=== PATIENT | female | born 1945 | race Caucasian/White ===

== ENCOUNTER 2024-03-28 17:40 | Inpatient (IN) | payer MEDICARE, SELFPAY ==
--- NOTE | ~2024-03-28 | CT_ITS ---
EXAMINATION: CT facial & cervical spine wo DATE: 03/28/2024 22:21 INDICATION: fall; old injuries to face TECHNIQUE: Computed tomography (CT) of the maxillofacial region and cervical spine was performed with out intravenous contrast. Automated exposure control and iterative reconstruction technique were empl oyed. The dose-length product was 271.82 mGy-cm. COMPARISON: None FINDINGS: CERVICAL: Vertebral Body Alignment: Intact. Craniocervical and atlantoaxial alignment: Moderate degenerative change. Alignment intact. Osseous structures/fracture: No evidence of a lytic or blastic process in the visualized spine. No e vidence of acute fracture. Cervical soft tissues: The paraspinal soft tissues planes are maintained. Biapical pleural scarring. Degenerative changes: Degenerative changes, without severe neural foraminal or central canal narrowin g. FACE: Soft Tissues: No significant superficial soft tissue swelling. Facial bones: No acute fracture. No lytic or blastic process. Chronic appearing compression and left fuchs deviation of the nasal bones. Eyes: The globes are intact. The soft tissue planes of the orbits are maintained. Paranasal Sinuses: Aerated secretions in a right posterior ethmoid air cell and the left sphenoid si nus. Foreign Bodies: No radiopaque foreign bodies. Other Findings: None. IMPRESSION: No acute fracture or traumatic malalignment in the cervical spine. No acute facial bone fracture. Mildly depressed/displaced nasal bone fractures, likely chronic unless accompanied by acute pain/tenderness. Aerated secretions in the right ethmoid and left sphenoid sinuses, may represent acute sinusitis or m ild mucosal hemorrhage in the setting of trauma. Reviewed, dictated and finalized at location K. AUTOMOBILE ASSEMBLER IMPRESSION: No acute fracture or traumatic malalignment in the cervical spine. No acute facial bone fracture. Mildly depressed/displaced nasal bone fractures, likely chronic unless accompanied by acute pain/tenderness. Aerated secretions in the right ethmoid and left sphenoid sinuses, may represen t acute sinusitis or mild mucosal hemorrhage in the setting of trauma.
--- NOTE | ~2024-03-28 | XR_ITS ---
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 RESULT: Lines, tubes, and devices: Loop recorder. Atrial occlusion device. Lungs and pleura: Clear. Cardiomediastinal silhouette: Stable. Other: No acute osseous or upper abdominal finding. IMPRESSION: No acute cardiopulmonary process. Reviewed, dictated and finalized at location K. MBLING MACHINE OPERATOR
--- NOTE | ~2024-03-28 | CT_ITS ---
EXAMINATION: CT brain wo con DATE: 03/28/2024 22:21 INDICATION: glf . TECHNIQUE: Computed tomography (CT) of the head was performed without intravenous contrast. The mA wa s adjusted according to patient size. Iterative reconstruction technique was employed. The dose-lengt h product was 681.00 mGy-cm. COMPARISON: None. FINDINGS: No acute intracranial hemorrhage or extra-axial fluid collection. No hydrocephalus, mass, or herniation. No acute ischemic infarct. Unremarkable dural venous sinus attenuation. No acute osseous abnormality. Aerated secretions in the left sphenoid sinus, the remaining aerated spaces are clear. Mild atrophy and moderate chronic white matter change. Atherosclerotic intracranial calcification. Bi lateral lens replacements. 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 IMPRESSION: No acute intracranial process. Reviewed, dictated and finalized at location K. L FABRICATING INSPECTOR
[2024-03-28 17:51] VITALS: BP 117/63; PULSE 86; RESP 16; TEMP 36.7; O2SAT 99
--- NOTE | 2024-03-28 21:52 | ED.FALL ---
HPI - Fall General Chief Complaint: Fall Stated Complaint: glf Time Seen by Provider: 03/28/24 21:04 Source: patient and RN notes reviewed History of Present Illness HPI Narrative: Patient presents after a ground level fall. She reports that she fell earlier in the week, states it was on Monday but that she didn't present to the ED at that time. Rather, a nurse applied some steri strips and dressed her other facial wounds/abrasions. Today she states she was helping her when he fell. Denies hitting her head or her face today. No complaints including no chest pain, abdominal pain, headache, cough or difficulty breathing. She states I have a UTI. Says her doctor thought she might have one but hasn't collected urine sample yet and she is hoping this can be done today while in the ED. Usually ambulates with a walker. Says she doesn't know why she fell exactly today though thinks it may be due to weakness since she states she was told by staff that she has been more weak. Had initially had a bowel movement in pants per RN report upon arrival. Related Data Home Medications ?Medication ?Instructions ?Recorded ?Confirmed ?Last Taken ?Type acetaminophen 500 mg tablet 500 mg PO Q4H PRN pain 03/29/24 03/29/24 Unknown History albuterol sulfate 90 mcg/actuation 1 puff inhalation Q4H PRN 03/29/24 03/29/24 Unknown History aerosol inhaler (Ventolin HFA) shortness of breath or wheezing bisacodyl 10 mg rectal suppository 10 mg RECTAL DAILY PRN constipation 03/29/24 03/29/24 Unknown History (Dulcolax (bisacodyl)) carbidopa 25 mg-levodopa 100 mg 2 tablet PO TID 03/29/24 03/29/24 Unknown History tablet cyanocobalamin (vitamin B-12) 1,000 mcg PO DAILY 03/29/24 03/29/24 Unknown History 1,000 mcg capsule docusate sodium 100 mg tablet 100 mg PO BID 03/29/24 03/29/24 Unknown History donepezil 10 mg tablet 10 mg PO HS 03/29/24 03/29/24 Unknown History eucerin original healing cream See Rx Instructions topical Q8H 03/29/24 03/29/24 Unknown History PRN dry skin loperamide 2 mg tablet 2 mg PO Q6H PRN loose stool 03/29/24 03/29/24 Unknown History (Anti-Diarrheal (loperamide)) magnesium hydroxide 400 mg/5 mL 30 ml PO DAILY PRN constipation 03/29/24 03/29/24 Unknown History oral suspension metoprolol succinate 25 mg 25 mg PO DAILY 03/29/24 03/29/24 Unknown History tablet,extended release 24 hr polyethylene glycol ea miscellaneous DAILY 03/29/24 Unknown History sertraline 50 mg tablet 50 mg PO Q24H 03/29/24 03/29/24 Unknown History Allergies Allergy/AdvReac Type Severity Reaction Status Date / Time tetracycline Allergy Mild ORAL Verified 03/28/24 23:20 ISABELL demeclocycline Allergy Unknown Unknown Verified 03/28/24 23:20 Penicillins Allergy Unknown Unknown Verified 03/28/24 23:20 Sulfa (Sulfonamide Allergy Unknown Unknown Verified 03/28/24 23:20 Antibiotics) sulfanilamide Allergy Unknown Unknown Verified 03/28/24 23:20 Tetanus Vaccines and Toxoid Allergy Unknown Unknown Verified 03/28/24 23:20 COUNTS INCLUDE 234 BEDS AT THE [facility] Past Medical History Medical History Mild intermittent asthma, uncomplicated Aphasia Repeated falls Hyperlipidemia Parkinsonism, unspecified Major depressive disorder, recurrent, in partial remission Vitamin B12 deficiency 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 Essential (primary) hypertension Anxiety disorder, unspecified Paroxysmal atrial fibrillation Unspecified dementia, unspecified severity, without behavioral disturbance, psychotic disturbance, mood disturbance, and anxiety Family History Family History Father Family history of coronary artery disease Grandparent Family history of coronary artery disease Sibling Family history of coronary artery disease Mother Patient's mother is Social History Social History (Updated 03/29/24 @ 17:06 by Cassandra Abdi MD) Social History: Ambulates with walker Code status: DNR per intermediate documentation Smoking status: Never smoker Second hand tobacco smoke exposure: No Alcohol intake: current Substance use: never Substance use type: does not use Do You Feel Safe in your Home?: Yes Lack of Transportation: No Lack of Food: Never True Current Housing: I Have Housing Concerned About Future Housing: No Difficulty Paying Gas/Electric Bills: No Difficulty Paying for Meds: No Currently Unemployed: No Education: Bachelor's Degree Difficulty w/ Childcare or Family Care: No Additional living arrangements comments: [facility] concerns: No Exam Narrative: GENERAL: Well-appearing, well-nourished, and in no acute distress. HEAD: Scattered abrasions and superficial lacerations across right side of face/forehead. Small steristrip intact overlying one. EYES: Non injected, non icteric ENT: Nares clear, no rhinorrhea or epistaxis. No septal hematoma. NECK: Supple. CHEST: Speaking in full sentences. No respiratory distress. HEART: Regular rate and rhythm. . ABDOMEN: Soft, nondistended. EXTREMITIES: Normal range of motion. SKIN: Warm, dry. NEURO: No focal deficits. Alert and oriented. No abnormal movements. Speaks slowly but clearly. PSYCH: Normal mood and affect. Course Vital Signs Vital signs: Vital Signs Temperature 98.1 F 03/28/24 17:51 Pulse Rate 86 03/28/24 17:51 Respiratory Rate 16 03/28/24 17:51 Blood Pressure 117/63 03/28/24 17:51 Pulse Oximetry 99 03/28/24 17:51 Temperature 98.5 F 03/29/24 14:00 Pulse Rate 71 03/29/24 14:00 Respiratory Rate 18 03/29/24 14:00 Blood Pressure 115/56 L 03/29/24 14:00 Pulse Oximetry 95 03/29/24 14:00 Oxygen Delivery Room Air 03/29/24 09:13 MDM - Fall MDM Narrative Medical decision making narrative: Patient presents after a ground level fall. She is concerned for a UTI and reports weakness. In the emergency department they are afebrile with vital signs within normal limits. Will obtain labs and imaging including CXR as well as brain, c spine and facial bones CT. Patient does have a history of paroxysmal atrial fibrillation per review of intermediate documentation however does not appear to be on anticoagulation according to this nursing documentation. For nasal bone fracture, patient given clindamycin and nasal spray and nasal precautions. No septal hematoma. Patient is reassessed at approximately 10:50 p.m. and she is requesting something a drink. Will PO challenge and attempt ambulation (with walker given this is what she uses at baseline, although states has been so weak requiring wheelchair recently). Urinalysis is concerning for urinary tract infection. No prior culture in the EMR for review thus will give ceftriaxone. Mild leukocytosis. Patient attempts to ambulate with assistance even using a walker but it is reported by staff/techs that she nearly falls multiple times and required significant assistance. For this reason, it does not appear safe to discharge her back to facility. She has successfully p.o. challenged. Discussed with the patient the need for admission. Code status from [place] documentation notes DNR. Discussed with integrity consultant hospitalist Dr Richardson and orders placed including PT/OT evaluation and recommendations. Differential Diagnosis Differential diagnosis: Likely syncope, compression fracture, concussion with loss of consciousness, concussion without loss of consciousness and other (UTI, pneumonia, acute viral syndrome; generalized weakness; advancing/progression of disease; intracranial hemorrhage) Lab Data Attestation: I reviewed the patient's lab results. 03/28/24 22:53 03/28/24 22:53 Labs: Lab Results 03/28/24 03/28/24 Range/Units 22:53 23:03 WBC 10.7 H (4.5-10.0) K/mm3 RBC 4.57 (4.2-5.4) M/mm3 Hgb 13.3 (12.0-15.0) g/dL Hct 40.6 (37.0-47.0) % MCV 88.8 (80-100) fl MCH 29.1 (26-34) pg MCHC 32.8 (32-36) g/dl RDW 14.4 (11.5-14.5) % Plt Count 282 (150-375) k/mm3 MPV 9.3 (7.4-10.4) fl Immature Gran % (Auto) 0.5 (0-0.5) % Neut % (Auto) 71.0 (45.5-73.1) % Lymph % (Auto) 18.3 (18.3-44.2) % [place] % (Auto) 8.5 (2.6-8.5) % Eos % (Auto) 1.2 (0-4.4) % Baso % (Auto) 0.5 (0.2-1.2) % Lymph # (Auto) 1.97 (0.9-3.2) K/mm3 [place] # (Auto) 0.9 H (0.1-0.6) K/mm3 Eos # (Auto) 0.1 (0-0.3) K/mm3 Baso # (Auto) 0.1 (0.0-0.1) K/mm3 Abs Immat Gran (auto) 0.05 H (0.00-0.031) K/mm3 Absolute Neuts (auto) 7.6 H (1.3-6.7) K/mm3 Absolute Nucleated RBC 0.000 (0.0-0.012) K/mm3 Nucleated RBC % 0.0 (0.0-0.2) % Sodium 141 (137-145) mmol/L Potassium 3.7 (3.4-5.0) mmol/L Chloride 102 (98-107) mmol/L Carbon Dioxide 28 (22-30) mmol/L Anion Gap 11 (4-12) mmol/L BUN 20 H (7-17) mg/dL Creatinine 0.66 L (0.7-1.0) mg/dL Estim Creat Clear Calc Not Reportable Estimated GFR > 60 (59 - ) Glucose 97 (65-110) mg/dL Calcium 9.2 (8.4-10.2) mg/dL Urine Color Yellow (Yellow) Urine Appearance Cloudy H (Clear) Urine pH 5.5 (5.0-9.0) Ur Specific [place] 1.018 (1.001-1.035) Urine Protein Negative (Negative) mg/dL Urine Glucose (UA) Negative (Negative) mg/dL Urine Ketones Trace H (Negative) mg/dL Ur Blood (Man) Negative (Negative) Urine Nitrate Positive H (Negative) Urine Bilirubin Negative (Negative) Urine Urobilinogen 0.2 (<2.0) mg/dL Leukocyte Esterase Rfl 1+ H (Negative) LINDY/UL Urine RBC 3-5 H (0-2) /hpf Urine WBC 6-10 H (0-3) /hpf Ur Squamous Epith Cells None seen (Few) /hpf Urine Bacteria 4+ H /hpf Urine Casts 0-2 Influenza A (RT-PCR) Negative (Negative) Influenza B (RT-PCR) Negative (Negative) RSV (RT-PCR) Negative (Negative) SARS-CoV-2 RNA (RT-PCR) Negative (Negative) Imaging Data Radiologist's impression: Impressions Chest X-Ray 03/28/24 22:15 IMPRESSION: No acute cardiopulmonary process. Head CT 03/28/24 22:24 IMPRESSION: No acute intracranial process. Head/Cervical Spine/Facial Bones CT 03/28/24 22:27 IMPRESSION: No acute fracture or traumatic malalignment in the cervical spine. No acute facial bone fracture. Mildly depressed/displaced nasal bone fractures, likely chronic unless accompanied by acute pain/tenderness. Aerated secretions in the right ethmoid and left sphenoid sinuses, may represent acute sinusitis or mild mucosal hemorrhage in the setting of trauma. Discharge Plan Discharge Clinical Impression: Fall, Fracture of nasal bone, Weakness generalized, UTI (urinary tract infection), Leukocytosis Patient Disposition: Still a Patient Condition: Stable
[2024-03-28] MEDS: ACETAMINOPHEN 500 MG TABLET 1000 MG PO (23:12)
[2024-03-28] MEDS: CLINDAMYCIN HCL 150 MG CAP 300 MG PO (23:20)
[2024-03-28] MEDS: SALINE 0.65% NAS SOLN 44 ML BTL 1 SPRAY NASAL (23:21)
[2024-03-28 23:22] LABS: Add Urine Microscopic? YES; Appearance Urine Cloudy (Clear); Bacteria Urine 4+ /hpf; Bilirubin Urine Negative (Negative); Blood Urine Negative (Negative); Color Urine Yellow (Yellow); Glucose Urine UA Negative (Negative); Ketones Urine Trace mg/dL (Negative); Leukocyte Esterase Ur 1+ LEU/UL (Negative); Nitrate Urine Positive (Negative); Non Pathogenic Casts 0-2; Protein Urine Negative (Negative); Specific Grav Ur 1.018 (1.001-1.035); Squamous Epithelial Cell Urine None Seen /hpf (Few); Urobilinogen Urine 0.2 mg/dL (<2.0); pH Urine 5.5 (5.0-9.0)
[2024-03-28 23:22] LABS: Basophils Absolute Auto 0.1 K/mm3 (0.0-0.1); Basophils Percent Auto 0.5 % (0.2-1.2); Eosinophils Absolute Auto 0.1 K/mm3 (0-0.3); Eosinophils Percent Auto 1.2 % (0-4.4); Hematocrit 40.6 % (37.0-47.0); Hemoglobin 13.3 g/dL (12.0-15.0); Immature Granulocyte Absolute 0.05 K/mm3 (0.00-0.031); Immature Granulocyte Percent A 0.5 % (0-0.5); Lymphocytes Absolute Auto 1.97 K/mm3 (0.9-3.2); Lymphocytes Percent Auto 18.3 % (18.3-44.2); Mean Corpuscular HGB Conc 32.8 g/dl (32-36); Mean Corpuscular Hemoglobin 29.1 pg (26-34); Mean Corpuscular Volume 88.8 fl (80-100); Mean Platelet Volume 9.3 fl (7.4-10.4); Monocytes Absolute Auto 0.9 K/mm3 (0.1-0.6); Monocytes Percent Auto 8.5 % (2.6-8.5); Neutrophils Absolute Auto 7.6 K/mm3 (1.3-6.7); Platelet Count Result 282 k/mm3 (150-375); Red Blood Count 4.57 M/mm3 (4.2-5.4); Red Cell Distribution Width 14.4 % (11.5-14.5); White Blood Count 10.7 K/mm3 (4.5-10.0)
[2024-03-28 23:25] LABS: Anion Gap 11 mmol/L (4-12); Blood Urea Nitrogen 20 mg/dL (7-17); Calcium 9.2 mg/dL (8.4-10.2); Carbon Dioxide 28 mmol/L (22-30); Chloride 102 mmol/L (98-107); Estimated Glomerular Filt Rate > 60; Glucose 97 mg/dL (65-110); Potassium 3.7 mmol/L (3.4-5.0); Sodium 141 mmol/L (137-145)
[2024-03-28 23:51] LABS: Influenza A QL RT-PCR Negative (Negative); Influenza B QL RT-PCR Negative (Negative); RSV RNA, RT-PCR Negative (Negative); SARS-CoV-2 RNA PCR Negative (Negative)
[2024-03-29] VITALS (10 sets, daily range): BP systolic 115–134; BP diastolic 51–79; PULSE 60–84; RESP 12–18; TEMP 36.2–37.2; O2SAT 95–100; BMI 29.4
--- NOTE | 2024-03-29 00:14 | P.HP_ITS ---
H&P: HPI History of Present Illness Date/Time: 03/29/24 00:14 Chief Complaint: fall Narrative: This is a 78-year-old female with past medical history significant for Parkinson's disease, patient is wheelchair-bound, able to walk short distances with a walker, dementia, dyslipidemia, hypertension, paroxysmal atrial fibrillation. Patient was brought to the emergency room in a separate ambulance after she and her fell according to he was looking for a shoe when his landed on him there were found by her caregiver an ambulance was called. Patient has been having recurrent falls recently discharged from [facility]. Preliminary workup has been essentially nonrevealing. Patient has been placed in observation. 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 RESULT: Lines, tubes, and devices: Loop recorder. Atrial occlusion device. Lungs and pleura: Clear. Cardiomediastinal silhouette: Stable. Other: No acute osseous or upper abdominal finding. IMPRESSION: No acute cardiopulmonary process. EXAMINATION: CT brain wo con DATE: 03/28/2024 22:21 INDICATION: glf . TECHNIQUE: Computed tomography (CT) of the head was performed without intravenous contrast. The mA was adjusted according to patient size. Iterative reconstruction technique was employed. The dose-length product was 681.00 mGy- cm. COMPARISON: None. FINDINGS: No acute intracranial hemorrhage or extra-axial fluid collection. No hydrocephalus, mass, or herniation. No acute ischemic infarct. Unremarkable dural venous sinus attenuation. No acute osseous abnormality. Aerated secretions in the left sphenoid sinus, the remaining aerated spaces are clear. Mild atrophy and moderate chronic white matter change. Atherosclerotic intracranial calcification. Bilateral lens replacements. 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 IMPRESSION: No acute intracranial process. Review of Systems Review of Systems: fall [facility] Past Medical History Medical History Mild intermittent asthma, uncomplicated Aphasia Repeated falls Hyperlipidemia Parkinsonism, unspecified Major depressive disorder, recurrent, in partial remission Vitamin B12 deficiency 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 Essential (primary) hypertension Anxiety disorder, unspecified Paroxysmal atrial fibrillation Unspecified dementia, unspecified severity, without behavioral disturbance, psychotic disturbance, mood disturbance, and anxiety Family History Family History Father Family history of coronary artery disease Grandparent Family history of coronary artery disease Sibling Family history of coronary artery disease Mother Patient's mother is Social History Social History (Updated 03/29/24 @ 17:06 by Cassandra Abdi MD) Social History: Ambulates with walker Code status: DNR per [facility] documentation Smoking status: Never smoker Second hand tobacco smoke exposure: No Alcohol intake: current Substance use: never Substance use type: does not use Do You Feel Safe in your Home?: Yes Lack of Transportation: No Lack of Food: Never True Current Housing: I Have Housing Concerned About Future Housing: No Difficulty Paying Gas/Electric Bills: No Difficulty Paying for Meds: No Currently Unemployed: No Education: Bachelor's Degree Difficulty w/ Childcare or Family Care: No Additional living arrangements comments: [address] [facility] concerns: No Meds Home Medications and Allergies Home Medications ?Medication ?Instructions ?Recorded ?Confirmed ?Type acetaminophen 500 mg tablet 500 mg PO Q4H PRN pain 03/29/24 03/29/24 History albuterol sulfate 90 mcg/actuation 1 puff inhalation Q4H PRN 03/29/24 03/29/24 History aerosol inhaler (Ventolin HFA) shortness of breath or wheezing bisacodyl 10 mg rectal suppository 10 mg RECTAL DAILY PRN constipation 03/29/24 03/29/24 History (Dulcolax (bisacodyl)) carbidopa 25 mg-levodopa 100 mg 2 tablet PO TID 03/29/24 03/29/24 History tablet cyanocobalamin (vitamin B-12) 1,000 mcg PO DAILY 03/29/24 03/29/24 History 1,000 mcg capsule docusate sodium 100 mg tablet 100 mg PO BID 03/29/24 03/29/24 History donepezil 10 mg tablet 10 mg PO HS 03/29/24 03/29/24 History eucerin original healing cream See Rx Instructions topical Q8H 03/29/24 03/29/24 History PRN dry skin loperamide 2 mg tablet 2 mg PO Q6H PRN loose stool 03/29/24 03/29/24 History (Anti-Diarrheal (loperamide)) magnesium hydroxide 400 mg/5 mL 30 ml PO DAILY PRN constipation 03/29/24 03/29/24 History oral suspension metoprolol succinate 25 mg 25 mg PO DAILY 03/29/24 03/29/24 History tablet,extended release 24 hr polyethylene glycol ea miscellaneous DAILY 03/29/24 History sertraline 50 mg tablet 50 mg PO Q24H 03/29/24 03/29/24 History Allergies Allergy/AdvReac Type Severity Reaction Status Date / Time tetracycline Allergy Mild ORAL Verified 03/28/24 23:20 ISABELL demeclocycline Allergy Unknown Unknown Verified 03/28/24 23:20 Penicillins Allergy Unknown Unknown Verified 03/28/24 23:20 Sulfa (Sulfonamide Allergy Unknown Unknown Verified 03/28/24 23:20 Antibiotics) sulfanilamide Allergy Unknown Unknown Verified 03/28/24 23:20 Tetanus Vaccines and Toxoid Allergy Unknown Unknown Verified 03/28/24 23:20 Vital Signs Vital Signs - 24 hr 03/28/24 17:51 Temperature 98.1 F Pulse Rate 86 Respiratory Rate 16 Blood Pressure 117/63 Pulse Oximetry 99 Exam Narrative: Laying in a stretcher Const: General: comfortable, no acute distress, well developed, alert, awake and obese Nutritional Appearance: obese Orientation/consciousness: oriented to person and oriented to place HENMT: Head: normal to inspection, normocephalic and atraumatic Ears: hearing grossly normal bilaterally Face/Nose/Sinus: normal facial exam Face and sinus: normal facial exam Other: Abrasion wound above right orbit Eyes: General: appearance normal, both eyes and all related structures Pupils: Equal, round and reactive pupils present EOM: EOMs intact bilaterally Neck: Neck: full ROM, no lymphadenopathy and no JVD Thyroid: thyroid normal Lymphatic: no lymphadenopathy noted Resp: Effort & Inspection: normal respiratory effort and able to speak in complete sentences Auscultation: clear to auscultation bilaterally Cardio: Jugular venous distension: no JVD Rate: regular rate Rhythm: regular rhythm Heart sounds: S1 normal heart sound present and S2 normal heart sound present GI: GI Palp: Yes Soft to palpation and Yes No hepatosplenomegaly present : General: Yes deferred Skin: Rashes: no rashes Wounds: no wounds Neuro: General: oriented to person, oriented to place, moves all extremities, no focal motor deficits and CN's II-XI intact bilaterally Cranial nerves: Yes CN's II-XII intact bilaterally and Yes Equal, round and reactive pupils present Cognition (Neuro): normal cognition Speech: normal speech Gait exam (Neuro): Unable to assess gait Motor exam (neuro): 5/5 motor strength present throughout Extrem: General: normal to inspection, full ROM, no joint enlargement and no pedal edema H&P: Results Labs Labs: Short CBC 03/28/24 Range/Units 22:53 WBC 10.7 H (4.5-10.0) K/mm3 Hgb 13.3 (12.0-15.0) g/dL Hct 40.6 (37.0-47.0) % Plt Count 282 (150-375) k/mm3 BMP 03/28/24 22:53 Sodium 141 Potassium 3.7 Chloride 102 Carbon Dioxide 28 BUN 20 H Creatinine 0.66 L Glucose 97 Calcium 9.2 Urine 03/28/24 Range/Units 23:03 Urine Color Yellow (Yellow) Urine Appearance Cloudy H (Clear) Urine pH 5.5 (5.0-9.0) Ur Specific [place] 1.018 (1.001-1.035) Urine Protein Negative (Negative) mg/dL Urine Glucose (UA) Negative (Negative) mg/dL Assessment and Plan Assessment and plan (1) UTI (urinary tract infection): Code(s): N39.0 - Urinary tract infection, site not specified Status: Acute Assessment and Plan: Admit to regular med Patient started on Rocephin Await cultures (2) Leukocytosis: Code(s): D72.829 - Elevated white blood cell count, unspecified Status: Acute Assessment and Plan: Continue to trend (3) Fall: Code(s): W19.XXXA - Unspecified fall, initial encounter Status: Acute Assessment and Plan: Fall precautions (4) Weakness generalized: Code(s): R53.1 - Weakness Status: Acute Assessment and Plan: Likely secondary to chronic illness (5) Parkinson's disease: Code(s): G20.A1 - Parkinson's disease without dyskinesia, without mention of fluctuations Status: Acute Assessment and Plan: Continue home meds Hospitalist [facility] Advance Care Plan I have confirmed that the patient's Advanced Care Plan is present, code status is documented, or surrogate decision maker is listed in patient medical record.: Yes Medication Reconciliation I have utilized all available resources to obtain, update and review the patients current medications (includes all prescriptions, OTC, herbals, cannabis, and nutritional supplements).: Yes
--- NOTE | 2024-03-29 04:08 | ADMGEN ---
This patient, Vanda Mayberry, was admitted to [facility] Surg Room 329-01. Patient/family oriented to hospital policies and general routines including ID bracelet, bed and alarms, visiting hours, pain management, procedures, bathroom and other care routines, personal items, smoking policy, room service/diet, and visiting hours. Information on how to activate the Rapid Response Team has been discussed. Patient/Family are encouraged to report perceived risks to care and to ask questions if they do not understand what they are told or what they should do.
--- NOTE | 2024-03-29 11:25 | PM.IMPN ---
Progress Note: A&P Assessment and Plan (1) UTI (urinary tract infection): Code(s): N39.0 - Urinary tract infection, site not specified Status: Acute (2) Leukocytosis: Code(s): D72.829 - Elevated white blood cell count, unspecified Status: Acute (3) Fall: Code(s): W19.XXXA - Unspecified fall, initial encounter Status: Acute (4) Weakness generalized: Code(s): R53.1 - Weakness Status: Acute Plan This is a 78-year-old female who presented to the ED after a fall. She had recurrent history of recurrent falls. halfway resident On the ED evaluation her vitals were stable. Laboratory evaluation revealed WBC of 10.7 hemoglobin 13.3 Chem panel was unremarkable. Urinalysis positive for UTI influenza RSV COVID swab was negative. Chest x-ray with no acute cardiopulmonary process. CT head with no acute intracranial process. Old right cerebellar infarct. Mild atrophy and moderate chronic white matter changes were noted. No bony injuries were noted except noted Mildly displaced/depressed nasal bone fractures likely chronic. Dementia on donepezil which will be continued PT OT will be consulted for evaluation. UTI be treated with IV ceftriaxone which is ordered. Follow urine culture. Parkinson's disease on carbidopa levodopa DVT prophylaxis Lovenox code status do not resuscitate Subjective Date/time seen: 03/29/24 11:25 Interval history: Chart reviewed. Patient had a fall. Also fell a week ago. No shortness of breath chest pain. She is in a wheelchair at home. She tried to last picker something from her floor before she fell. Review of Systems Review of Systems: All systems reviewed & are unremarkable except as noted in HPI and below Exam Narrative: GENERAL: Ill-appearing, and in no acute distress. HEAD: Normocephalic, atraumatic. EYES: Non injected, non icteric ENT: Nares clear, no rhinorrhea or epistaxis. No septal hematoma. NECK: Supple. CHEST: Speaking in full sentences. No respiratory distress. HEART: Regular rate and rhythm. . ABDOMEN: Soft, nondistended. Nontender EXTREMITIES: Normal range of motion. No lower extremity edema. SKIN: Warm, dry, no rash. NEURO: No focal deficits. Alert and oriented x3. Slow respond PSYCH: Normal mood and affect. Objective Data Vital Signs Vital Signs: Vital Signs - 24 hr 03/28/24 17:51 03/29/24 02:47 03/29/24 03:16 Temperature 98.1 F 98.9 F 97.1 F L Pulse Rate 86 84 61 Respiratory Rate 16 16 16 Blood Pressure 117/63 120/79 134/68 Pulse Oximetry 99 97 100 Oxygen Delivery 03/29/24 04:14 03/29/24 04:17 03/29/24 06:00 Temperature 97.4 F L Pulse Rate 61 61 62 Respiratory Rate 16 16 16 Blood Pressure 133/71 Pulse Oximetry 100 100 98 Oxygen Delivery Room Air Room Air 03/29/24 09:13 Temperature Pulse Rate Respiratory Rate Blood Pressure Pulse Oximetry 97 Oxygen Delivery Room Air Intake/Output Intake/Output: Intake & Output 03/26/24 03/27/24 03/28/24 03/29/24 23:59 23:59 23:59 23:59 Intake Total 504 Output Total 110 Balance -110 504 Meds/Results Medications: Active Medications Generic Name Dose Route Start Last Admin Trade Name Freq PRN Reason Stop Dose Admin Acetaminophen 650 mg 03/29/24 00:16 Acetaminophen 325 Mg Tablet PO Q4H PRN Mild Pain (1-3) or Fever Ondansetron HCl 4 mg 03/29/24 00:16 Ondansetron Inj 4 Mg/2 Ml Vial IV PUSH Q4H PRN Nausea Radiology Results: ITS Impressions Chest X-Ray 03/28/24 22:15 IMPRESSION: No acute cardiopulmonary process. Head CT 03/28/24 22:24 IMPRESSION: No acute intracranial process. Head/Cervical Spine/Facial Bones CT 03/28/24 22:27 IMPRESSION: No acute fracture or traumatic malalignment in the cervical spine. No acute facial bone fracture. Mildly depressed/displaced nasal bone fractures, likely chronic unless accompanied by acute pain/tenderness. Aerated secretions in the right ethmoid and left sphenoid sinuses, may represent acute sinusitis or mild mucosal hemorrhage in the setting of trauma. Labs Labs: Laboratory Results - last 24 hr 03/28/24 03/28/24 22:53 23:03 WBC 10.7 H RBC 4.57 Hgb 13.3 Hct 40.6 MCV 88.8 MCH 29.1 MCHC 32.8 RDW 14.4 Plt Count 282 MPV 9.3 Immature Gran % (Auto) 0.5 Neut % (Auto) 71.0 Lymph % (Auto) 18.3 [place] % (Auto) 8.5 Eos % (Auto) 1.2 Baso % (Auto) 0.5 Lymph # (Auto) 1.97 [place] # (Auto) 0.9 H Eos # (Auto) 0.1 Baso # (Auto) 0.1 Abs Immat Gran (auto) 0.05 H Absolute Neuts (auto) 7.6 H Absolute Nucleated RBC 0.000 Nucleated RBC % 0.0 Sodium 141 Potassium 3.7 Chloride 102 Carbon Dioxide 28 Anion Gap 11 BUN 20 H Creatinine 0.66 L Estim Creat Clear Calc Not Reportable Estimated GFR > 60 Glucose 97 Calcium 9.2 Urine Color Yellow Urine Appearance Cloudy H Urine pH 5.5 Ur Specific [place] 1.018 Urine Protein Negative Urine Glucose (UA) Negative Urine Ketones Trace H Ur Blood (Man) Negative Urine Nitrate Positive H Urine Bilirubin Negative Urine Urobilinogen 0.2 Leukocyte Esterase Rfl 1+ H Urine RBC 3-5 H Urine WBC 6-10 H Ur Squamous Epith Cells None seen Urine Bacteria 4+ H Urine Casts 0-2 Influenza A (RT-PCR) Negative Influenza B (RT-PCR) Negative RSV (RT-PCR) Negative SARS-CoV-2 RNA (RT-PCR) Negative
[2024-03-29] MEDS: SERTRALINE HCL 50 MG TABLET PO (12:13)
[2024-03-29] MEDS: CARBIDOPA/LEVODOPA 25/100 MG TABLET 2 TABLET PO ×2 (12:13→16:23)
[2024-03-29] MEDS: METOPROLOL SUCCINATE EXT REL 25 MG TABCR PO (12:13)
[2024-03-29] MEDS: CYANOCOBALAMIN 1,000 MCG TABLET 1000 MCG PO (12:13)
[2024-03-29] MEDS: DOCUSATE SODIUM 100 MG CAPSULE PO (16:23)
[2024-03-29] MEDS: DONEPEZIL HCL 10 MG TABLET PO (20:20)
[2024-03-30 05:33] VITALS: BP 119/61; PULSE 66; RESP 14; TEMP 37; O2SAT 97
[2024-03-30 06:49] LABS: Basophils Percent Auto 0.5 % (0.2-1.2); Eosinophils Absolute Auto 0.2 K/mm3 (0-0.3); Eosinophils Percent Auto 2.6 % (0-4.4); Hematocrit 36.8 % (37.0-47.0); Hemoglobin 12.2 g/dL (12.0-15.0); Immature Granulocyte Absolute 0.04 K/mm3 (0.00-0.031); Immature Granulocyte Percent A 0.5 % (0-0.5); Lymphocytes Absolute Auto 1.73 K/mm3 (0.9-3.2); Lymphocytes Percent Auto 23.3 % (18.3-44.2); Mean Corpuscular HGB Conc 33.2 g/dl (32-36); Mean Corpuscular Hemoglobin 29.6 pg (26-34); Mean Corpuscular Volume 89.3 fl (80-100); Mean Platelet Volume 9.2 fl (7.4-10.4); Monocytes Absolute Auto 0.6 K/mm3 (0.1-0.6); Monocytes Percent Auto 7.7 % (2.6-8.5); Neutrophils Absolute Auto 4.9 K/mm3 (1.3-6.7); Neutrophils Percent Auto 65.4 % (45.5-73.1); Platelet Count Result 220 k/mm3 (150-375); Red Blood Count 4.12 M/mm3 (4.2-5.4); Red Cell Distribution Width 14.4 % (11.5-14.5); White Blood Count 7.4 K/mm3 (4.5-10.0)
[2024-03-30 07:05] LABS: Alanine Aminotransferase 14 U/L (6-35); Albumin Level 3.8 g/dL (3.5-5.1); Alkaline Phosphatase 79 U/L (38-126); Anion Gap 8 mmol/L (4-12); Aspartate Amino Transferase 19 U/L (14-36); Bilirubin,Total 0.6 mg/dL (0.2-1.3); Blood Urea Nitrogen 15 mg/dL (7-17); Carbon Dioxide 25 mmol/L (22-30); Chloride 105 mmol/L (98-107); Estimated CRCL calculation 62 ml/min; Estimated Glomerular Filt Rate > 60; Glucose 92 mg/dL (65-110); Potassium 3.9 mmol/L (3.4-5.0); Sodium 138 mmol/L (137-145)
[2024-03-30] MEDS: CARBIDOPA/LEVODOPA 25/100 MG TABLET 2 TABLET PO ×3 (08:46→16:22)
[2024-03-30 08:47] VITALS: PULSE 60
[2024-03-30] MEDS: SERTRALINE HCL 50 MG TABLET PO (08:47)
[2024-03-30] MEDS: DOCUSATE SODIUM 100 MG CAPSULE PO ×2 (08:47→16:22)
[2024-03-30] MEDS: CYANOCOBALAMIN 1,000 MCG TABLET 1000 MCG PO (08:47)
[2024-03-30] MEDS: METOPROLOL SUCCINATE EXT REL 25 MG TABCR PO (08:47)
--- NOTE | 2024-03-30 10:51 | P.PNIM_ITS ---
Progress Note: A&P Assessment and Plan (1) UTI (urinary tract infection): Code(s): N39.0 - Urinary tract infection, site not specified Status: Acute Assessment and Plan: Admit to regular med Patient started on Rocephin F/u with Urine culture (2) Leukocytosis: Code(s): D72.829 - Elevated white blood cell count, unspecified Status: Acute Assessment and Plan: resolved (3) Fall: Code(s): W19.XXXA - Unspecified fall, initial encounter Status: Acute Assessment and Plan: Fall precautions PT/OT (4) Weakness generalized: Code(s): R53.1 - Weakness Status: Acute Assessment and Plan: Likely secondary to chronic illness (5) Parkinson's disease: Code(s): G20.A1 - Parkinson's disease without dyskinesia, without mention of fluctuations Status: Acute Assessment and Plan: Continue home meds Subjective Date/time seen: 03/30/24 10:51 Interval history: Patient was lethargic at bedside and slow to respond baseline unknown Review of Systems Review of Systems: fall All systems reviewed & are unremarkable except as noted in HPI and below Exam Narrative: GENERAL: Lethargic HEAD: Normocephalic, atraumatic. EYES: Non injected, non icteric ENT: Nares clear, no rhinorrhea or epistaxis. No septal hematoma. NECK: Supple. CHEST: Speaking in full sentences. No respiratory distress. HEART: Regular rate and rhythm. . ABDOMEN: Soft, nondistended. Nontender EXTREMITIES: Normal range of motion. No lower extremity edema. SKIN: Warm, dry, no rash. NEURO: Lethargic Const: General: comfortable, no acute distress, well developed, alert, awake and obese Nutritional Appearance: obese Orientation/consciousness: oriented to person, oriented to place and patient oriented x3 HENMT: Head: normal to inspection, normocephalic and atraumatic Ears: hearing grossly normal bilaterally Face/Nose/Sinus: normal facial exam Face and sinus: normal facial exam Other: Abrasion wound above right orbit Eyes: General: appearance normal, both eyes and all related structures Pupils: Equal, round and reactive pupils present EOM: EOMs intact bilaterally Neck: Neck: full ROM, no lymphadenopathy and no JVD Thyroid: thyroid normal Lymphatic: no lymphadenopathy noted Resp: Effort & Inspection: normal respiratory effort and able to speak in complete sentences Auscultation: clear to auscultation bilaterally Cardio: Jugular venous distension: no JVD Rate: regular rate Rhythm: regular rhythm Heart sounds: S1 normal heart sound present and S2 normal heart sound present : General: Yes deferred Skin: Rashes: no rashes Wounds: no wounds Neuro: General: oriented to person, oriented to place, patient oriented x3, moves all extremities, no focal motor deficits, CN's II-XI intact bilaterally and Unable to assess gait Cranial nerves: Yes CN's II-XII intact bilaterally and Yes Equal, round and reactive pupils present Cognition (Neuro): normal cognition Speech: normal speech Gait exam (Neuro): Normal gait present and Unable to assess gait Motor exam (neuro): 5/5 motor strength present throughout Extrem: General: normal to inspection, full ROM, no joint enlargement and no pedal edema Objective Data Vital Signs Vital Signs: Vital Signs - 24 hr 03/29/24 12:13 03/29/24 14:00 03/29/24 19:53 Temperature 98.5 F Pulse Rate 60 71 71 Respiratory Rate 18 18 Blood Pressure 115/56 L Pulse Oximetry 95 95 Oxygen Delivery Room Air 03/29/24 21:14 03/30/24 05:33 03/30/24 08:47 Temperature 98.5 F 98.6 F Pulse Rate 66 66 60 Respiratory Rate 12 14 Blood Pressure 119/51 L 119/61 Pulse Oximetry 99 97 Oxygen Delivery 03/30/24 10:00 Temperature Pulse Rate Respiratory Rate Blood Pressure Pulse Oximetry Oxygen Delivery Room Air Intake/Output Intake/Output: Intake & Output 03/27/24 03/28/24 03/29/24 03/30/24 23:59 23:59 23:59 23:59 Intake Total 1362 270 Output Total 110 Balance -110 1362 270 Meds/Results Medications: Active Medications Generic Name Dose Route Start Last Admin Trade Name Freq PRN Reason Stop Dose Admin Acetaminophen 650 mg 03/29/24 00:16 Acetaminophen 325 Mg Tablet PO Q4H PRN Mild Pain (1-3) or Fever Acetaminophen 500 mg 03/29/24 11:29 Acetaminophen 500 Mg Tablet PO Q4H PRN Pain Rated 1-3 Albuterol 1 puff 03/29/24 11:29 Albuterol Sulfate (*Sp) Aerosol 1 Puff INHALATION Q4H PRN shortness of breath or wheezing Bisacodyl 10 mg 03/29/24 11:29 Bisacodyl 10 Mg Suppository RECTAL DAILY PRN constipation Carbidopa/Levodopa 2 tablet 03/29/24 12:00 03/30/24 08:46 Carbidopa/Levodopa 25/100 Mg Tablet PO 2 tablet TIDWM ALONSO Administration Cyanocobalamin 1,000 mcg 03/29/24 11:45 03/30/24 08:47 Cyanocobalamin 1,000 Mcg Tablet PO 1,000 mcg DAILY ALONSO Administration Docusate Sodium 100 mg 03/29/24 17:00 03/30/24 08:47 Docusate Sodium 100 Mg Capsule PO 100 mg BID ALONSO Administration Donepezil HCl 10 mg 03/29/24 21:00 03/29/24 20:20 Donepezil Hcl 10 Mg Tablet PO 10 mg HS ALONSO Administration Ceftriaxone Sodium 1 gm in 50 mls @ 100 mls/hr 03/29/24 21:00 03/29/24 20:19 Rocephin 1 Gm/Ns 50 Ml IVPB 100 mls/hr Q24H ALONSO Administration Loperamide HCl 2 mg 03/29/24 11:29 Loperamide Hcl 2 Mg Capsule PO Q6H PRN loose stool Magnesium Hydroxide 30 ml 03/29/24 11:29 Magnesium Hydroxide Susp 30 Ml Udc PO DAILY PRN constipation Metoprolol Succinate 25 mg 03/29/24 11:45 03/30/24 08:47 Metoprolol Succinate Ext Rel 25 Mg Tabcr PO 25 mg DAILY ALONSO Administration Multi-Ingred Cream/Lotion/Oil/Oint 1 applic 03/29/24 11:40 Eucerin Cream 120 Gm Jar TOPICAL Q8H PRN dry skin Ondansetron HCl 4 mg 03/29/24 00:16 Ondansetron Inj 4 Mg/2 Ml Vial IV PUSH Q4H PRN Nausea Sertraline HCl 50 mg 03/29/24 11:45 03/30/24 08:47 Sertraline Hcl 50 Mg Tablet PO 50 mg DAILY ALONSO Administration Radiology Results: ITS Impressions Chest X-Ray 03/28/24 22:15 IMPRESSION: No acute cardiopulmonary process. Head CT 03/28/24 22:24 IMPRESSION: No acute intracranial process. Head/Cervical Spine/Facial Bones CT 03/28/24 22:27 IMPRESSION: No acute fracture or traumatic malalignment in the cervical spine. No acute facial bone fracture. Mildly depressed/displaced nasal bone fractures, likely chronic unless accompanied by acute pain/tenderness. Aerated secretions in the right ethmoid and left sphenoid sinuses, may represent acute sinusitis or mild mucosal hemorrhage in the setting of trauma. Labs Labs: Laboratory Results - last 24 hr 03/30/24 06:41 WBC 7.4 RBC 4.12 L Hgb 12.2 Hct 36.8 L MCV 89.3 MCH 29.6 MCHC 33.2 RDW 14.4 Plt Count 220 MPV 9.2 Immature Gran % (Auto) 0.5 Neut % (Auto) 65.4 Lymph % (Auto) 23.3 [place] % (Auto) 7.7 Eos % (Auto) 2.6 Baso % (Auto) 0.5 Lymph # (Auto) 1.73 [place] # (Auto) 0.6 Eos # (Auto) 0.2 Baso # (Auto) 0.0 Abs Immat Gran (auto) 0.04 H Absolute Neuts (auto) 4.9 Absolute Nucleated RBC 0.000 Nucleated RBC % 0.0 Sodium 138 Potassium 3.9 Chloride 105 Carbon Dioxide 25 Anion Gap 8 BUN 15 D Creatinine 0.63 L Estim Creat Clear Calc 62 Estimated GFR > 60 Glucose 92 Calcium 9.0 Magnesium 2.0 Total Bilirubin 0.6 AST 19 ALT 14 Alkaline Phosphatase 79 Total Protein 7.0 Albumin 3.8
[2024-03-30 15:35] VITALS: BP 128/56; PULSE 71; RESP 14; TEMP 36.2; O2SAT 100
[2024-03-30 20:00] VITALS: PULSE 60; RESP 16; O2SAT 100
[2024-03-30] MEDS: DONEPEZIL HCL 10 MG TABLET PO (21:05)
[2024-03-30 21:11] VITALS: BP 148/99; PULSE 60; RESP 16; TEMP 36.5; O2SAT 100
[2024-03-31 05:54] VITALS: BP 148/59; PULSE 76; RESP 16; TEMP 36.4; O2SAT 100
[2024-03-31 07:44] LABS: Alanine Aminotransferase 15 U/L (6-35); Alkaline Phosphatase 85 U/L (38-126); Anion Gap 8 mmol/L (4-12); Aspartate Amino Transferase 19 U/L (14-36); Bilirubin,Total 0.6 mg/dL (0.2-1.3); Blood Urea Nitrogen 17 mg/dL (7-17); Calcium 9.2 mg/dL (8.4-10.2); Carbon Dioxide 28 mmol/L (22-30); Chloride 103 mmol/L (98-107); Estimated CRCL calculation 61 ml/min; Estimated Glomerular Filt Rate > 60; Glucose 88 mg/dL (65-110); Lactic Acid Reflex 1.4 mmol/L (0.7-2.0); Magnesium 2.1 mg/dL (1.6-2.3); Potassium 4.3 mmol/L (3.4-5.0); Sodium 139 mmol/L (137-145)
[2024-03-31 07:45] LABS: Basophils Absolute Auto 0.1 K/mm3 (0.0-0.1); Basophils Percent Auto 0.7 % (0.2-1.2); Eosinophils Absolute Auto 0.2 K/mm3 (0-0.3); Eosinophils Percent Auto 2.7 % (0-4.4); Hematocrit 40.3 % (37.0-47.0); Immature Granulocyte Absolute 0.04 K/mm3 (0.00-0.031); Immature Granulocyte Percent A 0.5 % (0-0.5); Lymphocytes Percent Auto 19.9 % (18.3-44.2); Mean Corpuscular HGB Conc 32.3 g/dl (32-36); Mean Corpuscular Volume 89.8 fl (80-100); Mean Platelet Volume 9.5 fl (7.4-10.4); Monocytes Absolute Auto 0.6 K/mm3 (0.1-0.6); Monocytes Percent Auto 7.7 % (2.6-8.5); Neutrophils Absolute Auto 5.2 K/mm3 (1.3-6.7); Neutrophils Percent Auto 68.5 % (45.5-73.1); Platelet Count Result 246 k/mm3 (150-375); Red Blood Count 4.49 M/mm3 (4.2-5.4); Red Cell Distribution Width 14.4 % (11.5-14.5); White Blood Count 7.5 K/mm3 (4.5-10.0)
--- NOTE | 2024-03-31 10:52 | P.PNIM_ITS ---
Progress Note: A&P Assessment and Plan (1) UTI (urinary tract infection): Code(s): N39.0 - Urinary tract infection, site not specified Status: Acute Assessment and Plan: Admit to regular med day 3 rocephin urine culture positive for hamm sensitive E coli (2) Leukocytosis: Code(s): D72.829 - Elevated white blood cell count, unspecified Status: Acute Assessment and Plan: resolved (3) Fall: Code(s): W19.XXXA - Unspecified fall, initial encounter Status: Acute Assessment and Plan: Fall precautions PT/OT (4) Weakness generalized: Code(s): R53.1 - Weakness Status: Acute Assessment and Plan: Likely secondary to chronic illness (5) Parkinson's disease: Code(s): G20.A1 - Parkinson's disease without dyskinesia, without mention of fluctuations Status: Acute Assessment and Plan: Continue home meds Plan DVT prophylaxis on Sq Lovenox Subjective Date/time seen: 03/31/24 10:52 Interval history: Patient more awake today and more responsive Urine culture evaluated and abx adjusted Review of Systems Review of Systems: fall All systems reviewed & are unremarkable except as noted in HPI and below Exam Narrative: GENERAL: Lethargic HEAD: Normocephalic, atraumatic. EYES: Non injected, non icteric ENT: Nares clear, no rhinorrhea or epistaxis. No septal hematoma. NECK: Supple. CHEST: Speaking in full sentences. No respiratory distress. HEART: Regular rate and rhythm. . ABDOMEN: Soft, nondistended. Nontender EXTREMITIES: Normal range of motion. No lower extremity edema. SKIN: Warm, dry, no rash. NEURO: Lethargic Const: General: comfortable, no acute distress, well developed, alert, awake and obese Nutritional Appearance: obese Orientation/consciousness: oriented to person, oriented to place and patient oriented x3 HENMT: Head: normal to inspection, normocephalic and atraumatic Ears: hearing grossly normal bilaterally Face/Nose/Sinus: normal facial exam Face and sinus: normal facial exam Other: Abrasion wound above right orbit Eyes: General: appearance normal, both eyes and all related structures Pupils: Equal, round and reactive pupils present EOM: EOMs intact bilaterally Neck: Neck: full ROM, no lymphadenopathy and no JVD Thyroid: thyroid normal Lymphatic: no lymphadenopathy noted Resp: Effort & Inspection: normal respiratory effort and able to speak in complete sentences Auscultation: clear to auscultation bilaterally Cardio: Jugular venous distension: no JVD Rate: regular rate Rhythm: regular rhythm Heart sounds: S1 normal heart sound present and S2 normal heart sound present : General: Yes deferred Skin: Rashes: no rashes Wounds: no wounds Neuro: General: oriented to person, oriented to place, patient oriented x3, moves all extremities, no focal motor deficits, CN's II-XI intact bilaterally and Unable to assess gait Cranial nerves: Yes CN's II-XII intact bilaterally and Yes Equal, round and reactive pupils present Cognition (Neuro): normal cognition Speech: normal speech Gait exam (Neuro): Normal gait present and Unable to assess gait Motor exam (neuro): 5/5 motor strength present throughout Extrem: General: normal to inspection, full ROM, no joint enlargement and no pedal edema Objective Data Vital Signs Vital Signs: Vital Signs - 24 hr 03/30/24 15:35 03/30/24 20:00 03/30/24 21:11 Temperature 97.2 F L 97.7 F Pulse Rate 71 60 60 Respiratory Rate 14 16 16 Blood Pressure 128/56 L 148/99 H Pulse Oximetry 100 100 100 Oxygen Delivery Room Air 03/31/24 05:54 Temperature 97.6 F Pulse Rate 76 Respiratory Rate 16 Blood Pressure 148/59 H Pulse Oximetry 100 Oxygen Delivery Intake/Output Intake/Output: Intake & Output 03/28/24 03/29/24 03/30/24 03/31/24 23:59 23:59 23:59 23:59 Intake Total 1412 1020 550 Output Total 110 350 Balance -110 1412 1020 200 Meds/Results Medications: Active Medications Generic Name Dose Route Start Last Admin Trade Name Freq PRN Reason Stop Dose Admin Acetaminophen 650 mg 03/29/24 00:16 Acetaminophen 325 Mg Tablet PO Q4H PRN Mild Pain (1-3) or Fever Acetaminophen 500 mg 03/29/24 11:29 Acetaminophen 500 Mg Tablet PO Q4H PRN Pain Rated 1-3 Albuterol 1 puff 03/29/24 11:29 Albuterol Sulfate (*Sp) Aerosol 1 Puff INHALATION Q4H PRN shortness of breath or wheezing Bisacodyl 10 mg 03/29/24 11:29 Bisacodyl 10 Mg Suppository RECTAL DAILY PRN constipation Carbidopa/Levodopa 2 tablet 03/29/24 12:00 03/30/24 16:22 Carbidopa/Levodopa 25/100 Mg Tablet PO 2 tablet TIDWM ALONSO Administration Cyanocobalamin 1,000 mcg 03/29/24 11:45 03/30/24 08:47 Cyanocobalamin 1,000 Mcg Tablet PO 1,000 mcg DAILY ALONSO Administration Docusate Sodium 100 mg 03/29/24 17:00 03/30/24 16:22 Docusate Sodium 100 Mg Capsule PO 100 mg BID ALONSO Administration Donepezil HCl 10 mg 03/29/24 21:00 03/30/24 21:05 Donepezil Hcl 10 Mg Tablet PO 10 mg HS ALONSO Administration Ceftriaxone Sodium 1 gm in 50 mls @ 100 mls/hr 03/29/24 21:00 03/30/24 21:35 Rocephin 1 Gm/Ns 50 Ml IVPB Infused Q24H ALONSO Infusion Loperamide HCl 2 mg 03/29/24 11:29 Loperamide Hcl 2 Mg Capsule PO Q6H PRN loose stool Magnesium Hydroxide 30 ml 03/29/24 11:29 Magnesium Hydroxide Susp 30 Ml Udc PO DAILY PRN constipation Metoprolol Succinate 25 mg 03/29/24 11:45 03/30/24 08:47 Metoprolol Succinate Ext Rel 25 Mg Tabcr PO 25 mg DAILY ALONSO Administration Multi-Ingred Cream/Lotion/Oil/Oint 1 applic 03/29/24 11:40 Eucerin Cream 120 Gm Jar TOPICAL Q8H PRN dry skin Ondansetron HCl 4 mg 03/29/24 00:16 Ondansetron Inj 4 Mg/2 Ml Vial IV PUSH Q4H PRN Nausea Sertraline HCl 50 mg 03/29/24 11:45 03/30/24 08:47 Sertraline Hcl 50 Mg Tablet PO 50 mg DAILY ALONSO Administration Radiology Results: ITS Impressions Chest X-Ray 03/28/24 22:15 IMPRESSION: No acute cardiopulmonary process. Head CT 03/28/24 22:24 IMPRESSION: No acute intracranial process. Head/Cervical Spine/Facial Bones CT 03/28/24 22:27 IMPRESSION: No acute fracture or traumatic malalignment in the cervical spine. No acute facial bone fracture. Mildly depressed/displaced nasal bone fractures, likely chronic unless accompanied by acute pain/tenderness. Aerated secretions in the right ethmoid and left sphenoid sinuses, may represent acute sinusitis or mild mucosal hemorrhage in the setting of trauma. Labs Labs: Laboratory Results - last 24 hr 03/31/24 07:13 WBC 7.5 RBC 4.49 Hgb 13.0 Hct 40.3 MCV 89.8 MCH 29.0 MCHC 32.3 RDW 14.4 Plt Count 246 MPV 9.5 Immature Gran % (Auto) 0.5 Neut % (Auto) 68.5 Lymph % (Auto) 19.9 [place] % (Auto) 7.7 Eos % (Auto) 2.7 Baso % (Auto) 0.7 Lymph # (Auto) 1.50 [place] # (Auto) 0.6 Eos # (Auto) 0.2 Baso # (Auto) 0.1 Abs Immat Gran (auto) 0.04 H Absolute Neuts (auto) 5.2 Absolute Nucleated RBC 0.000 Nucleated RBC % 0.0 Sodium 139 Potassium 4.3 Chloride 103 Carbon Dioxide 28 Anion Gap 8 BUN 17 Creatinine 0.64 L Estim Creat Clear Calc 61 Estimated GFR > 60 Glucose 88 Lactic Acid 1.4 Calcium 9.2 Magnesium 2.1 Total Bilirubin 0.6 AST 19 ALT 15 Alkaline Phosphatase 85 Total Protein 7.0 Albumin 4.0
[2024-03-31 11:19] VITALS: PULSE 60
[2024-03-31] MEDS: METOPROLOL SUCCINATE EXT REL 25 MG TABCR PO (11:19)
[2024-03-31] MEDS: CARBIDOPA/LEVODOPA 25/100 MG TABLET 2 TABLET PO ×3 (11:19→16:38)
[2024-03-31] MEDS: CYANOCOBALAMIN 1,000 MCG TABLET 1000 MCG PO (11:20)
[2024-03-31] MEDS: DOCUSATE SODIUM 100 MG CAPSULE PO ×2 (11:20→16:38)
[2024-03-31] MEDS: SERTRALINE HCL 50 MG TABLET PO (11:20)
[2024-03-31] MEDS: ENOXAPARIN 40 MG/0.4 ML SYRINGE SUB-Q (11:22)
[2024-03-31 14:00] VITALS: BP 112/61; PULSE 60; RESP 16; TEMP 36.6; O2SAT 100
[2024-03-31] MEDS: DONEPEZIL HCL 10 MG TABLET PO (20:56)
[2024-03-31 21:27] VITALS: BP 112/58; PULSE 60; RESP 16; TEMP 36.4; O2SAT 99
[2024-04-01 05:59] VITALS: BP 139/74; PULSE 57; RESP 16; TEMP 36.3; O2SAT 100
[2024-04-01] MEDS: CYANOCOBALAMIN 1,000 MCG TABLET 1000 MCG PO (10:25)
[2024-04-01] MEDS: ENOXAPARIN 40 MG/0.4 ML SYRINGE SUB-Q (10:25)
[2024-04-01 10:26] VITALS: PULSE 67
[2024-04-01] MEDS: DOCUSATE SODIUM 100 MG CAPSULE PO ×2 (10:26→17:04)
[2024-04-01] MEDS: METOPROLOL SUCCINATE EXT REL 25 MG TABCR PO (10:26)
[2024-04-01] MEDS: SERTRALINE HCL 50 MG TABLET PO (10:27)
[2024-04-01] MEDS: CARBIDOPA/LEVODOPA 25/100 MG TABLET 2 TABLET PO ×3 (10:27→17:04)
--- NOTE | 2024-04-01 12:44 | P.DS_ITS ---
DS: Admitting Diagnosis Discharge Date 04/01/2024 Admitting Diagnosis fall DS: Summary Hospital Course Hospital Course: 78-year-old female with past medical history significant for Parkinson's disease, patient is wheelchair-bound, able to walk short distances with a walker, dementia, dyslipidemia, hypertension, paroxysmal atrial fibrillation. Patient was brought to the emergency room in a separate ambulance after she and her fell according to he was looking for a shoe when his landed on him there were found by her caregiver an ambulance was called. Patient has been having recurrent falls recently discharged from [facility]. Preliminary workup has been essentially nonrevealing. Patient has been placed in observation. pt treated for uti with iv rocephin ok to transition to oral ABX and dc back to [facility] Time Spent with Patient Time attestation: Total time spent providing and/or coordinating discharge services:55 minutes on day of dc Exam Const: General: comfortable, no acute distress, well developed, alert, awake and obese Nutritional Appearance: obese Orientation/consciousness: orient ed to person, oriented to place and patient oriented x3 HENMT: Head: normal to inspection, normocephalic and atraumatic Ears: hearing grossly normal bilaterally Face/Nose/Sinus: normal facial exam Face and sinus: normal facial exam Other: Abrasion wound above right orbit Eyes: General: appearance normal, both eyes and all related structures Pupils: Equal, round and reactive pupils present EOM: EOMs intact bilaterally Neck: Neck: full ROM, no lymphadenopathy and no JVD Thyroid: thyroid normal Lymphatic: no lymphadenopathy noted Resp: Effort & Inspection: normal respiratory effort and able to speak in complete sentences Auscultation: clear to auscultation bilaterally Cardio: Jugular venous distension: no JVD Rate: regular rate Rhythm: regular rhythm Heart sounds: S1 normal heart sound present and S2 normal heart sound present : General: Yes deferred Skin: Rashes: no rashes Wounds: no wounds Neuro: General: oriented to person, oriented to place, patient oriented x3, moves all extremities, no focal motor deficits, CN's II-XI intact bilaterally and Unable to assess gait Cranial nerves: Yes CN's II-XII intact bilaterally and Yes Equal, round and reactive pupils present Cognition (Neuro): normal cognition Speech: normal speech Gait exam (Neuro): Normal gait present and Unable to assess gait Motor exam (neuro): 5/5 motor strength present throughout Extrem: General: normal to inspection, full ROM, no joint enlargement and no pedal edema Discharge Plan Discharge Attending physician on discharge: Letha Palacios Discharging Clinician: Letha Palacios Anticipated Discharge Date/Time: 04/01/24 12:42 Activity: as tolerated Diet: regular Discharge Instructions: dc with outpatient physical theraphy at [facility] Patient Language: Uzbek Follow-up/Referrals: Stevenson,Rosendo Warren PA-C [Primary Care Provider] - Discharge Medications: New ciprofloxacin HCl 500 mg tablet 500 mg PO Q12H Qty: 14 0RF Continued carbidopa-levodopa 25-100 mg tablet 2 tablet PO TID donepezil 10 mg tablet 10 mg PO HS metoprolol succinate 25 mg tablet extended release 24 hr 25 mg PO DAILY sertraline 50 mg tablet 50 mg PO Q24H cyanocobalamin (vitamin B-12) 1,000 mcg capsule 1,000 mcg PO DAILY docusate sodium 100 mg tablet 100 mg PO BID polyethylene glycol Powder miscellaneous DAILY Rx Instructions: 17 gram po acetaminophen 500 mg tablet 500 mg PO Q4H PRN (Reason: pain) albuterol sulfate [Ventolin HFA] 90 mcg/actuation HFA aerosol inhaler 1 puff inhalation Q4H PRN (Reason: shortness of breath or wheezing) bisacodyl [Dulcolax (bisacodyl)] 10 mg suppository 10 mg RECTAL DAILY PRN (Reason: constipation) loperamide [Anti-Diarrheal (loperamide)] 2 mg tablet 2 mg PO Q6H PRN (Reason: loose stool) magnesium hydroxide 400 mg/5 mL suspension 30 ml PO DAILY PRN (Reason: constipation) eucerin original healing cream See Rx Instructions topical Q8H PRN (Reason: dry skin) Rx Instructions: topically every 8 hours PRN; Date of admission: 03/29/24 19:15 Primary Care Provider: Radha,Rosendo Warren Admitting Provider: Raimundo Richardson V. Attending physician on admission: Bean Hardin Condition: Stable
[2024-04-01 14:00] VITALS: BP 116/57; PULSE 59; RESP 18; TEMP 35.7; O2SAT 100
--- NOTE | 2024-04-01 14:06 | PM.IMPN ---
Progress Note: A&P Assessment and Plan (1) UTI (urinary tract infection): Code(s): N39.0 - Urinary tract infection, site not specified Status: Acute Assessment and Plan: Admit to regular med day 3 rocephin urine culture positive for hamm sensitive E coli transition to oral cefdinir (2) Leukocytosis: Code(s): D72.829 - Elevated white blood cell count, unspecified Status: Acute Assessment and Plan: resolved (3) Fall: Code(s): W19.XXXA - Unspecified fall, initial encounter Status: Acute Assessment and Plan: Fall precautions PT/OT Pt requesting DC to SNF not case management working on placement (4) Weakness generalized: Code(s): R53.1 - Weakness Status: Acute Assessment and Plan: Likely secondary to chronic illness (5) Parkinson's disease: Code(s): G20.A1 - Parkinson's disease without dyskinesia, without mention of fluctuations Status: Acute Assessment and Plan: Continue home meds Plan DVT prophylaxis on Sq Lovenox Subjective Date/time seen: 04/01/24 14:06 Interval history: 78-year-old female with past medical history significant for Parkinson's disease, patient is wheelchair-bound, able to walk short distances with a walker, dementia, dyslipidemia, hypertension, paroxysmal atrial fibrillation. Patient was brought to the emergency room in a separate ambulance after she and her fell according to he was looking for a shoe when his landed on him there were found by her caregiver an ambulance was called. Patient has been having recurrent falls recently discharged from [facility]. Preliminary workup has been essentially nonrevealing. Patient has been placed in observation. pt treated for uti with iv rocephin ok to transition to oral ABX and dc back to [facility] Discharge cancelled pt requesting SNF placement also here in hospital Review of Systems Review of Systems: Very weak All systems reviewed & are unremarkable except as noted in HPI and below Exam Narrative: GENERAL: tired and weak HEAD: Normocephalic, atraumatic. EYES: Non injected, non icteric ENT: Nares clear, no rhinorrhea or epistaxis. No septal hematoma. NECK: Supple. CHEST: Speaking in full sentences. No respiratory distress. HEART: Regular rate and rhythm. . ABDOMEN: Soft, nondistended. Nontender EXTREMITIES: Normal range of motion. No lower extremity edema. SKIN: Warm, dry, no rash. Objective Data Vital Signs Vital Signs: Vital Signs - 24 hr 03/31/24 20:00 03/31/24 21:27 04/01/24 05:59 Temperature 36.4 C L 36.3 C L Pulse Rate 60 57 L Respiratory Rate 16 16 Blood Pressure 112/58 L 139/74 Pulse Oximetry 99 100 Oxygen Delivery Room Air 04/01/24 08:00 04/01/24 10:26 Temperature Pulse Rate 67 Respiratory Rate Blood Pressure Pulse Oximetry Oxygen Delivery Room Air Intake/Output Intake/Output: Intake & Output 03/29/24 03/30/24 03/31/24 04/01/24 23:59 23:59 23:59 23:59 Intake Total 1412 1020 870 440 Output Total 650 300 Balance 1412 1020 220 140 Meds/Results Medications: Active Medications Generic Name Dose Route Start Last Admin Trade Name Freq PRN Reason Stop Dose Admin Acetaminophen 650 mg 03/29/24 00:16 Acetaminophen 325 Mg Tablet PO Q4H PRN Mild Pain (1-3) or Fever Albuterol 1 puff 03/29/24 11:29 Albuterol Sulfate (*Sp) Aerosol 1 Puff INHALATION Q4H PRN shortness of breath or wheezing Bisacodyl 10 mg 03/29/24 11:29 Bisacodyl 10 Mg Suppository RECTAL DAILY PRN constipation Carbidopa/Levodopa 2 tablet 03/29/24 12:00 04/01/24 13:45 Carbidopa/Levodopa 25/100 Mg Tablet PO 2 tablet TIDWM ALONSO Administration Cefdinir 300 mg 04/01/24 21:00 Cefdinir 300 Mg Capsule PO 04/04/24 09:01 Q12HR ALONSO Cyanocobalamin 1,000 mcg 03/29/24 11:45 04/01/24 10:25 Cyanocobalamin 1,000 Mcg Tablet PO 1,000 mcg DAILY ALONSO Administration Docusate Sodium 100 mg 03/29/24 17:00 04/01/24 10:26 Docusate Sodium 100 Mg Capsule PO 100 mg BID ALONSO Administration Donepezil HCl 10 mg 03/29/24 21:00 03/31/24 20:56 Donepezil Hcl 10 Mg Tablet PO 10 mg HS ALONSO Administration Enoxaparin Sodium 40 mg 03/31/24 11:05 04/01/24 10:25 Enoxaparin 40 Mg/0.4 Ml Syringe SUB-Q 40 mg DAILY ALONSO Administration Loperamide HCl 2 mg 03/29/24 11:29 Loperamide Hcl 2 Mg Capsule PO Q6H PRN loose stool Magnesium Hydroxide 30 ml 03/29/24 11:29 Magnesium Hydroxide Susp 30 Ml Udc PO DAILY PRN constipation Metoprolol Succinate 25 mg 03/29/24 11:45 04/01/24 10:26 Metoprolol Succinate Ext Rel 25 Mg Tabcr PO 25 mg DAILY ALONSO Administration Multi-Ingred Cream/Lotion/Oil/Oint 1 applic 03/29/24 11:40 Eucerin Cream 120 Gm Jar TOPICAL Q8H PRN dry skin Ondansetron HCl 4 mg 03/29/24 00:16 Ondansetron Inj 4 Mg/2 Ml Vial IV PUSH Q4H PRN Nausea Sertraline HCl 50 mg 03/29/24 11:45 04/01/24 10:27 Sertraline Hcl 50 Mg Tablet PO 50 mg DAILY ALONSO Administration Radiology Results: ITS Impressions Chest X-Ray 03/28/24 22:15 IMPRESSION: No acute cardiopulmonary process. Head CT 03/28/24 22:24 IMPRESSION: No acute intracranial process. Head/Cervical Spine/Facial Bones CT 03/28/24 22:27 IMPRESSION: No acute fracture or traumatic malalignment in the cervical spine. No acute facial bone fracture. Mildly depressed/displaced nasal bone fractures, likely chronic unless accompanied by acute pain/tenderness. Aerated secretions in the right ethmoid and left sphenoid sinuses, may represent acute sinusitis or mild mucosal hemorrhage in the setting of trauma.
[2024-04-01 20:00] VITALS: PULSE 59; RESP 20; O2SAT 97
[2024-04-01] MEDS: DONEPEZIL HCL 10 MG TABLET PO (21:12)
[2024-04-01] MEDS: CEFDINIR 300 MG CAPSULE PO (21:12)
[2024-04-01 21:35] VITALS: BP 120/60; PULSE 59; RESP 20; TEMP 36.6; O2SAT 97
[2024-04-02 06:00] VITALS: BP 117/66; PULSE 58; RESP 20; TEMP 36.3; O2SAT 100
[2024-04-02] MEDS: DOCUSATE SODIUM 100 MG CAPSULE PO ×2 (09:00→16:59)
[2024-04-02] MEDS: SERTRALINE HCL 50 MG TABLET PO (09:00)
[2024-04-02] MEDS: METOPROLOL SUCCINATE EXT REL 25 MG TABCR PO (09:00)
[2024-04-02] MEDS: CARBIDOPA/LEVODOPA 25/100 MG TABLET 2 TABLET PO ×3 (09:00→16:59)
[2024-04-02] MEDS: CYANOCOBALAMIN 1,000 MCG TABLET 1000 MCG PO (09:00)
[2024-04-02] MEDS: CEFDINIR 300 MG CAPSULE PO ×2 (09:00→20:35)
[2024-04-02] MEDS: ENOXAPARIN 40 MG/0.4 ML SYRINGE SUB-Q (09:00)
--- NOTE | 2024-04-02 10:47 | P.PNIM_ITS ---
Progress Note: A&P Assessment and Plan (1) Fracture of nasal bone: Code(s): S02.2XXA - Fracture of nasal bones, initial encounter for closed fracture Status: Acute (2) UTI (urinary tract infection): Code(s): N39.0 - Urinary tract infection, site not specified Status: Acute (3) Leukocytosis: Code(s): D72.829 - Elevated white blood cell count, unspecified Status: Acute (4) Fall: Code(s): W19.XXXA - Unspecified fall, initial encounter Status: Acute (5) Parkinson's disease: Code(s): G20.A1 - Parkinson's disease without dyskinesia, without mention of fluctuations Status: Acute (6) Weakness generalized: Code(s): R53.1 - Weakness Status: Acute Plan (1) UTI (urinary tract infection): Code(s): N39.0 - Urinary tract infection, site not specified Status: Acute Assessment and Plan: Admit to regular med day 3 rocephin urine culture positive for hamm sensitive E coli transition to oral cefdinir Afebrile, patient denies dysuria (2) Leukocytosis: Code(s): D72.829 - Elevated white blood cell count, unspecified Status: Acute Assessment and Plan: resolved (3) Fall: Code(s): W19.XXXA - Unspecified fall, initial encounter Status: Acute Assessment and Plan: Fall precautions PT/OT Pt requesting DC to SNF not case management working on placement (4) Weakness generalized: Code(s): R53.1 - Weakness Status: Acute Assessment and Plan: Likely secondary to chronic illness (5) Parkinson's disease: Code(s): G20.A1 - Parkinson's disease without dyskinesia, without mention of fluctuations Status: Acute Assessment and Plan: Continue home meds Plan DVT prophylaxis on Sq Lovenox SNF placement Subjective Date/time seen: 04/02/24 10:47 Interval history: I saw examined the patient patient feels better, still has general weakness, unable to ambulate without assistance. Patient still has head tremor, patient is able to eat drink by herself. Patient is afebrile, blood pressure stable pulse ox 100% room air, Exam Narrative: GENERAL: Ill-appearing in no acute distress. Well-nourished. - EYES: EOMI. Anicteric. - HENT: Moist mucous membranes. - LUNGS: Clear to auscultation bilateral ly, no wheezing, rhonchi, or rales. - CARDIOVASCULAR: Regular rate and rhyth m. No murmur. No JVD. - ABDOMEN: Soft, non-tender and non-dist ended. No palpable masses. - EXTREMITIES: No edema. Peripheral puls es 2+. Some hands tremor, Non-tender. - NEUROLOGIC: No focal neurological defi cits. CN II-XII grossly intact. General weakness - PSYCHIATRIC: Awake, Alert and oriented x 3. Appropriate mood and affect. - SKIN: No rashes or lesions. Warm. - LYMPH: No cervical lymphadenopathy. Objective Data Vital Signs Vital Signs: Vital Signs - 24 hr 04/01/24 14:00 04/01/24 20:00 04/01/24 21:35 Temperature 96.3 F L 97.8 F Pulse Rate 59 L 59 L 59 L Respiratory Rate 18 20 20 Blood Pressure 116/57 L 120/60 Pulse Oximetry 100 97 97 Oxygen Delivery Room Air 04/02/24 06:00 Temperature 97.4 F L Pulse Rate 58 L Respiratory Rate 20 Blood Pressure 117/66 Pulse Oximetry 100 Oxygen Delivery Intake/Output Intake/Output: Intake & Output 03/30/24 03/31/24 04/01/24 04/02/24 23:59 23:59 23:59 23:59 Intake Total 1020 870 920 490 Output Total 650 300 500 Balance 1020 220 620 -10 Meds/Results Medications: Active Medications Generic Name Dose Route Start Last Admin Trade Name Freq PRN Reason Stop Dose Admin Acetaminophen 650 mg 03/29/24 00:16 Acetaminophen 325 Mg Tablet PO Q4H PRN Mild Pain (1-3) or Fever Albuterol 1 puff 03/29/24 11:29 Albuterol Sulfate (*Sp) Aerosol 1 Puff INHALATION Q4H PRN shortness of breath or wheezing Bisacodyl 10 mg 03/29/24 11:29 Bisacodyl 10 Mg Suppository RECTAL DAILY PRN constipation Carbidopa/Levodopa 2 tablet 03/29/24 12:00 04/02/24 09:00 Carbidopa/Levodopa 25/100 Mg Tablet PO 2 tablet TIDWM ALONSO Administration Cefdinir 300 mg 04/01/24 21:00 04/02/24 09:00 Cefdinir 300 Mg Capsule PO 04/04/24 09:01 300 mg Q12HR ALONSO Administration Cyanocobalamin 1,000 mcg 03/29/24 11:45 04/02/24 09:00 Cyanocobalamin 1,000 Mcg Tablet PO 1,000 mcg DAILY ALONSO Administration Docusate Sodium 100 mg 03/29/24 17:00 04/02/24 09:00 Docusate Sodium 100 Mg Capsule PO 100 mg BID ALONSO Administration Donepezil HCl 10 mg 03/29/24 21:00 04/01/24 21:12 Donepezil Hcl 10 Mg Tablet PO 10 mg HS ALONSO Administration Enoxaparin Sodium 40 mg 03/31/24 11:05 04/02/24 09:00 Enoxaparin 40 Mg/0.4 Ml Syringe SUB-Q 40 mg DAILY ALONSO Administration Loperamide HCl 2 mg 03/29/24 11:29 Loperamide Hcl 2 Mg Capsule PO Q6H PRN loose stool Magnesium Hydroxide 30 ml 03/29/24 11:29 Magnesium Hydroxide Susp 30 Ml Udc PO DAILY PRN constipation Metoprolol Succinate 25 mg 03/29/24 11:45 04/02/24 09:00 Metoprolol Succinate Ext Rel 25 Mg Tabcr PO 25 mg DAILY ALONSO Administration Multi-Ingred Cream/Lotion/Oil/Oint 1 applic 03/29/24 11:40 Eucerin Cream 120 Gm Jar TOPICAL Q8H PRN dry skin Ondansetron HCl 4 mg 03/29/24 00:16 Ondansetron Inj 4 Mg/2 Ml Vial IV PUSH Q4H PRN Nausea Sertraline HCl 50 mg 03/29/24 11:45 04/02/24 09:00 Sertraline Hcl 50 Mg Tablet PO 50 mg DAILY ALONSO Administration Radiology Results: ITS Impressions Chest X-Ray 03/28/24 22:15 IMPRESSION: No acute cardiopulmonary process. Head CT 03/28/24 22:24 IMPRESSION: No acute intracranial process. Head/Cervical Spine/Facial Bones CT 03/28/24 22:27 IMPRESSION: No acute fracture or traumatic malalignment in the cervical spine. No acute facial bone fracture. Mildly depressed/displaced nasal bone fractures, likely chronic unless accompanied by acute pain/tenderness. Aerated secretions in the right ethmoid and left sphenoid sinuses, may represent acute sinusitis or mild mucosal hemorrhage in the setting of trauma.
[2024-04-02 14:00] VITALS: BP 114/63; PULSE 67; RESP 18; TEMP 35.8; O2SAT 96
[2024-04-02 20:25] VITALS: BP 126/48; PULSE 55; RESP 20; TEMP 36.1; O2SAT 99
[2024-04-02] MEDS: DONEPEZIL HCL 10 MG TABLET PO (20:35)
[2024-04-03 05:25] VITALS: BP 101/75; PULSE 102; RESP 18; TEMP 36.7; O2SAT 98
[2024-04-03] MEDS: SERTRALINE HCL 50 MG TABLET PO (08:56)
[2024-04-03] MEDS: CEFDINIR 300 MG CAPSULE PO ×2 (08:56→20:12)
[2024-04-03] MEDS: ENOXAPARIN 40 MG/0.4 ML SYRINGE SUB-Q (08:56)
[2024-04-03] MEDS: METOPROLOL SUCCINATE EXT REL 25 MG TABCR PO (08:56)
[2024-04-03] MEDS: CARBIDOPA/LEVODOPA 25/100 MG TABLET 2 TABLET PO ×3 (08:56→17:20)
[2024-04-03] MEDS: CYANOCOBALAMIN 1,000 MCG TABLET 1000 MCG PO (09:05)
[2024-04-03] MEDS: DOCUSATE SODIUM 100 MG CAPSULE PO ×2 (09:05→17:20)
--- NOTE | 2024-04-03 09:33 | PM.IMPN ---
Progress Note: A&P Assessment and Plan (1) Fracture of nasal bone: Code(s): S02.2XXA - Fracture of nasal bones, initial encounter for closed fracture Status: Acute (2) UTI (urinary tract infection): Code(s): N39.0 - Urinary tract infection, site not specified Status: Acute (3) Leukocytosis: Code(s): D72.829 - Elevated white blood cell count, unspecified Status: Acute (4) Fall: Code(s): W19.XXXA - Unspecified fall, initial encounter Status: Acute (5) Parkinson's disease: Code(s): G20.A1 - Parkinson's disease without dyskinesia, without mention of fluctuations Status: Acute (6) Weakness generalized: Code(s): R53.1 - Weakness Status: Acute Plan (1) UTI (urinary tract infection): Code(s): N39.0 - Urinary tract infection, site not specified Status: Acute Assessment and Plan: Admit to regular med day 3 rocephin urine culture positive for hamm sensitive E coli transition to oral cefdinir Afebrile, patient denies dysuria (2) Leukocytosis: Code(s): D72.829 - Elevated white blood cell count, unspecified Status: Acute Assessment and Plan: resolved (3) Fall: Code(s): W19.XXXA - Unspecified fall, initial encounter Status: Acute Assessment and Plan: Fall precautions PT/OT Pt requesting DC to SNF not case management working on placement (4) Weakness generalized: Code(s): R53.1 - Weakness Status: Acute Assessment and Plan: Likely secondary to chronic illness (5) Parkinson's disease: Code(s): G20.A1 - Parkinson's disease without dyskinesia, without mention of fluctuations Status: Acute Assessment and Plan: Continue home meds Plan DVT prophylaxis on Sq Lovenox SNF placement Subjective Date/time seen: 04/03/24 09:33 Interval history: I saw examined the patient patient feels better, still has general weakness, unable to ambulate without assistance. Patient still has head tremor, patient is able to eat drink by herself. Patient is afebrile, blood pressure stable pulse ox 100% room air, No new issue or event overnight Exam Narrative: GENERAL: Ill-appearing in no acute distress. Well-nourished. - EYES: EOMI. Anicteric. - HENT: Moist mucous membranes. - LUNGS: Clear to auscultation bilaterally, no wheezing, rhonchi, or rales. - CARDIOVASCULAR: Regular rate and rhythm. No murmur. No JVD. - ABDOMEN: Soft, non-tender and non-distended. No palpable masses. - EXTREMITIES: No edema. Peripheral pulses 2+. Some hands tremor, Non-tender. - NEUROLOGIC: No focal neurological deficits. CN II-XII grossly intact. General weakness - PSYCHIATRIC: Awake, Alert and oriented x 3. Appropriate mood and affect. - SKIN: No rashes or lesions. Warm. - LYMPH: No cervical lymphadenopathy. Objective Data Vital Signs Vital Signs: Vital Signs - 24 hr 04/02/24 14:00 04/02/24 20:25 04/03/24 05:25 Temperature 96.5 F L 96.9 F L 98.1 F Pulse Rate 67 55 L 102 H Respiratory Rate 18 20 18 Blood Pressure 114/63 126/48 L 101/75 Pulse Oximetry 96 99 98 Intake/Output Intake/Output: Intake & Output 03/31/24 04/01/24 04/02/24 04/03/24 23:59 23:59 23:59 23:59 Intake Total 870 920 970 390 Output Total 650 300 900 550 Balance 220 620 70 -160 Meds/Results Medications: Active Medications Generic Name Dose Route Start Last Admin Trade Name Freq PRN Reason Stop Dose Admin Acetaminophen 650 mg 03/29/24 00:16 Acetaminophen 325 Mg Tablet PO Q4H PRN Mild Pain (1-3) or Fever Albuterol 1 puff 03/29/24 11:29 Albuterol Sulfate (*Sp) Aerosol 1 Puff INHALATION Q4H PRN shortness of breath or wheezing Bisacodyl 10 mg 03/29/24 11:29 Bisacodyl 10 Mg Suppository RECTAL DAILY PRN constipation Carbidopa/Levodopa 2 tablet 03/29/24 12:00 04/03/24 08:56 Carbidopa/Levodopa 25/100 Mg Tablet PO 2 tablet TIDWM ALONSO Administration Cefdinir 300 mg 04/01/24 21:00 04/03/24 08:56 Cefdinir 300 Mg Capsule PO 04/04/24 09:01 300 mg Q12HR ALONSO Administration Cyanocobalamin 1,000 mcg 03/29/24 11:45 04/03/24 09:05 Cyanocobalamin 1,000 Mcg Tablet PO 1,000 mcg DAILY [facility] Administration Docusate Sodium 100 mg 03/29/24 17:00 04/03/24 09:05 Docusate Sodium 100 Mg Capsule PO 100 mg BID ALONSO Administration Donepezil HCl 10 mg 03/29/24 21:00 04/02/24 20:35 Donepezil Hcl 10 Mg Tablet PO 10 mg HS ALONSO Administration Enoxaparin Sodium 40 mg 03/31/24 11:05 04/03/24 08:56 Enoxaparin 40 Mg/0.4 Ml Syringe SUB-Q 40 mg DAILY ALONSO Administration Loperamide HCl 2 mg 03/29/24 11:29 Loperamide Hcl 2 Mg Capsule PO Q6H PRN loose stool Magnesium Hydroxide 30 ml 03/29/24 11:29 Magnesium Hydroxide Susp 30 Ml Udc PO DAILY PRN constipation Metoprolol Succinate 25 mg 03/29/24 11:45 04/03/24 08:56 Metoprolol Succinate Ext Rel 25 Mg Tabcr PO 25 mg DAILY ALONSO Administration Multi-Ingred Cream/Lotion/Oil/Oint 1 applic 03/29/24 11:40 Eucerin Cream 120 Gm Jar TOPICAL Q8H PRN dry skin Ondansetron HCl 4 mg 03/29/24 00:16 Ondansetron Inj 4 Mg/2 Ml Vial IV PUSH Q4H PRN Nausea Sertraline HCl 50 mg 03/29/24 11:45 04/03/24 08:56 Sertraline Hcl 50 Mg Tablet PO 50 mg DAILY ALONSO Administration Radiology Results: ITS Impressions Chest X-Ray 03/28/24 22:15 IMPRESSION: No acute cardiopulmonary process. Head CT 03/28/24 22:24 IMPRESSION: No acute intracranial process. Head/Cervical Spine/Facial Bones CT 03/28/24 22:27 IMPRESSION: No acute fracture or traumatic malalignment in the cervical spine. No acute facial bone fracture. Mildly depressed/displaced nasal bone fractures, likely chronic unless accompanied by acute pain/tenderness. Aerated secretions in the right ethmoid and left sphenoid sinuses, may represent acute sinusitis or mild mucosal hemorrhage in the setting of trauma.
[2024-04-03 13:52] VITALS: BP 116/64; PULSE 97; RESP 16; TEMP 37.1; O2SAT 100
[2024-04-03] MEDS: DONEPEZIL HCL 10 MG TABLET PO (20:12)
[2024-04-03 22:00] VITALS: BP 109/57; PULSE 68; RESP 16; TEMP 36.4; O2SAT 98
[2024-04-04 06:00] VITALS: BP 131/76; PULSE 62; RESP 16; TEMP 36.5; O2SAT 98
[2024-04-04] MEDS: CARBIDOPA/LEVODOPA 25/100 MG TABLET 2 TABLET PO ×2 (08:25→13:14)
[2024-04-04] MEDS: CEFDINIR 300 MG CAPSULE PO (08:26)
[2024-04-04] MEDS: CYANOCOBALAMIN 1,000 MCG TABLET 1000 MCG PO (08:26)
[2024-04-04] MEDS: ENOXAPARIN 40 MG/0.4 ML SYRINGE SUB-Q (08:26)
[2024-04-04] MEDS: DOCUSATE SODIUM 100 MG CAPSULE PO (08:26)
[2024-04-04] MEDS: SERTRALINE HCL 50 MG TABLET PO (08:26)
[2024-04-04] MEDS: METOPROLOL SUCCINATE EXT REL 25 MG TABCR PO (08:26)
--- NOTE | 2024-04-04 09:49 | PCNWS ---
Weekly nutritional screen. Patient is tolerating current Regular diet with adequate intake, 50-100%. No weight loss reported. No nutritional needs at this time.
--- NOTE | 2024-04-04 10:19 | P.PNIM_ITS ---
Progress Note: A&P Assessment and Plan (1) Fracture of nasal bone: Code(s): S02.2XXA - Fracture of nasal bones, initial encounter for closed fracture Status: Acute (2) UTI (urinary tract infection): Code(s): N39.0 - Urinary tract infection, site not specified Status: Acute (3) Leukocytosis: Code(s): D72.829 - Elevated white blood cell count, unspecified Status: Acute (4) Fall: Code(s): W19.XXXA - Unspecified fall, initial encounter Status: Acute (5) Parkinson's disease: Code(s): G20.A1 - Parkinson's disease without dyskinesia, without mention of fluctuations Status: Acute (6) Weakness generalized: Code(s): R53.1 - Weakness Status: Acute Plan (1) UTI (urinary tract infection): Code(s): N39.0 - Urinary tract infection, site not specified Status: Acute Assessment and Plan: Admit to regular med Patient received rocephin and cefdinir for total 6 days urine culture positive for hamm sensitive E coli Afebrile, patient denies dysuria Completed antibiotics (2) Leukocytosis: Code(s): D72.829 - Elevated white blood cell count, unspecified Status: Acute Assessment and Plan: resolved (3) Fall: Code(s): W19.XXXA - Unspecified fall, initial encounter Status: Acute Assessment and Plan: Fall precautions PT/OT Pt requesting DC to SNF not case management working on placement. Patient will discharge to detention today (4) Weakness generalized: Code(s): R53.1 - Weakness Status: Acute Assessment and Plan: Likely secondary to chronic illness (5) Parkinson's disease: Code(s): G20.A1 - Parkinson's disease without dyskinesia, without mention of fluctuations Status: Acute Assessment and Plan: Continue home meds SNF placement, approved by insurance today Subjective Date/time seen: 04/04/24 10:19 Interval history: I saw examined the patient patient, patient has no new issue even over the. He still has has general weakness, unable to ambulate without assistance. Patient denies headache, new focal weakness, Patient is afebrile, blood pressure stable pulse ox 100% room air, Exam Narrative: GENERAL: Ill-appearing in no acute distress. Well-nourished. - EYES: EOMI. Anicteric. - HENT: Moist mucous membranes. - LUNGS: Clear to auscultation bilateral ly, no wheezing, rhonchi, or rales. - CARDIOVASCULAR: Regular rate and rhyth m. No murmur. No JVD. - ABDOMEN: Soft, non-tender and non-dist ended. No palpable masses. - EXTREMITIES: No edema. Peripheral puls es 2+. Some hands tremor, Non-tender. - NEUROLOGIC: No focal neurological defi cits. CN II-XII grossly intact. General weakness - PSYCHIATRIC: Awake, Alert and oriented x 3. Appropriate mood and affect. - SKIN: No rashes or lesions. Warm. - LYMPH: No cervical lymphadenopathy. Objective Data Vital Signs Vital Signs: Vital Signs - 24 hr 04/03/24 13:52 04/03/24 20:00 04/03/24 22:00 Temperature 98.7 F 97.6 F Pulse Rate 97 68 Respiratory Rate 16 16 Blood Pressure 116/64 109/57 L Pulse Oximetry 100 98 Oxygen Delivery Room Air 04/04/24 06:00 Temperature 97.7 F Pulse Rate 62 Respiratory Rate 16 Blood Pressure 131/76 Pulse Oximetry 98 Oxygen Delivery Intake/Output Intake/Output: Intake & Output 04/01/24 04/02/24 04/03/24 04/04/24 23:59 23:59 23:59 23:59 Intake Total 606 545 2058 340 Output Total 676 394 4352 400 Balance 620 70 60 -60 Meds/Results Medications: Active Medications Generic Name Dose Route Start Last Admin Trade Name Freq PRN Reason Stop Dose Admin Acetaminophen 650 mg 03/29/24 00:16 Acetaminophen 325 Mg Tablet PO Q4H PRN Mild Pain (1-3) or Fever Albuterol 1 puff 03/29/24 11:29 Albuterol Sulfate (*Sp) Aerosol 1 Puff INHALATION Q4H PRN shortness of breath or wheezing Bisacodyl 10 mg 03/29/24 11:29 Bisacodyl 10 Mg Suppository RECTAL DAILY PRN constipation Carbidopa/Levodopa 2 tablet 03/29/24 12:00 04/04/24 08:25 Carbidopa/Levodopa 25/100 Mg Tablet PO 2 tablet TIDWM ALONSO Administration Cyanocobalamin 1,000 mcg 03/29/24 11:45 04/04/24 08:26 Cyanocobalamin 1,000 Mcg Tablet PO 1,000 mcg DAILY ALONSO Administration Docusate Sodium 100 mg 03/29/24 17:00 04/04/24 08:26 Docusate Sodium 100 Mg Capsule PO 100 mg BID ALONSO Administration Donepezil HCl 10 mg 03/29/24 21:00 04/03/24 20:12 Donepezil Hcl 10 Mg Tablet PO 10 mg HS ALONSO Administration Enoxaparin Sodium 40 mg 03/31/24 11:05 04/04/24 08:26 Enoxaparin 40 Mg/0.4 Ml Syringe SUB-Q 40 mg DAILY ALONSO Administration Loperamide HCl 2 mg 03/29/24 11:29 Loperamide Hcl 2 Mg Capsule PO Q6H PRN loose stool Magnesium Hydroxide 30 ml 03/29/24 11:29 Magnesium Hydroxide Susp 30 Ml Udc PO DAILY PRN constipation Metoprolol Succinate 25 mg 03/29/24 11:45 04/04/24 08:26 Metoprolol Succinate Ext Rel 25 Mg Tabcr PO 25 mg DAILY ALONSO Administration Multi-Ingred Cream/Lotion/Oil/Oint 1 applic 03/29/24 11:40 Eucerin Cream 120 Gm Jar TOPICAL Q8H PRN dry skin Ondansetron HCl 4 mg 03/29/24 00:16 Ondansetron Inj 4 Mg/2 Ml Vial IV PUSH Q4H PRN Nausea Sertraline HCl 50 mg 03/29/24 11:45 04/04/24 08:26 Sertraline Hcl 50 Mg Tablet PO 50 mg DAILY ALONSO Administration Radiology Results: ITS Impressions Chest X-Ray 03/28/24 22:15 IMPRESSION: No acute cardiopulmonary process. Head CT 03/28/24 22:24 IMPRESSION: No acute intracranial process. Head/Cervical Spine/Facial Bones CT 03/28/24 22:27 IMPRESSION: No acute fracture or traumatic malalignment in the cervical spine. No acute facial bone fracture. Mildly depressed/displaced nasal bone fractures, likely chronic unless accompanied by acute pain/tenderness. Aerated secretions in the right ethmoid and left sphenoid sinuses, may represent acute sinusitis or mild mucosal hemorrhage in the setting of trauma.
--- NOTE | 2024-04-04 11:49 | PM.DS ---
DS: Admitting Diagnosis Discharge Date 04/04/24 Admitting Diagnosis (1) Fracture of nasal bone: Code(s): S02.2XXA - Fracture of nasal bones, initial encounter for closed fracture Status: Acute (2) UTI (urinary tract infection): Code(s): N39.0 - Urinary tract infection, site not specified Status: Acute (3) Leukocytosis: Code(s): D72.829 - Elevated white blood cell count, unspecified Status: Acute (4) Fall: Code(s): W19.XXXA - Unspecified fall, initial encounter Status: Acute (5) Parkinson's disease: Code(s): G20.A1 - Parkinson's disease without dyskinesia, without mention of fluctuations Status: Acute (6) Weakness generalized: Code(s): R53.1 - Weakness Status: Acute DS: Discharge Diagnosis Discharge Diagnosis (1) Fracture of nasal bone: Code(s): S02.2XXA - Fracture of nasal bones, initial encounter for closed fracture Status: Acute (2) UTI (urinary tract infection): Code(s): N39.0 - Urinary tract infection, site not specified Status: Acute (3) Leukocytosis: Code(s): D72.829 - Elevated white blood cell count, unspecified Status: Acute (4) Fall: Code(s): W19.XXXA - Unspecified fall, initial encounter Status: Acute (5) Parkinson's disease: Code(s): G20.A1 - Parkinson's disease without dyskinesia, without mention of fluctuations Status: Acute (6) Weakness generalized: Code(s): R53.1 - Weakness Status: Acute DS: Summary Hospital Course Hospital Course: This is a 78-year-old female with past medical history significant for Parkinson's disease, patient is wheelchair-bound, able to walk short distances with a walker, dementia, dyslipidemia, hypertension, paroxysmal atrial fibrillation. Patient was brought to the emergency room in a separate ambulance after she and her fell according to he was looking for a shoe when his landed on him there were found by her caregiver an ambulance was called. Patient has been having recurrent falls recently discharged from [facility]. Preliminary workup has been essentially nonrevealing. Patient has been placed in observation. The following med issues have been addressed during hospitalization (1) UTI (urinary tract infection): Code(s): N39.0 - Urinary tract infection, site not specified Status: Acute Assessment and Plan: Admit to regular med Patient received rocephin and cefdinir for total 6 days urine culture positive for hamm sensitive E coli Afebrile, patient denies dysuria Completed antibiotics (2) Leukocytosis: Code(s): D72.829 - Elevated white blood cell count, unspecified Status: Acute Assessment and Plan: resolved (3) Fall: Code(s): W19.XXXA - Unspecified fall, initial encounter Status: Acute Assessment and Plan: Fall precautions PT/OT Pt requesting DC to SNF not case management working on placement. Patient will discharge to residential today (4) Weakness generalized: Code(s): R53.1 - Weakness Status: Acute Assessment and Plan: Likely secondary to chronic illness (5) Parkinson's disease: Code(s): G20.A1 - Parkinson's disease without dyskinesia, without mention of fluctuations Status: Acute Assessment and Plan: Continue home meds SNF placement, approved by insurance today (1) UTI (urinary tract infection): Code(s): N39.0 - Urinary tract infection, site not specified Status: Acute Assessment and Plan: Admit to regular med Patient received rocephin and cefdinir for total 6 days urine culture positive for hamm sensitive E coli Afebrile, patient denies dysuria Completed antibiotics (2) Leukocytosis: Code(s): D72.829 - Elevated white blood cell count, unspecified Status: Acute Assessment and Plan: resolved (3) Fall: Code(s): W19.XXXA - Unspecified fall, initial encounter Status: Acute Assessment and Plan: Fall precautions PT/OT Pt requesting DC to SNF not case management working on placement. Patient will discharge to residential today (4) Weakness generalized: Code(s): R53.1 - Weakness Status: Acute Assessment and Plan: Likely secondary to chronic illness (5) Parkinson's disease: Code(s): G20.A1 - Parkinson's disease without dyskinesia, without mention of fluctuations Status: Acute Assessment and Plan: Continue home meds SNF placement, approved by insurance today Time Spent with Patient Time attestation: Total time spent providing and/or coordinating discharge services: Exam Narrative: GENERAL: Ill-appearing in no acute distress. Well-nourished. - EYES: EOMI. Anicteric. - HENT: Moist mucous membranes. - LUNGS: Clear to auscultation bilaterally, no wheezing, rhonchi, or rales. - CARDIOVASCULAR: Regular rate and rhythm. No murmur. No JVD. - ABDOMEN: Soft, non-tender and non-distended. No palpable masses. - EXTREMITIES: No edema. Peripheral pulses 2+. Some hands tremor, Non-tender. - NEUROLOGIC: No focal neurological deficits. CN II-XII grossly intact. General weakness - PSYCHIATRIC: Awake, Alert and oriented x 3. Appropriate mood and affect. - SKIN: No rashes or lesions. Warm. - LYMPH: No cervical lymphadenopathy. Discharge Plan Discharge Attending physician on discharge: Tricia Thomas Discharging Clinician: Tricia Thomas Anticipated Discharge Date/Time: 04/01/24 12:42 Patient Disposition: SNF Activity: as tolerated Diet: as tolerated and regular Patient Language: Lao Stand Alone Forms: General Discharge Information Follow-up/Referrals: Radha,Rosendo Warren PA-C [Primary Care Provider] - Discharge Medications: Continued carbidopa-levodopa 25-100 mg tablet 2 tablet PO TID donepezil 10 mg tablet 10 mg PO HS metoprolol succinate 25 mg tablet extended release 24 hr 25 mg PO DAILY sertraline 50 mg tablet 50 mg PO Q24H cyanocobalamin (vitamin B-12) 1,000 mcg capsule 1,000 mcg PO DAILY docusate sodium 100 mg tablet 100 mg PO BID polyethylene glycol Powder miscellaneous DAILY Rx Instructions: 17 gram po acetaminophen 500 mg tablet 500 mg PO Q4H PRN (Reason: pain) albuterol sulfate [Ventolin HFA] 90 mcg/actuation HFA aerosol inhaler 1 puff inhalation Q4H PRN (Reason: shortness of breath or wheezing) bisacodyl [Dulcolax (bisacodyl)] 10 mg suppository 10 mg RECTAL DAILY PRN (Reason: constipation) loperamide [Anti-Diarrheal (loperamide)] 2 mg tablet 2 mg PO Q6H PRN (Reason: loose stool) magnesium hydroxide 400 mg/5 mL suspension 30 ml PO DAILY PRN (Reason: constipation) eucerin original healing cream See Rx Instructions topical Q8H PRN (Reason: dry skin) Rx Instructions: topically every 8 hours PRN; Date of admission: 03/29/24 19:15 Primary Care Provider: Radha,Rosendo Warren Admitting Provider: Raimundo Richardson V. Attending physician on admission: Bean Hardin Condition: Stable
== END 2024-04-04 16:25 | DRG 690 ==
LOC: ANHED 21:30 → ANH3MEDSUR 03-29 02:01
PROVIDERS: Internal Medicine; Admitting Provider Internal Medicine; Emergency Provider Student in an Organized Health Care Education/Training Program; PCP Physician Assistant Medical; Visit Provider Hospitalist
DX: N39.0 Urinary tract infection, site not specified (principal); B96.20 Unspecified Escherichia coli [E. coli] as the cause of diseases classified elsewhere; S02.2XXA Fracture of nasal bones, initial encounter for closed fracture; W19.XXXA Unspecified fall, initial encounter; R53.1 Weakness; D72.829 Elevated white blood cell count, unspecified; E78.5 Hyperlipidemia, unspecified; G20.C Parkinsonism, unspecified; I48.0 Paroxysmal atrial fibrillation; F33.41 Major depressive disorder, recurrent, in partial remission; F03.90 Unspecified dementia, unspecified severity, without behavioral disturbance, psychotic disturbance, mood disturbance, and anxiety; R29.6 Repeated falls; I10 Essential (primary) hypertension; F41.9 Anxiety disorder, unspecified; Z99.3 Dependence on wheelchair
CPT/HCPCS: 36415; 70450; 70486; 71045; 72125; 80048; 80053; 81001; 83605; 83735; 85025; 87086; 87186; 87637; 96365; 96375; 97110; 97162; 97165; 97530; 97535; 99285; A9270; G0378; J0696; J1650

== ENCOUNTER 2024-04-21 17:23 | Emergency (ER) | payer MEDICARE, SELFPAY ==
--- NOTE | ~2024-04-21 | CT_ITS ---
History: Fall PROCEDURE: CT cervical spine without intravenous contrast. COMPARISON: 03/28/2024 TECHNIQUE: Multiple contiguous axial images of the cervical spine were performed without the administration of i ntravenous contrast. DLP: 223 mGy-cm FINDINGS: Straightening and slight reversal of the normal curvature of the cervical spine is identified, likely muscular in origin. Degenerative disease is identified with osteophyte formation, disc space narrowing, endplate changes and facet arthropathy. No acute fractures are present. The bilateral lung apices are unremarkable. No soft tissue abnormality is present. The airway is patent. Impression: Straightening and slight reversal of the normal curvature of the cervical spine, likely muscular in o rigin. Degenerative disease, without acute fracture. Reviewed, dictated and finalized at location A. O TIME SALES SUPERVISOR Impression: Straightening and slight reversal of the normal curvature of the cervical spine , likely muscular in origin. Degenerative disease, without acute fracture.
--- NOTE | ~2024-04-21 | CT_ITS ---
History: Fall PROCEDURE: CT head without contrast. COMPARISON: 03/28/2024 TECHNIQUE: Axial imaging of the head performed from the skull base to the vertex without IV contrast. Sagittal a nd coronal reformations obtained. DLP: 605 mGy-cm FINDINGS: The ventricles are enlarged. The dilatation of the ventricles is proportional to the degree of sulcal prominence, not uncommon in the senescent brain. Decreased attenuation is identified within the periventricular white matter, likely secondary to micr ovascular ischemic disease, in a patient of this age. There is no mass, mass effect or midline shift. There is no abnormal extra-axial fluid collection or intracranial hemorrhage. Air-fluid level within the left sphenoid sinus. Remaining paranasal sinuses are unremarkable. The mastoid air cells are well aerated. No acute displaced fractures within the overlying cranium. Right frontal scalp hematoma. Impression: No acute intracranial hemorrhage or suspicious mass effect. Inflammatory sinus disease. Right frontal scalp hematoma. Reviewed, dictated and finalized at location A. TAL COMPUTER SYSTEMS ANALYST Impression: No acute intracranial hemorrhage or suspicious mass effect. Inflammatory sinus disease. Right frontal scalp hematoma.
--- OUTSIDE RECORDS SUMMARY | 2024-04-21 17:25 | XMS_ITS | Clinical Summary ---
Author Organization [facility] Address [address] [place] [address] Phone Care Team Providers Care Archaeologist Name Role Phone Jer Daniels MD Primary Care Provider [phone] Allergies Active Allergy Reactions Criticality Noted Date Comments Ciprofloxacin Rash 07/13/2016 Decloxizine Unknown 07/13/2016 Penicillin G Rash 07/13/2016 Sulfa Antibiotics Hives 07/13/2016 Medications atorvastatin (LIPITOR) 40 MG Tablet Take 40 mg by mouth daily. Active sertraline (ZOLOFT) 50 MG Tablet Take 50 mg by mouth daily. Active metoprolol tartrate (LOPRESSOR) 25 MG Tablet Take 0.5 Tablets by mouth 2 times daily. 180 Tablet 3 Active miconazole 2 % Powder [The details of the medication are not available because there are pending changes by a home health clinician.] 43 g 3 Active Additional Information Patient taking differently:1 Each Topical 2 TIMES DAILY,used at groin, Reported on 08/29/2022 lisinopril (PRINIVIL, ZESTRIL) 5 MG Tablet Take 1 Tablet by mouth daily. 30 Tablet 3 Active docusate sodium (COLACE) 50 MG Capsule Take 1 Capsule by mouth daily. Hold for loose stools. 180 Capsule Active hydrOXYzine (ATARAX) 25 MG Tablet Take 25 mg by mouth nightly as needed for Anxiety or Itching. # [id number] Active Cholecalciferol (Vitamin D3) 2000 UNIT Capsule Take 50 mcg by mouth daily. Active Coenzyme Q10 (Co Q-10) 100 MG Capsule Take 100 mg by mouth daily. Active Acetaminophen 500 MG Capsule Take 500 mg by mouth every 6 hours as needed for Mild or more severe pain. Active naproxen (NAPROSYN) 500 MG Tablet Take 1 Tablet by mouth 2 times daily as needed for Mild or more severe pain (Please take with food). 60 Tablet 3 Active Active Problems Problem Noted Date Diagnosed Date Physical deconditioning 08/25/2022 Expressive aphasia 08/23/2022 Right arm weakness 08/23/2022 Metabolic acidosis, normal anion gap (NAG) 08/09 Traumatic cerebral parenchymal hemorrhage 2022 HTN (hypertension) 08/04/2022 Hyperlipidemia 08/04/2022 Paroxysmal atrial fibrillation 08/04/2022 Family History Medical History Relation Name Comments Heart Disease Father Cancer Mother Relation Name Status Comments Father Mother Social History Tobacco Use Types Packs/Day Years Used Date Smoking Tobacco: Never Alcohol Use Standard Drinks/Week Comments Yes 0 (1 standard drink = 0.6 oz pur e alcohol) 1-2 drinks 3 times weekly Comments Unknown Sex and Gender Information Value Date Recorded Sex Assigned at Not on file Legal Sex Female 2:26 PM CDT Gender Identity Not on file Sexual Orientation Not on file Last Filed Vital Signs Vital Sign Reading Time Taken Comments Blood Pressure 129/71 01/05/2023 12:10 AM BURN CREW MEMBER Pulse 62 01/05/2023 12:10 AM BURN CREW MEMBER Temperature 36.7 C (98 F) 01/04/2023 5:08 PM BURN CREW MEMBER Respiratory Rate 16 01/05/2023 12:10 AM BURN CREW MEMBER Oxygen Saturation 98% 01/05/2023 12:10 AM BURN CREW MEMBER Inhaled Oxygen Concentration - - Weight 56.7 kg (125 lb) 01/04/2023 5:08 PM BURN CREW MEMBER Height 160 cm (5' 3 ) 01/04/2023 5:08 PM BURN CREW MEMBER Body Mass Index 22.14 01/04/2023 5:08 PM BURN CREW MEMBER Plan of Treatment Health Maintenance Due Date Last Done Comments DEXA Bone Density 1945 Hepatitis C Virus (HCV) Screening 1945 TdaP Immunization 1945 Zoster Immunization (2 of 3) 04/24/2015 02/27/2015, 02/21/2014 Respiratory Syncytial Virus (RSV) Immunization (Adult) (1 - 1-dose 75+ series) 2021 Influenza Immunization (#1) 10/29/202310/28, 11/10/2021, 11/09/2020, Additional history exists SARS-COV-2 Immunization ( season) 2023 02/03/2021, 05/30/2020, 05/02/2020 Pneumococcal Immunization (50+ years) Completed 08/16/2016, 07/28/2014 Pneumococcal Immunization Combined Discontinued 08/16/2016, 07/28/2014 Hepatitis B Immunization Aged Out No longer eligible based on patient's age to complete this topic Meningococcal Immunization (ACWY) Aged Out No longer eligible based on patient's age to complete this topic Rotavirus Immunization Aged Out No lo nger eligible based on patient's age to complete this topic Medical Devices Implanted Type Area Finance Effectiveness Manager Device Identifier Shelf Expiration Date Model / Serial / Lot Reveal Linq Implanted:Qty: 1 on 08/02/2016 by Ramo Noe MD at [facility] N/A: Chest Wall [employer] 06/10/2017 [id number] / [id number] / NA Insurance MEDICARE C AETNA Advance Directives * Full Code (Latest Code Status on File) Date Activated Date Inactivated Comments 09/07/2022 9:07 AM 10/21/2022 1:42 PM * Full Code Date Activated Date Inactivated Comments 08/04/2022 6:39 PM 08/26/2022 8:06 PM CPR-Full Alice tment: FULL ARREST: Attempt Resuscitation/CPR wit intubation and mechanical ventilation. PRE-ARREST: Use entire range of life support measures to stabilize the patient. Care Teams Archaeologist Relationship Specialty Start Date End Date Jer Daniels MD PCP - General Family Medicine 08/04/22
--- OUTSIDE RECORDS SUMMARY | 2024-04-21 17:25 | XMS_ITS | Encounter Summary ---
Author Organization [facility] Address [address] [place] [address] Phone Care Team Providers Care Wedding Coordinator Name Role Phone Vangie Tillman PT Unavailable Unavailable Donna Ramirez Unavailable Unavailable Daisy Desai MD Primary Care Provider [phone] Waleska Alvarez DO Primary Care Provider [phone] Maury Mckenna MD Unavailable Noelle Noe MD Unavailable [phone] Lindsay Parada MA Unavailable [phone] Erma Schultz DNP Unavailable [phone] Jud Carmona MA Unavailable [phone] Encounter Details Date Type Department Care Team (Late st Contact Info) Description 05/01/2017 Orders Only [facility] ProviderLuly MD [address] [place] [address] Social History Tobacco Use Types Packs/Day Years Used Date Smoking Tobacco: Never Smokeless Tobacco: Never Alcohol Use Standard Drinks/Week Comments Yes 0 (1 standard drink = 0.6 oz pur e alcohol) Comments Unknown Sex and Gender Information Value Date Recorded Sex Assigned at Not on file Legal Sex Female 3:09 AM MACHINE OPERATOR HELPER Gender Identity Not on file Sexual Orientation Straight 02/06/2020 1: 53 PM MACHINE OPERATOR HELPER documented as of this encounter Plan of Treatment Not on file documented as of this encounter Procedures Procedure Name Priority Date/Time Associated Diagnosis Comments DISCHARGE LABORATORY CUMULATIVE REPORT 05/01/2017 12:00 AM MACHINE OPERATOR HELPER documented in this encounter Results * DISCHARGE LABORATORY CUMULATIVE REPORT (05/01/2017 12:00 AM MACHINE OPERATOR HELPER) Narrative 05/01/2017 12:00 AM MACHINE OPERATOR HELPER Ordered by an unspecified provider. us Historical Provider LAB BLOOD ORDERABLES Alize l Result documented in this encounter Visit Diagnoses Not on filedocumented in this encounter Additional Health Concerns Infection Onset Date Last Indicated Resolved Time MDR gram neg/ESBL Comment:ESBL E.coli urine 12/21/16 12/24/2016 12/24/2016 documented as of this encounter Care Teams Wedding Coordinator Relationship Specialty Start Date End Date Daisy Desai MD [address] [place] [address] PCP - General 05/01/17 05/04/17 Waleska Alvarez DO [address] [place] [address] PCP - General Family Medicine 05/05/17 12/06/23 Vangie Tillman, BRISA Physical Therapist Physical Therapy 02/16/17 Donna Ramirez Physical Therapist Physical Therapy 03/23/17 11/09/21 Maury Mckenna MD [address] [place] [address] Surgeon Orthopedic Surgery 04/04/19 11/09/21 Noelle Noe MD [address] [place] [address] Consulting Physician Cardiology 11/09/20 Lindsay Parada MA [address] [facility] [address] [facility] [facility] [address] [place] [address] O Care Coverer 08/05/21 08/10/21 Erma Schultz DNP [address] [place] [address] [address] [place] [address] Nurse Practitioner Neurology 11/10/21 Jud Carmona MA [address] [address] [place] [address] O Care Coverer 03/11/22 documented as of this encounter
--- OUTSIDE RECORDS SUMMARY | 2024-04-21 17:25 | XMS_ITS | Encounter Summary ---
Author Organization [facility] Address [address] [facility] [address] [place] [address] Care Team Providers Care Waterworks Pump Station Operator Name Role Phone Daisy Desai MD Primary Care Provider [phone] Daisy Desai MD Primary Care Provider [phone] Daisy Desai MD Primary Care Provider [phone] Vangie Tillman PT Unavailable Unavailable Donna Ramirez Unavailable Unavailable Waleska Alvarez DO Primary Care Provider [phone] Daisy Desai MD Primary Care Provider [phone] Waleska Alvarez DO Primary Care Provider [phone] Maury Mckenna MD Unavailable [phone] Noelle Noe MD Unavailable Lindsay Parada MA Unavailable Erma Schultz DNP Unavailable [phone] Jud Carmona MA Unavailable [phone] Encounter Details Date Type Department Care Team (Late st Contact Info) Description 03/06/2016 Orders Only [facility] Provider, MD Luly [address] [place] [address] Social History Tobacco Use Types Packs/Day Years Used Date Smoking Tobacco: Never Alcohol Use Standard Drinks/Week Comments Yes 0 (1 standard drink = 0.6 oz pur e alcohol) Comments Unknown Sex and Gender Information Value Date Recorded Sex Assigned at Not on file Legal Sex Female 3:09 AM FIELD WORKER Gender Identity Not on file Sexual Orientation Straight 02/06/2020 1: 53 PM FIELD WORKER documented as of this encounter Plan of Treatment Not on file documented as of this encounter Procedures Procedure Name Priority Date/Time Associated Diagnosis Comments CARDIOLOGY REPORT 03/06/2016 documented in this encounter Results * CARDIOLOGY REPORT (03/06/2016) Anatomical Region Laterality Modality Other Narrative 03/06/2016 Ordered by an unspecified provider. Historical Provider [facility] [facility] Final Result documented in this encounter Visit Diagnoses Not on filedocumented in this encounter Additional Health Concerns Infection Onset Date Last Indicated Resolved Time MDR gram neg/ESBL Comment:ESBL E.coli urine 12/21/16 12/24/2016 12/24/2016 documented as of this encounter Care Teams Waterworks Pump Station Operator Relationship Specialty Start Date End Date Daisy Desai MD [address] [place] [address] PCP - General 05/27/16 03/28/17 Daisy Desai MD [address] [place] [address] PCP - General 04/21/16 05/26/16 Daisy Desai MD [address] [place] [address] PCP - General 05/22/13 04/20/16 Waleska Alvarez DO PCP - General Family Medicine 03/29/17 04/30/17 Daisy Desai MD [address] [facility] [address] PCP - General 05/01/17 05/04/17 Waleska Alvarez DO PCP - General Family Medicine 05/05/17 12/06/23 Vangie Tillman, PT Physical Therapist Physical Therapy 02/16/17 Donna Ramirez Physical Therapist Physical Therapy 03/23/17 11/09/21 Maury Mckenna MD Surgeon Orthopedic Surgery 04/04/19 11/09/21 Noelle Noe MD [address] [place] [address] Consulting Physician Cardiology 11/09/20 Lindsay Parada MA [address] [place] [address] [address] [place] [address] ACO Care Writing Tutor 08/05/21 08/10/21 Erma Schultz DNP [address] [place] [address] [address] [place] [address] Nurse Practitioner Neurology 11/10/21 Jud Carmona MA [address] [facility] [address] [place] [address] ACO Care Writing Tutor 03/11/22 documented as of this encounter
--- OUTSIDE RECORDS SUMMARY | 2024-04-21 17:25 | XMS_ITS | Referral Summary ---
Author Organization [facility] al Address [address] [place] [address] Care Team Providers Care Spool Fixer Name Role Phone Vangie Tillman PT Unavailable Unavailable Noelle Noe MD Unavailable Erma Schultz DNP Unavailable [phone] Jud Carmona MA Unavailable [phone] Allergies Active Allergy Reactions Criticality Noted Date Comments Ciprofloxacin Rash,Unknown Medium 07/13/2016 Demeclocycline Other (See comments) Low Unknown Demeclocycline Hcl Unknown Penicillin G Rash Medium 07/13/2016 Penicillins Rash Medium Sulfa (Sulfonamide Antibiotics) Hives Medium Sulfasalazine Hives Medium 07/13/2016 Takes aspirin at home 03/09/22 Tetanus Vaccines And Toxoid Tetracyclines Hives Medium 06/07/2018 Medications cholecalciferol (VITAMIN D-3) 2000 unit capsule Take 2,000 Units by mouth nightly Active cranberry extract-vitamin C 250-60 mg capsule Take 1 capsule by mouth nightly Active albuterol HFA (Ventolin HFA) 90 mcg/actuation inhalerIndicatio ns:Mild intermittent asthma without complication Inhale 2 puffs every 4 (four) hours as needed for wheezing or shortness of breath 3 each 3 2 Active sertraline (ZOLOFT) 50 mg tabletIndication s:Generalized anxiety disorder,Mild episode of recurrent major depressive disorder (HCC) Take 1 tablet (50 mg total) by mouth daily 90 tablet 3 2 Active Additional Information Patient taking differently:50 mg oralEvery morning, Reported on 03/04/2022 metoprolol XL (TOPROL-XL) 25 mg extended release tablet Take 1 tablet (25 mg total) by mouth 2 (two) times a day 180 tablet 3 2 Active nitrofurantoin (MACRODANTIN) 100 mg capsule Take 100 mg by mouth 2 (two) times a day Active atorvastatin (LIPITOR) 40 mg tablet Take 1 tablet (40 mg total) by mouth nightly 30 tablet 11 3 Active clopidogreL (PLAVIX) 75 mg tabletIndication s:coronary artery disease Take 1 tablet (75 mg total) by mouth daily 30 tablet 11 3 Active hydrOXYzine (ATARAX) 25 mg tabletIndication s:Generalized anxiety disorder Take 1 tablet (25 mg total) by mouth nightly 30 tablet 11 3 Active aspirin 81 mg enteric coated tabletIndication s:Primary hypertension,Abn ormally low high density lipoprotein (HDL) cholesterol with hypertriglycerid emia,Paroxysmal atrial fibrillation (CMS/HCC) (HCC) Take 1 tablet (81 mg total) by mouth daily 30 tablet 11 3 Active Active Problems Problem Noted Date Diagnosed Date Closed fracture of nasal bones 03/28/2022 Assessment & Plan (03/28/2022 1:39 PM PIANO PROFESSOR): Referred to ENT for f/u. Presence of Amulet left atrial appendage closure device 03/09/2022 Essential tremor 12/14/2021 Assessment & Plan (12/14/2021 9:12 PM CDT): She already has a 1 year f/u with neurology scheduled for memory problems. Will update referral to discuss tremor at that visit as well. Primary osteoarthritis of left knee 08/06/2021 Hair thinning 06/03/2021 Assessment & Plan (06/05/2021 10:22 PM CDT): Labs ordered. Will follow. Gait abnormality 11/11/2020 Assessment & Plan (03/28/2022 1:40 PM PIANO PROFESSOR): Ambulates with a standard walker, encouraged safety. Patient declines PT referral at this time, as she will be moving soon. Assessment & Plan (11/11/2020 10:41 AM CDT): Referred to PT per patient's request. Memory loss 11/11/2020 Assessment & Plan (11/11/2020 10:43 AM CDT): Referred to neurology per patient's request. Frequent falls 11/11/2020 Assessment & Plan (12/14/2021 9:13 PM CDT): Quite unsteady on her feet. Using cane in office. States she has a walker she uses at home. Currently getting home pt/ ot. I encouraged her to use her walker when out as well. Assessment & Plan (11/11/2020 10:42 AM CDT): Referred to PT for gait assessment. Mild episode of recurrent major depressive disor melchor 03/30/2020 Assessment & Plan (04/21/2022 1:45 PM PIANO PROFESSOR): Clinically improved, continue current prescription medications, sertraline. Assessment & Plan (11/12/2021 9:16 PM CDT): Stable. Cont. Current prescription medications. Assessment & Plan (06/05/2021 10:24 PM CDT): Stable. Cont. Current prescription medications. Assessment & Plan (11/11/2020 10:39 AM CDT): Stable. Cont. Current meds. Assessment & Plan (03/30/2020 4:14 PM PIANO PROFESSOR): New diagnosis. Trial of sertraline 50 mg 1 p.o. q.d. patient instructed to call 911 or go to nearest emergency room if she feels she is going to be a harm to herself or to others. Mild intermittent asthma without complication Assessment & Plan (04/21/2022 1:45 PM PIANO PROFESSOR): Asx. At baseline, cont current Rx meds, Albuterol. Assessment & Plan (11/12/2021 9:13 PM CDT): Asx. At baseline, continue current Rx meds. Assessment & Plan (06/05/2021 10:23 PM CDT): At baseline, cont current Rx meds. Assessment & Plan (11/11/2020 10:39 AM CDT): At baseline, cont current mgmt. Assessment & Plan (03/30/2020 4:15 PM PIANO PROFESSOR): Stable. Cont. Current meds. Class 1 obesity due to exces s calories with serious comorbidity and body mass index (BMI) of 33.0 to 33.9 in adult 02/13/2018 Assessment & Plan (11/12/2021 9:16 PM CDT): Weight reduction, daily exercise and dietary modifications recommended., as obesity can complicate their hypercholesterolemia and hypertension Assessment & Plan (06/05/2021 10:24 PM CDT): Weight reduction, daily exercise and dietary modifications recommended. Assessment & Plan (11/11/2020 10:43 AM CDT): Weight reduction, daily exercise and dietary modifications recommended. Assessment & Plan (08/14/2019 11:08 AM CDT): Weight reduction, daily exercise and dietary modifications recommended. Assessment & Plan (02/18/2019 2:28 PM PIANO PROFESSOR): Improving. Encouraged patient to decrease weight, increase daily exercise, and modify diet. Assessment & Plan (08/13/2018 4:38 PM CDT): Obesity is unchanged. Discussed the patient's BMI. The BMI is above average; BMI management plan is completed. General weight loss/lifestyle modification strategies discussed (elicit support from others; identify saboteurs; non-food rewards, etc). Assessment & Plan (03/09/2018 2:41 PM PIANO PROFESSOR): Obesity is unchanged. Discussed the patient's BMI. The BMI is above average; BMI management plan is completed. General weight loss/lifestyle modification strategies discussed (elicit support from others; identify saboteurs; non-food rewards, etc). Assessment & Plan (02/17/2018 4:35 PM PIANO PROFESSOR): Obesity is unchanged. Discussed the patient's BMI. The BMI is above average; BMI management plan is completed. General weight loss/lifestyle modification strategies discussed (elicit support from others; identify saboteurs; non-food rewards, etc). Assessment & Plan (02/13/2018 2:38 PM PIANO PROFESSOR): Obesity is unchanged. Discussed the patient's BMI. The BMI is above average; BMI management plan is completed. General weight loss/lifestyle modification strategies discussed (elicit support from others; identify saboteurs; non-food rewards, etc). Diet= low-carb Limit white bread, rice, pasta, potatoes, juice, energy drinks, coffee creamers with sugar, sugar sodas, candy, cake, cookies, ice cream. Be more careful with starchy vegetables like corn, carrots, and fruits. Stay away from processed foods, fast foods, fried foods. The cornerstone of this diet is lean grilled meats, green salads or cooked greens, fat-free milk, cottage cheese, nuts like [id number], protein bars with 10-15 g of protein and 20-30 g of carbohydrate. Choose whole grain breads and pastas, brown rice, sweet potatoes, read onions--these whole grains absorb more slowly thus blood sugar does not surge so high so quickly. Avoid drinking juice, eat a piece of fruit instead. Abnormal resting ECG findings 07/06/2017 Assessment & Plan (07/06/2017 4:01 PM CDT): C/W with previous ecg showing sinus arrhythmia, patient is Asx. Lost to f/u with cardiology. Patient is currently stable, recommended f/u with customer service receptionist. Referral given. Vitamin D deficiency 03/29/2017 Assessment & Plan (08/13/2018 4:38 PM CDT): Labs ordered, will follow. Assessment & Plan (03/29/2017 12:41 PM PIANO PROFESSOR): Labs ordered, will follow. Abnormally low high density lipoprotein (HDL) cholesterol with hypertriglyceridemia 03/29/2017 Assessment & Plan (04/21/2022 1:43 PM PIANO PROFESSOR): LDL at goal of less than 100, continue current prescription medications, atorvastatin. Assessment & Plan (11/12/2021 9:13 PM CDT): LDL at goal of less than 100, continue current prescription medications. Assessment & Plan (11/11/2020 10:38 AM CDT): LDL near goal of < 70. Cont current mgmt. Followed by cardiology. Assessment & Plan (08/14/2019 11:06 AM CDT): Low chol diet recommended, cont current meds. Assessment & Plan (02/18/2019 2:26 PM PIANO PROFESSOR): Worsening, low cholesterol diet recommended. Assessment & Plan (08/13/2018 4:37 PM CDT): Lipid abnormalities are improving with treatment. Nutritional counseling was provided. and Pharmacotherapy as ordered. Lipids will be reassessed in 6 months. Pravastatin 40 mg qd Assessment & Plan (03/29/2017 12:40 PM PIANO PROFESSOR): Encouraged a low chol. Diet. Will follow. Fibromyalgia 03/29/2017 Overview (03/29/2017): Managed by Pain Mgmt. Assessment & Plan (08/14/2019 11:08 AM CDT): Clinically resolved. D/C'd Cymbalta on her own after losing the medication. Does not want to re-start it. Assessment & Plan (02/18/2019 2:27 PM PIANO PROFESSOR): Stable. Cont. Current meds. Assessment & Plan (08/13/2018 4:39 PM CDT): Clinically improved, continue Cymbalta 30 mg qd. Paroxysmal atrial fibrillation ([facility]/HCC) 017 Overview (03/29/2017): Managed by cardiology Assessment & Plan (04/21/2022 1:44 PM PIANO PROFESSOR): Rate-controlled, cont Plavix Assessment & Plan (03/21/2022 9:04 AM PIANO PROFESSOR): S/p installation of a left atrial appendage occluder device to help with mitral regurgitation. Discharge summary reviewed. Patient will continue to f/u with cardiology. Assessment & Plan (11/11/2020 10:40 AM CDT): Rate-controlled, managed by cardiology. Cont current meds. Assessment & Plan (08/14/2019 11:06 AM CDT): Asx. Continue current therapy. Managed by cardiology. Assessment & Plan (02/18/2019 2:27 PM PIANO PROFESSOR): Rate-controlled, managed by cardiology. Assessment & Plan (01/27/2017 1:29 PM PIANO PROFESSOR): Regular sinus rhythm in office today with controlled rate. Continue to monitor. Continue on aspirin and metoprolol daily Assessment & Plan (12/21/2016 4:55 PM CDT): Patient had a loop recorder implanted after a syncopal event. She states shortly after recent hip surgery she received a phone call from her customer service receptionist reporting she had flipped in out of atrial fibrillation. She will continue to follow with her customer service receptionist. He started her on metoprolol. Medication list was updated to reflect this change. There has been no recurrence reported. History of right hip replacement 12/21/2016 Assessment & Plan (12/21/2016 4:58 PM CDT): Recent hip replacement on November 16. Patient is doing quite well postoperatively. She denies any postoperative complications. She continues to follow with orthopedist. She walks independently and unassisted into the office today. Cataract 11/04/2013 Overview (06/03/2016): Cataract Assessment & Plan (01/27/2017 1:36 PM PIANO PROFESSOR): Patient is stable and healthy enough to undergo cataract extraction surgery of right eye. Continue to f/u with ophthalmology as advised post-op Rosacea 11/04/2013 Overview (06/03/2016): Rosacea Chronic fatigue syndrome 04/05/2013 Overview (06/02/2016): Chronic fatigue syndrome Sciatica 04/05/2013 Overview (03/29/2017): Managed by Pain Mgmt. Spinal stenosis 04/05/2013 Overview (03/29/2017): Managed by Pain Mgmt. Comprehensive Pain Specialist Generalized anxiety disorder 04/05/2013 Overview (06/02/2016): Anxiety Assessment & Plan (04/21/2022 1:45 PM PIANO PROFESSOR): Clinically improved, continue current prescription medications, sertraline. Assessment & Plan (11/12/2021 9:13 PM CDT): Clinically improved, continue current prescription medications. Assessment & Plan (06/05/2021 10:21 PM CDT): Stable. Cont. Current prescription medications. Assessment & Plan (11/11/2020 10:39 AM CDT): Clinically improved, continue current meds. Assessment & Plan (03/30/2020 4:14 PM PIANO PROFESSOR): Worsening. Trial of sertraline 50 mg 1 p.o. q.d. and hydroxyzine 25 mg 1 p.o. q.h.s. p.r.n. patient instructed to call 911 or go to nearest emergency room if she feels she is going to be a harm to herself or to others. Assessment & Plan (08/14/2019 11:07 AM CDT): Clinically resolved. D/C'd Cymbalta on her own after losing the medication. Does not want to re-start it. Assessment & Plan (02/18/2019 2:27 PM PIANO PROFESSOR): Clinically improved, continue current meds. Assessment & Plan (08/13/2018 4:38 PM CDT): Psychological condition is improving with treatment. Continue current treatment regimen. Regular aerobic exercise. Psychological condition will be reassessed at the next regular appointment. Assessment & Plan (06/27/2017 5:04 PM CDT): Doing well on Cymbalta, would like to have an anti-anxiolytic on hand for stressful days. Rx given for lorazepam. Will follow. Assessment & Plan (03/29/2017 12:41 PM PIANO PROFESSOR): Asx. Cont current mgmt. Psoriasis 04/05/2013 Overview (06/02/2016): Psoriasis Chronic pain syndrome 04/05/2013 Overview (03/29/2017): Managed by Pain Mgmt. Primary hypertension 04/05/2013 Overview (06/03/2016): Hypertension Assessment & Plan (04/21/2022 1:45 PM PIANO PROFESSOR): Blood pressure at goal less than 140/90, continue current prescription medications. Assessment & Plan (11/12/2021 9:16 PM CDT): Blood pressure at goal less than 140/90, continue current prescription medications. Assessment & Plan (11/11/2020 10:38 AM CDT): BP at goal of < 140/90. Cont current mgmt. Assessment & Plan (08/14/2019 11:05 AM CDT): Low sodium diet, cont current meds. Assessment & Plan (02/18/2019 2:24 PM PIANO PROFESSOR): Stable. Cont. Current meds. Assessment & Plan (08/13/2018 4:35 PM CDT): Hypertension is improving with treatment. Continue current treatment regimen. Dietary sodium restriction. Regular aerobic exercise. Continue current medications. Ambulatory blood pressure monitoring. Blood pressure will be reassessed at the next regular appointment. Metoprolol xl 25 mg bid, Olmesartan 20 mg qd Followed by cardiology. Requested office notes from cardiology office. call center assistant called their office during patient's ov, I did not receive them prior to patient leaving. Assessment & Plan (03/29/2017 12:40 PM PIANO PROFESSOR): Hypertension is unchanged. Continue current treatment regimen. Dietary sodium restriction. Weight loss. Regular aerobic exercise. Continue current medications. Blood pressure will be reassessed at the next regular appointment. Assessment & Plan (01/27/2017 1:29 PM PIANO PROFESSOR): Stable. Pt was advised of continuing heart healthy DASH diet, increase exercise as tolerated, and continuing to monitor for any lower leg edema, headaches, changes in vision, or facial flushing. Continue ASA and anti-hypertensives as prescribed. Arthritis 04/05/2013 Overview (06/03/2016): Arthritis Resolved Problems Problem Noted Date Diagnosed Date Resolved Date Facial contusion, sequela 12/14/2021 Assessment & Plan (03/28/2022 1:39 PM PIANO PROFESSOR): Bruising healing. Assessment & Plan (12/14/2021 9:15 PM CDT): Reviewed ER records and negative imaging. Reassurance given. Healing will take time. Pt aware. Acute pain of left knee 06/03/202110/28 Assessment & Plan (06/05/2021 10:22 PM CDT): OTC pain reliever of choice. Referred to Ortho for further eval/mgmt. Right wrist sprain, initial encounter 05/19/2021 11/10/2021 Animal bite of index finger 08/24/2020 11/09/2020 Decreased range of motion of finger of right hand 08/24/2020 11/10/2021 Assessment & Plan (08/24/2020 1:49 PM CDT): Referred to hand specialist for further eval/mgmt. Finger pain, right 08/12/2020 Assessment & Plan (11/11/2020 10:41 AM CDT): Improving, clean with mild soap and water. OTC pain reliever of choice recommended. Assessment & Plan (08/12/2020 5:18 AM CDT): Xray ordered. Will follow. Dog bite 08/12/2020 06/03/2021 Assessment & Plan (08/24/2020 1:49 PM CDT): Referred to hand specialist for further evaluation. Assessment & Plan (08/12/2020 5:18 AM CDT): Recommended Tdap update. Pt owns dog and reports shots are up to date. Cellulitis of right index finger 08/12/2020 06/03/2021 Assessment & Plan (08/24/2020 1:48 PM CDT): Clinically improving, finish all antibiotics. No additional antibiotics at this time. Patient finished Clindamycin as well as cephalexin. Assessment & Plan (08/12/2020 5:19 AM CDT): Trial of antibiotics, Rx sent. OTC pain reliever of choice. Acute right hip pain 04/04/2019 022 Bronchitis 02/12/2018 08/13/2018 Assessment & Plan (03/09/2018 2:40 PM PIANO PROFESSOR): Here for follow up on bronchitis and abnormal lung sounds-had consistent rales in the left lower mild Most likely Pneumonia On Azithromycin and Medrol dose bello x 2 First cxr- IMPRESSION: 1. NO ACUTE PULMONARY DISEASE. 2. SMALL OPACITY LEFT MIDLUNG FIELD. COMPARISON WITH A PRIOR STUDY WOULD BE BENEFICIAL Follow up cxr reveal 03/08/18 FINDINGS: No infiltrate or effusion identified. Heart size is normal. Atherosclerotic changes of the aorta. Loop recorder projects over the anterior left chest wall. IMPRESSION: NO ACUTE PULMONARY DISEASE. Lung sounds have improved Assessment & Plan (02/17/2018 4:44 PM PIANO PROFESSOR): Here for follow up on bronchitis and abnormal lung sounds On Azithromycin and Medrol dose bello cxr- IMPRESSION: 1. NO ACUTE PULMONARY DISEASE. 2. SMALL OPACITY LEFT MIDLUNG FIELD. COMPARISON WITH A PRIOR STUDY WOULD BE BENEFICIAL Will get repeat cxr in about 3-4 weeks Will give another round of antibiotics since still have abnormal lung sounds Preop examination 01/27/2017 03/29/2017 Assessment & Plan (01/27/2017 1:31 PM PIANO PROFESSOR): Pt was advised to continue current therapy and medications for chronic conditions as previously as advised. Continue with healthy dietary management as well. Pt offered no additional complaints today in office. Preoperative medical clearance: Pt is medically stable and aware there are risk associated with surgery and anesthesia. He states the surgeon has reviewed these risk in detail with patient, and wishes to proceed with surgery. They are medically cleared for surgery. Pt was instructed to contact the office with absolutely any changes prior to and post surgery. We will see them back here as scheduled, or certainly sooner as needed. Acute URI 12/21/2016 03/29/2017 Assessment & Plan (12/21/2016 4:54 PM CDT): Humidification, fluids, and rest were recommended. Patient was instructed to take antibiotic as directed. Patient was encouraged to take antibiotic with food. I have also recommended daily probiotic, yogurt or capsule, while on the antibiotic. Acute cystitis without hematuria 12/21/2016 08/13/2018 Assessment & Plan (12/21/2016 4:54 PM CDT): Increasing fluid intake was recommended. Patient was instructed to take antibiotic as directed. Patient was encouraged to take antibiotic with food. I have also recommended daily probiotic, yogurt or capsule, while on the antibiotic. Urine sample will be submitted to the lab for urinalysis with reflex to microscopy and culture. Patient should anticipate a call from me regarding urine culture results within 3 days of having testing completed. Patient has been instructed to contact the office if they have not heard from me with results within this time frame. Sore throat 12/21/2016 03/29/2017 Assessment & Plan (12/21/2016 4:54 PM CDT): Rapid strep negative. Urinary tract infection 10/01/201607/28 Osteoarthritis of right hip 04/04/2016 02/18/2019 Impaired fasting glucose 09/12/2014 Overview (06/03/2016): Impaired fasting glucose Assessment & Plan (03/29/2017 12:41 PM PIANO PROFESSOR): Asx. Labs ordered. Immunizations Immunization Administration Dates Next Due Influenza, Quadrivalent, Hig h Dose, Preservative Free, Intrr 11/10/2021,11/09/2020 Influenza, Trivalent, High D ose, Split, Preservative Free, Intramuscular 01/20/2018,11/05/2016,12/24/2014,10/28 Influenza, Trivalent, IM (MDV) 02/21/2014,2012,12/22/2011 Influenza, Unspecified 11/28/2019(Deferr ed: Patient Refused),01/10/2019,01/27/2018 Pneumococcal Conjugate PCV 13 07/28/2014 Pneumococcal Polysaccharide PPV23 08/16/2016 ZOSTER LIVE 02/27/2015,02/21/2014 Social History Tobacco Use Types Packs/Day Years Used Date Smoking Tobacco: Never Smokeless Tobacco: Never Tobacco Cessation:Counseling Given: Not Answered Alcohol Use Standard Drinks/Week Comments Yes 0 (1 standard drink = 0.6 oz pur e alcohol) 3x week, burbon or vodka AUDIT-C Answer Date Recorded Frequency of Alcohol Consumption Not on file 03/09/2022 Q2: How many drinks containi ng alcohol do you have on a typical day when you are drinking? Patient does not drink Frequency of Binge Drinking Not on file 02/27 PHQ-2 Answer Date Recorded PHQ-2 Total Score (If total score is 3 or more points, staff should administer the PHQ-9) 0 04/21/2022 Personal Safety Answer Date Recorded Getting School Help Needed Denies 02/25 Comments No Sex and Gender Information Value Date Recorded Sex Assigned at Not on file Legal Sex Female 3:09 AM PIANO PROFESSOR Gender Identity Not on file Sexual Orientation Straight 02/06/2020 1: 53 PM PIANO PROFESSOR Occupation Industry Job Start Date Job End Date retired Not on file Not on file Not on file Last Filed Vital Signs Vital Sign Reading Time Taken Comments Blood Pressure 124/68 04/21/2022 12:35 PM PIANO PROFESSOR Pulse 79 04/21/2022 12:35 PM PIANO PROFESSOR Temperature 36.3 C (97.4 F) 04/21/2022 12:35 PM PIANO PROFESSOR Respiratory Rate 18 04/21/2022 12:35 PM PIANO PROFESSOR Oxygen Saturation 96% 04/21/2022 12:35 PM PIANO PROFESSOR Inhaled Oxygen Concentration - - Weight 86.2 kg (190 lb 1.6 oz) 04/21/2022 12:35 PM PIANO PROFESSOR Height 160 cm (5' 2.99 ) 04/21/2022 12:35 PM PIANO PROFESSOR Body Mass Index 33.68 04/21/2022 12:35 PM PIANO PROFESSOR Plan of Treatment Not on file Medical Devices Implanted Type Area Comb Setter Device Identifier Shelf Expiration Date Model / Serial / Lot [employer] Percutaneous Transcatheter Amplatzer Amulet 22mm [id number] - [id number] Implanted:Qty: 1 on 03/09/2022 by Debi Garcia MD at [facility] [employer] 10/27/2026 9 [id number] / / [id number] Procedures Procedure Name Priority Date/Time Associated Diagnosis Comments HEPATITIS C ANTIBODY Routine 08/13/2018 3:12 PM CDT Encounter for hepatitis C screening test for low risk patient COLONOSCOPY IMAGES 10/15/2013 from Last 3 Months or Most Recently Relevant to Health Maintenance Results * Hepatitis C antibody (08/13/2018 3:12 PM CDT) Hep C Ab Negative Negative [facility]ER GOMES (DAVID) Comment:Testing performed by : [facility], [address] [place] [address]., [id number] Blood specimen (specimen) 08/13/2018 3:12 PM CDT 08/14/2018 9:36 AM CDT Waleska Alvarez DO LAB MICROBIOLOGY - GENERAL ORDERABLES Final Result [facility]ER GOMES (DAVID) [address] [facility] Department [place] [address] * COLONOSCOPY IMAGES (10/15/2013) Anatomical Region Laterality Modality Other Narrative 10/15/2013 Ordered by an unspecified provider. Historical Provider GI PROCEDURE ORDERABLES F inal Result from Last 3 Months or Most Recently Relevant to Health Maintenance Additional Health Concerns Infection Onset Date Last Indicated MDR gram neg/ESBL Comment:ESBL E.coli urine 12/21/16 12/24/2016 12/24/2016 Insurance [employer] MEDICARE T MEDICARE T MEDICARE Care Teams Spool Fixer Relationship Specialty Start Date End Date Vangie Tillman, PT Physical Therapist Physical Therapy 02/16/17 Noelle Noe MD [address] [place] [address] Consulting Physician Cardiology 11/09/20 Erma Schultz DNP [address] [place] [address] Nurse Practitioner Neurology 11/10/21 Jud Carmona MA [address] [place] [address] DR MATT [address] [place] [id number] ACO Care Loss Control Technician 03/11/22
--- OUTSIDE RECORDS SUMMARY | 2024-04-21 17:25 | XMS_ITS | Clinical Summary ---
Author Organization [facility] Address [address] [place] [address] Care Team Providers Care Community Health Nurse Name Role Phone Unavailable Primary Care Provider Unavailabl e Social History Tobacco Use Types Packs/Day Years Used Date Smoking Tobacco: Never Assessed Comments Unknown Sex and Gender Information Value Date Recorded Sex Assigned at Not on file Legal Sex Female 10:22 PM CIVIL ENGINEERING DRAFTSPERSON Gender Identity Not on file Sexual Orientation Not on file Plan of Treatment Health Maintenance Due Date Last Done Comments Hepatitis C 1963 DTaP, Tdap and Td Vaccines ( 1 - Tdap) 1965 Zoster Vaccines (1 of 2) 1996 Dexa Scan (General) 2011 Pneumococcal Vaccine: 65+ Ye ars (1 of 1 - PCV) 2011 RSV Immunization or 60+ Years (1 - 1-dose 75+ series) 2021 COVID-19 Vaccine ( - 2023-2 5 season) 2023 Influenza Adult (#1) 2023 Meningococcal B Vaccine Aged Out No l onger eligible based on patient's age to complete this topic Meningococcal Vaccine Aged Out No zack kristen eligible based on patient's age to complete this topic RSV Immunizations Under 20 Months Aged Out No longer eligible based on patient's age to complete this topic
--- OUTSIDE RECORDS SUMMARY | 2024-04-21 17:25 | XMS_ITS | Encounter Summary ---
Author Organization [facility] Address [address] [place] [address] Phone Care Team Providers Care Field Service Coordinator Name Role Phone Jer Daniels MD Primary Care Provider [phone] Encounter Details Date Type Department Care Team (Late st Contact Info) Description 08/29/2022 Telephone [facility] [address] [place] [address] Ronny Travis, PT MD Social History Tobacco Use Types Packs/Day Years [...] on file Sexual Orientation Not on file COVID-19 Exposure Response Date Recorded In the last 10 days, have yo u been in contact with someone who was confirmed or suspected to have Coronavirus/COVID-19? No / Unsure 08/04/2022 6:51 PM CDT documented as of this encounter Plan of Treatment Not on file documented as of this encounter Visit Diagnoses Not on filedocumented in this encounter Care Teams Field Service Coordinator Relationship Specialty Start Date End Date Jer Daniels MD PCP - General Family Medicine 08/04/22 documented as of this encounter
--- OUTSIDE RECORDS SUMMARY | 2024-04-21 17:25 | XMS_ITS | Clinical Summary ---
Author Organization [facility] Address [address] [place] [address] Care Team Providers Care Life Consultant Name Role Phone Vangie Tillman PT Unavailable Unavailable Noelle Noe MD Unavailable Erma Schultz DNP Unavailable [phone] Jud Carmona MA Unavailable [phone] Allergies Active Allergy Reactions Criticality Noted [...] 03/28/2022 Assessment & Plan (03/28/2022 1:39 PM POLE PEELING MACHINE OPERATOR): Referred to ENT for f/u. Presence of [...] 11/11/2020 Assessment & Plan (03/28/2022 1:40 PM POLE PEELING MACHINE OPERATOR): Ambulates with a standard walker, encouraged safety. [...] 03/30/2020 Assessment & Plan (04/21/2022 1:45 PM POLE PEELING MACHINE OPERATOR): Clinically improved, continue current prescription medications, sertraline. Assessment & Plan (11/12/2021 9:16 PM CDT): Stable. Cont. Current prescription medications. Assessment & Plan (06/05/2021 10:24 PM CDT): Stable. Cont. Current prescription medications. Assessment & Plan (11/11/2020 10:39 AM CDT): Stable. Cont. Current meds. Assessment & Plan (03/30/2020 4:14 PM POLE PEELING MACHINE OPERATOR): New diagnosis. Trial of sertraline 50 mg 1 p.o. q.d. patient instructed to call 911 or go to nearest emergency room if she feels she is going to be a harm to herself or to others. Mild intermittent asthma without complication Assessment & Plan (04/21/2022 1:45 PM POLE PEELING MACHINE OPERATOR): Asx. At baseline, cont current Rx meds, Albuterol. Assessment & Plan (11/12/2021 9:13 PM CDT): Asx. At baseline, continue current Rx meds. Assessment & Plan (06/05/2021 10:23 PM CDT): At baseline, cont current Rx meds. Assessment & Plan (11/11/2020 10:39 AM CDT): At baseline, cont current mgmt. Assessment & Plan (03/30/2020 4:15 PM POLE PEELING MACHINE OPERATOR): Stable. Cont. Current meds. Class 1 obesity [...] recommended. Assessment & Plan (02/18/2019 2:28 PM POLE PEELING MACHINE OPERATOR): Improving. Encouraged patient to decrease weight, increase daily exercise, and modify diet. Assessment & Plan (08/13/2018 4:38 PM CDT): Obesity is unchanged. Discussed the patient's BMI. The BMI is above average; BMI management plan is completed. General weight loss/lifestyle modification strategies discussed (elicit support from others; identify saboteurs; non-food rewards, etc). Assessment & Plan (03/09/2018 2:41 PM POLE PEELING MACHINE OPERATOR): Obesity is unchanged. Discussed the patient's BMI. The BMI is above average; BMI management plan is completed. General weight loss/lifestyle modification strategies discussed (elicit support from others; identify saboteurs; non-food rewards, etc). Assessment & Plan (02/17/2018 4:35 PM POLE PEELING MACHINE OPERATOR): Obesity is unchanged. Discussed the patient's BMI. The BMI is above average; BMI management plan is completed. General weight loss/lifestyle modification strategies discussed (elicit support from others; identify saboteurs; non-food rewards, etc). Assessment & Plan (02/13/2018 2:38 PM POLE PEELING MACHINE OPERATOR): Obesity is unchanged. Discussed the patient's BMI. [...] greens, fat-free milk, cottage cheese, nuts like [id number], protein bars with 10-15 g of protein [...] Patient is currently stable, recommended f/u with channel marketing coordinator. Referral given. Vitamin D deficiency 03/29/2017 Assessment & Plan (08/13/2018 4:38 PM CDT): Labs ordered, will follow. Assessment & Plan (03/29/2017 12:41 PM POLE PEELING MACHINE OPERATOR): Labs ordered, will follow. 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 Assessment & Plan (02/18/2019 2:26 PM POLE PEELING MACHINE OPERATOR): Worsening, low cholesterol diet recommended. Assessment & Plan (08/13/2018 4:37 PM CDT): Lipid abnormalities are improving with treatment. Nutritional counseling was provided. and Pharmacotherapy as ordered. Lipids will be reassessed in 6 months. Pravastatin 40 mg qd Assessment & Plan (03/29/2017 12:40 PM POLE PEELING MACHINE OPERATOR): Encouraged a low chol. Diet. Will follow. Fibromyalgia 03/29/2017 Overview (03/29/2017): Managed by Pain Mgmt. Assessment & Plan (08/14/2019 11:08 AM CDT): Clinically resolved. D/C'd Cymbalta on her own after losing the medication. Does not want to re-start it. Assessment & Plan (02/18/2019 2:27 PM POLE PEELING MACHINE OPERATOR): Stable. Cont. Current meds. Assessment & Plan (08/13/2018 4:39 PM CDT): Clinically improved, continue Cymbalta 30 mg qd. Paroxysmal atrial fibrillation ([facility]/HCC) 017 Overview (03/29/2017): Managed by cardiology Assessment & Plan (04/21/2022 1:44 PM POLE PEELING MACHINE OPERATOR): Rate-controlled, cont Plavix Assessment & Plan (03/21/2022 9:04 AM POLE PEELING MACHINE OPERATOR): S/p installation of a left atrial appendage occluder device to help with mitral regurgitation. Discharge summary reviewed. Patient will continue to f/u with cardiology. Assessment & Plan (11/11/2020 10:40 AM CDT): Rate-controlled, managed by cardiology. Cont current meds. Assessment & Plan (08/14/2019 11:06 AM CDT): Asx. Continue current therapy. Managed by cardiology. Assessment & Plan (02/18/2019 2:27 PM POLE PEELING MACHINE OPERATOR): Rate-controlled, managed by cardiology. Assessment & Plan (01/27/2017 1:29 PM POLE PEELING MACHINE OPERATOR): Regular sinus rhythm in office today with controlled rate. Continue to monitor. Continue on aspirin and metoprolol daily Assessment & Plan (12/21/2016 4:55 PM CDT): Patient had a loop recorder implanted after a syncopal event. She states shortly after recent hip surgery she received a phone call from her channel marketing coordinator reporting she had flipped in out of atrial fibrillation. She will continue to follow with her channel marketing coordinator. He started her on metoprolol. Medication list [...] Cataract Assessment & Plan (01/27/2017 1:36 PM POLE PEELING MACHINE OPERATOR): Patient is stable and healthy enough to [...] Anxiety Assessment & Plan (04/21/2022 1:45 PM POLE PEELING MACHINE OPERATOR): Clinically improved, continue current prescription medications, sertraline. Assessment & Plan (11/12/2021 9:13 PM CDT): Clinically improved, continue current prescription medications. Assessment & Plan (06/05/2021 10:21 PM CDT): Stable. Cont. Current prescription medications. Assessment & Plan (11/11/2020 10:39 AM CDT): Clinically improved, continue current meds. Assessment & Plan (03/30/2020 4:14 PM POLE PEELING MACHINE OPERATOR): Worsening. Trial of sertraline 50 mg 1 [...] it. Assessment & Plan (02/18/2019 2:27 PM POLE PEELING MACHINE OPERATOR): Clinically improved, continue current meds. Assessment & [...] follow. Assessment & Plan (03/29/2017 12:41 PM POLE PEELING MACHINE OPERATOR): Asx. Cont current mgmt. Psoriasis 04/05/2013 Overview (06/02/2016): Psoriasis Chronic pain syndrome 04/05/2013 Overview (03/29/2017): Managed by Pain Mgmt. Primary hypertension 04/05/2013 Overview (06/03/2016): Hypertension Assessment & Plan (04/21/2022 1:45 PM POLE PEELING MACHINE OPERATOR): Blood pressure at goal less than 140/90, [...] meds. Assessment & Plan (02/18/2019 2:24 PM POLE PEELING MACHINE OPERATOR): Stable. Cont. Current meds. Assessment & Plan (08/13/2018 4:35 PM CDT): Hypertension is improving with treatment. Continue current treatment regimen. Dietary sodium restriction. Regular aerobic exercise. Continue current medications. Ambulatory blood pressure monitoring. Blood pressure will be reassessed at the next regular appointment. Metoprolol xl 25 mg bid, Olmesartan 20 mg qd Followed by cardiology. Requested office notes from cardiology office. assistant professor of mathematics called their office during patient's ov, I did not receive them prior to patient leaving. Assessment & Plan (03/29/2017 12:40 PM POLE PEELING MACHINE OPERATOR): Hypertension is unchanged. Continue current treatment regimen. Dietary sodium restriction. Weight loss. Regular aerobic exercise. Continue current medications. Blood pressure will be reassessed at the next regular appointment. Assessment & Plan (01/27/2017 1:29 PM POLE PEELING MACHINE OPERATOR): Stable. Pt was advised of continuing heart healthy DASH diet, increase exercise as tolerated, and continuing to monitor for any lower leg edema, headaches, changes in vision, or facial flushing. Continue ASA and anti-hypertensives as prescribed. Arthritis 04/05/2013 Overview (06/03/2016): Arthritis Resolved Problems Problem Noted Date Diagnosed Date Resolved Date Facial contusion, sequela 12/14/2021 Assessment & Plan (03/28/2022 1:39 PM POLE PEELING MACHINE OPERATOR): Bruising healing. Assessment & Plan (12/14/2021 9:15 [...] 08/13/2018 Assessment & Plan (03/09/2018 2:40 PM POLE PEELING MACHINE OPERATOR): Here for follow up on bronchitis and [...] improved Assessment & Plan (02/17/2018 4:44 PM POLE PEELING MACHINE OPERATOR): Here for follow up on bronchitis and [...] 03/29/2017 Assessment & Plan (01/27/2017 1:31 PM POLE PEELING MACHINE OPERATOR): Pt was advised to continue current therapy [...] glucose Assessment & Plan (03/29/2017 12:41 PM POLE PEELING MACHINE OPERATOR): Asx. Labs ordered. Immunizations Immunization Administration Dates Next Due Influenza, Quadrivalent, Hig h Dose, Preservative Free, Intrr 11/10/2021,11/09/2020 Influenza, Trivalent, High D ose, Split, Preservative Free, Intramuscular 01/20/2018,11/05/2016,12/24/2014,10/28 Influenza, Trivalent, IM (MDV) 02/21/2014,2012,12/22/2011 Influenza, Unspecified 11/28/2019(Deferr ed: Patient Refused),01/10/2019,01/27/2018 Pneumococcal Conjugate PCV 13 07/28/2014 Pneumococcal Polysaccharide PPV23 08/16/2016 ZOSTER LIVE 02/27/2015,02/21/2014 Surgical History Surgery Date Site/Laterality Comments OTHER SURGICAL HISTORY Dr. Morris/dermatology. TONSILLECTOMY WISDOM TOOTH EXTRACTION HIP SURGERY JOINT REPLACEMENT 02/27/2017 - 02/26/2018 Right DESEAN CATARACT EXTRACTION 02/27/1999 - 02/27/2000 Bilateral Medical History Medical History Date Comments Hx Other Medical post-polio synd kenneth Hx Other Medical tonsillectomies Hx Other Medical epiphyseal tibi a/pins ine rt knee. Hx Other Medical hx of hypogamma globulinemia Hx Other Medical removal of larg e benign ankle cyst removed. Hx Other Medical stomach ulcer e barron 20s. Hx Other Medical anhydrous eczem a. 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 Jazmin leon Primary fibromyalgia syndrome fi bromyalgia Hx Other Medical fainted Status post placement of imp lantable loop recorder 08/02/2016 Arthritis Asthma Atrial fibrillation (CMS/HCC) (HCC) Depression Hypercholesteremia Hypertension Obesity Allergic rhinitis Migraine GERD (gastroesophageal reflu x disease) Family History Medical History Relation Name Comments Arthritis Brother Cancer Brother Heart disease Brother Hypertension Brother Coronary artery disease Father Costa nary artery disease; Heart disease Father Heart failure Father CHF; Cause of : CHF Hypertension Father Arthritis Mother Cancer Mother Depression Mother Depression; Heart disease Mother Lung cancer Mother Cancer, lung; C ause of : Cancer, lung Other Other 1 juan Family history of brain cancer; Cause of : Family history of brain cancer Coronary artery disease Other 2 Praneeth Fami ly history of Coronary artery disease; Depression Other 2 Praneeth Family history of Depression; Other Other 3 hipolito Family history of heart disease/skin cancer; AAW 09/29/2015 -half brother Relation Name Status Comments Brother Father Mother Other 1 juan Other 2 Praneeth Other 3 hipolito Social History Tobacco Use Types Packs/Day Years [...] you are drinking? Patient does not drink 01/11/202 3 Frequency of Binge Drinking Not on file 02/27 PHQ-2 Answer Date Recorded PHQ-2 Total Score (If total score is 3 or more points, staff should administer the PHQ-9) 0 04/21/2022 Personal Safety Answer Date Recorded Getting School Help Needed Denies 02/25 Comments No Sex and Gender Information Value Date Recorded Sex Assigned at Not on file Legal Sex Female 3:09 AM POLE PEELING MACHINE OPERATOR Gender Identity Not on file Sexual Orientation Straight 02/06/2020 1: 53 PM POLE PEELING MACHINE OPERATOR Occupation Industry Job Start Date Job End Date retired Not on file Not on file Not on file Obstetrics History Last Filed Vital Signs Vital Sign Reading Time Taken Comments Blood Pressure 124/68 04/21/2022 12:35 PM POLE PEELING MACHINE OPERATOR Pulse 79 04/21/2022 12:35 PM POLE PEELING MACHINE OPERATOR Temperature 36.3 C (97.4 F) 04/21/2022 12:35 PM POLE PEELING MACHINE OPERATOR Respiratory Rate 18 04/21/2022 12:35 PM POLE PEELING MACHINE OPERATOR Oxygen Saturation 96% 04/21/2022 12:35 PM POLE PEELING MACHINE OPERATOR Inhaled Oxygen Concentration - - Weight 86.2 kg (190 lb 1.6 oz) 04/21/2022 12:35 PM POLE PEELING MACHINE OPERATOR Height 160 cm (5' 2.99 ) 04/21/2022 12:35 PM POLE PEELING MACHINE OPERATOR Body Mass Index 33.68 04/21/2022 12:35 PM POLE PEELING MACHINE OPERATOR Plan of Treatment Health Maintenance Due Date Last Done Comments DTaP/Tdap/Td Vaccine (1 - Tdap) 1956 Hepatitis B Screening 1964 Zoster Vaccine (2 of 3) 04/24/2015 02/27/2015, 02/21 Well Visit 65+ 11/10/2022 11/10/2021, 10/28, 08/13/2018 Depression Screening 04/21/2023 04/21/2022, 03/28/2022, 03/14/2022, Additional history exists Fall Risk Assessment 04/21/2023 04/21/2022, 03/28/2022, 03/14/2022, Additional history exists Covid-19 Vaccine ( season) 2023 02/03/2021, 05/30/2020, 05/02/2020 Influenza Vaccine (#1) 2023 2, 11/09/2020, 01/10/2019, Additional history exists Osteoporosis Screening-Bone Density Scan 06/06/2027 Postponed from 1945 (Patient does not have time) Colon Cancer Screening-CT Colonography Discontinued 10/15/2013, 10/15/2013 Colon Cancer Screening-Colonoscopy Discontinued 10/15/2013, 10/15/2013 Colon Cancer Screening-DNA Stool Discontinued 10/15/2013, 10/15/2013 Colon Cancer Screening-FIT Discontinued 10/15/2013, Colon Cancer Screening-FOBT Discontinued 10/15/2013, 10/15/2013 Colon Cancer Screening-Sigmoidoscopy Discontinued 10/15/2013, 10/15/2013 Colorectal Cancer Screening Discontinued Pneumococcal vaccine 65+ Completed 08/16/2016, 02/2014 Hepatitis C Screening Completed 08/13/2018, 019 Medical Devices Implanted Type Area Hearing Health Technician Device Identifier Shelf Expiration Date Model / Serial / Lot [employer] Percutaneous Transcatheter Amplatzer Amulet 22mm [id number] - [id number] Implanted:Qty: 1 on 03/09/2022 by Debi Garcia MD at [facility] [employer] 10/27/2026 [id number] / / [id number] Procedures Procedure Name Priority Date/Time Associated Diagnosis Comments HEPATITIS C ANTIBODY Routine 08/13/2018 3:12 PM CDT Encounter for hepatitis C screening test for low risk patient COLONOSCOPY IMAGES 10/15/2013 from Last 3 Months or Most Recently Relevant to Health Maintenance Results * Hepatitis C antibody (08/13/2018 3:12 PM CDT) Hep C Ab Negative Negative [facility] GOMES (DAVID) Comment:Testing performed by : [facility], [id number] [place] [address], [place]., [address] Blood specimen (specimen) 08/13/2018 3:12 PM CDT 08/14/2018 9:36 AM CDT us Waleska Alvarez DO LAB MICROBIOLOGY - GENERAL ORDERABLES Final Result [facility] Department [place] [address] * COLONOSCOPY IMAGES (10/15/2013) Anatomical Region Laterality Modality Other Narrative 10/15/2013 Ordered by an unspecified provider. us Historical Provider GI PROCEDURE ORDERABLES F inal Result from Last 3 Months or Most Recently Relevant to Health Maintenance Additional Health Concerns Infection Onset Date Last Indicated MDR gram neg/ESBL Comment:ESBL E.coli urine 12/21/16 12/24/2016 12/24/2016 Insurance [employer] MEDICARE FOR[facility]LY [facility] MEDICARE AETNA MEDICARE Care Teams Life Consultant Relationship Specialty Start Date End Date Vangie Tillman, PT Physical Therapist Physical Therapy 02/16/17 Noelle Noe MD [address] [place] [address] Consulting Physician Cardiology 11/09/20 Erma Schultz DNP [address] [place] [address] Nurse Practitioner Neurology 11/10/21 Jud Carmona MA [address] [place] [address] [address] [place] [address] ACO Care Sheet Metal Layout Mechanic 03/11/22
--- OUTSIDE RECORDS SUMMARY | 2024-04-21 17:25 | XMS_ITS | Encounter Summary ---
Author Organization [facility] Address [address] [place] [address] Phone Care Team Providers Care Tool And Machine Maintainer Name Role Phone Jer Daniels MD Primary Care Provider [phone] Encounter Details Date Type Department Care Team (Late st Contact Info) Description 09/07/2022 Telephone [facility] [address] [place] [address] Ronny Travis, PT [place] Social History Tobacco Use Types Packs/Day Years [...] on file Sexual Orientation Not on file documented as of this encounter Plan of Treatment Not on file documented as of this encounter Visit Diagnoses Not on filedocumented in this encounter Care Teams Tool And Machine Maintainer Relationship Specialty Start Date End Date Jer Daniels MD PCP - General Family Medicine 08/04/22 documented as of this encounter
--- OUTSIDE RECORDS SUMMARY | 2024-04-21 17:25 | XMS_ITS | Encounter Summary ---
Author Organization [facility] Address [address] [place] [address] Phone Care Team Providers Care Grease Monkey Name Role Phone Jer Daniels MD Primary Care Provider [phone] Encounter Details Date Type Department Care Team (Late st Contact Info) Description 10/06/2022 Telephone [facility] [address] [place] [address] Diana Piedra PTA [place] Social History Tobacco Use Types Packs/Day Years [...] on file documented as of this encounter Miscellaneous Notes * Telephone Encounter - Diana Piedra PTA - 10/06/2022 1:36 PM CDT Created in error E MECHANIC documented in this encounter Plan of Treatment Not on file documented as of this encounter Visit Diagnoses Not on filedocumented in this encounter Care Teams Grease Monkey Relationship Specialty Start Date End Date Jer Daniels MD PCP - General Family Medicine 08/04/22 documented as of this encounter
[2024-04-21 17:33] VITALS: BP 143/74; PULSE 85; RESP 16; TEMP 37.1; O2SAT 99
--- OUTSIDE RECORDS SUMMARY | 2024-04-21 19:31 | XMS_ITS | Encounter Summary ---
Author Organization [facility] Address [address] [place] [address] Phone Care Team Providers Care Blow Pit Operator Name Role Phone Vangie Tillman PT Unavailable Unavailable Donna Ramirez Unavailable Unavailable Daisy Desai MD Primary Care Provider [phone] Waleska Alvarez DO Primary Care Provider [phone] Maury Mckenna MD Unavailable [phone] Noelle Noe MD Unavailable [phone] Lindsay Parada MA Unavailable [phone] Erma Schultz DNP Unavailable [phone] Jud Carmona MA Unavailable [phone] Encounter Details Date Type Department Care Team (Late st Contact Info) Description 05/01/2017 Orders Only [facility] ProviderLuly MD [address] [place] [address] Social History Tobacco Use Types Packs/Day Years Used Date Smoking Tobacco: Never Smokeless Tobacco: Never Alcohol Use Standard Drinks/Week Comments Yes 0 (1 standard drink = 0.6 oz pur e alcohol) Comments Unknown Sex and Gender Information Value Date Recorded Sex Assigned at Not on file Legal Sex Female 3:[address] REGISTRAR Gender Identity Not on file Sexual Orientation Straight 02/06/2020 1: [address] REGISTRAR documented as of this encounter Plan of Treatment Not on file documented as of this encounter Procedures Procedure Name Priority Date/Time Associated Diagnosis Comments DISCHARGE LABORATORY CUMULATIVE REPORT 05/01/2017 12:[address] REGISTRAR documented in this encounter Results * DISCHARGE LABORATORY CUMULATIVE REPORT (05/01/2017 12:[address] REGISTRAR) Narrative 05/01/2017 12:[address] REGISTRAR Ordered by an unspecified provider. us Historical Provider LAB BLOOD ORDERABLES Alize l Result documented in this encounter Visit Diagnoses Not on filedocumented in this encounter Additional Health Concerns Infection Onset Date Last Indicated Resolved Time MDR gram neg/ESBL Comment:ESBL E.coli urine 12/21/16 12/24/2016 12/24/2016 documented as of this encounter Care Teams Blow Pit Operator Relationship Specialty Start Date End Date Daisy Desai MD [address] [place] [address] PCP - General 05/01/17 05/04/17 Waleska Alvarez DO [address] [place] [address] PCP - General Family Medicine 05/05/17 12/06/23 Vangie Tillman, BRISA Physical Therapist Physical Therapy 02/16/17 Donna Ramirez Physical Therapist Physical Therapy 03/23/17 11/09/21 Maury Mckenna MD [address] [place] [address] Surgeon Orthopedic Surgery 04/04/19 11/09/21 Noelle Noe MD [address] [place] [address] Consulting Physician Cardiology 11/09/20 Lindsay Parada MA [address] [facility] [address] [address] [place] [address] O Care Fitting Room Supervisor 08/05/21 08/10/21 Erma Schultz DNP [address] [place] [address] [address] [place] [address] Nurse Practitioner Neurology 11/10/21 Jud Carmona MA [address] [facility] [address] [place] [address] O Care Fitting Room Supervisor 03/11/22 documented as of this encounter
--- OUTSIDE RECORDS SUMMARY | 2024-04-21 19:31 | XMS_ITS | Referral Summary ---
Author Organization [facility] al Address [address] [place] [address] Care Team Providers Care Roofer Assistant Name Role Phone Vangie Tillman PT Unavailable Unavailable Noelle Noe MD Unavailable Erma Schultz DNP Unavailable [phone] Jud Carmona MA Unavailable [phone] Allergies Active Allergy Reactions Criticality Noted [...] 03/28/2022 Assessment & Plan (03/28/2022 1:39 PM VEHICLE ASSEMBLER): Referred to ENT for f/u. Presence of [...] 11/11/2020 Assessment & Plan (03/28/2022 1:40 PM VEHICLE ASSEMBLER): Ambulates with a standard walker, encouraged safety. [...] 03/30/2020 Assessment & Plan (04/21/2022 1:45 PM VEHICLE ASSEMBLER): Clinically improved, continue current prescription medications, sertraline. Assessment & Plan (11/12/2021 9:16 PM CDT): Stable. Cont. Current prescription medications. Assessment & Plan (06/05/2021 10:24 PM CDT): Stable. Cont. Current prescription medications. Assessment & Plan (11/11/2020 10:39 AM CDT): Stable. Cont. Current meds. Assessment & Plan (03/30/2020 4:14 PM VEHICLE ASSEMBLER): New diagnosis. Trial of sertraline 50 mg 1 p.o. q.d. patient instructed to call 911 or go to nearest emergency room if she feels she is going to be a harm to herself or to others. Mild intermittent asthma without complication Assessment & Plan (04/21/2022 1:45 PM VEHICLE ASSEMBLER): Asx. At baseline, cont current Rx meds, Albuterol. Assessment & Plan (11/12/2021 9:13 PM CDT): Asx. At baseline, continue current Rx meds. Assessment & Plan (06/05/2021 10:23 PM CDT): At baseline, cont current Rx meds. Assessment & Plan (11/11/2020 10:39 AM CDT): At baseline, cont current mgmt. Assessment & Plan (03/30/2020 4:15 PM VEHICLE ASSEMBLER): Stable. Cont. Current meds. Class 1 obesity [...] recommended. Assessment & Plan (02/18/2019 2:28 PM VEHICLE ASSEMBLER): Improving. Encouraged patient to decrease weight, increase daily exercise, and modify diet. Assessment & Plan (08/13/2018 4:38 PM CDT): Obesity is unchanged. Discussed the patient's BMI. The BMI is above average; BMI management plan is completed. General weight loss/lifestyle modification strategies discussed (elicit support from others; identify saboteurs; non-food rewards, etc). Assessment & Plan (03/09/2018 2:41 PM VEHICLE ASSEMBLER): Obesity is unchanged. Discussed the patient's BMI. The BMI is above average; BMI management plan is completed. General weight loss/lifestyle modification strategies discussed (elicit support from others; identify saboteurs; non-food rewards, etc). Assessment & Plan (02/17/2018 4:35 PM VEHICLE ASSEMBLER): Obesity is unchanged. Discussed the patient's BMI. The BMI is above average; BMI management plan is completed. General weight loss/lifestyle modification strategies discussed (elicit support from others; identify saboteurs; non-food rewards, etc). Assessment & Plan (02/13/2018 2:38 PM VEHICLE ASSEMBLER): Obesity is unchanged. Discussed the patient's BMI. [...] greens, fat-free milk, cottage cheese, nuts like [id number], protein bars with 10-15 g of protein [...] Patient is currently stable, recommended f/u with manuscripts archivist. Referral given. Vitamin D deficiency 03/29/2017 Assessment & Plan (08/13/2018 4:38 PM CDT): Labs ordered, will follow. Assessment & Plan (03/29/2017 12:41 PM VEHICLE ASSEMBLER): Labs ordered, will follow. 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 Assessment & Plan (02/18/2019 2:26 PM VEHICLE ASSEMBLER): Worsening, low cholesterol diet recommended. Assessment & Plan (08/13/2018 4:37 PM CDT): Lipid abnormalities are improving with treatment. Nutritional counseling was provided. and Pharmacotherapy as ordered. Lipids will be reassessed in 6 months. Pravastatin 40 mg qd Assessment & Plan (03/29/2017 12:40 PM VEHICLE ASSEMBLER): Encouraged a low chol. Diet. Will follow. Fibromyalgia 03/29/2017 Overview (03/29/2017): Managed by Pain Mgmt. Assessment & Plan (08/14/2019 11:08 AM CDT): Clinically resolved. D/C'd Cymbalta on her own after losing the medication. Does not want to re-start it. Assessment & Plan (02/18/2019 2:27 PM VEHICLE ASSEMBLER): Stable. Cont. Current meds. Assessment & Plan (08/13/2018 4:39 PM CDT): Clinically improved, continue Cymbalta 30 mg qd. Paroxysmal atrial fibrillation ([facility]) 017 Overview (03/29/2017): Managed by cardiology Assessment & Plan (04/21/2022 1:44 PM VEHICLE ASSEMBLER): Rate-controlled, cont Plavix Assessment & Plan (03/21/2022 9:04 AM VEHICLE ASSEMBLER): S/p installation of a left atrial appendage occluder device to help with mitral regurgitation. Discharge summary reviewed. Patient will continue to f/u with cardiology. Assessment & Plan (11/11/2020 10:40 AM CDT): Rate-controlled, managed by cardiology. Cont current meds. Assessment & Plan (08/14/2019 11:06 AM CDT): Asx. Continue current therapy. Managed by cardiology. Assessment & Plan (02/18/2019 2:27 PM VEHICLE ASSEMBLER): Rate-controlled, managed by cardiology. Assessment & Plan (01/27/2017 1:29 PM VEHICLE ASSEMBLER): Regular sinus rhythm in office today with controlled rate. Continue to monitor. Continue on aspirin and metoprolol daily Assessment & Plan (12/21/2016 4:55 PM CDT): Patient had a loop recorder implanted after a syncopal event. She states shortly after recent hip surgery she received a phone call from her manuscripts archivist reporting she had flipped in out of atrial fibrillation. She will continue to follow with her manuscripts archivist. He started her on metoprolol. Medication list [...] Cataract Assessment & Plan (01/27/2017 1:36 PM VEHICLE ASSEMBLER): Patient is stable and healthy enough to [...] Anxiety Assessment & Plan (04/21/2022 1:45 PM VEHICLE ASSEMBLER): Clinically improved, continue current prescription medications, sertraline. Assessment & Plan (11/12/2021 9:13 PM CDT): Clinically improved, continue current prescription medications. Assessment & Plan (06/05/2021 10:21 PM CDT): Stable. Cont. Current prescription medications. Assessment & Plan (11/11/2020 10:39 AM CDT): Clinically improved, continue current meds. Assessment & Plan (03/30/2020 4:14 PM VEHICLE ASSEMBLER): Worsening. Trial of sertraline 50 mg 1 [...] it. Assessment & Plan (02/18/2019 2:27 PM VEHICLE ASSEMBLER): Clinically improved, continue current meds. Assessment & [...] follow. Assessment & Plan (03/29/2017 12:41 PM VEHICLE ASSEMBLER): Asx. Cont current mgmt. Psoriasis 04/05/2013 Overview (06/02/2016): Psoriasis Chronic pain syndrome 04/05/2013 Overview (03/29/2017): Managed by Pain Mgmt. Primary hypertension 04/05/2013 Overview (06/03/2016): Hypertension Assessment & Plan (04/21/2022 1:45 PM VEHICLE ASSEMBLER): Blood pressure at goal less than 140/90, [...] meds. Assessment & Plan (02/18/2019 2:24 PM VEHICLE ASSEMBLER): Stable. Cont. Current meds. Assessment & Plan (08/13/2018 4:35 PM CDT): Hypertension is improving with treatment. Continue current treatment regimen. Dietary sodium restriction. Regular aerobic exercise. Continue current medications. Ambulatory blood pressure monitoring. Blood pressure will be reassessed at the next regular appointment. Metoprolol xl 25 mg bid, Olmesartan 20 mg qd Followed by cardiology. Requested office notes from cardiology office. project administrative assistant called their office during patient's ov, I did not receive them prior to patient leaving. Assessment & Plan (03/29/2017 12:40 PM VEHICLE ASSEMBLER): Hypertension is unchanged. Continue current treatment regimen. Dietary sodium restriction. Weight loss. Regular aerobic exercise. Continue current medications. Blood pressure will be reassessed at the next regular appointment. Assessment & Plan (01/27/2017 1:29 PM VEHICLE ASSEMBLER): Stable. Pt was advised of continuing heart healthy DASH diet, increase exercise as tolerated, and continuing to monitor for any lower leg edema, headaches, changes in vision, or facial flushing. Continue ASA and anti-hypertensives as prescribed. Arthritis 04/05/2013 Overview (06/03/2016): Arthritis Resolved Problems Problem Noted Date Diagnosed Date Resolved Date Facial contusion, sequela 12/14/2021 Assessment & Plan (03/28/2022 1:39 PM VEHICLE ASSEMBLER): Bruising healing. Assessment & Plan (12/14/2021 9:15 [...] 08/13/2018 Assessment & Plan (03/09/2018 2:40 PM VEHICLE ASSEMBLER): Here for follow up on bronchitis and [...] improved Assessment & Plan (02/17/2018 4:44 PM VEHICLE ASSEMBLER): Here for follow up on bronchitis and [...] 03/29/2017 Assessment & Plan (01/27/2017 1:31 PM VEHICLE ASSEMBLER): Pt was advised to continue current therapy [...] glucose Assessment & Plan (03/29/2017 12:41 PM VEHICLE ASSEMBLER): Asx. Labs ordered. Immunizations Immunization Administration Dates [...] on file Legal Sex Female 3:09 AM VEHICLE ASSEMBLER Gender Identity Not on file Sexual Orientation Straight 02/06/2020 1: 53 PM VEHICLE ASSEMBLER Occupation Industry Job Start Date Job End Date retired Not on file Not on file Not on file Last Filed Vital Signs Vital Sign Reading Time Taken Comments Blood Pressure 124/68 04/21/2022 12:35 PM VEHICLE ASSEMBLER Pulse 79 04/21/2022 12:35 PM VEHICLE ASSEMBLER Temperature 36.3 C (97.4 F) 04/21/2022 12:35 PM VEHICLE ASSEMBLER Respiratory Rate 18 04/21/2022 12:35 PM VEHICLE ASSEMBLER Oxygen Saturation 96% 04/21/2022 12:35 PM VEHICLE ASSEMBLER Inhaled Oxygen Concentration - - Weight 86.2 kg (190 lb 1.6 oz) 04/21/2022 12:35 PM VEHICLE ASSEMBLER Height 160 cm (5' 2.99 ) 04/21/2022 12:35 PM VEHICLE ASSEMBLER Body Mass Index 33.68 04/21/2022 12:35 PM VEHICLE ASSEMBLER Plan of Treatment Not on file Medical Devices Implanted Type Area Vacuum Cleaner Repairer Device Identifier Shelf Expiration Date Model / Serial / Lot [employer] Percutaneous Transcatheter Amplatzer Amulet 22mm [id number] - [id number] Implanted:Qty: 1 on 03/09/2022 by Debi Garcia MD at [facility] [employer] 10/27/2026 [id number] / [id number] Procedures Procedure Name Priority Date/Time Associated Diagnosis Comments HEPATITIS C ANTIBODY Routine 08/13/2018 3:12 PM CDT Encounter for hepatitis C screening test for low risk patient COLONOSCOPY IMAGES 10/15/2013 from Last 3 Months or Most Recently Relevant to Health Maintenance Results * Hepatitis C antibody (08/13/2018 3:12 PM CDT) Hep C Ab Negative Negative ZANDER GOMES (DAVID) Comment:Testing performed by : [facility], [address] [place] [address]., [id number] Blood specimen (specimen) 08/13/2018 3:12 PM CDT 08/14/2018 9:36 AM CDT Waleska Alvarez DO LAB MICROBIOLOGY - GENERAL ORDERABLES Final Result ZANDER GOMES (DAVID) 1 [facility] [place] [address] * COLONOSCOPY IMAGES (10/15/2013) Anatomical Region Laterality Modality Other Narrative 10/15/2013 Ordered by an unspecified provider. Historical Provider GI PROCEDURE ORDERABLES F inal Result from Last 3 Months or Most Recently Relevant to Health Maintenance Additional Health Concerns Infection Onset Date Last Indicated MDR gram neg/ESBL Comment:ESBL E.coli urine 12/21/16 12/24/2016 12/24/2016 Insurance AETNA MEDICARE T MEDICARE T MEDICARE Care Teams Roofer Assistant Relationship Specialty Start Date End Date Vangie Tillman, PT Physical Therapist Physical Therapy 02/16/17 Noelle Noe MD [address] [place] [address] Consulting Physician Cardiology 11/09/20 Erma Schultz DNP [address] [place] [address] Nurse Practitioner Neurology 11/10/21 Jud Carmona MA [address] [place] [address] [address] [place] [address] ACO Care Assistant Front Office Manager 03/11/22
--- OUTSIDE RECORDS SUMMARY | 2024-04-21 19:31 | XMS_ITS | Clinical Summary ---
Author Organization [facility] Address [address] [place] [address] Phone Care Team Providers Care Citrix Consultant Name Role Phone Jer Daniels MD Primary Care Provider [phone] Allergies Active Allergy Reactions Criticality Noted Date [...] as needed for Anxiety or Itching. # [id number] Active Cholecalciferol (Vitamin D3) 2000 UNIT Capsule [...] Comments Blood Pressure 129/71 01/05/2023 12:10 AM HOSPICE AIDE Pulse 62 01/05/2023 12:10 AM HOSPICE AIDE Temperature 36.7 C (98 F) 01/04/2023 5:08 PM HOSPICE AIDE Respiratory Rate 16 01/05/2023 12:10 AM HOSPICE AIDE Oxygen Saturation 98% 01/05/2023 12:10 AM HOSPICE AIDE Inhaled Oxygen Concentration - - Weight 56.7 kg (125 lb) 01/04/2023 5:08 PM HOSPICE AIDE Height 160 cm (5' 3 ) 01/04/2023 5:08 PM HOSPICE AIDE Body Mass Index 22.14 01/04/2023 5:08 PM HOSPICE AIDE Plan of Treatment Health Maintenance Due Date [...] this topic Medical Devices Implanted Type Area Wound Care Physician Device Identifier Shelf Expiration Date Model / Serial / Lot Reveal Linq Implanted:Qty: 1 on 08/02/2016 by Ramo Noe MD at [facility] N/A: Chest Wall [employer] 06/10/2017 [id number] / [id number] / NA Insurance MEDICARE C AETNA Advance [...] measures to stabilize the patient. Care Teams Citrix Consultant Relationship Specialty Start Date End Date Jer Daniels MD PCP - General Family Medicine 08/04/22
--- OUTSIDE RECORDS SUMMARY | 2024-04-21 19:31 | XMS_ITS | Clinical Summary ---
Author Organization [facility] Address [address] [place] [address] Care Team Providers Care Chrome Tanning Drum Operator Name Role Phone Unavailable Primary Care Provider Unavailabl e Social History Tobacco Use Types Packs/Day Years Used Date Smoking Tobacco: Never Assessed Comments Unknown Sex and Gender Information Value Date Recorded Sex Assigned at Not on file Legal Sex Female 10:22 PM PHOTOGRAPHIC INTELLIGENCE OFFICER Gender Identity Not on file Sexual Orientation [...]
--- OUTSIDE RECORDS SUMMARY | 2024-04-21 19:31 | XMS_ITS | Encounter Summary ---
Author Organization [facility] Address [address] [facility] [address] [place] [address] Care Team Providers Care Dynamometer Repairer Name Role Phone Daisy Desai MD Primary Care Provider [phone] Daisy Desai MD Primary Care Provider [phone] Daisy Desai MD Primary Care Provider [phone] Vangie Tillman PT Unavailable Unavailable Donna Ramirez Unavailable Unavailable Waleska Alvarez DO Primary Care Provider [phone] Daisy Desai MD Primary Care Provider [phone] Waleska Alvarez DO Primary Care Provider [phone] Maury Mckenna MD Unavailable Noelle Noe MD Unavailable [phone] Lindsay Parada MA Unavailable Erma Schultz DNP Unavailable [phone] Jud Carmona MA Unavailable [phone] Encounter Details Date Type Department Care Team (Late st Contact Info) Description 03/06/2016 Orders Only [facility] Internal Medicine Provider, MD Luly [address] [place] [address] Social History Tobacco Use Types Packs/Day Years Used Date Smoking Tobacco: Never Alcohol Use Standard Drinks/Week Comments Yes 0 (1 standard drink = 0.6 oz pur e alcohol) Comments Unknown Sex and Gender Information Value Date Recorded Sex Assigned at Not on file Legal Sex Female 3:09 AM QUILL PICKING MACHINE OPERATOR Gender Identity Not on file Sexual Orientation Straight 02/06/2020 1: 53 PM QUILL PICKING MACHINE OPERATOR documented as of this encounter Plan of [...] documented as of this encounter Care Teams Dynamometer Repairer Relationship Specialty Start Date End Date Daisy Desai MD [address] [place] [address] PCP - General 05/27/16 03/28/17 Daisy Desai MD [address] [place] [address] PCP - General 04/21/16 05/26/16 Daisy Desai MD [address] [place] [address] PCP - General 05/22/13 04/20/16 Waleska Alvarez DO PCP - General Family Medicine 03/29/17 04/30/17 Daisy Desai MD [address] [facility] [place] [address] PCP - General 05/01/17 05/04/17 Waleska Alvarez DO PCP - General Family Medicine 05/05/17 12/06/23 Vangie Tillman, PT Physical Therapist Physical Therapy 02/16/17 Donna Ramirez Physical Therapist Physical Therapy 03/23/17 11/09/21 Maury Mckenna MD Surgeon Orthopedic Surgery 04/04/19 11/09/21 Noelle Noe MD [address] [place] [address] Consulting Physician Cardiology 11/09/20 Lindsay Parada MA [address] [place] [address] [address] [place] [address] ACO Care Field Sales Specialist 08/05/21 08/10/21 Erma Schultz DNP [address] [place] [address] [address] [place] [address] Nurse Practitioner Neurology 11/10/21 Jud Carmona MA [address] [facility] [address] [place] [address] ACO Care Field Sales Specialist 03/11/22 documented as of this encounter
--- OUTSIDE RECORDS SUMMARY | 2024-04-21 19:31 | XMS_ITS | Encounter Summary ---
Author Organization [facility] Address [address] [place] [address] Phone Care Team Providers Care Cushion Gum Applicator Name Role Phone Jer Daniels MD Primary Care Provider [phone] Encounter Details Date Type Department Care Team (Late st Contact Info) Description 10/06/2022 Telephone [facility] [address] [place] [address] Diana Piedra PTA [place] Social History Tobacco Use Types Packs/Day Years [...] 10/06/2022 1:36 PM CDT Created in error REPAIR CLERK documented in this encounter Plan of Treatment Not on file documented as of this encounter Visit Diagnoses Not on filedocumented in this encounter Care Teams Cushion Gum Applicator Relationship Specialty Start Date End Date Jer Daniels MD PCP - General Family Medicine 08/04/22 documented as of this encounter
--- OUTSIDE RECORDS SUMMARY | 2024-04-21 19:31 | XMS_ITS | Encounter Summary ---
Author Organization [facility] Address [address] [place] [address] Phone Care Team Providers Care Vacuum Closing Machine Operator Name Role Phone Jer Daniels MD Primary Care Provider [phone] Encounter Details Date Type Department Care Team (Late st Contact Info) Description 09/07/2022 Telephone [facility] [address] [place] [address] Ronny Travis, PT [place] Social History Tobacco Use Types Packs/Day Years [...] on filedocumented in this encounter Care Teams Vacuum Closing Machine Operator Relationship Specialty Start Date End Date Jer Daniels MD PCP - General Family Medicine 08/04/22 documented as of this encounter
--- OUTSIDE RECORDS SUMMARY | 2024-04-21 19:31 | XMS_ITS | Clinical Summary ---
Author Organization [facility] al Address [address] [place] [address] Care Team Providers Care Contract Modeler Name Role Phone Vangei Tillman PT Unavailable Unavailable Noelle Noe MD Unavailable Erma Schultz DNP Unavailable [phone] Jud Carmona MA Unavailable [phone] Allergies Active Allergy Reactions Criticality Noted [...] 03/28/2022 Assessment & Plan (03/28/2022 1:39 PM PIECE DYEING MACHINE TENDER): Referred to ENT for f/u. Presence of [...] 11/11/2020 Assessment & Plan (03/28/2022 1:40 PM PIECE DYEING MACHINE TENDER): Ambulates with a standard walker, encouraged safety. [...] 03/30/2020 Assessment & Plan (04/21/2022 1:45 PM PIECE DYEING MACHINE TENDER): Clinically improved, continue current prescription medications, sertraline. Assessment & Plan (11/12/2021 9:16 PM CDT): Stable. Cont. Current prescription medications. Assessment & Plan (06/05/2021 10:24 PM CDT): Stable. Cont. Current prescription medications. Assessment & Plan (11/11/2020 10:39 AM CDT): Stable. Cont. Current meds. Assessment & Plan (03/30/2020 4:14 PM PIECE DYEING MACHINE TENDER): New diagnosis. Trial of sertraline 50 mg 1 p.o. q.d. patient instructed to call 911 or go to nearest emergency room if she feels she is going to be a harm to herself or to others. Mild intermittent asthma without complication Assessment & Plan (04/21/2022 1:45 PM PIECE DYEING MACHINE TENDER): Asx. At baseline, cont current Rx meds, Albuterol. Assessment & Plan (11/12/2021 9:13 PM CDT): Asx. At baseline, continue current Rx meds. Assessment & Plan (06/05/2021 10:23 PM CDT): At baseline, cont current Rx meds. Assessment & Plan (11/11/2020 10:39 AM CDT): At baseline, cont current mgmt. Assessment & Plan (03/30/2020 4:15 PM PIECE DYEING MACHINE TENDER): Stable. Cont. Current meds. Class 1 obesity [...] recommended. Assessment & Plan (02/18/2019 2:28 PM PIECE DYEING MACHINE TENDER): Improving. Encouraged patient to decrease weight, increase daily exercise, and modify diet. Assessment & Plan (08/13/2018 4:38 PM CDT): Obesity is unchanged. Discussed the patient's BMI. The BMI is above average; BMI management plan is completed. General weight loss/lifestyle modification strategies discussed (elicit support from others; identify saboteurs; non-food rewards, etc). Assessment & Plan (03/09/2018 2:41 PM PIECE DYEING MACHINE TENDER): Obesity is unchanged. Discussed the patient's BMI. The BMI is above average; BMI management plan is completed. General weight loss/lifestyle modification strategies discussed (elicit support from others; identify saboteurs; non-food rewards, etc). Assessment & Plan (02/17/2018 4:35 PM PIECE DYEING MACHINE TENDER): Obesity is unchanged. Discussed the patient's BMI. The BMI is above average; BMI management plan is completed. General weight loss/lifestyle modification strategies discussed (elicit support from others; identify saboteurs; non-food rewards, etc). Assessment & Plan (02/13/2018 2:38 PM PIECE DYEING MACHINE TENDER): Obesity is unchanged. Discussed the patient's BMI. [...] greens, fat-free milk, cottage cheese, nuts like [id number], protein bars with 10-15 g of protein [...] Patient is currently stable, recommended f/u with scientific investigator. Referral given. Vitamin D deficiency 03/29/2017 Assessment & Plan (08/13/2018 4:38 PM CDT): Labs ordered, will follow. Assessment & Plan (03/29/2017 12:41 PM PIECE DYEING MACHINE TENDER): Labs ordered, will follow. 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 Assessment & Plan (02/18/2019 2:26 PM PIECE DYEING MACHINE TENDER): Worsening, low cholesterol diet recommended. Assessment & Plan (08/13/2018 4:37 PM CDT): Lipid abnormalities are improving with treatment. Nutritional counseling was provided. and Pharmacotherapy as ordered. Lipids will be reassessed in 6 months. Pravastatin 40 mg qd Assessment & Plan (03/29/2017 12:40 PM PIECE DYEING MACHINE TENDER): Encouraged a low chol. Diet. Will follow. Fibromyalgia 03/29/2017 Overview (03/29/2017): Managed by Pain Mgmt. Assessment & Plan (08/14/2019 11:08 AM CDT): Clinically resolved. D/C'd Cymbalta on her own after losing the medication. Does not want to re-start it. Assessment & Plan (02/18/2019 2:27 PM PIECE DYEING MACHINE TENDER): Stable. Cont. Current meds. Assessment & Plan (08/13/2018 4:39 PM CDT): Clinically improved, continue Cymbalta 30 mg qd. Paroxysmal atrial fibrillation ([facility]/HCC) 017 Overview (03/29/2017): Managed by cardiology Assessment & Plan (04/21/2022 1:44 PM PIECE DYEING MACHINE TENDER): Rate-controlled, cont Plavix Assessment & Plan (03/21/2022 9:04 AM PIECE DYEING MACHINE TENDER): S/p installation of a left atrial appendage occluder device to help with mitral regurgitation. Discharge summary reviewed. Patient will continue to f/u with cardiology. Assessment & Plan (11/11/2020 10:40 AM CDT): Rate-controlled, managed by cardiology. Cont current meds. Assessment & Plan (08/14/2019 11:06 AM CDT): Asx. Continue current therapy. Managed by cardiology. Assessment & Plan (02/18/2019 2:27 PM PIECE DYEING MACHINE TENDER): Rate-controlled, managed by cardiology. Assessment & Plan (01/27/2017 1:29 PM PIECE DYEING MACHINE TENDER): Regular sinus rhythm in office today with controlled rate. Continue to monitor. Continue on aspirin and metoprolol daily Assessment & Plan (12/21/2016 4:55 PM CDT): Patient had a loop recorder implanted after a syncopal event. She states shortly after recent hip surgery she received a phone call from her scientific investigator reporting she had flipped in out of atrial fibrillation. She will continue to follow with her scientific investigator. He started her on metoprolol. Medication list [...] Cataract Assessment & Plan (01/27/2017 1:36 PM PIECE DYEING MACHINE TENDER): Patient is stable and healthy enough to [...] Anxiety Assessment & Plan (04/21/2022 1:45 PM PIECE DYEING MACHINE TENDER): Clinically improved, continue current prescription medications, sertraline. Assessment & Plan (11/12/2021 9:13 PM CDT): Clinically improved, continue current prescription medications. Assessment & Plan (06/05/2021 10:21 PM CDT): Stable. Cont. Current prescription medications. Assessment & Plan (11/11/2020 10:39 AM CDT): Clinically improved, continue current meds. Assessment & Plan (03/30/2020 4:14 PM PIECE DYEING MACHINE TENDER): Worsening. Trial of sertraline 50 mg 1 [...] it. Assessment & Plan (02/18/2019 2:27 PM PIECE DYEING MACHINE TENDER): Clinically improved, continue current meds. Assessment & [...] follow. Assessment & Plan (03/29/2017 12:41 PM PIECE DYEING MACHINE TENDER): Asx. Cont current mgmt. Psoriasis 04/05/2013 Overview (06/02/2016): Psoriasis Chronic pain syndrome 04/05/2013 Overview (03/29/2017): Managed by Pain Mgmt. Primary hypertension 04/05/2013 Overview (06/03/2016): Hypertension Assessment & Plan (04/21/2022 1:45 PM PIECE DYEING MACHINE TENDER): Blood pressure at goal less than 140/90, [...] meds. Assessment & Plan (02/18/2019 2:24 PM PIECE DYEING MACHINE TENDER): Stable. Cont. Current meds. Assessment & Plan (08/13/2018 4:35 PM CDT): Hypertension is improving with treatment. Continue current treatment regimen. Dietary sodium restriction. Regular aerobic exercise. Continue current medications. Ambulatory blood pressure monitoring. Blood pressure will be reassessed at the next regular appointment. Metoprolol xl 25 mg bid, Olmesartan 20 mg qd Followed by cardiology. Requested office notes from cardiology office. clinical assistant professor called their office during patient's ov, I did not receive them prior to patient leaving. Assessment & Plan (03/29/2017 12:40 PM PIECE DYEING MACHINE TENDER): Hypertension is unchanged. Continue current treatment regimen. Dietary sodium restriction. Weight loss. Regular aerobic exercise. Continue current medications. Blood pressure will be reassessed at the next regular appointment. Assessment & Plan (01/27/2017 1:29 PM PIECE DYEING MACHINE TENDER): Stable. Pt was advised of continuing heart healthy DASH diet, increase exercise as tolerated, and continuing to monitor for any lower leg edema, headaches, changes in vision, or facial flushing. Continue ASA and anti-hypertensives as prescribed. Arthritis 04/05/2013 Overview (06/03/2016): Arthritis Resolved Problems Problem Noted Date Diagnosed Date Resolved Date Facial contusion, sequela 12/14/2021 Assessment & Plan (03/28/2022 1:39 PM PIECE DYEING MACHINE TENDER): Bruising healing. Assessment & Plan (12/14/2021 9:15 [...] 08/13/2018 Assessment & Plan (03/09/2018 2:40 PM PIECE DYEING MACHINE TENDER): Here for follow up on bronchitis and [...] improved Assessment & Plan (02/17/2018 4:44 PM PIECE DYEING MACHINE TENDER): Here for follow up on bronchitis and [...] 03/29/2017 Assessment & Plan (01/27/2017 1:31 PM PIECE DYEING MACHINE TENDER): Pt was advised to continue current therapy [...] glucose Assessment & Plan (03/29/2017 12:41 PM PIECE DYEING MACHINE TENDER): Asx. Labs ordered. Immunizations Immunization Administration Dates [...] a. Hx Other Medical Dr. Sherif [facility] customer service Hx Other Medical Dr. Jazmin leon Primary [...] on file Legal Sex Female 3:09 AM PIECE DYEING MACHINE TENDER Gender Identity Not on file Sexual Orientation Straight 02/06/2020 1: 53 PM PIECE DYEING MACHINE TENDER Occupation Industry Job Start Date Job End Date retired Not on file Not on file Not on file Obstetrics History Last Filed Vital Signs Vital Sign Reading Time Taken Comments Blood Pressure 124/68 04/21/2022 12:35 PM PIECE DYEING MACHINE TENDER Pulse 79 04/21/2022 12:35 PM PIECE DYEING MACHINE TENDER Temperature 36.3 C (97.4 F) 04/21/2022 12:35 PM PIECE DYEING MACHINE TENDER Respiratory Rate 18 04/21/2022 12:35 PM PIECE DYEING MACHINE TENDER Oxygen Saturation 96% 04/21/2022 12:35 PM PIECE DYEING MACHINE TENDER Inhaled Oxygen Concentration - - Weight 86.2 kg (190 lb 1.6 oz) 04/21/2022 12:35 PM PIECE DYEING MACHINE TENDER Height 160 cm (5' 2.99 ) 04/21/2022 12:35 PM PIECE DYEING MACHINE TENDER Body Mass Index 33.68 04/21/2022 12:35 PM PIECE DYEING MACHINE TENDER Plan of Treatment Health Maintenance Due Date [...] 08/13/2018, 019 Medical Devices Implanted Type Area Cnc Lathe Machine Operator Device Identifier Shelf Expiration Date Model / Serial / Lot [employer] Percutaneous Transcatheter Amplatzer Amulet 22mm [id number] - [id number] Implanted:Qty: 1 on 03/09/2022 by Debi Garcia MD at [employer] [facility] 10/27/2026 [id number] / / [id number] Procedures Procedure Name Priority Date/Time Associated Diagnosis Comments HEPATITIS C ANTIBODY Routine 08/13/2018 3:12 PM CDT Encounter for hepatitis C screening test for low risk patient COLONOSCOPY IMAGES 10/15/2013 from Last 3 Months or Most Recently Relevant to Health Maintenance Results * Hepatitis C antibody (08/13/2018 3:12 PM CDT) Hep C Ab Negative Negative [facility] ([facility]) Comment:Testing performed by : , [id number] [place] [address], [place]., [address] Blood specimen (specimen) 08/13/2018 3:12 PM CDT 08/14/2018 9:36 AM CDT us Waleska Alvarez DO LAB MICROBIOLOGY - GENERAL ORDERABLES Final Result [facility] 1 [facility] Department of [place] [address] * COLONOSCOPY IMAGES (10/15/2013) Anatomical Region Laterality Modality Other Narrative 10/15/2013 Ordered by an unspecified provider. us Historical Provider GI PROCEDURE ORDERABLES F inal Result from Last 3 Months or Most Recently Relevant to Health Maintenance Additional Health Concerns Infection Onset Date Last Indicated MDR gram neg/ESBL Comment:ESBL E.coli urine 12/21/16 12/24/2016 12/24/2016 Insurance AETNA MEDICARE [facility] MEDICARE AETNA MEDICARE Care Teams Contract Modeler Relationship Specialty Start Date End Date Vangie Tillman, PT Physical Therapist Physical Therapy 02/16/17 Noelle Noe MD [address] [place] [address] Consulting Physician Cardiology 11/09/20 Erma Schultz DNP [address] [place] [address] Nurse Practitioner Neurology 11/10/21 Jud Carmona MA [address] [place] [address] [address] [place] [address] [employer] Black And White Printer Operator 03/11/22
--- OUTSIDE RECORDS SUMMARY | 2024-04-21 19:31 | XMS_ITS | Encounter Summary ---
Author Organization [facility] Address [address] [place] [address] Phone Care Team Providers Care Hospital Personnel Director Name Role Phone Jer Daniels MD Primary Care Provider [phone] Encounter Details Date Type Department Care Team (Late st Contact Info) Description 08/29/2022 Telephone [facility] [address] [place] [address] Ronny Travis, PT OR Social History Tobacco Use Types Packs/Day Years [...] on filedocumented in this encounter Care Teams Hospital Personnel Director Relationship Specialty Start Date End Date Jer Daniels MD PCP - General Family Medicine 08/04/22 documented as of this encounter
--- NOTE | 2024-04-21 19:43 | ED_ITS ---
HPI - Head Injury General Chief complaint: Head Injury Stated complaint: GLF, HI Time Seen by Provider: 04/21/24 19:02 History of Present Illness HPI Narrative: 78-year-old female presenting with a ground level fall from her longterm via EMS. Patient has a history of Parkinson's, Parkinson's dementia, paroxysmal AFib not on any anticoagulation, hypertension. She was just admitted to the hospital recently for a ground level fall likely attributed to urinary tract infection she was treated with antibiotics. Patient was discharged to longterm. She states that she was trying to get out of her wheelchair today and fell. No recollection of the event otherwise and states that she is not sure if she lost consciousness. Patient's documentation from the longterm indicates that she is comfort care measures only with no CPR or aggressive measures. Patient has no complaints at this time. She states she was in pain earlier but to this is subside after oral medications. Denies any headache or vision changes. No nausea vomiting. No chest pain shortness a breath. She is in her normal state of health according to her. Denies any urinary symptoms and completed the antibiotics. Related Data Home Medications ?Medication ?Instructions ?Recorded ?Confirmed ?Last Taken ?Type acetaminophen 500 mg tablet 500 mg PO Q4H PRN pain 03/29/24 03/29/24 Unknown History albuterol sulfate 90 mcg/actuation 1 puff inhalation Q4H PRN 03/29/24 03/29/24 Unknown History aerosol inhaler (Ventolin HFA) shortness of breath or wheezing bisacodyl 10 mg rectal suppository 10 mg RECTAL DAILY PRN constipation 03/29/24 03/29/24 Unknown History (Dulcolax (bisacodyl)) carbidopa 25 mg-levodopa 100 mg 2 tablet PO TID 03/29/24 03/29/24 Unknown History tablet cyanocobalamin (vitamin B-12) 1,000 mcg PO DAILY 03/29/24 03/29/24 Unknown History 1,000 mcg capsule docusate sodium 100 mg tablet 100 mg PO BID 03/29/24 03/29/24 Unknown History donepezil 10 mg tablet 10 mg PO HS 03/29/24 03/29/24 Unknown History eucerin original healing cream See Rx Instructions topical Q8H 03/29/24 03/29/24 Unknown History PRN dry skin loperamide 2 mg tablet 2 mg PO Q6H PRN loose stool 03/29/24 03/29/24 Unknown History (Anti-Diarrheal (loperamide)) magnesium hydroxide 400 mg/5 mL 30 ml PO DAILY PRN constipation 03/29/24 03/29/24 Unknown History oral suspension metoprolol succinate 25 mg 25 mg PO DAILY 03/29/24 03/29/24 Unknown History tablet,extended release 24 hr polyethylene glycol ea miscellaneous DAILY 03/29/24 Unknown History sertraline 50 mg tablet 50 mg PO Q24H 03/29/24 03/29/24 Unknown History Allergies Allergy/AdvReac Type Severity Reaction Status Date / Time tetracycline Allergy Mild ORAL Verified 03/28/24 23:20 ISABELL demeclocycline Allergy Unknown Unknown Verified 03/28/24 23:20 Penicillins Allergy Unknown Unknown Verified 04/01/24 09:13 Sulfa (Sulfonamide Allergy Unknown Unknown Verified 03/28/24 23:20 Antibiotics) sulfanilamide Allergy Unknown Unknown Verified 03/28/24 23:20 Tetanus Vaccines and Toxoid Allergy Unknown Unknown Verified 03/28/24 23:20 Review of Systems Review of Systems: As reviewed above in HPI [facility] Past Medical History Medical History Mild intermittent asthma, uncomplicated Aphasia Repeated falls Hyperlipidemia Parkinsonism, unspecified Major depressive disorder, recurrent, in partial remission Vitamin B12 deficiency 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 Essential (primary) hypertension Anxiety disorder, unspecified Paroxysmal atrial fibrillation Unspecified dementia, unspecified severity, without behavioral disturbance, psychotic disturbance, mood disturbance, and anxiety Family History Family History Father Family history of coronary artery disease Grandparent Family history of coronary artery disease Sibling Family history of coronary artery disease Mother Patient's mother is Social History Social History Social History: Ambulates with walker Code status: DNR per longterm documentation Smoking status: Never smoker Second hand tobacco smoke exposure: No Alcohol intake: current Substance use: never Substance use type: does not use Do You Feel Safe in your Home?: Yes Lack of Transportation: No Lack of Food: Never True Current Housing: I Have Housing Concerned About Future Housing: No Difficulty Paying Gas/Electric Bills: No Difficulty Paying for Meds: No Currently Unemployed: No Education: Bachelor's Degree Difficulty w/ Childcare or Family Care: No Additional living arrangements comments: [facility] care concerns: No Exam Narrative: GENERAL: Thin and frail, elderly appearing but not any acute distress HEAD: Right-sided frontal scalp hematoma with some small bleeding and apparent 0.5 cm laceration EYES: [PERRLA and EOMI.] ENT: Nares clear, no rhinorrhea or epistaxis. Mucous membranes moist. NECK: Supple. CHEST: [Clear to auscultation. No respiratory distress.] HEART: [Regular rate and rhythm]. No murmur heard. [Normal peripheral pulses.] ABDOMEN: [Soft, nondistended], [nontender], [No rigidity or guarding] EXTREMITIES: Normal range of motion. [No edema.] SKIN: Warm, dry, no rash. NEURO: [No focal deficits]. Alert and at baseline. Tremor in the bilateral hands, chronic PSYCH: [Normal mood and affect.] Course Vital Signs Vital signs: Vital Signs Temperature 37.1 C 04/21/24 17:33 Pulse Rate 85 04/21/24 17:33 Respiratory Rate 16 04/21/24 17:33 Blood Pressure 143/74 H 04/21/24 17:33 Pulse Oximetry 99 04/21/24 17:33 Oxygen Delivery Room Air 04/21/24 17:33 Temperature 37.1 C 04/21/24 17:33 Pulse Rate 85 04/21/24 17:33 Respiratory Rate 16 04/21/24 17:33 Blood Pressure 143/74 H 04/21/24 17:33 Pulse Oximetry 99 04/21/24 17:33 Oxygen Delivery Room Air 04/21/24 17:33 Procedures Laceration Laceration 1: Date: 04/21/24 Time: 19:43 Site: scalp Side (If applicable): right Size (cm): 0.5 Description: linear Depth: simple, single layer Local Anesthetic: none Pre-repair: wound explored and irrigated ====== Skin Level ====== Skin layer closed with: dermabond and steri strips ====== Subcutaneous Layer ====== ====== Muscle Layer ====== ====== Tendon Layer ====== Dressing: pressure dressing applied MDM - Head Injury MDM Narrative Medical decision making narrative: 78-year-old female with history of Parkinson's and Parkinson's dementia presenting from longterm from a ground level fall. Patient states she was trying to ambulate out of her wheelchair and fell forward. She has a right frontal scalp hematoma and overlying laceration at 0.5 cm without any active bleeding. Patient is not sure about her tetanus status. Her tetanus was up-to-date here and skin glue and Steri-Strips were used to close laceration. CT of the head and cervical spine were obtained. Patient is comfort care measures only. Patient has no pain or complaints at this time. She is acting appropriately. CT scans were independently reviewed and showed no acute intracranial findings or fractures or dislocations in the cervical spine. Patient is safe and stable for discharge back to her nursing facility at this time. Medical Records Attestation: I reviewed the patient's medical records. Imaging Data Attestation: I personally reviewed and interpreted this imaging study as follows: My impression: Impressions Head CT 04/21/24 19:13 Impression: No acute intracranial hemorrhage or suspicious mass effect. Inflammatory sinus disease. Right frontal scalp hematoma. Cervical Spine CT 04/21/24 19:15 Impression: Straightening and slight reversal of the normal curvature of the cervical spine, likely muscular in origin. Degenerative disease, without acute fracture. Discharge Plan Discharge Clinical Impression: Ground-level fall, Hematoma of frontal scalp, Laceration of scalp, Parkinson's disease, Comfort measures only status Patient Disposition: NH Nursing Home/Asst Living Condition: Stable Instructions: Antibiotic Form, Laceration (ED), Head Injury (ED), Skin Adhesive Care (ED), Steristrips (ED) Additional Instructions: Keep area clean and dry for approximately 24 hours. Skin glue and Steri-Strips will fall off on their own after several days. Swelling will go down with time, Tylenol ibuprofen for any aches or pains. Return with any concerns. Patient Language: Portuguese Prescriptions: No Action carbidopa-levodopa 25-100 mg tablet 2 tablet PO TID donepezil 10 mg tablet 10 mg PO HS metoprolol succinate 25 mg tablet extended release 24 hr 25 mg PO DAILY sertraline 50 mg tablet 50 mg PO Q24H cyanocobalamin (vitamin B-12) 1,000 mcg capsule 1,000 mcg PO DAILY docusate sodium 100 mg tablet 100 mg PO BID polyethylene glycol Powder miscellaneous DAILY Rx Instructions: 17 gram po acetaminophen 500 mg tablet 500 mg PO Q4H PRN (Reason: pain) albuterol sulfate [Ventolin HFA] 90 mcg/actuation HFA aerosol inhaler 1 puff inhalation Q4H PRN (Reason: shortness of breath or wheezing) bisacodyl [Dulcolax (bisacodyl)] 10 mg suppository 10 mg RECTAL DAILY PRN (Reason: constipation) loperamide [Anti-Diarrheal (loperamide)] 2 mg tablet 2 mg PO Q6H PRN (Reason: loose stool) magnesium hydroxide 400 mg/5 mL suspension 30 ml PO DAILY PRN (Reason: constipation) eucerin original healing cream See Rx Instructions topical Q8H PRN (Reason: dry skin) Rx Instructions: topically every 8 hours PRN; Follow-up/Referrals: UNKNOWN,DOCTOR [Primary Care Provider] - Stand Alone Forms: Fdc Discharge Time of Disposition: 19:49
[2024-04-21 19:50] VITALS: BP 128/82; PULSE 64; RESP 15; O2SAT 100
[2024-04-21 19:51] VITALS: BP 146/63; PULSE 74; RESP 17; O2SAT 97
[2024-04-21 20:10] VITALS: O2SAT 100
[2024-04-21 20:15] VITALS: O2SAT 100
[2024-04-21 20:16] VITALS: BP 134/87; PULSE 72; RESP 18; O2SAT 100
== END 2024-04-21 21:12 ==
PROVIDERS: Emergency Provider Student in an Organized Health Care Education/Training Program
DX: S01.01XA Laceration without foreign body of scalp, initial encounter (principal); W18.30XA Fall on same level, unspecified, initial encounter; G20.A1 Parkinson's disease without dyskinesia, without mention of fluctuations; I48.0 Paroxysmal atrial fibrillation; Z79.01 Long term (current) use of anticoagulants; I10 Essential (primary) hypertension; E78.5 Hyperlipidemia, unspecified; J45.909 Unspecified asthma, uncomplicated; F41.8 Other specified anxiety disorders
CPT/HCPCS: 12001; 70450; 72125; 99284; A9270

== ENCOUNTER 2024-04-29 08:06 | Emergency (ER) | payer MEDICARE, SELFPAY ==
[2024-04-29] VITALS (8 sets, daily range): BP systolic 125–156; BP diastolic 52–80; PULSE 53–82; RESP 14–19; TEMP 36.4–36.5; O2SAT 99–100
[2024-04-29 08:51] LABS: Basophils Absolute Auto 0.1 K/mm3 (0.0-0.1); Basophils Percent Auto 0.7 % (0.2-1.2); Eosinophils Absolute Auto 0.1 K/mm3 (0-0.3); Eosinophils Percent Auto 1.1 % (0-4.4); Hematocrit 42.7 % (37.0-47.0); Hemoglobin 13.9 g/dL (12.0-15.0); Immature Granulocyte Absolute 0.09 K/mm3 (0.00-0.031); Immature Granulocyte Percent A 0.9 % (0-0.5); Lymphocytes Absolute Auto 1.36 K/mm3 (0.9-3.2); Lymphocytes Percent Auto 13.6 % (18.3-44.2); Mean Corpuscular HGB Conc 32.6 g/dl (32-36); Mean Corpuscular Hemoglobin 29.3 pg (26-34); Mean Corpuscular Volume 89.9 fl (80-100); Mean Platelet Volume 9.1 fl (7.4-10.4); Monocytes Absolute Auto 0.5 K/mm3 (0.1-0.6); Monocytes Percent Auto 5.4 % (2.6-8.5); Neutrophils Absolute Auto 7.8 K/mm3 (1.3-6.7); Neutrophils Percent Auto 78.3 % (45.5-73.1); Platelet Count Result 286 k/mm3 (150-375); Red Blood Count 4.75 M/mm3 (4.2-5.4); Red Cell Distribution Width 14.4 % (11.5-14.5)
[2024-04-29 08:56] LABS: Add Urine Microscopic? YES; Appearance Urine Clear (Clear); Bacteria Urine 4+ /hpf; Bilirubin Urine Negative (Negative); Blood Urine Negative (Negative); Color Urine Yellow (Yellow); Glucose Urine UA Negative (Negative); Ketones Urine Negative (Negative); Leukocyte Esterase Ur 2+ LEU/UL (Negative); Nitrate Urine Positive (Negative); Non Pathogenic Casts 0-2; Protein Urine Negative (Negative); RBC Urine 0-2 /hpf (0-2); Specific Grav Ur 1.015 (1.001-1.035); Squamous Epithelial Cell Urine None Seen /hpf (Few); Urobilinogen Urine 0.2 mg/dL (<2.0); WBC Urine 21-50 /hpf (0-3); pH Urine 5.5 (5.0-9.0)
[2024-04-29 09:03] LABS: Alanine Aminotransferase 11 U/L (6-35); Albumin Level 4.3 g/dL (3.5-5.1); Alkaline Phosphatase 89 U/L (38-126); Anion Gap 9 mmol/L (4-12); Aspartate Amino Transferase 21 U/L (14-36); Bilirubin,Total 0.6 mg/dL (0.2-1.3); Blood Urea Nitrogen 16 mg/dL (7-17); Calcium 9.2 mg/dL (8.4-10.2); Carbon Dioxide 30 mmol/L (22-30); Chloride 103 mmol/L (98-107); Estimated CRCL calculation 64 ml/min; Estimated Glomerular Filt Rate > 60; Glucose 92 mg/dL (65-110); Sodium 142 mmol/L (137-145)
--- NOTE | 2024-04-29 10:12 | ED.GENADULT ---
HPI - General Adult General Chief complaint: Weakness Stated complaint: WEAKNESS Time Seen by Provider: 04/29/24 08:45 History of Present Illness HPI narrative: Patient is a 79-year-old female who presents ER with generalized weakness from her detention. Patient is alert and oriented x2 and is able to provide any usable history. She does have what appears to be a bruise to her right forehead from a recent fall. It is unknown whether this is been worked up. Related Data Home Medications ?Medication ?Instructions ?Recorded ?Confirmed ?Last Taken ?Type acetaminophen 500 mg tablet 500 mg PO Q4H PRN pain 03/29/24 03/29/24 Unknown History albuterol sulfate 90 mcg/actuation 1 puff inhalation Q4H PRN 03/29/24 03/29/24 Unknown History aerosol inhaler (Ventolin HFA) shortness of breath or wheezing bisacodyl 10 mg rectal suppository 10 mg RECTAL DAILY PRN constipation 03/29/24 03/29/24 Unknown History (Dulcolax (bisacodyl)) carbidopa 25 mg-levodopa 100 mg 2 tablet PO TID 03/29/24 03/29/24 Unknown History tablet cyanocobalamin (vitamin B-12) 1,000 mcg PO DAILY 03/29/24 03/29/24 Unknown History 1,000 mcg capsule docusate sodium 100 mg tablet 100 mg PO BID 03/29/24 03/29/24 Unknown History donepezil 10 mg tablet 10 mg PO HS 03/29/24 03/29/24 Unknown History eucerin original healing cream See Rx Instructions topical Q8H 03/29/24 03/29/24 Unknown History PRN dry skin loperamide 2 mg tablet 2 mg PO Q6H PRN loose stool 03/29/24 03/29/24 Unknown History (Anti-Diarrheal (loperamide)) magnesium hydroxide 400 mg/5 mL 30 ml PO DAILY PRN constipation 03/29/24 03/29/24 Unknown History oral suspension metoprolol succinate 25 mg 25 mg PO DAILY 03/29/24 03/29/24 Unknown History tablet,extended release 24 hr polyethylene glycol ea miscellaneous DAILY 03/29/24 Unknown History sertraline 50 mg tablet 50 mg PO Q24H 03/29/24 03/29/24 Unknown History Allergies Allergy/AdvReac Type Severity Reaction Status Date / Time tetracycline Allergy Mild ORAL Verified 04/29/24 08:18 ISABELL demeclocycline Allergy Unknown Unknown Verified 04/29/24 08:18 Penicillins Allergy Unknown Unknown Verified 04/29/24 08:18 Sulfa (Sulfonamide Allergy Unknown Unknown Verified 04/29/24 08:18 Antibiotics) sulfanilamide Allergy Unknown Unknown Verified 04/29/24 08:18 Tetanus Vaccines and Toxoid Allergy Unknown Unknown Verified 04/29/24 08:18 ciprofloxacin (From Cipro) Allergy Unknown Verified 04/29/24 08:18 Review of Systems Review of Systems: ROS unobtainable: Yes unobtainable due to mental status PMFSH Past Medical History Medical History Mild intermittent asthma, uncomplicated Aphasia Repeated falls Hyperlipidemia Parkinsonism, unspecified Major depressive disorder, recurrent, in partial remission Vitamin B12 deficiency 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 Essential (primary) hypertension Anxiety disorder, unspecified Paroxysmal atrial fibrillation Unspecified dementia, unspecified severity, without behavioral disturbance, psychotic disturbance, mood disturbance, and anxiety Family History Family History Father Family history of coronary artery disease Grandparent Family history of coronary artery disease Sibling Family history of coronary artery disease Mother Patient's mother is Social History Social History Social History: Ambulates with walker Code status: DNR per detention documentation Smoking status: Never smoker Second hand tobacco smoke exposure: No Alcohol intake: current Substance use: never Substance use type: does not use Do You Feel Safe in your Home?: Yes Lack of Transportation: No Lack of Food: Never True Current Housing: I Have Housing Concerned About Future Housing: No Difficulty Paying Gas/Electric Bills: No Difficulty Paying for Meds: No Currently Unemployed: No Education: Bachelor's Degree Difficulty w/ Childcare or Family Care: No Additional living arrangements comments: [facility] Spiritual care concerns: No Exam Narrative: GENERAL: Well-appearing, well-nourished, and in no acute distress. HEAD: Normocephalic, atraumatic. ENT: Mucous membranes moist. CHEST: Clear to auscultation. No respiratory distress. HEART: Regular rate and rhythm. Normal peripheral pulses. ABDOMEN: Soft, nontender, nondistended. EXTREMITIES: Normal range of motion. No edema. SKIN: Warm, dry, no rash. NEURO: Alert and oriented x2. PSYCH: Normal mood and affect. Course Course Emergency Course: Patient resting comfortably. Has UTI. Oral cefuroxime given here. Discharged home with same prescription. Labs unremarkable other than the infection. Vital Signs Vital signs: Vital Signs Temperature 97.5 F L 04/29/24 08:11 Pulse Rate 71 04/29/24 08:11 Respiratory Rate 16 04/29/24 08:11 Blood Pressure 148/77 H 04/29/24 08:11 Pulse Oximetry 100 04/29/24 08:11 Oxygen Delivery Room Air 04/29/24 08:11 Temperature 97.5 F L 04/29/24 08:11 Pulse Rate 73 04/29/24 11:31 Respiratory Rate 14 04/29/24 11:31 Blood Pressure 125/74 04/29/24 11:31 Pulse Oximetry 100 04/29/24 11:31 Oxygen Delivery Room Air 04/29/24 08:11 Medical Decision Making Vital Signs Vital Signs: Vital Signs Temperature 97.5 F L 04/29/24 08:11 Pulse Rate 71 04/29/24 08:11 Respiratory Rate 16 04/29/24 08:11 Blood Pressure 148/77 H 04/29/24 08:11 Pulse Oximetry 100 04/29/24 08:11 Oxygen Delivery Room Air 04/29/24 08:11 Temperature 97.5 F L 04/29/24 08:11 Pulse Rate 73 04/29/24 11:31 Respiratory Rate 14 04/29/24 11:31 Blood Pressure 125/74 04/29/24 11:31 Pulse Oximetry 100 04/29/24 11:31 Oxygen Delivery Room Air 04/29/24 08:11 Lab Data 04/29/24 08:30 04/29/24 08:30 Labs: Lab Results 04/29/24 04/29/24 Range/Units 08:30 08:44 WBC 10.0 (4.5-10.0) K/mm3 RBC 4.75 (4.2-5.4) M/mm3 Hgb 13.9 (12.0-15.0) g/dL Hct 42.7 (37.0-47.0) % MCV 89.9 (80-100) fl MCH 29.3 (26-34) pg MCHC 32.6 (32-36) g/dl RDW 14.4 (11.5-14.5) % Plt Count 286 (150-375) k/mm3 MPV 9.1 (7.4-10.4) fl Immature Gran % (Auto) 0.9 H (0-0.5) % Neut % (Auto) 78.3 H (45.5-73.1) % Lymph % (Auto) 13.6 L (18.3-44.2) % [place] % (Auto) 5.4 (2.6-8.5) % Eos % (Auto) 1.1 (0-4.4) % Baso % (Auto) 0.7 (0.2-1.2) % Lymph # (Auto) 1.36 (0.9-3.2) K/mm3 [place] # (Auto) 0.5 (0.1-0.6) K/mm3 Eos # (Auto) 0.1 (0-0.3) K/mm3 Baso # (Auto) 0.1 (0.0-0.1) K/mm3 Abs Immat Gran (auto) 0.09 H (0.00-0.031) K/mm3 Absolute Neuts (auto) 7.8 H (1.3-6.7) K/mm3 Absolute Nucleated RBC 0.000 (0.0-0.012) K/mm3 Nucleated RBC % 0.0 (0.0-0.2) % Sodium 142 (137-145) mmol/L Potassium 4.0 (3.4-5.0) mmol/L Chloride 103 (98-107) mmol/L Carbon Dioxide 30 (22-30) mmol/L Anion Gap 9 (4-12) mmol/L BUN 16 (7-17) mg/dL Creatinine 0.63 L (0.7-1.0) mg/dL Estim Creat Clear Calc 64 ml/min Estimated GFR > 60 (59 - ) Glucose 92 (65-110) mg/dL Calcium 9.2 (8.4-10.2) mg/dL Total Bilirubin 0.6 (0.2-1.3) mg/dL AST 21 (14-36) U/L ALT 11 (6-35) U/L Alkaline Phosphatase 89 (38-126) U/L Total Protein 8.0 (6.3-8.2) g/dL Albumin 4.3 (3.5-5.1) g/dL Urine Color Yellow (Yellow) Urine Appearance Clear (Clear) Urine pH 5.5 (5.0-9.0) Ur Specific Art 1.015 (1.001-1.035) Urine Protein Negative (Negative) mg/dL Urine Glucose (UA) Negative (Negative) mg/dL Urine Ketones Negative (Negative) mg/dL Ur Blood (Man) Negative (Negative) Urine Nitrate Positive H (Negative) Urine Bilirubin Negative (Negative) Urine Urobilinogen 0.2 (<2.0) mg/dL Leukocyte Esterase Rfl 2+ H (Negative) LINDY/UL Urine RBC 0-2 (0-2) /hpf Urine WBC 21-50 H (0-3) /hpf Ur Squamous Epith Cells None seen (Few) /hpf Urine Bacteria 4+ H /hpf Urine Casts 0-2 Imaging Data Radiologist's impression: ITS Impressions Chest X-Ray 04/29/24 08:53 IMPRESSION: 1. No acute cardiopulmonary disease. Head CT 04/29/24 09:49 IMPRESSION: 1. No acute fracture or acute intracranial process. 2. 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 3. Extensive scattered white matter hypoattenuation consistent with chronic small vessel ischemic disease. Discharge Plan Discharge Clinical Impression: Acute UTI Patient Disposition: Home, Self-Care Condition: Stable Instructions: Antibiotic Form, Urinary Tract Infection in Women (ED) Additional Instructions: You should return to the emergency department if you develop severe nausea and vomiting and are unable to keep liquids down, if you develop severe back/flank or stomach pain, or if your symptoms are not clearly improving at home. Patient Language: Arabic Prescriptions: New cefuroxime axetil 500 mg tablet 500 mg PO Q12H Qty: 14 0RF No Action carbidopa-levodopa 25-100 mg tablet 2 tablet PO TID donepezil 10 mg tablet 10 mg PO HS metoprolol succinate 25 mg tablet extended release 24 hr 25 mg PO DAILY sertraline 50 mg tablet 50 mg PO Q24H cyanocobalamin (vitamin B-12) 1,000 mcg capsule 1,000 mcg PO DAILY docusate sodium 100 mg tablet 100 mg PO BID polyethylene glycol Powder miscellaneous DAILY Rx Instructions: 17 gram po acetaminophen 500 mg tablet 500 mg PO Q4H PRN (Reason: pain) albuterol sulfate [Ventolin HFA] 90 mcg/actuation HFA aerosol inhaler 1 puff inhalation Q4H PRN (Reason: shortness of breath or wheezing) bisacodyl [Dulcolax (bisacodyl)] 10 mg suppository 10 mg RECTAL DAILY PRN (Reason: constipation) loperamide [Anti-Diarrheal (loperamide)] 2 mg tablet 2 mg PO Q6H PRN (Reason: loose stool) magnesium hydroxide 400 mg/5 mL suspension 30 ml PO DAILY PRN (Reason: constipation) eucerin original healing cream See Rx Instructions topical Q8H PRN (Reason: dry skin) Rx Instructions: topically every 8 hours PRN; Follow-up/Referrals: UNKNOWN,DOCTOR [Primary Care Provider] - 1 Week
[2024-04-29] MEDS: cefuroxime axetiL 250 MG TABLET 500 MG PO (11:30)
== END 2024-04-29 13:16 ==
PROVIDERS: Emergency Provider Emergency Medicine
DX: N39.0 Urinary tract infection, site not specified (principal); F03.90 Unspecified dementia, unspecified severity, without behavioral disturbance, psychotic disturbance, mood disturbance, and anxiety; J45.20 Mild intermittent asthma, uncomplicated; G20.C Parkinsonism, unspecified; I10 Essential (primary) hypertension; I48.0 Paroxysmal atrial fibrillation; E78.5 Hyperlipidemia, unspecified; D51.0 Vitamin B12 deficiency 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; F41.9 Anxiety disorder, unspecified; F33.41 Major depressive disorder, recurrent, in partial remission; Z66 Do not resuscitate; Z79.899 Other long term (current) drug therapy
CPT/HCPCS: 36415; 70450; 71045; 80053; 81001; 85025; 87086; 87186; 93005; 99284; A9270

== ENCOUNTER 2024-06-01 18:23 | Emergency (ER) | payer MEDICARE, SELFPAY ==
--- NOTE | ~2024-06-01 | CT_ITS ---
EXAMINATION: CT cervical spine wo con DATE: 06/01/2024 19:05 INDICATION: fall, head injury TECHNIQUE: Computed tomography (CT) of the cervical spine was performed without intravenous contrast. Automated exposure control and iterative reconstruction technique were employed. The dose-length pro duct was 221.93 mGy-cm. COMPARISON: 04/21/2024. FINDINGS: Vertebral Body Alignment: Intact. Stable grade 1 listhesis at C4-5. Craniocervical and atlantoaxial alignment: Moderate degenerative change. Alignment intact. Osseous structures/fracture: No evidence of a lytic or blastic process in the visualized spine. No e vidence of acute fracture. Cervical soft tissues: The paraspinal soft tissues planes are maintained. Degenerative changes: Degenerative changes, without severe neural foraminal or central canal narrowin g. IMPRESSION: No acute fracture or traumatic malalignment in the cervical spine. Reviewed, dictated and finalized at location K.
--- NOTE | ~2024-06-01 | CT_ITS ---
EXAMINATION: CT brain wo con DATE: 06/01/2024 19:05 INDICATION: fall, head injury . TECHNIQUE: Computed tomography (CT) of the head was performed without intravenous contrast. The mA wa s adjusted according to patient size. Iterative reconstruction technique was employed. The dose-lengt h product was 681.00 mGy-cm. COMPARISON: 04/29/2024. FINDINGS: No acute intracranial hemorrhage or extra-axial fluid collection. No hydrocephalus, mass, or herniation. No acute ischemic infarct. Unremarkable dural venous sinus attenuation. No acute osseous abnormality. Small focal right-sided scalp swelling. Left sphenoid aerated secretions, the remaining aerated spaces are clear. Moderate atrophy and chronic white matter change. Atherosclerotic intracranial calcification. Bilater al lens replacements. Focal old right cerebellar and bilateral basal ganglia lacunar infarcts. IMPRESSION: No acute intracranial process. Reviewed, dictated and finalized at location K.
--- OUTSIDE RECORDS SUMMARY | 2024-06-01 18:26 | XMS_ITS | Clinical Summary ---
Author Organization [facility] Address [address] [place] [address] Phone Care Team Providers Care Superintendent Menagerie Name Role Phone Jer Daniels MD Primary Care Provider [phone]- [phone] Allergies Active Allergy Reactions Criticality Noted Date [...] as needed for Anxiety or Itching. # [id number] Active Cholecalciferol (Vitamin D3) 2000 UNIT Capsule [...] Comments Blood Pressure 129/71 01/05/2023 12:10 AM AIR TRAFFIC CONTROL MANAGER Pulse 62 01/05/2023 12:10 AM AIR TRAFFIC CONTROL MANAGER Temperature 36.7 C (98 F) 01/04/2023 5:08 PM AIR TRAFFIC CONTROL MANAGER Respiratory Rate 16 01/05/2023 12:10 AM AIR TRAFFIC CONTROL MANAGER Oxygen Saturation 98% 01/05/2023 12:10 AM AIR TRAFFIC CONTROL MANAGER Inhaled Oxygen Concentration - - Weight 56.7 kg (125 lb) 01/04/2023 5:08 PM AIR TRAFFIC CONTROL MANAGER Height 160 cm (5' 3 ) 01/04/2023 5:08 PM AIR TRAFFIC CONTROL MANAGER Body Mass Index 22.14 01/04/2023 5:08 PM AIR TRAFFIC CONTROL MANAGER Plan of Treatment Health Maintenance Due Date [...] this topic Medical Devices Implanted Type Area Traffic Court Magistrate Device Identifier Shelf Expiration Date Model / Serial / Lot Reveal Linq Implanted:Qty: 1 on 08/02/2016 by Ramo Noe MD at [facility] N/A: Chest Wall [employer] 06/10/2017 [id number] / [id number] / NA Insurance MEDICARE C AETNA Advance [...] measures to stabilize the patient. Care Teams Superintendent Menagerie Relationship Specialty Start Date End Date Jer Daniels MD PCP - General Family Medicine 08/04/22
--- OUTSIDE RECORDS SUMMARY | 2024-06-01 18:26 | XMS_ITS | Encounter Summary ---
Author Organization [facility] Address [address] [place] [address] Phone Care Team Providers Care Superintendent Gas Distribution Name Role Phone Jer Daniels MD Primary Care Provider [phone] Encounter Details Date Type Department Care Team (Late st Contact Info) Description 08/29/2022 Telephone [facility] [address] [place] [address] Ronny Travis, PT [place] Social History Tobacco Use Types Packs/Day Years [...] on filedocumented in this encounter Care Teams Superintendent Gas Distribution Relationship Specialty Start Date End Date Jer Daniels MD PCP - General Family Medicine 08/04/22 documented as of this encounter
--- OUTSIDE RECORDS SUMMARY | 2024-06-01 18:26 | XMS_ITS | Encounter Summary ---
Author Organization [facility] Address [address] [place] [address] Phone Care Team Providers Care Risk Investigator Name Role Phone Jer Daniels MD Primary Care Provider [phone] Encounter Details Date Type Department Care Team (Late st Contact Info) Description 08/14/2023 Patient Related Communication [facility] [place] [facility] [address] [place], [place] [id number] Jer Daniels MD [address] [place], [place] [id number] Social History Tobacco Use Types Packs/Day Years Used Date Smoking Tobacco: Never Smokeless Tobacco: Never Alcohol Use Standard Drinks/Week Comments Not Currently 0 (1 standard drink = 0.6 oz pur e alcohol) 1 drink weekly B1300 Health Literacy Answer Date Recor ded How often do you need to hav e someone help you when you read instructions, pamphlets, or other written material from your doctor or pharmacy? Sometimes 06/27/2023 [facility] Utilities Answer Date Recorded In the past 12 months has th [employer] electric, gas, oil, or water company threatened to shut off services in your home? No 06/27/2023 Hunger Vital Sign Answer Date Recorded Within the past 12 months, y ou worried that your food would run out before you got the money to buy more. Never true 06/27/19 24 Within the past 12 months, t he food you bought just didn't last and you didn't have money to get more. Never true 06/27/2023 PRAPARE - Transportation Answer Date Re corded In the past 12 months, has l ack of transportation kept you from medical appointments or from getting medications? No 05/30 In the past 12 months, has l ack of transportation kept you from meetings, work, or from getting things needed for daily living? No 06/27/2023 Housing Stability Vital Sign Answer Flako e Recorded In the last 12 months, was t here a time when you were not able to pay the mortgage or rent on time? No 04/11/2023 In the last 12 months, how many places have you lived? 1 04/11/2023 In the last 12 months, was t here a time when you did not have a steady place to sleep or slept in a alf (including now)? No 04/11/2023 Housing Stability Vital Sign Answer Flako e Recorded In the last 12 months, was t here a time when you were not able to pay the mortgage or rent on time? No 06/27/2023 In the past 12 months, how m any times have you moved where you were living? 2 06/27/2023 Homeless in the Last Year Not on file 2023 Comments No Sex and Gender Information Value Date Recorded Sex Assigned at Not on file Legal Sex Female 10:58 AM CDT Gender Identity Not on file Sexual Orientation Not on file documented as of this encounter Miscellaneous Notes * Telephone Encounter - Jer Daniels MD - 08/17/2023 9:10 AM CDT No, there isn't another doctor available for a [id number]-[id number] visit for home health orders documented in this encounter Plan of Treatment Not on file documented as of this encounter Visit Diagnoses Not on filedocumented in this encounter Additional Health Concerns Assessment Noted Time A fall risk assessment has been complete d for the patient 10/07/2022 12:41 PM CDT documented as of this encounter Care Teams Risk Investigator Relationship Specialty Start Date End Date Jer Daniels MD [address] [place] [address] PCP - General Geriatrics 05/30/22 documented as of this encounter
--- OUTSIDE RECORDS SUMMARY | 2024-06-01 18:26 | XMS_ITS | Encounter Summary ---
Author Organization [facility] Address [address] [place] [address] Phone Care Team Providers Care Distiller Name Role Phone Jer Daniels MD Primary Care Provider [phone]- [phone] Encounter Details Date Type Department Care Team (Late st Contact Info) Description 10/06/2022 Telephone [facility] [address] [place] [address] Diana Piedra PTA [place] Social History Tobacco Use Types Packs/Day Years [...] 10/06/2022 1:36 PM CDT Created in error ORATE DIRECTOR OF HUMAN RESOURCES documented in this encounter Plan of Treatment Not on file documented as of this encounter Visit Diagnoses Not on filedocumented in this encounter Care Teams Distiller Relationship Specialty Start Date End Date Jer Daniels MD PCP - General Family Medicine 08/04/22 documented as of this encounter
--- OUTSIDE RECORDS SUMMARY | 2024-06-01 18:26 | XMS_ITS | Encounter Summary ---
Author Organization [facility] Address [address] [place] [address] Phone Care Team Providers Care Industrial Economics Professor Name Role Phone Jer Daniels MD Primary Care Provider [phone] Encounter Details Date Type Department Care Team (Late st Contact Info) Description 01/24/2023 Scanned Document [facility] Referring Docs Provider, Outside Social History Tobacco Use Types Packs/Day Years Used Date Smoking Tobacco: Never Smokeless Tobacco: Never Alcohol Use Standard Drinks/Week Comments Yes 0 (1 standard drink = 0.6 oz pur e alcohol) 1 drink weekly Comments Unknown Sex and Gender Information [...] Infection Onset Date Last Indicated Resolved Time COVID-19 06/28/2023 06/28/2023 07/13/2023 6:26 AM CDT Assessment Noted Time A fall risk assessment has been complete d for the patient 10/07/2022 12:41 PM CDT documented as of this encounter Care Teams Industrial Economics Professor Relationship Specialty Start Date End Date Jer Daniels MD [address] [place] [id number] PCP - General Geriatrics 05/30/22 documented as of this encounter
--- OUTSIDE RECORDS SUMMARY | 2024-06-01 18:26 | XMS_ITS | Encounter Summary ---
Author Organization [facility] Address [address] [place] [address] Phone Care Team Providers Care Electrical Logging Engineer Name Role Phone Jer Daniels MD Primary Care Provider [phone] Encounter Details Date Type Department Care Team (Late st Contact Info) Description 10/25/2022 [facility]phone [facility] [address] [place], [place] [id number] Jer Daniels MD [address] [place], [place] [id number] Social History Tobacco Use Types Packs/Day Years [...] encounter Miscellaneous Notes * Telephone Encounter - Jerilyn Patton, PHARMACY TECHNICIAN PROGRAM DIRECTOR - 10/25/2022 11:[address] Daniels is requesting that we call [facility] to clarify what medications patient is taking. He states it was very unclear during visit yesterday what she was on. The only one they had been filling recently is Metoprolol 25mg XL tablets, but she hasn't picked upin a few months. These have not been pickled up since , some were a 30 day and some were a 90 day: Albuterol Inhaler Atorvastatin 40mg tab Eliquis 5mg bid Hydroxyzine 25mg 1 tab q hs Sertraline 50mg 1 tab daily documented in this encounter Plan of Treatment [...] documented as of this encounter Care Teams Electrical Logging Engineer Relationship Specialty Start Date End Date Jer Daniels MD [address] [facility] [address] [place] [address] PCP - General Geriatrics 05/30/22 documented as of this encounter
--- OUTSIDE RECORDS SUMMARY | 2024-06-01 18:26 | XMS_ITS | Encounter Summary ---
Author Organization [facility] Address [address] [place] [address] Phone Care Team Providers Care Master Electrician Name Role Phone Vangie Tillman PT Unavailable Unavailable Donna Ramirez Unavailable Unavailable Daisy Desai MD Primary Care Provider [phone] Waleska Alvarez DO Primary Care Provider [phone] Maury Mckenna MD Unavailable [phone] Noelle Noe MD Unavailable [phone] Lindsay Parada MA Unavailable [phone] Erma Schultz DNP Unavailable [phone] Jud Carmona MA Unavailable [phone] Encounter Details Date Type Department Care Team (Late st Contact Info) Description 05/01/2017 Orders Only [facility] ProviderLuly MD [address] [place] [address] Social History Tobacco Use Types Packs/Day Years Used Date Smoking Tobacco: Never Smokeless Tobacco: Never Alcohol Use Standard Drinks/Week Comments Yes 0 (1 standard drink = 0.6 oz pur e alcohol) Comments Unknown Sex and Gender Information Value Date Recorded Sex Assigned at Not on file Legal Sex Female 3:09 AM TOE TRIMMER Gender Identity Not on file Sexual Orientation Straight 02/06/2020 1: 53 PM TOE TRIMMER documented as of this encounter Plan of Treatment Not on file documented as of this encounter Procedures Procedure Name Priority Date/Time Associated Diagnosis Comments DISCHARGE LABORATORY CUMULATIVE REPORT 05/01/2017 12:00 AM TOE TRIMMER documented in this encounter Results * DISCHARGE LABORATORY CUMULATIVE REPORT (05/01/2017 12:00 AM TOE TRIMMER) Narrative 05/01/2017 12:00 AM TOE TRIMMER Ordered by an unspecified provider. us Historical Provider LAB BLOOD ORDERABLES Alize l Result documented in this encounter Visit Diagnoses Not on filedocumented in this encounter Additional Health Concerns Infection Onset Date Last Indicated Resolved Time MDR gram neg/ESBL Comment:ESBL E.coli urine 12/21/16 12/24/2016 12/24/2016 documented as of this encounter Care Teams Master Electrician Relationship Specialty Start Date End Date Daisy Desai MD [address] [place] [address] PCP - General 05/01/17 05/04/17 Waleska Alvarez DO [address] [place] [address] PCP - General Family Medicine 05/05/17 12/06/23 Vangie Tillman, BRISA Physical Therapist Physical Therapy 02/16/17 Donna Ramirez Physical Therapist Physical Therapy 03/23/17 11/09/21 Maury Mckenna MD [address] [place] [address] Surgeon Orthopedic Surgery 04/04/19 11/09/21 Noelle Noe MD [address] [place] [address] Consulting Physician Cardiology 11/09/20 Lindsay Parada MA [address] [place] [address] O Care Cardiology Technician 08/05/21 08/10/21 Erma Schultz DNP [address] [place] [address] [address] [place] [address] Nurse Practitioner Neurology 11/10/21 Jud Carmona MA [address] [place] [address] O Care Cardiology Technician 03/11/22 documented as of this encounter
--- OUTSIDE RECORDS SUMMARY | 2024-06-01 18:26 | XMS_ITS | Clinical Summary ---
Author Organization [facility] Address [address] [place] [address] Phone Care Team Providers Care Ocean Fishing Guide Name Role Phone Jer Daniels MD Primary Care Provider +1- [phone] Allergies Active Allergy Reactions Criticality Noted Date Comments Ciprofloxacin Rash,Unknown Medium 07/13/2016 Penicillins Rash Medium 07/13/2016 Sulfa (Sulfonamide Antibiotics) Hives Medium 06/06/2022 Tetanus Vaccines And Toxoid Unknown 06/07/19 23 Tetracyclines Hives,Other; see comment,Unknown Medium 06/07/2018 Unknown Medications cyanocobalamin (VITAMIN B-12) 1,000 mcg tablet Take 1 tablet (1,000 mcg total) by mouth every day 30 tablet 11/01/19 24 Active metoprolol succinate ER (TOPROL XL) 25 mg extended release tablet Take 1 tablet (25 mg total) by mouth every day 30 tablet 11/01/19 24 Active sertraline (ZOLOFT) 50 mg tablet Take 1 tablet (50 mg total) by mouth every day 30 tablet 11/01/19 24 025 Active albuterol HFA (PROVENTIL HFA) 90 mcg/actuation inhalerIndications :acute asthma attack Take 1-2 puffs inhaled by mouth every 4 to 6 hours as needed for shortness of breath 18 g 3 11/01/19 24 Active acetaminophen 500 mg tabletIndications: Parkinson's disease with dyskinesia, unspecified whether manifestations fluctuate (CMS-HCC) Take 1 tablet (500 mg total) by mouth every 4 (four) hours as needed (For mild pain rated 1-3 or for pain rated higher than 3 and patient requests acetaminophen or temp > 38 C (100.4 F). Maximum of 4,000 mg acetaminophen per 24 hours from ALL sources) 50 tablet 11/10/19 24 Active docusate sodium (COLACE) 100 mg capsuleIndications :Parkinson's disease with dyskinesia, unspecified whether manifestations fluctuate (CMS-HCC) Take 1 capsule (100 mg total) by mouth 2 (two) times daily Hold if develops loose stools 11/10/19 Active polyethylene glycol oral powder packet (MIRALAX) 17 gram packetIndications: Parkinson's disease with dyskinesia, unspecified whether manifestations fluctuate (CMS-HCC) Take 17 g by mouth every day 24 each 11/10/19 24 Active loperamide (IMODIUM A-D) 2 mg tablet Take 2 mg by mouth prn (L&D) Active magnesium hydroxide (MILK OF MAGNESIA) 400 mg/5 mL oral suspension A ctive carbidopa-levodopa (SINEMET) 25-100 mg tabletIndications: Complicated UTI (urinary tract infection) 2 tablet three times per day (dose increase 11/23/23)) 180 tablet 11/23/19 24 Active donepeziL (ARICEPT) 10 mg tablet 1 tablet daily with food DO NOT START UNTIL COMPLETION OF RX FOR 5MG 30 tablet 11/23/19 24 Active bisacodyL (DULCOLAX, BISACODYL,) 10 mg suppository Insert rectally every day as needed Active lanolin-white petrolatum-mineral oil (EUCERIN) topical cream Active Active Problems Problem Noted Date Diagnosed Date Complicated UTI (urinary tract infection) 2023 Altered mental status, unspe cified altered mental status type 11/23/2023 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, without behavioral disturbance, psychotic disturbance, mood disturbance, or anxiety 11/23/2023 Acute encephalopathy 11/08/2023 Parkinson's disease with dys kinesia, unspecified whether manifestations fluctuate 11/08/2023 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 11/06/2023 Left foot drop 09/22/2023 Mild intermittent asthma without complication Recurrent falls 09/22/2023 Parkinson's disease without dyskinesia or fluctuating manifestations 08/09/2023 Mild cognitive impairment 08/09/2023 Sepsis due to Escherichia co li without acute organ dysfunction 06/29/2023 COVID-19 virus infection 06/28/2023 Weakness of right upper extremity 06/27/2023 History of fibromyalgia 06/27/2023 Anxiety and depression 06/27/2023 History of asthma 06/27/2023 Acute metabolic encephalopathy 04/14/2023 Parkinsonism, unspecified Parkinsonism type 03/30 Unwitnessed fall 04/12/2023 Eyebrow laceration, right, initial encounter Dementia without behavioral disturbance 04/12/19 History of CVA (cerebrovascular accident) 2023 Overview (04/12/2023): expressive aphasia Physical deconditioning 04/12/2023 Closed head injury without l oss of consciousness, initial encounter 04/11/2023 Expressive aphasia 08/23/2022 Mild episode of recurrent major depressive disor melchor 03/30/2020 Overview (04/11/2023): Last Assessment & Plan: Clinically improved, continue current prescription medications, sertraline. Paroxysmal atrial fibrillation 12/21/2016 Overview (04/11/2023): Managed by cardiology Last Assessment & Plan: Rate-controlled, cont Plavix Essential (primary) hypertension 04/05/2013 Overview (04/11/2023): Hypertension Last Assessment & Plan: Blood pressure at goal less than 140/90, continue current prescription medications. 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, without behavioral disturbance, psychotic disturbance, mood disturbance, or anxiety (CMS-HCC) (Primary Dx); Parkinson's disease with dyskinesia, unspecified whether manifestations fluctuate (CMS-HCC) 03/11/2024 ECF Visit [facility] [place] [address] [place] [address] Jer Daniels MD Dementia without behavioral disturbance (CMS-HCC) (Primary Dx); Paroxysmal atrial fibrillation (CMS-HCC); Benign essential HTN; Anxiety disorder, unspecified type; Vitamin B12 deficiency 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; MDD (major depressive disorder), recurrent, in partial remission (CMS-HCC); Parkinsonism, unspecified Parkinsonism type (CMS-HCC); Hyperlipidemia, unspecified hyperlipidemia type; Frequent falls [R29.6]; Expressive aphasia; Mild intermittent asthma without complication from Last 3 Months Immunizations Name Administration Dates Next Due INFLUENZA SPLIT VIRUS TRIVAL ENT PF (Fluzone/Flulaval/Fluarix/Afluria PF) 11/10/2021,11/09/2020,02/21/2014,12/07,12/22/2011 Influenza (Flu Quad PF) 01/10/2019,01/27/2018 Influenza HIGH DOSE (FLUZONE HIGH-DOSE) 11/10/2021,11/09/2020,01/10/2019,01/27,01/20/2018,11/05/2016,12/24/2014 ,02/21/2014,10/28/2013,11/27/2012,11/28 Pneumococcal Conjugate-13 (PREVNAR 13) 5 Pneumococcal Polysaccharide (Pneumovax 23) 08/16/2016 SARS-CoV-2 (Pfizer Monovalen t COVID-19) 02/03/2021,05/30/2020,05/02/2020 Shingles - Zoster Live (Zostavax) 02/27/2015, Family History Medical History Relation Name Comments Heart Father Cancer Mother Relation Name Status Comments Father Mother Social History Tobacco Use Types Packs/Day Years Used Date Smoking Tobacco: Never Smokeless Tobacco: Never Tobacco Cessation:Counseling Given: Not Answered Alcohol Use Standard Drinks/Week Comments Not Currently 0 (1 standard drink = 0.6 oz pur e alcohol) OASIS D0700: Social Isolation Answer Da te Recorded Frequency of experiencing loneliness or isolatio n Rarely 08/19/2023 OASIS A1250: Transportation Answer Date Recorded Lack of Transportation (Medical) No 08/19/2023 Lack of Transportation (Non-Medical) No 08/19/2023 Patient Unable or Declines to Respond No 08/19/2023 OASIS B1300: Health Literacy Answer Flako e Recorded Frequency of needing help to read materials from doctor or pharmacy Often 08/19/2023 B1300 Health Literacy Answer Date Recor ded How often do you need to hav e someone help you when you read instructions, pamphlets, or other written material from your doctor or pharmacy? Sometimes 06/27/2023 [facility] Utilities Answer Date Recorded In the past 12 months has th e electric, gas, oil, or water company threatened to shut off services in your home? No 11/02/2023 Hunger Vital Sign Answer Date Recorded Within the past 12 months, y ou worried that your food would run out before you got the money to buy more. Never true 11/02/19 24 Within the past 12 months, t he food you bought just didn't last and you didn't have money to get more. Never true 11/02/2023 PRAPARE - Transportation Answer Date Re corded In the past 12 months, has l ack of transportation kept you from medical appointments or from getting medications? No 06/2023 In the past 12 months, has l ack of transportation kept you from meetings, work, or from getting things needed for daily living? No 11/02/2023 Housing Stability Vital Sign Answer Flako e [...] place to sleep or slept in a half-way (including now)? No 04/11/2023 Housing Stability Vital Sign Answer Flako e Recorded In the last 12 months, was t here a time when you were not able to pay the mortgage or rent on time? No 11/02/2023 In the past 12 months, how m any times have you moved where you were living? 2 11/02/2023 At any time in the past 12 m [facility], were you homeless or living in a half-way (including now)? No 11/02/2023 Comments No Sex and Gender Information Value Date Recorded Sex Assigned at Not on file Legal Sex Female 10:58 AM CDT Gender Identity Not on file Sexual Orientation Not on file Last Filed Vital Signs Vital Sign Reading Time Taken Comments Blood Pressure 136/50 03/25/2024 2:16 PM MORTGAGE BROKER Pulse 64 03/25/2024 2:16 PM MORTGAGE BROKER Temperature 36.3 C (97.3 F) 03/08/2024 8:57 AM MORTGAGE BROKER Respiratory Rate 18 03/08/2024 8:57 AM MORTGAGE BROKER Oxygen Saturation 99% 03/25/2024 2:16 PM MORTGAGE BROKER Inhaled Oxygen Concentration - - Weight 75.8 kg (167 lb) 03/25/2024 2:16 PM MORTGAGE BROKER Height 160 cm (5' 3 ) 03/25/2024 2:16 PM MORTGAGE BROKER Body Mass Index 29.58 03/25/2024 2:16 PM MORTGAGE BROKER Plan of Treatment Health Maintenance Due Date Last Done Comments DTaP/Tdap/Td Vaccines (1 - Tdap) 1964 HCPOA Document on File 1996 RSV Vaccine (60+/) (1 - 1-dose 75+ series) 2021 COVID-19 Vaccine ( season) 2023 02/03/2021, 05/30/2020, 05/02/2020 Eligible for Subsequent Annual Medicare Wellness Exam 10/22/2024 10/23/2023, 10/14/2022, 08/13/2018 Fall Screening 10/22/2024 10/23/2023, 0802/2022, 06/06/2022 Zoster (Shingles) Vaccine (2 of 3) 10/22/2024 02/27/2015, 02/21/2014 Postponed from 04/24/2015 (Patient Refused) Influenza Vaccine (Season Ended) 2024 11/10/2021, 11/10/2021, 11/09/2020, Additional history exists Screening for Diabetes 11/26/2026 , 11/24/2023, 11/13/2023, Additional history exists Pneumococcal Vaccines (65+) Completed 08/16/2016, 07/28/2014 Eligible for Initial Annual Medicare Wellness Exam Discontinued 10/14/2022 Osteoporosis Screening needs DEXA Addressed 10/23/2023 (Declined) Overridden with th e intention of not completing the topic HIB Vaccines Aged Out No longer eligi ble based on patient's age to complete this topic HPV Vaccines Aged Out No longer eligi ble based on patient's age to complete this topic Hepatitis A Vaccines Aged Out No long er eligible based on patient's age to complete this topic Hepatitis B Vaccines Aged Out No long er eligible based on patient's age to complete this topic IPV Vaccines Aged Out No longer eligi ble based on patient's age to complete this topic Meningococcal Vaccine (ACWY) Aged Out No longer eligible based on patient's age to complete this topic Rotavirus Vaccines Aged Out No longer eligible based on patient's age to complete this topic Medical Devices Implanted Type Area Mechanics Handyman Device Identifier Shelf Expiration Date Model / Serial / Lot Amulet Appendage Riley Description:Non-clinical bob ting has demonstrated that the Amplatzer Amulet Left Atrial Appendage Occluder device is MR Conditional. A patient with the Amplatzer Amulet device can be safely scanned in an MR system under the following conditions: - Static magnetic koo of 1.5 Oanh (1.5T) and 3.0 Oanh (3.0T) - Maximum spatial gradient field of 19 T/m (1900 G/cm) - Maximum MR system reported, whole-body averaged specific absorption rate (KRISTIE) of 2.0 W/kg (normal operating mode) Under the scan conditions defined above, the device is expected to produce a maximum temperature rise of less than or equal to 4 C after 15 minutes of continuous scanning. In non-clinical testing, the image artifact caused by the device extends radially up to 20 mm from the device when imaged with a gradient echo pulse sequence in a 3.0T MR system. 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 Relevant to Health Maintenance Results * COMP METABOLIC PANEL ([facility]) (11/27/2023 6:45 AM CDT) GLUCOSE ([facility]) 88 70 - 99 mg/dL [facility] BUN ([facility]) 17 8 - 20 mg/dL [facility] CREATININE ([facility]) 0.66 0.52 - 1.04 mg/dL [facility] eGFR (2020 CKD-EPI) ([facility]) 90 mL/min/1.7 3m2 [facility] SODIUM ([facility]) 140 136 - 145 mmol/L [facility] POTASSIUM ([facility]) 4.4 3.5 - 5.0 mmol/l [facility] CHLORIDE ([facility]) 103 98 - 107 mmol/L [facility] CARBON DIOXIDE ([facility]) 27 22 - 30 mmol/L [facility] AST ([facility]) 27 14 - 40 U/L [facility] ALKALINE PHOSPHATASE ([facility]) 86 38 - 126 U/L [facility] BILIRUBIN TOTAL ([facility]) 0.5 0.2 - 1.3 mg/dL [facility] TOTAL PROTEIN ([facility]) 7.3 6.3 - 8.2 gm/dL [facility] ALBUMIN ([facility]) 4.3 3.5 - 5.0 gm/dL [facility] CALCIUM ([facility]) 9.7 8.4 - 10.2 mg/dL [facility] ALT ([facility]) 14 4 - 34 U/L [facility] 11/27/2023 6:45 AM CDT 11/27/2023 8:12 AM CDT Narrative [facility] - 11/27/2023 9:02 AM CDT Release to patient->Immediate us Jer Daniels MD [facility] - BLOOD Final Result [facility] [address] [place] [address], [place] [phone] from Last 3 Months or Most Recently Relevant to Health Maintenance Insurance A[employer]NA MEDICARE ADVANTAGE AETNA MEDICARE ADVANTAGE Advance Directives For more information, please contact: [phone] * No CPR / Do Not Intubate (Latest Code Status on File) Date Activated Date Inactivated Comments 11/02/2023 2:44 PM 11/10/2023 3:27 PM Nurse to plac e purple No CPR/DNI bracelet on patient. * No CPR / Do Not Intubate Date Activated Date Inactivated Comments 09/21/2023 7:30 PM 09/28/2023 5:57 PM Nurse to plac e purple No CPR/DNI bracelet on patient. * No CPR / Do Not Intubate Date Activated Date Inactivated Comments 06/27/2023 8:35 PM 07/13/2023 1:57 PM Nurse to fabrizio ce purple No CPR/DNI bracelet on patient. * Attempt CPR / Full Treatment Date Activated Date Inactivated Comments 06/27/2023 6:30 PM 06/27/2023 8:35 PM * Attempt CPR / Full Treatment Date Activated Date Inactivated Comments 06/27/2023 6:30 PM 06/27/2023 6:30 PM Care Teams Ocean Fishing Guide Relationship Specialty Start Date End Date Jer Daniels MD [address] [facility] [address] [place] [address] PCP - General Geriatrics 05/30/22
--- OUTSIDE RECORDS SUMMARY | 2024-06-01 18:26 | XMS_ITS | Encounter Summary ---
Author Organization [facility] Address [address] [place] [address] Phone Care Team Providers Care Beam Builder Helper Name Role Phone Jer Daniels MD Primary Care Provider Encounter Details Date Type Department Care Team (Late st Contact Info) Description 06/06/2022 Orders Only [facility] [place] [address] [facility] [facility] [address] [address] [place] [address] Jerilyn Patton, [facility] Social History Tobacco Use Types Packs/Day Years [...] COVID-19 06/28/2023 06/28/2023 07/13/2023 6:26 AM CDT documented as of this encounter Care Teams Beam Builder Helper Relationship Specialty Start Date End Date Jer Daniels MD [address] [place] [address] PCP - General Geriatrics 05/30/22 documented as of this encounter
--- OUTSIDE RECORDS SUMMARY | 2024-06-01 18:26 | XMS_ITS | Encounter Summary ---
Author Organization [facility] Address [address] [place] [address] Phone Care Team Providers Care Ship Unloader Name Role Phone Jer Daniels MD Primary Care Provider +1- [phone] Reason for Visit * Reason Onset Date Comments Home Care Orders 08/23/2023 Encounter Details Date Type Department Care Team (Latest Contact Info) Description 08/23/2023 Patient Related Communication [facility] [place] [address] [facility] [address] [address] [place] [address] Lizbeth Pastor APRN Home Care Orders Social History Tobacco Use Types Packs/Day Years Used Date Smoking Tobacco: Never Smokeless Tobacco: Never Alcohol Use Standard Drinks/Week Comments Not Currently 0 (1 standard drink = 0.6 oz pur e alcohol) 1 drink weekly OASIS D0700: Social Isolation Answer Da te [...] from your doctor or pharmacy? Sometimes 06/27/2023 [facility] Utilities Answer Date Recorded In the [...] place to sleep or slept in a penitentiary (including now)? No 04/11/2023 Housing Stability Vital [...] documented as of this encounter Care Teams Ship Unloader Relationship Specialty Start Date End Date Jer Daniels MD [address] [facility] [place] [address] PCP - General Geriatrics 05/30/22 documented as of this encounter
--- OUTSIDE RECORDS SUMMARY | 2024-06-01 18:26 | XMS_ITS | Encounter Summary ---
Author Organization [facility] Address [address] [place] [address] Phone Care Team Providers Care Central Processing Technician Name Role Phone Jer Daniels MD Primary Care Provider +1- [phone] Encounter Details Date Type Department Care Team (Late st Contact Info) Description 08/14/2023 Scanned Document Epicenter Java Web Developer Provider, Interface Default Social History Tobacco Use Types Packs/Day Years [...] Recorded In the past 12 months has e electric, gas, oil, or water company [...] place to sleep or slept in a fdc (including now)? No 04/11/2023 Housing Stability Vital [...] documented as of this encounter Care Teams Central Processing Technician Relationship Specialty Start Date End Date Jer Daniels MD [address] [facility] [address] [place] [address] PCP - General Geriatrics 05/30/22 documented as of this encounter
--- OUTSIDE RECORDS SUMMARY | 2024-06-01 18:26 | XMS_ITS | Encounter Summary ---
Author Organization [facility] Address [address] [place] [address] Phone Care Team Providers Care Sleep Technician Name Role Phone Jer Diop MD Primary Care Provider +1- [phone] Reason for Visit * Reason Onset Date Comments Home Care Orders 08/23/2023 Encounter Details Date Type Department Care Team (Late st Contact Info) Description 08/23/2023 Telephone [facility] [place] [address] [facility] [address] [place] [address] Lizbeth Pastor APRN Home Care Orders Social [...] from your doctor or pharmacy? Sometimes 06/27/2023 [facility] Utilities Answer Date Recorded In the [...] place to sleep or slept in a fci (including now)? No 04/11/2023 Housing Stability Vital [...] encounter Miscellaneous Notes * Telephone Encounter - Maureen Burroughs RN - 08/24/2023 4:25 PM CDT Sowmya from [facility] called, states she's aware that dr diop is out for vacation, but she has never heard back about lizbeth and if she will sign off on orders. Please call her [phone] documented in this encounter Plan of Treatment Not on file documented as of this encounter Visit Diagnoses Not on filedocumented in this encounter Additional Health Concerns Assessment Noted Time A fall risk assessment has been complete d for the patient 10/07/2022 12:41 PM CDT documented as of this encounter Care Teams Sleep Technician Relationship Specialty Start Date End Date Jer Diop MD [address] [place] [address] PCP - General Geriatrics 05/30/22 documented as of this encounter
--- OUTSIDE RECORDS SUMMARY | 2024-06-01 18:26 | XMS_ITS | Encounter Summary ---
Author Organization [facility] Address [address] [place] [address] Phone Care Team Providers Care Heating Fixture Tender Name Role Phone Jer Daniels MD Primary Care Provider +1- [phone] Encounter Details Date Type Department Care Team (Late st Contact Info) Description 08/29/2023 Patient Related Communication [address] [address] Nanette Barr, PT Social History Tobacco Use Types Packs/Day Years [...] from your doctor or pharmacy? Sometimes 06/27/2023 [facility] Utilities Answer Date Recorded In the past [...] place to sleep or slept in a nursing home (including now)? No 04/11/2023 Housing Stability Vital [...] documented as of this encounter Care Teams Heating Fixture Tender Relationship Specialty Start Date End Date Jer Daniels MD [address] [place] [address] PCP - General Geriatrics 05/30/22 documented as of this encounter
--- OUTSIDE RECORDS SUMMARY | 2024-06-01 18:26 | XMS_ITS | Encounter Summary ---
Author Organization [facility] Address [address] [place] [address] Phone Care Team Providers Care Drip Pumper Name Role Phone Jer Daniels MD Primary Care Provider +1- [phone] Encounter Details Date Type Department Care Team (Late st Contact Info) Description 08/17/2023 Patient Related Communication [facility] [place] [address] [place], [place] [id number] Lizbeth Pastor, MOLD CHECKER Social History Tobacco Use Types Packs/Day Years [...] from your doctor or pharmacy? Sometimes 06/27/2023 [facility] Utilities Answer Date Recorded In the [...] place to sleep or slept in a usp (including now)? No 04/11/2023 Housing Stability Vital [...] documented as of this encounter Care Teams Drip Pumper Relationship Specialty Start Date End Date Jer Daniels MD [address] [place] [address] PCP - General Geriatrics 05/30/22 documented as of this encounter
--- OUTSIDE RECORDS SUMMARY | 2024-06-01 18:26 | XMS_ITS | Encounter Summary ---
Author Organization [facility] Address [address] [place] [address] Phone Care Team Providers Care Vice President Of Academic Affairs Name Role Phone Jer Daniels MD Primary Care Provider +1- [phone] Reason for Visit * Reason Onset Date Comments Refill Request 08/23/2023 carbidopa-levodo pa, metoprolol, sertraline Encounter Details Date Type Department Care Team (Late st Contact Info) Description 08/23/2023 [facility] [place] [address] [place] [address] Jer Daniels MD [address] [facility] [address] [place] [address] Refill Request (carbidopa-levodopa, metoprolol, sertraline) Social History Tobacco Use Types Packs/Day Years [...] from your doctor or pharmacy? Sometimes 06/27/2023 [facility] Utilities Answer Date Recorded In the past 12 months has th e electric, gas, oil, or water [employer] threatened to shut off services in your [...] place to sleep or slept in a prison (including now)? No 04/11/2023 Housing Stability Vital [...] encounter Miscellaneous Notes * Telephone Encounter - Marine Ferris CMA - 08/23/2023 8:57 AM CDT Refill requested for carbidopa-levodopa, metoprolol, sertraline. Last ECF 07/17/23, last labs 07/31/23. Refill pending for review and approval. documented in this encounter Plan of Treatment Not on file documented as of this encounter Visit Diagnoses Diagnosis Complicated UTI (urinary tract infection) Urinary tract infection, site not specified documented in this encounter Additional Health Concerns Assessment Noted Time A fall risk assessment has been complete d for the patient 10/07/2022 12:41 PM CDT documented as of this encounter Care Teams Vice President Of Academic Affairs Relationship Specialty Start Date End Date Jer Daniels MD [facility] [place] [address] PCP - General Geriatrics 05/30/22 documented as of this encounter
--- OUTSIDE RECORDS SUMMARY | 2024-06-01 18:26 | XMS_ITS | Encounter Summary ---
Author Organization [facility] Address [address] [place] [address] Phone Care Team Providers Care Mock Up Assembler Name Role Phone Jer Daniels MD Primary Care Provider +1- [phone] Encounter Details Date Type Department Care Team (Late st Contact Info) Description 02/14/2023 Scanned Document Epicenter Supervising Librarian Provider, Interface Default Social History Tobacco Use [...] documented as of this encounter Care Teams Mock Up Assembler Relationship Specialty Start Date End Date Jer Daniels MD [address] [place] [address] PCP - General Geriatrics 05/30/22 documented as of this encounter
--- OUTSIDE RECORDS SUMMARY | 2024-06-01 18:26 | XMS_ITS | Clinical Summary ---
Author Organization [facility] Address [address] [place] [address] Care Team Providers Care Roller Embosser Name Role Phone Unavailable Primary Care Provider Unavailabl e Social History Tobacco Use Types Packs/Day Years Used Date Smoking Tobacco: Never Assessed Comments Unknown Sex and Gender Information Value Date Recorded Sex Assigned at Not on file Legal Sex Female 10:22 PM WARP DOFFER Gender Identity Not on file Sexual Orientation [...] Vaccine ( - 2023-2 5 season) 2023 Meningococcal B Vaccine Aged Out No l onger eligible based on patient's age to complete this topic Meningococcal Vaccine Aged Out No zack kristen eligible based on patient's age to complete this topic RSV Immunizations Under 20 Months Aged Out No longer eligible based on patient's age to complete this topic
--- OUTSIDE RECORDS SUMMARY | 2024-06-01 18:26 | XMS_ITS | Encounter Summary ---
Author Organization [facility] Address [address] [place] [address] Phone Care Team Providers Care High Reach Operator Name Role Phone Jer Daniels MD Primary Care Provider +1- [phone] Reason for Visit * Reason Onset Date Comments Home Health Communication 08/29/2023 Encounter Details Date Type Department Care Team (Latest Contact Info) Description 08/29/2023 Patient Related Communication [facility] [place] [address] [place] [address] Jer Daniels MD [address] [place] [address] Home Health Communication Social History Tobacco Use Types Packs/Day Years [...] from your doctor or pharmacy? Sometimes 06/27/2023 [facility] Utilities Answer Date Recorded In the past [...] place to sleep or slept in a senior living (including now)? No 04/11/2023 Housing Stability Vital [...] Telephone Encounter - Jer Daniels MD - 08/31/2023 8:55 AM CDT Noted. documented in this encounter Plan of Treatment Not on file documented as of this encounter Visit Diagnoses Not on filedocumented in this encounter Additional Health Concerns Assessment Noted Time A fall risk assessment has been complete d for the patient 10/07/2022 12:41 PM CDT documented as of this encounter Care Teams High Reach Operator Relationship Specialty Start Date End Date Jer Daniels MD [address] [facility] [address] [place] [address] PCP - General Geriatrics 05/30/22 documented as of this encounter
--- OUTSIDE RECORDS SUMMARY | 2024-06-01 18:26 | XMS_ITS | Encounter Summary ---
Author Organization [facility] Address [address] [place] [address] Phone Care Team Providers Care Registered Medical Assistant Name Role Phone Jer Daniels MD Primary Care Provider +1- [phone] Reason for Visit * Reason Onset Date Comments Kayleenarle 2023 Encounter Details Date Type Department Care Team (Late st Contact Info) Description 2023 Telephone [facility] Appointment Request [address] [place] [address] Identified, No Provider MyCarle Social History Tobacco Use Types Packs/Day Years Used Date Smoking Tobacco: Never Smokeless Tobacco: Never Alcohol Use Standard Drinks/Week Comments Yes 0 (1 standard drink = 0.6 oz pur e alcohol) 1 drink weekly [facility] Utilities Answer Date Recorded In the past 12 months has th e electric, gas, oil, or water company threatened to shut off services in your home? No 04/11/2023 Hunger Vital Sign Answer Date Recorded Within the past 12 months, y ou worried that your food would run out before you got the money to buy more. Never true 04/11/19 24 Within the past 12 months, t he food you bought just didn't last and you didn't have money to get more. Never true 04/11/2023 PRAPARE - Transportation Answer Date Re corded In the past 12 months, has l ack of transportation kept you from medical appointments or from getting medications? No 03/30 In the past 12 months, has l ack of transportation kept you from meetings, work, or from getting things needed for daily living? No 04/11/2023 Housing Stability Vital Sign Answer [...] place to sleep or slept in a residential (including now)? No 04/11/2023 Comments No Sex and Gender Information Value Date Recorded Sex Assigned at Not on file Legal Sex Female 10:58 AM CDT Gender Identity Not on file Sexual Orientation Not on file documented as of this encounter Miscellaneous Notes * Telephone Encounter - Mercedes Rios - 2023 8:56 AM CST Online Candi proxy request denied. Letter sent. Proxy access listed as pending as of 04/26/23 Requested proxy, SUE MAYBERRY , not found in the [employer] system. Need to confim proxy is not a [facility] patient. If not they will needto be set up as a non-patient proxy. (Go to proxies and choose to give someone proxy access to patient, click Search patient Portal Accounts and choose create non-patient account and enter proxy's info.) Message Request submitted on 2023 at 8:31:38 AM Form Title: Candi Proxy Form Submitted Data Enter patient's legal name: VANDA MAYBERRY Patient Last 4 digits of patient's SS#: [id number] Patient's Date of : Mon1945 Patient's Home Address: [address] City: [facility] & ZIP: [place] [address] Telephone (Include Area Code) : [phone] Action? : Authorized Access Which age group are you requesting a proxy change for? Adult (18 and older) Proxy Name: SUE MAYBERRY Proxy Date of : Mon10/26/1976 Last 4 digits of Proxy SS#: [id number] Proxy Address: [id number] City of Proxy: [facility] & ZIP of Proxy: [place] [address] Proxy Telephone (Include Area Code): [phone] Authorization: I have read and understand the above information and hereby request removal or authorization to the above-named patient's [employer] online account. Printed Name of Patient or Parent/Legal Guardian: VNADA MAYBERRY Date of Authorization: Tu04/25/2023 ER FLATWORK ER FLATWORK documented in this encounter Plan of Treatment [...] documented as of this encounter Care Teams Registered Medical Assistant Relationship Specialty Start Date End Date Jer Daniels MD [address] [place] [address] PCP - General Geriatrics 05/30/22 documented as of this encounter
--- OUTSIDE RECORDS SUMMARY | 2024-06-01 18:26 | XMS_ITS | Encounter Summary ---
Author Organization [facility] Address [address] [place] [address] Phone Care Team Providers Care Sales Floor Team Leader Name Role Phone Jer Diop MD Primary Care Provider +1- [phone] Reason for Visit * Reason Onset Date Comments Dizziness 09/12/2022 Encounter Details Date Type Department Care Team (Late st Contact Info) Description 09/12/2022 [facility]phone [facility] [place] [place] [address] Jer Diop MD [address] [facility] [address] [place], [place] [address] Dizziness Social History Tobacco Use Types Packs/Day Years [...] Telephone Encounter - Maureen Burroughs RN - 09/12/2022 1:44 PM CDT Lm, patient has fup scheduled with dr diop for 09/19/22 * Telephone Encounter - Marine Ferris CMA - 09/12/2022 11:16 AM CDT 1) Patient LM stating she was recently in [facility] for a fall, states she has been having dizziness. 2) Also would like update on cardiology- see other note: Jerilyn Patton CMA 09/06/22 9:10 AM Note Spoke with [facility]. They state they are unsure what happened with this referral. They willcall her now to get her scheduled. documented in this encounter Plan of Treatment Not on file documented as of this encounter Visit Diagnoses Not on filedocumented in this encounter Additional Health Concerns Infection Onset Date Last Indicated Resolved Time COVID-19 06/28/2023 06/28/2023 07/13/2023 6:26 AM CDT documented as of this encounter Care Teams Sales Floor Team Leader Relationship Specialty Start Date End Date Jer Diop MD [address] [facility] [address] [address] PCP - General Geriatrics 05/30/22 documented as of this encounter
--- OUTSIDE RECORDS SUMMARY | 2024-06-01 18:26 | XMS_ITS | Encounter Summary ---
Author Organization [facility] Address [address] [facility] [address] [place] [address] Care Team Providers Care Owner/Operator Name Role Phone Daisy Desai MD Primary Care Provider +1- [phone] Daisy Desai MD Primary Care Provider +1- [phone] Daisy Desai MD Primary Care Provider +1- [phone] Vangie Tillman PT Unavailable Unavailable Donna Ramirez Unavailable Unavailable Waleska Alvarez DO Primary Care Provider +1- [phone] Daisy Desai MD Primary Care Provider +1- [phone] Waleska Alvarez DO Primary Care Provider +1- [phone] Maury Mckenna MD Unavailable Noelle Noe MD Unavailable Lindsay Parada MA Unavailable [phone] Erma Schultz DNP Unavailable [phone] Jud Carmona MA Unavailable [phone] Encounter Details Date Type Department Care Team (Late st Contact Info) Description 03/06/2016 Orders Only [facility] Internal Medicine Provider, MD Luly [address] [place] [address] Social History Tobacco Use Types Packs/Day Years Used Date Smoking Tobacco: Never Alcohol Use Standard Drinks/Week Comments Yes 0 (1 standard drink = 0.6 oz pur e alcohol) Comments Unknown Sex and Gender Information Value Date Recorded Sex Assigned at Not on file Legal Sex Female 3:09 AM SLOT FLOOR ATTENDANT Gender Identity Not on file Sexual Orientation Straight 02/06/2020 1: 53 PM SLOT FLOOR ATTENDANT documented as of this encounter Plan of [...] documented as of this encounter Care Teams Owner/Operator Relationship Specialty Start Date End Date Daisy Desai MD [address] [place] [address] PCP - General 05/27/16 03/28/17 Daisy Desai MD [address] [place] [address] PCP - General 04/21/16 05/26/16 Daisy Desai MD [address] [place] [address] PCP - General 05/22/13 04/20/16 Waleska Alvarez DO PCP - General Family Medicine 03/29/17 04/30/17 Daisy Desai MD [address] [facility] [place] [address] PCP - General 05/01/17 05/04/17 Waleska Alvarez DO PCP - General Family Medicine 05/05/17 12/06/23 Vangie Tillman, PT Physical Therapist Physical Therapy 02/16/17 Donna Ramirez Physical Therapist Physical Therapy 03/23/17 11/09/21 Maury Mckenna MD Surgeon Orthopedic Surgery 04/04/19 11/09/21 Noelle Noe MD [address] [place] [address] Consulting Physician Cardiology 11/09/20 Lindsay Parada MA [address] [place] [address] [address] [place] [address] ACO Care Vice President Of Communications 08/05/21 08/10/21 Erma Schultz DNP [address] [place] [address] [address] [place] [address] Nurse Practitioner Neurology 11/10/21 Jud Carmona MA [address] [facility] [address] [facility] [address] [place] [address] ACO Care Vice President Of Communications 03/11/22 documented as of this encounter
--- OUTSIDE RECORDS SUMMARY | 2024-06-01 18:26 | XMS_ITS | Encounter Summary ---
Author Organization [facility] Address [address] [place] [address] Phone Care Team Providers Care Dumpcart Driver Name Role Phone Jer Daniels MD Primary Care Provider +1- [phone] Encounter Details Date Type Department Care Team (Late st Contact Info) Description 09/07/2022 Telephone [facility] [address] [place] [address] Ronny Travis, PT [place] Social History Tobacco Use Types Packs/Day Years [...] on filedocumented in this encounter Care Teams Dumpcart Driver Relationship Specialty Start Date End Date Jer Daniels MD PCP - General Family Medicine 08/04/22 documented as of this encounter
--- OUTSIDE RECORDS SUMMARY | 2024-06-01 18:27 | XMS_ITS | Encounter Summary ---
Author Organization [facility] Address [address] [place] [address] Phone Care Team Providers Care Generator Operator Name Role Phone Jer Daniels MD Primary Care Provider [phone]- [phone] Encounter Details Date Type Department Care Team (Late st Contact Info) Description 09/14/2023 Patient Related Communication [facility] [place] [address] [facility] [address] [place], [place] [id number] Lizbeth Pastor, SAILING OFFICER Social History Tobacco Use Types Packs/Day Years [...] from your doctor or pharmacy? Sometimes 06/27/2023 [facility] Utilities Answer Date Recorded In the [...] documented as of this encounter Care Teams Generator Operator Relationship Specialty Start Date End Date Jer Daniels MD [address] [place] [address] PCP - General Geriatrics 05/30/22 documented as of this encounter
--- OUTSIDE RECORDS SUMMARY | 2024-06-01 18:27 | XMS_ITS | Encounter Summary ---
Author Organization [facility] Address [address] [place] [address] Phone Care Team Providers Care Balance Wheel Screw Hole Driller Name Role Phone Jer Daniels MD Primary Care Provider +1- [phone] Reason for Visit * Reason Onset Date Comments Medication Information 09/28/2023 Post-hosp ital discharge medication reconciliation Encounter Details Date Type Department Care Team ([facility] st Contact Info) Description 09/28/2023 Telephone Non Yoko Referring Sadaf Diaz, Campos Medication Information (Post-hospital discharge medication reconciliation) Social History Tobacco Use Types Packs/Day Years [...] from your doctor or pharmacy? Sometimes 06/27/2023 [facility] Utilities Answer Date Recorded In the past 12 months has th e electric, gas, oil, or water company threatened to shut off services in your home? No 09/21/2023 Hunger Vital Sign Answer Date Recorded Within the past 12 months, y ou worried that your food would run out before you got the money to buy more. Never true 09/21/19 24 Within the past 12 months, t he food you bought just didn't last and you didn't have money to get more. Never true 09/21/2023 PRAPARE - Transportation Answer Date Re corded In the past 12 months, has l ack of transportation kept you from medical appointments or from getting medications? No 08/28 In the past 12 months, has l ack of transportation kept you from meetings, work, or from getting things needed for daily living? No 09/21/2023 Housing Stability Vital Sign Answer Flako e [...] to sleep or slept in a senior care (including now)? No 04/11/2023 Housing Stability Vital Sign Answer Flako e Recorded In the last 12 months, was t here a time when you were not able to pay the mortgage or rent on time? No 09/21/2023 In the past 12 months, how m any times have you moved where you were living? 2 09/21/2023 At any time in the past 12 m [facility], were you homeless or living in a senior care (including now)? No 09/21/2023 Comments No Sex and Gender Information Value Date Recorded Sex Assigned at Not on file Legal Sex Female 10:58 AM CDT Gender Identity Not on file Sexual Orientation Not on file documented as of this encounter Miscellaneous Notes * Telephone Encounter - Sadaf Santoro PharmD - 09/28/2023 10:40 AM CDT Post-hospital discharge medication reconciliation completed using discharge paperwork, medication list and medication dispense history documented in this encounter Plan of Treatment Not on file documented as of this encounter Visit Diagnoses Diagnosis Medication management- Primary Encounter for other specified aftercare documented in this encounter Additional Health Concerns Assessment Noted Time A fall risk assessment has been complete d for the patient 10/07/2022 12:41 PM CDT documented as of this encounter Care Teams Balance Wheel Screw Hole Driller Relationship Specialty Start Date End Date Jer Daniels MD [address] [place] [address] PCP - General Geriatrics 05/30/22 documented as of this encounter
--- OUTSIDE RECORDS SUMMARY | 2024-06-01 18:27 | XMS_ITS | Encounter Summary ---
Author Organization [facility] Address [address] [place] [address] Phone Care Team Providers Care Vaccinator Name Role Phone Jer Daniels MD Primary Care Provider [phone]- [phone] Reason for Visit * Reason Onset Date Comments Home Health Communication 09/01/2023 Encounter Details Date Type Department Care Team (Latest Contact Info) Description 09/01/2023 Patient Related Communication [facility] [place] [address] [place] [address] Jer Daniels MD [address] [place] [address] Home Health Communication Social History Tobacco Use [...] from your doctor or pharmacy? Sometimes 06/27/2023 [facility] Utilities Answer Date Recorded In the past [...] Telephone Encounter - Jer Daniels MD - 09/05/2023 6:01 AM CDT Noted. Patient can start polyglycol 17 g mixed in 8 oz of water PO daily prn constipation. documented in this encounter Plan of Treatment Not on file documented as of this encounter Visit Diagnoses Not on filedocumented in this encounter Additional Health Concerns Assessment Noted Time A fall risk assessment has been complete d for the patient 10/07/2022 12:41 PM CDT documented as of this encounter Care Teams Vaccinator Relationship Specialty Start Date End Date Jer Daniels MD [address] [place], [place] [address] [address] PCP - General Geriatrics 05/30/22 documented as of this encounter
--- OUTSIDE RECORDS SUMMARY | 2024-06-01 18:27 | XMS_ITS | Referral Summary ---
Author Organization [facility] al Address [address] [place] [address] Care Team Providers Care Dam Operator Name Role Phone Vangie Tillman PT Unavailable Unavailable Noelle Noe MD Unavailable Erma Schultz DNP Unavailable [phone] Jud Carmona MA Unavailable [phone] Allergies Active Allergy Reactions Criticality Noted [...] disorder,Mild episode of recurrent major depressive disorder Take 1 tablet (50 mg total) by [...] (HDL) cholesterol with hypertriglycerid emia,Paroxysmal atrial fibrillation (HCC) Take 1 tablet (81 mg total) by mouth daily 30 tablet 11 3 Active Active Problems Problem Noted Date Diagnosed Date Closed fracture of nasal bones 03/28/2022 Assessment & Plan (03/28/2022 1:39 PM WEATHERIZATION OPERATIONS MANAGER): Referred to ENT for f/u. Presence of [...] 11/11/2020 Assessment & Plan (03/28/2022 1:40 PM WEATHERIZATION OPERATIONS MANAGER): Ambulates with a standard walker, encouraged safety. [...] 03/30/2020 Assessment & Plan (04/21/2022 1:45 PM WEATHERIZATION OPERATIONS MANAGER): Clinically improved, continue current prescription medications, sertraline. Assessment & Plan (11/12/2021 9:16 PM CDT): Stable. Cont. Current prescription medications. Assessment & Plan (06/05/2021 10:24 PM CDT): Stable. Cont. Current prescription medications. Assessment & Plan (11/11/2020 10:39 AM CDT): Stable. Cont. Current meds. Assessment & Plan (03/30/2020 4:14 PM WEATHERIZATION OPERATIONS MANAGER): New diagnosis. Trial of sertraline 50 mg 1 p.o. q.d. patient instructed to call 911 or go to nearest emergency room if she feels she is going to be a harm to herself or to others. Mild intermittent asthma without complication Assessment & Plan (04/21/2022 1:45 PM WEATHERIZATION OPERATIONS MANAGER): Asx. At baseline, cont current Rx meds, Albuterol. Assessment & Plan (11/12/2021 9:13 PM CDT): Asx. At baseline, continue current Rx meds. Assessment & Plan (06/05/2021 10:23 PM CDT): At baseline, cont current Rx meds. Assessment & Plan (11/11/2020 10:39 AM CDT): At baseline, cont current mgmt. Assessment & Plan (03/30/2020 4:15 PM WEATHERIZATION OPERATIONS MANAGER): Stable. Cont. Current meds. Class 1 obesity [...] recommended. Assessment & Plan (02/18/2019 2:28 PM WEATHERIZATION OPERATIONS MANAGER): Improving. Encouraged patient to decrease weight, increase daily exercise, and modify diet. Assessment & Plan (08/13/2018 4:38 PM CDT): Obesity is unchanged. Discussed the patient's BMI. The BMI is above average; BMI management plan is completed. General weight loss/lifestyle modification strategies discussed (elicit support from others; identify saboteurs; non-food rewards, etc). Assessment & Plan (03/09/2018 2:41 PM WEATHERIZATION OPERATIONS MANAGER): Obesity is unchanged. Discussed the patient's BMI. The BMI is above average; BMI management plan is completed. General weight loss/lifestyle modification strategies discussed (elicit support from others; identify saboteurs; non-food rewards, etc). Assessment & Plan (02/17/2018 4:35 PM WEATHERIZATION OPERATIONS MANAGER): Obesity is unchanged. Discussed the patient's BMI. The BMI is above average; BMI management plan is completed. General weight loss/lifestyle modification strategies discussed (elicit support from others; identify saboteurs; non-food rewards, etc). Assessment & Plan (02/13/2018 2:38 PM WEATHERIZATION OPERATIONS MANAGER): Obesity is unchanged. Discussed the patient's BMI. [...] greens, fat-free milk, cottage cheese, nuts like [id number], protein bars with 10-15 g of protein [...] Patient is currently stable, recommended f/u with product/industry consultant. Referral given. Vitamin D deficiency 03/29/2017 Assessment & Plan (08/13/2018 4:38 PM CDT): Labs ordered, will follow. Assessment & Plan (03/29/2017 12:41 PM WEATHERIZATION OPERATIONS MANAGER): Labs ordered, will follow. 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 Assessment & Plan (02/18/2019 2:26 PM WEATHERIZATION OPERATIONS MANAGER): Worsening, low cholesterol diet recommended. Assessment & Plan (08/13/2018 4:37 PM CDT): Lipid abnormalities are improving with treatment. Nutritional counseling was provided. and Pharmacotherapy as ordered. Lipids will be reassessed in 6 months. Pravastatin 40 mg qd Assessment & Plan (03/29/2017 12:40 PM WEATHERIZATION OPERATIONS MANAGER): Encouraged a low chol. Diet. Will follow. Fibromyalgia 03/29/2017 Overview (03/29/2017): Managed by Pain Mgmt. Assessment & Plan (08/14/2019 11:08 AM CDT): Clinically resolved. D/C'd Cymbalta on her own after losing the medication. Does not want to re-start it. Assessment & Plan (02/18/2019 2:27 PM WEATHERIZATION OPERATIONS MANAGER): Stable. Cont. Current meds. Assessment & Plan (08/13/2018 4:39 PM CDT): Clinically improved, continue Cymbalta 30 mg qd. Paroxysmal atrial fibrillation 12/21/2016 Overview (03/29/2017): Managed by cardiology Assessment & Plan (04/21/2022 1:44 PM WEATHERIZATION OPERATIONS MANAGER): Rate-controlled, cont Plavix Assessment & Plan (03/21/2022 9:04 AM WEATHERIZATION OPERATIONS MANAGER): S/p installation of a left atrial appendage occluder device to help with mitral regurgitation. Discharge summary reviewed. Patient will continue to f/u with cardiology. Assessment & Plan (11/11/2020 10:40 AM CDT): Rate-controlled, managed by cardiology. Cont current meds. Assessment & Plan (08/14/2019 11:06 AM CDT): Asx. Continue current therapy. Managed by cardiology. Assessment & Plan (02/18/2019 2:27 PM WEATHERIZATION OPERATIONS MANAGER): Rate-controlled, managed by cardiology. Assessment & Plan (01/27/2017 1:29 PM WEATHERIZATION OPERATIONS MANAGER): Regular sinus rhythm in office today with controlled rate. Continue to monitor. Continue on aspirin and metoprolol daily Assessment & Plan (12/21/2016 4:55 PM CDT): Patient had a loop recorder implanted after a syncopal event. She states shortly after recent hip surgery she received a phone call from her product/industry consultant reporting she had flipped in out of atrial fibrillation. She will continue to follow with her product/industry consultant. He started her on metoprolol. Medication list [...] Cataract Assessment & Plan (01/27/2017 1:36 PM WEATHERIZATION OPERATIONS MANAGER): Patient is stable and healthy enough to [...] Anxiety Assessment & Plan (04/21/2022 1:45 PM WEATHERIZATION OPERATIONS MANAGER): Clinically improved, continue current prescription medications, sertraline. Assessment & Plan (11/12/2021 9:13 PM CDT): Clinically improved, continue current prescription medications. Assessment & Plan (06/05/2021 10:21 PM CDT): Stable. Cont. Current prescription medications. Assessment & Plan (11/11/2020 10:39 AM CDT): Clinically improved, continue current meds. Assessment & Plan (03/30/2020 4:14 PM WEATHERIZATION OPERATIONS MANAGER): Worsening. Trial of sertraline 50 mg 1 [...] it. Assessment & Plan (02/18/2019 2:27 PM WEATHERIZATION OPERATIONS MANAGER): Clinically improved, continue current meds. Assessment & [...] follow. Assessment & Plan (03/29/2017 12:41 PM WEATHERIZATION OPERATIONS MANAGER): Asx. Cont current mgmt. Psoriasis 04/05/2013 Overview (06/02/2016): Psoriasis Chronic pain syndrome 04/05/2013 Overview (03/29/2017): Managed by Pain Mgmt. Primary hypertension 04/05/2013 Overview (06/03/2016): Hypertension Assessment & Plan (04/21/2022 1:45 PM WEATHERIZATION OPERATIONS MANAGER): Blood pressure at goal less than 140/90, [...] meds. Assessment & Plan (02/18/2019 2:24 PM WEATHERIZATION OPERATIONS MANAGER): Stable. Cont. Current meds. Assessment & Plan (08/13/2018 4:35 PM CDT): Hypertension is improving with treatment. Continue current treatment regimen. Dietary sodium restriction. Regular aerobic exercise. Continue current medications. Ambulatory blood pressure monitoring. Blood pressure will be reassessed at the next regular appointment. Metoprolol xl 25 mg bid, Olmesartan 20 mg qd Followed by cardiology. Requested office notes from cardiology office. orthopaedic physician assistant called their office during patient's ov, I did not receive them prior to patient leaving. Assessment & Plan (03/29/2017 12:40 PM WEATHERIZATION OPERATIONS MANAGER): Hypertension is unchanged. Continue current treatment regimen. Dietary sodium restriction. Weight loss. Regular aerobic exercise. Continue current medications. Blood pressure will be reassessed at the next regular appointment. Assessment & Plan (01/27/2017 1:29 PM WEATHERIZATION OPERATIONS MANAGER): Stable. Pt was advised of continuing heart healthy DASH diet, increase exercise as tolerated, and continuing to monitor for any lower leg edema, headaches, changes in vision, or facial flushing. Continue ASA and anti-hypertensives as prescribed. Arthritis 04/05/2013 Overview (06/03/2016): Arthritis Resolved Problems Problem Noted Date Diagnosed Date Resolved Date Facial contusion, sequela 12/14/2021 Assessment & Plan (03/28/2022 1:39 PM WEATHERIZATION OPERATIONS MANAGER): Bruising healing. Assessment & Plan (12/14/2021 9:15 [...] 08/13/2018 Assessment & Plan (03/09/2018 2:40 PM WEATHERIZATION OPERATIONS MANAGER): Here for follow up on bronchitis and [...] improved Assessment & Plan (02/17/2018 4:44 PM WEATHERIZATION OPERATIONS MANAGER): Here for follow up on bronchitis and [...] 03/29/2017 Assessment & Plan (01/27/2017 1:31 PM WEATHERIZATION OPERATIONS MANAGER): Pt was advised to continue current therapy [...] glucose Assessment & Plan (03/29/2017 12:41 PM WEATHERIZATION OPERATIONS MANAGER): Asx. Labs ordered. Immunizations Immunization Administration Dates [...] on file Legal Sex Female 3:09 AM WEATHERIZATION OPERATIONS MANAGER Gender Identity Not on file Sexual Orientation Straight 02/06/2020 1: 53 PM WEATHERIZATION OPERATIONS MANAGER Occupation Industry Job Start Date Job End Date retired Not on file Not on file Not on file Last Filed Vital Signs Vital Sign Reading Time Taken Comments Blood Pressure 124/68 04/21/2022 12:35 PM WEATHERIZATION OPERATIONS MANAGER Pulse 79 04/21/2022 12:35 PM WEATHERIZATION OPERATIONS MANAGER Temperature 36.3 C (97.4 F) 04/21/2022 12:35 PM WEATHERIZATION OPERATIONS MANAGER Respiratory Rate 18 04/21/2022 12:35 PM WEATHERIZATION OPERATIONS MANAGER Oxygen Saturation 96% 04/21/2022 12:35 PM WEATHERIZATION OPERATIONS MANAGER Inhaled Oxygen Concentration - - Weight 86.2 kg (190 lb 1.6 oz) 04/21/2022 12:35 PM WEATHERIZATION OPERATIONS MANAGER Height 160 cm (5' 2.99 ) 04/21/2022 12:35 PM WEATHERIZATION OPERATIONS MANAGER Body Mass Index 33.68 04/21/2022 12:35 PM WEATHERIZATION OPERATIONS MANAGER Plan of Treatment Not on file Medical Devices Implanted Type Area Gift Manager Device Identifier Shelf Expiration Date Model / Serial / Lot [employer] Percutaneous Transcatheter Amplatzer Amulet 22mm [id number] - [id number] Implanted:Qty: 1 on 03/09/2022 by Debi Garcia MD at [facility] [employer] 10/27/2026 9 [id number] / / [id number] Procedures Procedure Name Priority Date/Time Associated Diagnosis Comments HEPATITIS C ANTIBODY Routine 08/13/2018 3:12 PM CDT Encounter for hepatitis C screening test for low risk patient COLONOSCOPY IMAGES 10/15/2013 from Last 3 Months or Most Recently Relevant to Health Maintenance Results * Hepatitis C antibody (08/13/2018 3:12 PM CDT) Hep C Ab Negative Negative ZANDER GOMES (DAVID) Comment:Testing performed by : [facility], [address] [place] [address], [id number] Blood specimen (specimen) 08/13/2018 3:12 PM CDT 08/14/2018 9:36 AM CDT Waleska Alvarez DO LAB MICROBIOLOGY - GENERAL ORDERABLES Final Result ZANDER GOMES (DAVID) [facility] Department [place] [address] * COLONOSCOPY IMAGES (10/15/2013) Anatomical Region Laterality Modality Other Narrative 10/15/2013 Ordered by an unspecified provider. Historical Provider GI PROCEDURE ORDERABLES F inal Result from Last 3 Months or Most Recently Relevant to Health Maintenance Additional Health Concerns Infection Onset Date Last Indicated MDR gram neg/ESBL Comment:ESBL E.coli urine 12/21/16 12/24/2016 12/24/2016 Insurance [facility] MEDICARE T MEDICARE T MEDICARE Care Teams Dam Operator Relationship Specialty Start Date End Date Vangie Tillman, PT Physical Therapist Physical Therapy 02/16/17 Noelle Noe MD [address] [place] [address] Consulting Physician Cardiology 11/09/20 Erma Schultz DNP [address] [place] [address] Nurse Practitioner Neurology 11/10/21 Jud Carmona MA [address] [place] [address] [place] [address] ACO Care Pad Cutter 03/11/22
--- OUTSIDE RECORDS SUMMARY | 2024-06-01 18:27 | XMS_ITS | Encounter Summary ---
Author Organization [facility] Address [address] [place] [address] Phone Care Team Providers Care Sinter Feeder Name Role Phone Jer Daniels MD Primary Care Provider [phone]- [phone] Reason for Visit * Reason Onset Date Comments Home Health Communication 09/04/2023 Encounter Details Date Type Department Care Team (Latest Contact Info) Description 09/04/2023 Patient Related Communication [facility] [place] [address] [place] [address] Jer Daniels MD [address] [place], [place] [id number] Home Health Communication Social History Tobacco Use [...] doctor or pharmacy? Sometimes 06/27/2023 [facility] Utilities Answer Date Recorded In the [...] documented as of this encounter Care Teams Sinter Feeder Relationship Specialty Start Date End Date Jer Daniels MD [address] [facility] [address] [place] [address] PCP - General Geriatrics 05/30/22 documented as of this encounter
--- OUTSIDE RECORDS SUMMARY | 2024-06-01 18:27 | XMS_ITS | Encounter Summary ---
Author Organization [facility] Address [address] [place] [address] Phone Care Team Providers Care Cuff Setter Overlock Name Role Phone Jer Daniels MD Primary Care Provider +1- [phone] Encounter Details Date Type Department Care Team (Late st Contact Info) Description 09/12/2023 Patient Related Communication [address] [address] Nanette Barr, PT Social History [...] from your doctor or pharmacy? Sometimes 06/27/2023 [facility] Utilities Answer Date Recorded In the [...] place to sleep or slept in a snf (including now)? No 04/11/2023 Housing Stability Vital [...] documented as of this encounter Care Teams Cuff Setter Overlock Relationship Specialty Start Date End Date Jer Daniels MD [address] [place] [address] PCP - General Geriatrics 05/30/22 documented as of this encounter
--- OUTSIDE RECORDS SUMMARY | 2024-06-01 18:27 | XMS_ITS | Encounter Summary ---
Author Organization [facility] Address [address] [place] [address] Phone Care Team Providers Care Customs Entry Clerk Name Role Phone Jer Daniels MD Primary Care Provider [phone]- [phone] Encounter Details Date Type Department Care Team (Late st Contact Info) Description 08/30/2023 Patient Related Communication [facility] [place] [address] [place], [place] [id number] Jer Daniels MD [address] [place], [place] [id number] Social History Tobacco Use Types Packs/Day Years [...] from your doctor or pharmacy? Sometimes 06/27/2023 [facility] Utilities Answer Date Recorded In the past [...] place to sleep or slept in a detention (including now)? No 04/11/2023 Housing Stability Vital [...] documented as of this encounter Care Teams Customs Entry Clerk Relationship Specialty Start Date End Date Jer Daniels MD [address] [facility] [address] [place] [address] PCP - General Geriatrics 05/30/22 documented as of this encounter
--- OUTSIDE RECORDS SUMMARY | 2024-06-01 18:27 | XMS_ITS | Clinical Summary ---
Author Organization [facility] al Address [address] [place] [address] Care Team Providers Care Monogram Technician Name Role Phone Vangie Tillman PT Unavailable Unavailable Noelle Noe MD Unavailable Erma Schultz DNP Unavailable [phone] Jud Carmona MA Unavailable [phone] Allergies Active Allergy Reactions Criticality Noted [...] 03/28/2022 Assessment & Plan (03/28/2022 1:39 PM CEREAL POPPER): Referred to ENT for f/u. Presence of [...] 11/11/2020 Assessment & Plan (03/28/2022 1:40 PM CEREAL POPPER): Ambulates with a standard walker, encouraged safety. [...] 03/30/2020 Assessment & Plan (04/21/2022 1:45 PM CEREAL POPPER): Clinically improved, continue current prescription medications, sertraline. Assessment & Plan (11/12/2021 9:16 PM CDT): Stable. Cont. Current prescription medications. Assessment & Plan (06/05/2021 10:24 PM CDT): Stable. Cont. Current prescription medications. Assessment & Plan (11/11/2020 10:39 AM CDT): Stable. Cont. Current meds. Assessment & Plan (03/30/2020 4:14 PM CEREAL POPPER): New diagnosis. Trial of sertraline 50 mg 1 p.o. q.d. patient instructed to call 911 or go to nearest emergency room if she feels she is going to be a harm to herself or to others. Mild intermittent asthma without complication Assessment & Plan (04/21/2022 1:45 PM CEREAL POPPER): Asx. At baseline, cont current Rx meds, Albuterol. Assessment & Plan (11/12/2021 9:13 PM CDT): Asx. At baseline, continue current Rx meds. Assessment & Plan (06/05/2021 10:23 PM CDT): At baseline, cont current Rx meds. Assessment & Plan (11/11/2020 10:39 AM CDT): At baseline, cont current mgmt. Assessment & Plan (03/30/2020 4:15 PM CEREAL POPPER): Stable. Cont. Current meds. Class 1 obesity [...] recommended. Assessment & Plan (02/18/2019 2:28 PM CEREAL POPPER): Improving. Encouraged patient to decrease weight, increase daily exercise, and modify diet. Assessment & Plan (08/13/2018 4:38 PM CDT): Obesity is unchanged. Discussed the patient's BMI. The BMI is above average; BMI management plan is completed. General weight loss/lifestyle modification strategies discussed (elicit support from others; identify saboteurs; non-food rewards, etc). Assessment & Plan (03/09/2018 2:41 PM CEREAL POPPER): Obesity is unchanged. Discussed the patient's BMI. The BMI is above average; BMI management plan is completed. General weight loss/lifestyle modification strategies discussed (elicit support from others; identify saboteurs; non-food rewards, etc). Assessment & Plan (02/17/2018 4:35 PM CEREAL POPPER): Obesity is unchanged. Discussed the patient's BMI. The BMI is above average; BMI management plan is completed. General weight loss/lifestyle modification strategies discussed (elicit support from others; identify saboteurs; non-food rewards, etc). Assessment & Plan (02/13/2018 2:38 PM CEREAL POPPER): Obesity is unchanged. Discussed the patient's BMI. [...] greens, fat-free milk, cottage cheese, nuts like [id number], protein bars with 10-15 g of protein [...] Patient is currently stable, recommended f/u with operations administrator. Referral given. Vitamin D deficiency 03/29/2017 Assessment & Plan (08/13/2018 4:38 PM CDT): Labs ordered, will follow. Assessment & Plan (03/29/2017 12:41 PM CEREAL POPPER): Labs ordered, will follow. 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 Assessment & Plan (02/18/2019 2:26 PM CEREAL POPPER): Worsening, low cholesterol diet recommended. Assessment & Plan (08/13/2018 4:37 PM CDT): Lipid abnormalities are improving with treatment. Nutritional counseling was provided. and Pharmacotherapy as ordered. Lipids will be reassessed in 6 months. Pravastatin 40 mg qd Assessment & Plan (03/29/2017 12:40 PM CEREAL POPPER): Encouraged a low chol. Diet. Will follow. Fibromyalgia 03/29/2017 Overview (03/29/2017): Managed by Pain Mgmt. Assessment & Plan (08/14/2019 11:08 AM CDT): Clinically resolved. D/C'd Cymbalta on her own after losing the medication. Does not want to re-start it. Assessment & Plan (02/18/2019 2:27 PM CEREAL POPPER): Stable. Cont. Current meds. Assessment & Plan (08/13/2018 4:39 PM CDT): Clinically improved, continue Cymbalta 30 mg qd. Paroxysmal atrial fibrillation 12/21/2016 Overview (03/29/2017): Managed by cardiology Assessment & Plan (04/21/2022 1:44 PM CEREAL POPPER): Rate-controlled, cont Plavix Assessment & Plan (03/21/2022 9:04 AM CEREAL POPPER): S/p installation of a left atrial appendage occluder device to help with mitral regurgitation. Discharge summary reviewed. Patient will continue to f/u with cardiology. Assessment & Plan (11/11/2020 10:40 AM CDT): Rate-controlled, managed by cardiology. Cont current meds. Assessment & Plan (08/14/2019 11:06 AM CDT): Asx. Continue current therapy. Managed by cardiology. Assessment & Plan (02/18/2019 2:27 PM CEREAL POPPER): Rate-controlled, managed by cardiology. Assessment & Plan (01/27/2017 1:29 PM CEREAL POPPER): Regular sinus rhythm in office today with controlled rate. Continue to monitor. Continue on aspirin and metoprolol daily Assessment & Plan (12/21/2016 4:55 PM CDT): Patient had a loop recorder implanted after a syncopal event. She states shortly after recent hip surgery she received a phone call from her operations administrator reporting she had flipped in out of atrial fibrillation. She will continue to follow with her operations administrator. He started her on metoprolol. Medication list [...] Cataract Assessment & Plan (01/27/2017 1:36 PM CEREAL POPPER): Patient is stable and healthy enough to [...] Anxiety Assessment & Plan (04/21/2022 1:45 PM CEREAL POPPER): Clinically improved, continue current prescription medications, sertraline. Assessment & Plan (11/12/2021 9:13 PM CDT): Clinically improved, continue current prescription medications. Assessment & Plan (06/05/2021 10:21 PM CDT): Stable. Cont. Current prescription medications. Assessment & Plan (11/11/2020 10:39 AM CDT): Clinically improved, continue current meds. Assessment & Plan (03/30/2020 4:14 PM CEREAL POPPER): Worsening. Trial of sertraline 50 mg 1 [...] it. Assessment & Plan (02/18/2019 2:27 PM CEREAL POPPER): Clinically improved, continue current meds. Assessment & [...] follow. Assessment & Plan (03/29/2017 12:41 PM CEREAL POPPER): Asx. Cont current mgmt. Psoriasis 04/05/2013 Overview (06/02/2016): Psoriasis Chronic pain syndrome 04/05/2013 Overview (03/29/2017): Managed by Pain Mgmt. Primary hypertension 04/05/2013 Overview (06/03/2016): Hypertension Assessment & Plan (04/21/2022 1:45 PM CEREAL POPPER): Blood pressure at goal less than 140/90, [...] meds. Assessment & Plan (02/18/2019 2:24 PM CEREAL POPPER): Stable. Cont. Current meds. Assessment & Plan (08/13/2018 4:35 PM CDT): Hypertension is improving with treatment. Continue current treatment regimen. Dietary sodium restriction. Regular aerobic exercise. Continue current medications. Ambulatory blood pressure monitoring. Blood pressure will be reassessed at the next regular appointment. Metoprolol xl 25 mg bid, Olmesartan 20 mg qd Followed by cardiology. Requested office notes from cardiology office. seismic survey assistant called their office during patient's ov, I did not receive them prior to patient leaving. Assessment & Plan (03/29/2017 12:40 PM CEREAL POPPER): Hypertension is unchanged. Continue current treatment regimen. Dietary sodium restriction. Weight loss. Regular aerobic exercise. Continue current medications. Blood pressure will be reassessed at the next regular appointment. Assessment & Plan (01/27/2017 1:29 PM CEREAL POPPER): Stable. Pt was advised of continuing heart healthy DASH diet, increase exercise as tolerated, and continuing to monitor for any lower leg edema, headaches, changes in vision, or facial flushing. Continue ASA and anti-hypertensives as prescribed. Arthritis 04/05/2013 Overview (06/03/2016): Arthritis Resolved Problems Problem Noted Date Diagnosed Date Resolved Date Facial contusion, sequela 12/14/2021 Assessment & Plan (03/28/2022 1:39 PM CEREAL POPPER): Bruising healing. Assessment & Plan (12/14/2021 9:15 [...] 08/13/2018 Assessment & Plan (03/09/2018 2:40 PM CEREAL POPPER): Here for follow up on bronchitis and [...] improved Assessment & Plan (02/17/2018 4:44 PM CEREAL POPPER): Here for follow up on bronchitis and [...] 03/29/2017 Assessment & Plan (01/27/2017 1:31 PM CEREAL POPPER): Pt was advised to continue current therapy [...] glucose Assessment & Plan (03/29/2017 12:41 PM CEREAL POPPER): Asx. Labs ordered. Immunizations Immunization Administration Dates [...] a. Hx Other Medical Dr. Sherif howe kardex clerk Hx Other Medical Dr. Jazmin leon Primary fibromyalgia syndrome fi bromyalgia Hx Other Medical fainted Status post placement of imp lantable loop recorder 08/02/2016 Arthritis Asthma Atrial fibrillation (HCC) Depression Hypercholesteremia Hypertension Obesity Allergic rhinitis [...] on file Legal Sex Female 3:09 AM CEREAL POPPER Gender Identity Not on file Sexual Orientation Straight 02/06/2020 1: 53 PM CEREAL POPPER Occupation Industry Job Start Date Job End Date retired Not on file Not on file Not on file Obstetrics History Last Filed Vital Signs Vital Sign Reading Time Taken Comments Blood Pressure 124/68 04/21/2022 12:35 PM CEREAL POPPER Pulse 79 04/21/2022 12:35 PM CEREAL POPPER Temperature 36.3 C (97.4 F) 04/21/2022 12:35 PM CEREAL POPPER Respiratory Rate 18 04/21/2022 12:35 PM CEREAL POPPER Oxygen Saturation 96% 04/21/2022 12:35 PM CEREAL POPPER Inhaled Oxygen Concentration - - Weight 86.2 kg (190 lb 1.6 oz) 04/21/2022 12:35 PM CEREAL POPPER Height 160 cm (5' 2.99 ) 04/21/2022 12:35 PM CEREAL POPPER Body Mass Index 33.68 04/21/2022 12:35 PM CEREAL POPPER Plan of Treatment Health Maintenance Due Date [...] 02/03/2021, 05/30/2020, 05/02/2020 Influenza Vaccine (#1) 2023 , 11/09/2020, 01/10/2019, Additional history exists Osteoporosis Screening-Bone [...] 08/13/2018, 019 Medical Devices Implanted Type Area Guest Services Lead Device Identifier Shelf Expiration Date Model / Serial / Lot [employer] Percutaneous Transcatheter Amplatzer Amulet 22mm [id number] - [id number] Implanted:Qty: 1 on 03/09/2022 by Debi Garcia MD at [facility] [employer] 10/27/2026 [id number] / [id number] Procedures Procedure Name Priority Date/Time Associated Diagnosis Comments HEPATITIS C ANTIBODY Routine 08/13/2018 3:12 PM CDT Encounter for hepatitis C screening test for low risk patient COLONOSCOPY IMAGES 10/15/2013 from Last 3 Months or Most Recently Relevant to Health Maintenance Results * Hepatitis C antibody (08/13/2018 3:12 PM CDT) Hep C Ab Negative Negative ZANDER GOMES (DAVID) Comment:Testing performed by : [facility], [address] [place] [address], [place]., [address] Blood specimen (specimen) 08/13/2018 3:12 PM CDT 08/14/2018 9:36 AM CDT us Waleska Alvarez DO LAB MICROBIOLOGY - GENERAL ORDERABLES Final Result ZANDER GOMES (DAVID) [address] [facility] [place] [address] 880 * COLONOSCOPY IMAGES (10/15/2013) Anatomical Region Laterality Modality Other Narrative 10/15/2013 Ordered by an unspecified provider. us Historical Provider GI PROCEDURE ORDERABLES F inal Result from Last 3 Months or Most Recently Relevant to Health Maintenance Additional Health Concerns Infection Onset Date Last Indicated MDR gram neg/ESBL Comment:ESBL E.coli urine 12/21/16 12/24/2016 12/24/2016 Insurance AETNA MEDICARE [facility] MEDICARE AETNA MEDICARE Care Teams Monogram Technician Relationship Specialty Start Date End Date Vangie Tillman, BRISA Physical Therapist Physical Therapy 02/16/17 Noelle Noe MD [address] [place] [address] Consulting Physician Cardiology 11/09/20 Erma Schultz DNP [address] [place] [address] Nurse Practitioner Neurology 11/10/21 Jud Carmona MA [address] [place] [address] [address] [place] [address] ACO Care Electrician Locomotive 03/11/22
[2024-06-01 18:38] VITALS: BP 133/74; PULSE 81; RESP 14; TEMP 36.3; O2SAT 100
--- NOTE | 2024-06-01 20:03 | PC.NURSE ---
Pt presents to ED due to fall+ HS,denies LOC. Pt AOX2 c/o 5/10 headache, no bruising or abrasions noted.
--- OUTSIDE RECORDS SUMMARY | 2024-06-01 20:18 | XMS_ITS | Clinical Summary ---
Author Organization [facility] Address [address] [place] [address] Phone Care Team Providers Care Cannoneer Name Role Phone Jer Daniels MD Primary Care Provider [phone] Allergies Active Allergy Reactions Criticality Noted Date [...] as needed for Anxiety or Itching. # [id number] Active Cholecalciferol (Vitamin D3) 2000 UNIT Capsule [...] Comments Blood Pressure 129/71 01/05/2023 12:10 AM BLOWER INSULATOR Pulse 62 01/05/2023 12:10 AM BLOWER INSULATOR Temperature 36.7 C (98 F) 01/04/2023 5:08 PM BLOWER INSULATOR Respiratory Rate 16 01/05/2023 12:10 AM BLOWER INSULATOR Oxygen Saturation 98% 01/05/2023 12:10 AM BLOWER INSULATOR Inhaled Oxygen Concentration - - Weight 56.7 kg (125 lb) 01/04/2023 5:08 PM BLOWER INSULATOR Height 160 cm (5' 3 ) 01/04/2023 5:08 PM BLOWER INSULATOR Body Mass Index 22.14 01/04/2023 5:08 PM BLOWER INSULATOR Plan of Treatment Health Maintenance Due Date [...] this topic Medical Devices Implanted Type Area Manager [place] Device Identifier Shelf Expiration Date Model / Serial / Lot Reveal Linq Implanted:Qty: 1 on 08/02/2016 by Ramo Noe MD at [facility] N/A: Chest Wall [employer] 06/10/2017 [id number] / [id number] / NA Insurance MEDICARE C AETNA Advance [...] measures to stabilize the patient. Care Teams Cannoneer Relationship Specialty Start Date End Date Jer Daniels MD PCP - General Family Medicine 08/04/22
--- OUTSIDE RECORDS SUMMARY | 2024-06-01 20:18 | XMS_ITS | Encounter Summary ---
Author Organization [facility] Address [address] [place] [address] Phone Care Team Providers Care Dam Operator Name Role Phone Vangie Tillman PT Unavailable Unavailable Donna Ramirez Unavailable Unavailable Daisy Desai MD Primary Care Provider [phone] Waleska Alvarez DO Primary Care Provider [phone] Maury Mckenna MD Unavailable Noelle Noe MD Unavailable [phone] Lindsay Parada MA Unavailable Erma Schultz DNP Unavailable [phone] Jud Carmona MA Unavailable [phone] Encounter Details Date Type Department Care Team (Late st Contact Info) Description 05/01/2017 Orders Only [facility] ProviderLuly MD [address] [place] [address] Social History Tobacco Use Types Packs/Day Years Used Date Smoking Tobacco: Never Smokeless Tobacco: Never Alcohol Use Standard Drinks/Week Comments Yes 0 (1 standard drink = 0.6 oz pur e alcohol) Comments Unknown Sex and Gender Information Value Date Recorded Sex Assigned at Not on file Legal Sex Female 3:09 AM MARKET RESEARCH CONSULTANT Gender Identity Not on file Sexual Orientation Straight 02/06/2020 1: 53 PM MARKET RESEARCH CONSULTANT documented as of this encounter Plan of Treatment Not on file documented as of this encounter Procedures Procedure Name Priority Date/Time Associated Diagnosis Comments DISCHARGE LABORATORY CUMULATIVE REPORT 05/01/2017 12:00 AM MARKET RESEARCH CONSULTANT documented in this encounter Results * DISCHARGE LABORATORY CUMULATIVE REPORT (05/01/2017 12:00 AM MARKET RESEARCH CONSULTANT) Narrative 05/01/2017 12:00 AM MARKET RESEARCH CONSULTANT Ordered by an unspecified provider. us Historical Provider LAB BLOOD ORDERABLES Alize l Result documented in this encounter Visit Diagnoses Not on filedocumented in this encounter Additional Health Concerns Infection Onset Date Last Indicated Resolved Time MDR gram neg/ESBL Comment:ESBL E.coli urine 12/21/16 12/24/2016 12/24/2016 documented as of this encounter Care Teams Dam Operator Relationship Specialty Start Date End Date Daisy Desai MD [address] [place] [address] PCP - General 05/01/17 05/04/17 Waleska Alvarez DO [address] [place] [address] PCP - General Family Medicine 05/05/17 12/06/23 Vangie Tillman, BRISA Physical Therapist Physical Therapy 02/16/17 Donna Ramirez Physical Therapist Physical Therapy 03/23/17 11/09/21 Maury Mckenna MD [address] [place] [address] Surgeon Orthopedic Surgery 04/04/19 11/09/21 Noelle Noe MD [address] [place] [address] Consulting Physician Cardiology 11/09/20 Lindsay Parada MA [address] [facility] [address] [place] [address] O Care Feed And Farm Management Adviser 08/05/21 08/10/21 Erma Schultz DNP [address] [place] [address] [address] [place] [address] Nurse Practitioner Neurology 11/10/21 Jud Carmona MA [address] [facility] [address] [place] [address] O Care Feed And Farm Management Adviser 03/11/22 documented as of this encounter
--- OUTSIDE RECORDS SUMMARY | 2024-06-01 20:18 | XMS_ITS | Encounter Summary ---
Author Organization [facility] Address [address] [place] [address] Phone Care Team Providers Care Cotton Weigher Name Role Phone Jer Daniels MD Primary Care Provider [phone] Encounter Details Date Type Department Care Team (Late st Contact Info) Description 10/06/2022 Telephone [facility] [address] [place] [address] Diana Piedra PTA [place] Social History Tobacco Use Types Packs/Day Years [...] 10/06/2022 1:36 PM CDT Created in error OR FIREWALL ENGINEER documented in this encounter Plan of Treatment Not on file documented as of this encounter Visit Diagnoses Not on filedocumented in this encounter Care Teams Cotton Weigher Relationship Specialty Start Date End Date Jer Daniels MD PCP - General Family Medicine 08/04/22 documented as of this encounter
--- OUTSIDE RECORDS SUMMARY | 2024-06-01 20:19 | XMS_ITS | Encounter Summary ---
Author Organization [facility] Address [address] [place] [address] Phone Care Team Providers Care Brim Pouncer Name Role Phone Jer Daniels MD Primary Care Provider [phone] Encounter Details Date Type Department Care Team (Late st Contact Info) Description 08/17/2023 Patient Related Communication [facility] [place] [address] [place], [place] [id number] Lizbeth Pastor, LITHOGRAPHIC PRESS OPERATOR Social History Tobacco Use Types Packs/Day Years [...] doctor or pharmacy? Sometimes 06/27/2023 [facility] Utilities Answer Date Recorded In the [...] place to sleep or slept in a group home (including now)? No 04/11/2023 Housing Stability [...] documented as of this encounter Care Teams Brim Pouncer Relationship Specialty Start Date End Date Jer Daniels MD [address] [place] [address] PCP - General Geriatrics 05/30/22 documented as of this encounter
--- OUTSIDE RECORDS SUMMARY | 2024-06-01 20:19 | XMS_ITS | Encounter Summary ---
Author Organization [facility] Address [address] [place] [address] Phone Care Team Providers Care Spot Facer Name Role Phone Jer Daniels MD Primary Care Provider [phone] Encounter Details Date Type Department Care Team (Late st Contact Info) Description 08/14/2023 Scanned Document [employer] Global Category Manager Provider, Interface Default Social History Tobacco Use [...] Sometimes 06/27/2023 [facility] Utilities Answer Date Recorded In the past [...] No 04/11/2023 Housing Stability Vital Sign Answer [place] Recorded In the last 12 months, [...] documented as of this encounter Care Teams Spot Facer Relationship Specialty Start Date End Date Jer Daniels MD [address] [facility] [address] [place] [address] PCP - General Geriatrics 05/30/22 documented as of this encounter
--- OUTSIDE RECORDS SUMMARY | 2024-06-01 20:19 | XMS_ITS | Encounter Summary ---
Author Organization [facility] Address [address] [place] [address] Phone Care Team Providers Care Insurance Professional Name Role Phone Jer Daniels MD Primary Care Provider [phone] Encounter Details Date Type Department Care Team (Late st Contact Info) Description 08/29/2023 Patient Related Communication [address] [address] Nanette Barr, PT Social History [...] from your doctor or pharmacy? Sometimes 06/27/[address] [facility] Utilities Answer Date Recorded In the [...] No 06/27/2023 Housing Stability Vital Sign Answer [place] Recorded In the last 12 months, [...] place to sleep or slept in a [place] facility (including now)? No 04/11/2023 Housing Stability Vital [...] documented as of this encounter Care Teams Insurance Professional Relationship Specialty Start Date End Date Jer Daniels MD [address] [place] [address] PCP - General Geriatrics 05/30/22 documented as of this encounter
--- OUTSIDE RECORDS SUMMARY | 2024-06-01 20:19 | XMS_ITS | Encounter Summary ---
Author Organization [facility] Address [address] [place] [address] Phone Care Team Providers Care Registered Nurse Obstetrics Name Role Phone Jer Diop MD Primary Care Provider [phone] Reason for Visit * Reason Onset Date Comments Dizziness 09/12/2022 Encounter Details Date Type Department Care Team (Late st Contact Info) Description 09/12/2022 Telephone [facility] [place] [address] [facility] [address] [address] [place] [address] Jer Diop MD [address] [facility] [address] [place], [place] [id number] Dizziness Social History Tobacco Use Types Packs/Day [...] LM stating she was recently in [facility] for a fall, states she has been [...] as of this encounter Care Teams Registered Nurse Obstetrics Relationship Specialty Start Date End Date Jer Diop MD [address] [facility] [address] [address] PCP - General Geriatrics 05/30/22 documented as of this encounter
--- OUTSIDE RECORDS SUMMARY | 2024-06-01 20:19 | XMS_ITS | Clinical Summary ---
Author Organization [facility] al Address [address] [place] [address] Care Team Providers Care Boiler Shop Supervisor Name Role Phone Vangie Tillman PT Unavailable Unavailable Noelle Noe MD Unavailable Erma Schultz DNP Unavailable [phone] Jud Carmona MA Unavailable [phone] Allergies Active Allergy Reactions Criticality Noted [...] 03/28/2022 Assessment & Plan (03/28/2022 1:39 PM RATE SUPERVISOR): Referred to ENT for f/u. Presence of [...] 11/11/2020 Assessment & Plan (03/28/2022 1:40 PM RATE SUPERVISOR): Ambulates with a standard walker, encouraged safety. [...] 03/30/2020 Assessment & Plan (04/21/2022 1:45 PM RATE SUPERVISOR): Clinically improved, continue current prescription medications, sertraline. Assessment & Plan (11/12/2021 9:16 PM CDT): Stable. Cont. Current prescription medications. Assessment & Plan (06/05/2021 10:24 PM CDT): Stable. Cont. Current prescription medications. Assessment & Plan (11/11/2020 10:39 AM CDT): Stable. Cont. Current meds. Assessment & Plan (03/30/2020 4:14 PM RATE SUPERVISOR): New diagnosis. Trial of sertraline 50 mg 1 p.o. q.d. patient instructed to call 911 or go to nearest emergency room if she feels she is going to be a harm to herself or to others. Mild intermittent asthma without complication Assessment & Plan (04/21/2022 1:45 PM RATE SUPERVISOR): Asx. At baseline, cont current Rx meds, Albuterol. Assessment & Plan (11/12/2021 9:13 PM CDT): Asx. At baseline, continue current Rx meds. Assessment & Plan (06/05/2021 10:23 PM CDT): At baseline, cont current Rx meds. Assessment & Plan (11/11/2020 10:39 AM CDT): At baseline, cont current mgmt. Assessment & Plan (03/30/2020 4:15 PM RATE SUPERVISOR): Stable. Cont. Current meds. Class 1 obesity [...] recommended. Assessment & Plan (02/18/2019 2:28 PM RATE SUPERVISOR): Improving. Encouraged patient to decrease weight, increase daily exercise, and modify diet. Assessment & Plan (08/13/2018 4:38 PM CDT): Obesity is unchanged. Discussed the patient's BMI. The BMI is above average; BMI management plan is completed. General weight loss/lifestyle modification strategies discussed (elicit support from others; identify saboteurs; non-food rewards, etc). Assessment & Plan (03/09/2018 2:41 PM RATE SUPERVISOR): Obesity is unchanged. Discussed the patient's BMI. The BMI is above average; BMI management plan is completed. General weight loss/lifestyle modification strategies discussed (elicit support from others; identify saboteurs; non-food rewards, etc). Assessment & Plan (02/17/2018 4:35 PM RATE SUPERVISOR): Obesity is unchanged. Discussed the patient's BMI. The BMI is above average; BMI management plan is completed. General weight loss/lifestyle modification strategies discussed (elicit support from others; identify saboteurs; non-food rewards, etc). Assessment & Plan (02/13/2018 2:38 PM RATE SUPERVISOR): Obesity is unchanged. Discussed the patient's BMI. [...] greens, fat-free milk, cottage cheese, nuts like [id number], protein bars with 10-15 g of protein [...] Patient is currently stable, recommended f/u with program medical director. Referral given. Vitamin D deficiency 03/29/2017 Assessment & Plan (08/13/2018 4:38 PM CDT): Labs ordered, will follow. Assessment & Plan (03/29/2017 12:41 PM RATE SUPERVISOR): Labs ordered, will follow. 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 Assessment & Plan (02/18/2019 2:26 PM RATE SUPERVISOR): Worsening, low cholesterol diet recommended. Assessment & Plan (08/13/2018 4:37 PM CDT): Lipid abnormalities are improving with treatment. Nutritional counseling was provided. and Pharmacotherapy as ordered. Lipids will be reassessed in 6 months. Pravastatin 40 mg qd Assessment & Plan (03/29/2017 12:40 PM RATE SUPERVISOR): Encouraged a low chol. Diet. Will follow. Fibromyalgia 03/29/2017 Overview (03/29/2017): Managed by Pain Mgmt. Assessment & Plan (08/14/2019 11:08 AM CDT): Clinically resolved. D/C'd Cymbalta on her own after losing the medication. Does not want to re-start it. Assessment & Plan (02/18/2019 2:27 PM RATE SUPERVISOR): Stable. Cont. Current meds. Assessment & Plan (08/13/2018 4:39 PM CDT): Clinically improved, continue Cymbalta 30 mg qd. Paroxysmal atrial fibrillation 12/21/2016 Overview (03/29/2017): Managed by cardiology Assessment & Plan (04/21/2022 1:44 PM RATE SUPERVISOR): Rate-controlled, cont Plavix Assessment & Plan (03/21/2022 9:04 AM RATE SUPERVISOR): S/p installation of a left atrial appendage occluder device to help with mitral regurgitation. Discharge summary reviewed. Patient will continue to f/u with cardiology. Assessment & Plan (11/11/2020 10:40 AM CDT): Rate-controlled, managed by cardiology. Cont current meds. Assessment & Plan (08/14/2019 11:06 AM CDT): Asx. Continue current therapy. Managed by cardiology. Assessment & Plan (02/18/2019 2:27 PM RATE SUPERVISOR): Rate-controlled, managed by cardiology. Assessment & Plan (01/27/2017 1:29 PM RATE SUPERVISOR): Regular sinus rhythm in office today with controlled rate. Continue to monitor. Continue on aspirin and metoprolol daily Assessment & Plan (12/21/2016 4:55 PM CDT): Patient had a loop recorder implanted after a syncopal event. She states shortly after recent hip surgery she received a phone call from her program medical director reporting she had flipped in out of atrial fibrillation. She will continue to follow with her program medical director. He started her on metoprolol. Medication list [...] Cataract Assessment & Plan (01/27/2017 1:36 PM RATE SUPERVISOR): Patient is stable and healthy enough to [...] Anxiety Assessment & Plan (04/21/2022 1:45 PM RATE SUPERVISOR): Clinically improved, continue current prescription medications, sertraline. Assessment & Plan (11/12/2021 9:13 PM CDT): Clinically improved, continue current prescription medications. Assessment & Plan (06/05/2021 10:21 PM CDT): Stable. Cont. Current prescription medications. Assessment & Plan (11/11/2020 10:39 AM CDT): Clinically improved, continue current meds. Assessment & Plan (03/30/2020 4:14 PM RATE SUPERVISOR): Worsening. Trial of sertraline 50 mg 1 [...] it. Assessment & Plan (02/18/2019 2:27 PM RATE SUPERVISOR): Clinically improved, continue current meds. Assessment & [...] follow. Assessment & Plan (03/29/2017 12:41 PM RATE SUPERVISOR): Asx. Cont current mgmt. Psoriasis 04/05/2013 Overview (06/02/2016): Psoriasis Chronic pain syndrome 04/05/2013 Overview (03/29/2017): Managed by Pain Mgmt. Primary hypertension 04/05/2013 Overview (06/03/2016): Hypertension Assessment & Plan (04/21/2022 1:45 PM RATE SUPERVISOR): Blood pressure at goal less than 140/90, [...] meds. Assessment & Plan (02/18/2019 2:24 PM RATE SUPERVISOR): Stable. Cont. Current meds. Assessment & Plan (08/13/2018 4:35 PM CDT): Hypertension is improving with treatment. Continue current treatment regimen. Dietary sodium restriction. Regular aerobic exercise. Continue current medications. Ambulatory blood pressure monitoring. Blood pressure will be reassessed at the next regular appointment. Metoprolol xl 25 mg bid, Olmesartan 20 mg qd Followed by cardiology. Requested office notes from cardiology office. assistant account executive called their office during patient's ov, I did not receive them prior to patient leaving. Assessment & Plan (03/29/2017 12:40 PM RATE SUPERVISOR): Hypertension is unchanged. Continue current treatment regimen. Dietary sodium restriction. Weight loss. Regular aerobic exercise. Continue current medications. Blood pressure will be reassessed at the next regular appointment. Assessment & Plan (01/27/2017 1:29 PM RATE SUPERVISOR): Stable. Pt was advised of continuing heart healthy DASH diet, increase exercise as tolerated, and continuing to monitor for any lower leg edema, headaches, changes in vision, or facial flushing. Continue ASA and anti-hypertensives as prescribed. Arthritis 04/05/2013 Overview (06/03/2016): Arthritis Resolved Problems Problem Noted Date Diagnosed Date Resolved Date Facial contusion, sequela 12/14/2021 Assessment & Plan (03/28/2022 1:39 PM RATE SUPERVISOR): Bruising healing. Assessment & Plan (12/14/2021 9:15 [...] 08/13/2018 Assessment & Plan (03/09/2018 2:40 PM RATE SUPERVISOR): Here for follow up on bronchitis and [...] improved Assessment & Plan (02/17/2018 4:44 PM RATE SUPERVISOR): Here for follow up on bronchitis and [...] 03/29/2017 Assessment & Plan (01/27/2017 1:31 PM RATE SUPERVISOR): Pt was advised to continue current therapy [...] glucose Assessment & Plan (03/29/2017 12:41 PM RATE SUPERVISOR): Asx. Labs ordered. Immunizations Immunization Administration Dates [...] a. 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 Jazmin leon Primary [...] on file Legal Sex Female 3:09 AM RATE SUPERVISOR Gender Identity Not on file Sexual Orientation Straight 02/06/2020 1: 53 PM RATE SUPERVISOR Occupation Industry Job Start Date Job End Date retired Not on file Not on file Not on file Obstetrics History Last Filed Vital Signs Vital Sign Reading Time Taken Comments Blood Pressure 124/68 04/21/2022 12:35 PM RATE SUPERVISOR Pulse 79 04/21/2022 12:35 PM RATE SUPERVISOR Temperature 36.3 C (97.4 F) 04/21/2022 12:35 PM RATE SUPERVISOR Respiratory Rate 18 04/21/2022 12:35 PM RATE SUPERVISOR Oxygen Saturation 96% 04/21/2022 12:35 PM RATE SUPERVISOR Inhaled Oxygen Concentration - - Weight 86.2 kg (190 lb 1.6 oz) 04/21/2022 12:35 PM RATE SUPERVISOR Height 160 cm (5' 2.99 ) 04/21/2022 12:35 PM RATE SUPERVISOR Body Mass Index 33.68 04/21/2022 12:35 PM RATE SUPERVISOR Plan of Treatment Health Maintenance Due Date [...] 08/13/2018, 019 Medical Devices Implanted Type Area Station Repairer Device Identifier Shelf Expiration Date Model / Serial / Lot [employer] Percutaneous Transcatheter Amplatzer Amulet 22mm [id number] - [id number] Implanted:Qty: 1 on 03/09/2022 by Debi Garcia MD at [facility] [employer] 10/27/2026 9 [id number] / / [id number] Procedures Procedure Name Priority Date/Time Associated Diagnosis Comments HEPATITIS C ANTIBODY Routine 08/13/2018 3:12 PM CDT Encounter for hepatitis C screening test for low risk patient COLONOSCOPY IMAGES 10/15/2013 from Last 3 Months or Most Recently Relevant to Health Maintenance Results * Hepatitis C antibody (08/13/2018 3:12 PM CDT) Hep C Ab Negative Negative ZANDER GOMES (DAVID) Comment:Testing performed by : [facility], [address] [place] [address], [place]., [address] Blood specimen (specimen) 08/13/2018 3:12 PM CDT 08/14/2018 9:36 AM CDT us Waleska Alvarez DO LAB MICROBIOLOGY - GENERAL ORDERABLES Final Result ZANDER GOMES (DAVID) 1 [facility] Department [place] [address] * COLONOSCOPY IMAGES (10/15/2013) Anatomical Region Laterality Modality Other Narrative 10/15/2013 Ordered by an unspecified provider. us Historical Provider GI PROCEDURE ORDERABLES F inal Result from Last 3 Months or Most Recently Relevant to Health Maintenance Additional Health Concerns Infection Onset Date Last Indicated MDR gram neg/ESBL Comment:ESBL E.coli urine 12/21/16 12/24/2016 12/24/2016 Insurance AETNA MEDICARE [facility] MEDICARE AETNA MEDICARE Care Teams Boiler Shop Supervisor Relationship Specialty Start Date End Date Vangie Tillman, BRISA Physical Therapist Physical Therapy 02/16/17 Noelle Noe MD [address] [place] [address] Consulting Physician Cardiology 11/09/20 Erma Schultz DNP [address] [place] [address] Nurse Practitioner Neurology 11/10/21 Jud Carmona MA [address] [place] [address] [address] [place] [address] ACO Care Roving Tester Laboratory 03/11/22
--- OUTSIDE RECORDS SUMMARY | 2024-06-01 20:19 | XMS_ITS | Encounter Summary ---
Author Organization [facility] Address [address] [place] [address] Phone Care Team Providers Care Preschool Teacher Aide Name Role Phone Jer Daniels MD Primary Care Provider [phone]- [phone] Encounter Details Date Type Department Care Team (Late st Contact Info) Description 01/24/2023 Scanned Document Non [facility] Referring Docs Provider, Outside Social History [...] documented as of this encounter Care Teams Preschool Teacher Aide Relationship Specialty Start Date End Date Jer Daniels MD [address] [facility] [place] [address] [place] [address] PCP - General Geriatrics 05/30/22 documented as of this encounter
--- OUTSIDE RECORDS SUMMARY | 2024-06-01 20:19 | XMS_ITS | Encounter Summary ---
Author Organization [facility] Address [address] [place] [address] Phone Care Team Providers Care Pleasure Craft Sailor Name Role Phone Jer Daniels MD Primary Care Provider +1- [phone] Encounter Details Date Type Department Care Team (Late st Contact Info) Description 10/25/2022 Telephone [facility] [place] [address] [facility] [facility] [address] [place], [place] [id number] Jer Daniels MD [address] [facility] [address] [place], [place] [id number] Social History Tobacco Use Types Packs/Day Years [...] Notes * Telephone Encounter - Jerilyn Patton, CHURNER - 10/25/2022 11:[address] Daniels is requesting that we call [facility] to clarify what medications [...] documented as of this encounter Care Teams Pleasure Craft Sailor Relationship Specialty Start Date End Date Jer Daniels MD [address] [facility] [address] [place] [address] PCP - General Geriatrics 05/30/22 documented as of this encounter
--- OUTSIDE RECORDS SUMMARY | 2024-06-01 20:19 | XMS_ITS | Clinical Summary ---
Author Organization [facility] Address [address] [place] [address] Care Team Providers Care Runner Out Name Role Phone Unavailable Primary Care Provider Unavailabl e Social History Tobacco Use Types Packs/Day Years Used Date Smoking Tobacco: Never Assessed Comments Unknown Sex and Gender Information Value Date Recorded Sex Assigned at Not on file Legal Sex Female 10:22 PM SURG PHYSICIAN ASST Gender Identity Not on file Sexual Orientation [...]
--- OUTSIDE RECORDS SUMMARY | 2024-06-01 20:19 | XMS_ITS | Encounter Summary ---
Author Organization [facility] Address [address] [place] [address] Phone Care Team Providers Care Laboratory Worker Name Role Phone Jer Daniels MD Primary Care Provider +1- [phone] Encounter Details Date Type Department Care Team (Late st Contact Info) Description 08/14/2023 Patient Related [facility] [place] [address] [place], [place] [id number] Jer Daniels MD [address] [place], [place] [id number] Social History Tobacco Use Types Packs/Day Years [...] from your doctor or pharmacy? Sometimes 06/27/2023 [facility] Utilities Answer Date Recorded In the past 12 months has [employer] electric, gas, oil, or water company threatened [...] place to sleep or slept in a correction (including now)? No 04/11/2023 Housing Stability Vital [...] there isn't another doctor available for a [id number] visit for home health orders documented in this encounter Plan of Treatment Not on file documented as of this encounter Visit Diagnoses Not on filedocumented in this encounter Additional Health Concerns Assessment Noted Time A fall risk assessment has been complete d for the patient 10/07/2022 12:41 PM CDT documented as of this encounter Care Teams Laboratory Worker Relationship Specialty Start Date End Date Jer Daniels MD [address] [place] [address] PCP - General Geriatrics 05/30/22 documented as of this encounter
--- OUTSIDE RECORDS SUMMARY | 2024-06-01 20:19 | XMS_ITS | Encounter Summary ---
Author Organization [facility] Address [address] [place] [address] Phone Care Team Providers Care Wire Strander Name Role Phone Jer Diop MD Primary Care Provider [phone]- [phone] Reason for Visit * Reason Onset Date Comments Home Care Orders 08/23/2023 Encounter Details Date Type Department Care Team (Late st Contact Info) Description 08/23/2023 Telephone [facility] [place] [address] [facility] [address] [place] [address] Lizbeth Pastor APRN Home Care Orders Social [...] from your doctor or pharmacy? Sometimes 06/27/2023 [facility] Utilities Answer Date Recorded In [...] - 08/24/2023 4:25 PM CDT Sowmya from [facility] called, states she's aware that dr diop is out for vacation, but she has never heard back about lizbeth and if she will sign off on orders. Please call her [phone] documented in this encounter Plan of Treatment Not on file documented as of this encounter Visit Diagnoses Not on filedocumented in this encounter Additional Health Concerns Assessment Noted Time A fall risk assessment has been complete d for the patient 10/07/2022 12:41 PM CDT documented as of this encounter Care Teams Wire Strander Relationship Specialty Start Date End Date Jer Diop MD [address] [place] [address] PCP - General Geriatrics 05/30/22 documented as of this encounter
--- OUTSIDE RECORDS SUMMARY | 2024-06-01 20:19 | XMS_ITS | Encounter Summary ---
Author Organization [facility] Address [address] [place] [address] Phone Care Team Providers Care Rubber Printing Machine Operator Name Role Phone Jer Daniels MD Primary Care Provider +1- [phone] Reason for Visit * Reason Onset Date Comments Home Health Communication 08/29/2023 Encounter Details Date Type Department Care Team (Latest Contact Info) Description 08/29/2023 Patient Related Communication [facility] [place] [address] [place] [address] Jer Daniels MD [address] [place] [address] Home Health Communication Social History Tobacco Use [...] from your doctor or pharmacy? Sometimes 06/27/2023 [facility] Utilities Answer Date Recorded In [...] documented as of this encounter Care Teams Rubber Printing Machine Operator Relationship Specialty Start Date End Date Jer Daniels MD [address] [facility] [address] [place] [address] PCP - General Geriatrics 05/30/22 documented as of this encounter
--- OUTSIDE RECORDS SUMMARY | 2024-06-01 20:19 | XMS_ITS | Encounter Summary ---
Author Organization [facility] Address [address] [place] [address] Phone Care Team Providers Care Bakery Sales Clerk Name Role Phone Jer Daniels MD Primary Care Provider +1- [phone] Reason for Visit * Reason Onset Date Comments Kayleenarle 2023 Encounter Details Date Type Department Care Team (Late st Contact Info) Description 2023 Telephone [facility] Appointment Request [address] [place] [address] Identified, No Provider [employer] Social History Tobacco Use Types Packs/Day Years Used Date Smoking Tobacco: Never Smokeless Tobacco: Never Alcohol Use Standard Drinks/Week Comments Yes 0 (1 standard drink = 0.6 oz pur e alcohol) 1 drink weekly [facility] Utilities Answer Date Recorded In the past [...] a senior living (including now)? No 04/11/2023 Comments No Sex [...] SUE MAYBERRY , not found in the [employer] system. Need to confim proxy is not a [facility] patient. If not they will needto [...] : [id number] Patient's Home Address: [address] [facility] [place] City: [place] & ZIP: [place] [address] Telephone (Include Area Code) : [phone] Action? : Authorized Access Which age group are you requesting a proxy change for? Adult (18 and older) Proxy Name: SUE MAYBERRY Proxy Date of : Mon10/26/1976 Last 4 digits of Proxy SS#: [id number] Proxy Address: [address] [facility] City of Proxy: [place] & ZIP of Proxy: [place] [address] Proxy Telephone (Include Area Code): [phone] Authorization: I have read and understand the above information and hereby request removal or authorization to the above-named patient's [employer] online account. Printed Name of Patient or Parent/Legal Guardian: VANDA MAYBERRY Date of Authorization: Tu04/25/2023 HOP HOP documented in this encounter Plan of Treatment [...] documented as of this encounter Care Teams Bakery Sales Clerk Relationship Specialty Start Date End Date Jer Daniels MD [address] [place] [address] PCP - General Geriatrics 05/30/22 documented as of this encounter
--- OUTSIDE RECORDS SUMMARY | 2024-06-01 20:19 | XMS_ITS | Encounter Summary ---
Author Organization [facility] Address [address] [place] [address] Phone Care Team Providers Care Hemodialysis Patient Care Specialist Name Role Phone Jer Daniels MD Primary Care Provider Encounter Details Date Type Department Care Team (Late st Contact Info) Description 06/06/2022 Orders Only [facility] [place] [address] [facility] [address] [place] [address] Jerilyn Patton, [facility] Social History Tobacco Use Types Packs/Day Years [...] documented as of this encounter Care Teams Hemodialysis Patient Care Specialist Relationship Specialty Start Date End Date Jer Daniels MD [address] [place] [address] PCP - General Geriatrics 05/30/22 documented as of this encounter
--- OUTSIDE RECORDS SUMMARY | 2024-06-01 20:19 | XMS_ITS | Encounter Summary ---
Author Organization [facility] Address [address] [place] [address] Phone Care Team Providers Care Computational Sciences Professor Name Role Phone Jer Daniels MD Primary Care Provider +1- [phone] Reason for Visit * Reason Onset Date Comments Home Care Orders 08/23/2023 Encounter Details Date Type Department Care Team (Latest Contact Info) Description 08/23/2023 Patient Related Communication [facility] [place] [address] [place] [address] Lizbeth Pastor APRN Home Care Orders Social [...] from your doctor or pharmacy? Sometimes 06/27/2023 [facility] Utilities Answer Date Recorded In the [...] place to sleep or slept in a skilled nursing (including now)? No 04/11/2023 Housing Stability Vital [...] documented as of this encounter Care Teams Computational Sciences Professor Relationship Specialty Start Date End Date Jer Daniels MD [address] [place] [address] PCP - General Geriatrics 05/30/22 documented as of this encounter
--- OUTSIDE RECORDS SUMMARY | 2024-06-01 20:19 | XMS_ITS | Encounter Summary ---
Author Organization [facility] Address [address] [place] [address] Phone Care Team Providers Care Wastewater Plant Civil Engineer Name Role Phone Jer Daniels MD Primary Care Provider +1- [phone] Encounter Details Date Type Department Care Team (Late st Contact Info) Description 09/07/2022 Telephone [facility] [address] [place] [address] Ronny Travis, PT [place] Social History Tobacco Use Types Packs/Day Years [...] on filedocumented in this encounter Care Teams Wastewater Plant Civil Engineer Relationship Specialty Start Date End Date Jer Daniels MD PCP - General Family Medicine 08/04/22 documented as of this encounter
--- OUTSIDE RECORDS SUMMARY | 2024-06-01 20:19 | XMS_ITS | Encounter Summary ---
Author Organization [facility] Address [address] [place] [address] Phone Care Team Providers Care Reproductive Healthcare Assistant Name Role Phone Jer Daniels MD Primary Care Provider +1- [phone] Encounter Details Date Type Department Care Team (Late st Contact Info) Description 08/29/2022 Telephone [facility] [address] [place] [address] Ronny Travis, PT [place] Social History Tobacco Use Types Packs/Day [...] on filedocumented in this encounter Care Teams Reproductive Healthcare Assistant Relationship Specialty Start Date End Date Jer Daniels MD PCP - General Family Medicine 08/04/22 documented as of this encounter
--- OUTSIDE RECORDS SUMMARY | 2024-06-01 20:19 | XMS_ITS | Encounter Summary ---
Author Organization [facility] Address [address] [place] [address] Phone Care Team Providers Care Handicraft Or Hobby Shop Manager Name Role Phone Jer Daniels MD Primary Care Provider [phone]- [phone] Reason for Visit * Reason Onset Date Comments Refill Request 08/23/2023 carbidopa-levodo pa, metoprolol, sertraline Encounter Details Date Type Department Care Team (Late st Contact Info) Description 08/23/2023 [facility] [place] [address] [facility] [address] [place] [address] Jer Daniels MD [address] [facility] [address] [place] [address] Refill Request (carbidopa-levodopa, metoprolol, sertraline) Social History [...] Sometimes 06/27/2023 [facility] Utilities Answer Date Recorded In the past 12 months has th e electric, gas, oil, or water [employer] threatened to shut off services in your [...] documented as of this encounter Care Teams Handicraft Or Hobby Shop Manager Relationship Specialty Start Date End Date Jer Daniels MD [facility] [place] [address] PCP - General Geriatrics 05/30/22 documented as of this encounter
--- OUTSIDE RECORDS SUMMARY | 2024-06-01 20:19 | XMS_ITS | Encounter Summary ---
Author Organization [facility] Address [address] [place] [address] Phone Care Team Providers Care Ring Cutter Lathe Operator Name Role Phone Jer Daniels MD Primary Care Provider [phone]- [phone] Encounter Details Date Type Department Care Team (Late st Contact Info) Description 02/14/2023 Scanned Document [employer] Childbirth Educator Provider, Interface Default Social History Tobacco Use [...] documented as of this encounter Care Teams Ring Cutter Lathe Operator Relationship Specialty Start Date End Date Jer Daniels MD [address] [place] [address] PCP - General Geriatrics 05/30/22 documented as of this encounter
--- OUTSIDE RECORDS SUMMARY | 2024-06-01 20:19 | XMS_ITS | Clinical Summary ---
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 [address] [place] [address] Jer Daniels MD Dementia without behavioral disturbance [...] from your doctor or pharmacy? Sometimes 06/27/2023 [facility] Utilities Answer Date Recorded [...] place to sleep or slept in a jail (including now)? No 04/11/2023 Housing Stability Vital Sign Answer Flako e Recorded In the last 12 months, was t here a time when you were not able to pay the mortgage or rent on time? No 11/02/2023 In the past 12 months, how m any times have you moved where you were living? 2 11/02/2023 At any time in the past 12 m [facility], were you homeless or living in a jail (including now)? No 11/02/2023 Comments No Sex and Gender Information Value Date Recorded Sex Assigned at Not on file Legal Sex Female 10:58 AM CDT Gender Identity Not on file Sexual Orientation Not on file Last Filed Vital Signs Vital Sign Reading Time Taken Comments Blood Pressure 136/50 03/25/2024 2:16 PM DIRECTOR OF COUNSELING Pulse 64 03/25/2024 2:16 PM DIRECTOR OF COUNSELING Temperature 36.3 C (97.3 F) 03/08/2024 8:57 AM DIRECTOR OF COUNSELING Respiratory Rate 18 03/08/2024 8:57 AM DIRECTOR OF COUNSELING Oxygen Saturation 99% 03/25/2024 2:16 PM DIRECTOR OF COUNSELING Inhaled Oxygen Concentration - - Weight 75.8 kg (167 lb) 03/25/2024 2:16 PM DIRECTOR OF COUNSELING Height 160 cm (5' 3 ) 03/25/2024 2:16 PM DIRECTOR OF COUNSELING Body Mass Index 29.58 03/25/2024 2:16 PM DIRECTOR OF COUNSELING Plan of Treatment Health Maintenance Due Date [...] this topic Medical Devices Implanted Type Area Commercial Parts Professional Device Identifier Shelf Expiration Date Model / [...] Date/Time Associated Diagnosis Comments COMP METABOLIC PANEL ([facility]) Routine 11/27/2023 6:45 AM CDT 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 Relevant to Health Maintenance Results * COMP METABOLIC PANEL ([facility]) (11/27/2023 6:45 AM CDT) GLUCOSE ([facility]) 88 70 - 99 mg/dL [facility] BUN ([facility]) 17 8 - 20 mg/dL [facility] CREATININE ([facility]) 0.66 0.52 - 1.04 mg/dL [facility] eGFR (2020 CKD-EPI) ([facility]) 90 mL/min/1.7 3m2 [facility] SODIUM ([facility]) 140 136 - 145 mmol/L [facility] POTASSIUM ([facility]) 4.4 3.5 - 5.0 mmol/l [facility] CHLORIDE ([facility]) 103 98 - 107 mmol/L [facility] CARBON DIOXIDE ([facility]) 27 22 - 30 mmol/L [facility] AST ([facility] 27 14 - 40 U/L [facility] ALKALINE PHOSPHATASE ([facility]) 86 38 - 126 U/L [facility] BILIRUBIN TOTAL ([facility]) 0.5 0.2 - 1.3 mg/dL [facility] TOTAL PROTEIN ([facility]) 7.3 6.3 - 8.2 gm/dL [facility] ALBUMIN ([facility]) 4.3 3.5 - 5.0 gm/dL [facility] CALCIUM ([facility]) 9.7 8.4 - 10.2 mg/dL [facility] ALT ([facility]) 14 4 - 34 U/L [facility] 11/27/2023 6:45 AM CDT 11/27/2023 8:12 AM CDT Narrative [facility] - 11/27/2023 9:02 AM CDT Release to patient->Immediate us Jer Daniels MD [facility] - BLOOD Final Result [facility] [address] [facility] [place] [address], [place] [phone] from Last 3 Months or Most Recently Relevant to Health Maintenance Insurance [employer] MEDICARE ADVANTAGE [employer] MEDICARE ADVANTAGE Advance Directives For more information, please contact: [phone] * No CPR / Do Not Intubate [...] 6:30 PM 06/27/2023 6:30 PM Care Teams Lna Relationship Specialty Start Date End Date Jer Daniels MD [address] [facility] [address] [place] [address] PCP - General Geriatrics 05/30/22
--- OUTSIDE RECORDS SUMMARY | 2024-06-01 20:19 | XMS_ITS | Encounter Summary ---
Author Organization [facility] Address [address] [facility] [address] [place] [address] Care Team Providers Care Analytical Data Miner Name Role Phone Daisy Desai MD Primary Care Provider [phone]- [phone] Daisy Desai MD Primary Care Provider [phone]- [phone] Daisy Desai MD Primary Care Provider +1- [phone] Vangie Tillman PT Unavailable Unavailable Donna Ramirez Unavailable Unavailable Waleska Alvarez DO Primary Care Provider +1- [phone] Daisy Desai MD Primary Care Provider [phone]- [phone] Waleska Alvarez DO Primary Care Provider +[phone]- [phone] Maury Mckenna MD Unavailable [phone] Noelle Noe MD Unavailable Lindsay Parada MA Unavailable Erma Schultz DNP Unavailable [phone] Jud Carmona MA Unavailable [phone] Encounter Details Date Type Department Care Team (Late st Contact Info) Description 03/06/2016 Orders Only [facility] Internal Medicine Provider, MD [place] [address] [place] [id number] Social History Tobacco Use Types Packs/Day Years Used Date Smoking Tobacco: Never Alcohol Use Standard Drinks/Week Comments Yes 0 (1 standard drink = 0.6 oz pur e alcohol) Comments Unknown Sex and Gender Information Value Date Recorded Sex Assigned at Not on file Legal Sex Female 3:09 AM RUNNER WORKER Gender Identity Not on file Sexual Orientation Straight 02/06/2020 1: 53 PM RUNNER WORKER documented as of this encounter Plan [...] documented as of this encounter Care Teams Analytical Data Miner Relationship Specialty Start Date End Date Daisy Desai MD [address] [place] [address] PCP - General 05/27/16 03/28/17 Daisy Desai MD [address] [place] [address] PCP - General 04/21/16 05/26/16 Daisy Desai MD [address] [place] [address] PCP - General 05/22/13 04/20/16 Waleska Alvarez DO PCP - General Family Medicine 03/29/17 04/30/17 Daisy Desai MD [address] [place] [address] PCP - General 05/01/17 05/04/17 Waleska Alvarez DO PCP - General Family Medicine 05/05/17 12/06/23 Vangie Tillman, PT Physical Therapist Physical Therapy 02/16/17 Donna Ramirez Physical Therapist Physical Therapy 03/23/17 11/09/21 Maury Mckenna MD Surgeon Orthopedic Surgery 04/04/19 11/09/21 Noelle Noe MD [address] [place] [address] Consulting Physician Cardiology 11/09/20 Lindsay Parada MA [address] [place] [address] [address] [place] [address] [employer] Ladies' Locker Room Attendant 08/05/21 08/10/21 Erma Schultz DNP [address] [place] [address] [address] [place] [address] Nurse Practitioner Neurology 11/10/21 Jud Carmona MA [address] [facility] [address] [place] [address] ACO Care Ladies' Locker Room Attendant 03/11/22 documented as of this encounter
--- OUTSIDE RECORDS SUMMARY | 2024-06-01 20:20 | XMS_ITS | Encounter Summary ---
Author Organization [facility] Address [address] [place] [address] Phone Care Team Providers Care Chief Operations Officer Name Role Phone Jer Daniels MD Primary Care Provider [phone]- [phone] Reason for Visit * Reason Onset Date Comments Home Health Communication 09/01/2023 Encounter Details Date Type Department Care Team (Latest Contact Info) Description 09/01/2023 Patient Related Communication [facility] [place] [address] [place] [address] Jer Daniels MD [address] [place] [address] Home Health Communication Social History Tobacco Use [...] doctor or pharmacy? Sometimes 06/27/[address] [facility] Utilities Answer Date Recorded In [...] in a residential (including now)? No 04/11/2023 Housing Stability Vital [...] documented as of this encounter Care Teams Chief Operations Officer Relationship Specialty Start Date End Date Jer Daniels MD [address] [place], [place] [address] [place] [address] PCP - General Geriatrics 05/30/22 documented as of this encounter
--- OUTSIDE RECORDS SUMMARY | 2024-06-01 20:20 | XMS_ITS | Referral Summary ---
Author Organization [facility] Address [address] [place] [address] Care Team Providers Care Expediter Clerk Name Role Phone Vangie Tillman PT Unavailable Unavailable Noelle Noe MD Unavailable Erma Schultz DNP Unavailable [phone] Jud Carmona MA Unavailable [phone] Allergies Active Allergy Reactions Criticality Noted [...] 03/28/2022 Assessment & Plan (03/28/2022 1:39 PM EDITOR GREETING CARD): Referred to ENT for f/u. Presence of [...] 11/11/2020 Assessment & Plan (03/28/2022 1:40 PM EDITOR GREETING CARD): Ambulates with a standard walker, encouraged safety. [...] 03/30/2020 Assessment & Plan (04/21/2022 1:45 PM EDITOR GREETING CARD): Clinically improved, continue current prescription medications, sertraline. Assessment & Plan (11/12/2021 9:16 PM CDT): Stable. Cont. Current prescription medications. Assessment & Plan (06/05/2021 10:24 PM CDT): Stable. Cont. Current prescription medications. Assessment & Plan (11/11/2020 10:39 AM CDT): Stable. Cont. Current meds. Assessment & Plan (03/30/2020 4:14 PM EDITOR GREETING CARD): New diagnosis. Trial of sertraline 50 mg 1 p.o. q.d. patient instructed to call 911 or go to nearest emergency room if she feels she is going to be a harm to herself or to others. Mild intermittent asthma without complication Assessment & Plan (04/21/2022 1:45 PM EDITOR GREETING CARD): Asx. At baseline, cont current Rx meds, Albuterol. Assessment & Plan (11/12/2021 9:13 PM CDT): Asx. At baseline, continue current Rx meds. Assessment & Plan (06/05/2021 10:23 PM CDT): At baseline, cont current Rx meds. Assessment & Plan (11/11/2020 10:39 AM CDT): At baseline, cont current mgmt. Assessment & Plan (03/30/2020 4:15 PM EDITOR GREETING CARD): Stable. Cont. Current meds. Class 1 obesity [...] recommended. Assessment & Plan (02/18/2019 2:28 PM EDITOR GREETING CARD): Improving. Encouraged patient to decrease weight, increase daily exercise, and modify diet. Assessment & Plan (08/13/2018 4:38 PM CDT): Obesity is unchanged. Discussed the patient's BMI. The BMI is above average; BMI management plan is completed. General weight loss/lifestyle modification strategies discussed (elicit support from others; identify saboteurs; non-food rewards, etc). Assessment & Plan (03/09/2018 2:41 PM EDITOR GREETING CARD): Obesity is unchanged. Discussed the patient's BMI. The BMI is above average; BMI management plan is completed. General weight loss/lifestyle modification strategies discussed (elicit support from others; identify saboteurs; non-food rewards, etc). Assessment & Plan (02/17/2018 4:35 PM EDITOR GREETING CARD): Obesity is unchanged. Discussed the patient's BMI. The BMI is above average; BMI management plan is completed. General weight loss/lifestyle modification strategies discussed (elicit support from others; identify saboteurs; non-food rewards, etc). Assessment & Plan (02/13/2018 2:38 PM EDITOR GREETING CARD): Obesity is unchanged. Discussed the patient's BMI. [...] greens, fat-free milk, cottage cheese, nuts like [id number], protein bars with 10-15 g of protein [...] Patient is currently stable, recommended f/u with mobile mechanic. Referral given. Vitamin D deficiency 03/29/2017 Assessment & Plan (08/13/2018 4:38 PM CDT): Labs ordered, will follow. Assessment & Plan (03/29/2017 12:41 PM EDITOR GREETING CARD): Labs ordered, will follow. 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 Assessment & Plan (02/18/2019 2:26 PM EDITOR GREETING CARD): Worsening, low cholesterol diet recommended. Assessment & Plan (08/13/2018 4:37 PM CDT): Lipid abnormalities are improving with treatment. Nutritional counseling was provided. and Pharmacotherapy as ordered. Lipids will be reassessed in 6 months. Pravastatin 40 mg qd Assessment & Plan (03/29/2017 12:40 PM EDITOR GREETING CARD): Encouraged a low chol. Diet. Will follow. Fibromyalgia 03/29/2017 Overview (03/29/2017): Managed by Pain Mgmt. Assessment & Plan (08/14/2019 11:08 AM CDT): Clinically resolved. D/C'd Cymbalta on her own after losing the medication. Does not want to re-start it. Assessment & Plan (02/18/2019 2:27 PM EDITOR GREETING CARD): Stable. Cont. Current meds. Assessment & Plan (08/13/2018 4:39 PM CDT): Clinically improved, continue Cymbalta 30 mg qd. Paroxysmal atrial fibrillation 12/21/2016 Overview (03/29/2017): Managed by cardiology Assessment & Plan (04/21/2022 1:44 PM EDITOR GREETING CARD): Rate-controlled, cont Plavix Assessment & Plan (03/21/2022 9:04 AM EDITOR GREETING CARD): S/p installation of a left atrial appendage occluder device to help with mitral regurgitation. Discharge summary reviewed. Patient will continue to f/u with cardiology. Assessment & Plan (11/11/2020 10:40 AM CDT): Rate-controlled, managed by cardiology. Cont current meds. Assessment & Plan (08/14/2019 11:06 AM CDT): Asx. Continue current therapy. Managed by cardiology. Assessment & Plan (02/18/2019 2:27 PM EDITOR GREETING CARD): Rate-controlled, managed by cardiology. Assessment & Plan (01/27/2017 1:29 PM EDITOR GREETING CARD): Regular sinus rhythm in office today with controlled rate. Continue to monitor. Continue on aspirin and metoprolol daily Assessment & Plan (12/21/2016 4:55 PM CDT): Patient had a loop recorder implanted after a syncopal event. She states shortly after recent hip surgery she received a phone call from her mobile mechanic reporting she had flipped in out of atrial fibrillation. She will continue to follow with her mobile mechanic. He started her on metoprolol. Medication list [...] Cataract Assessment & Plan (01/27/2017 1:36 PM EDITOR GREETING CARD): Patient is stable and healthy enough to [...] Anxiety Assessment & Plan (04/21/2022 1:45 PM EDITOR GREETING CARD): Clinically improved, continue current prescription medications, sertraline. Assessment & Plan (11/12/2021 9:13 PM CDT): Clinically improved, continue current prescription medications. Assessment & Plan (06/05/2021 10:21 PM CDT): Stable. Cont. Current prescription medications. Assessment & Plan (11/11/2020 10:39 AM CDT): Clinically improved, continue current meds. Assessment & Plan (03/30/2020 4:14 PM EDITOR GREETING CARD): Worsening. Trial of sertraline 50 mg 1 [...] it. Assessment & Plan (02/18/2019 2:27 PM EDITOR GREETING CARD): Clinically improved, continue current meds. Assessment & [...] follow. Assessment & Plan (03/29/2017 12:41 PM EDITOR GREETING CARD): Asx. Cont current mgmt. Psoriasis 04/05/2013 Overview (06/02/2016): Psoriasis Chronic pain syndrome 04/05/2013 Overview (03/29/2017): Managed by Pain Mgmt. Primary hypertension 04/05/2013 Overview (06/03/2016): Hypertension Assessment & Plan (04/21/2022 1:45 PM EDITOR GREETING CARD): Blood pressure at goal less than 140/90, [...] meds. Assessment & Plan (02/18/2019 2:24 PM EDITOR GREETING CARD): Stable. Cont. Current meds. Assessment & Plan (08/13/2018 4:35 PM CDT): Hypertension is improving with treatment. Continue current treatment regimen. Dietary sodium restriction. Regular aerobic exercise. Continue current medications. Ambulatory blood pressure monitoring. Blood pressure will be reassessed at the next regular appointment. Metoprolol xl 25 mg bid, Olmesartan 20 mg qd Followed by cardiology. Requested office notes from cardiology office. virtual customer assistant called their office during patient's ov, I did not receive them prior to patient leaving. Assessment & Plan (03/29/2017 12:40 PM EDITOR GREETING CARD): Hypertension is unchanged. Continue current treatment regimen. Dietary sodium restriction. Weight loss. Regular aerobic exercise. Continue current medications. Blood pressure will be reassessed at the next regular appointment. Assessment & Plan (01/27/2017 1:29 PM EDITOR GREETING CARD): Stable. Pt was advised of continuing heart healthy DASH diet, increase exercise as tolerated, and continuing to monitor for any lower leg edema, headaches, changes in vision, or facial flushing. Continue ASA and anti-hypertensives as prescribed. Arthritis 04/05/2013 Overview (06/03/2016): Arthritis Resolved Problems Problem Noted Date Diagnosed Date Resolved Date Facial contusion, sequela 12/14/2021 Assessment & Plan (03/28/2022 1:39 PM EDITOR GREETING CARD): Bruising healing. Assessment & Plan (12/14/2021 9:15 [...] 08/13/2018 Assessment & Plan (03/09/2018 2:40 PM EDITOR GREETING CARD): Here for follow up on bronchitis and [...] improved Assessment & Plan (02/17/2018 4:44 PM EDITOR GREETING CARD): Here for follow up on bronchitis and [...] 03/29/2017 Assessment & Plan (01/27/2017 1:31 PM EDITOR GREETING CARD): Pt was advised to continue current therapy [...] glucose Assessment & Plan (03/29/2017 12:41 PM EDITOR GREETING CARD): Asx. Labs ordered. Immunizations Immunization Administration Dates [...] on file Legal Sex Female 3:09 AM EDITOR GREETING CARD Gender Identity Not on file Sexual Orientation Straight 02/06/2020 1: 53 PM EDITOR GREETING CARD Occupation Industry Job Start Date Job End Date retired Not on file Not on file Not on file Last Filed Vital Signs Vital Sign Reading Time Taken Comments Blood Pressure 124/68 04/21/2022 12:35 PM EDITOR GREETING CARD Pulse 79 04/21/2022 12:35 PM EDITOR GREETING CARD Temperature 36.3 C (97.4 F) 04/21/2022 12:35 PM EDITOR GREETING CARD Respiratory Rate 18 04/21/2022 12:35 PM EDITOR GREETING CARD Oxygen Saturation 96% 04/21/2022 12:35 PM EDITOR GREETING CARD Inhaled Oxygen Concentration - - Weight 86.2 kg (190 lb 1.6 oz) 04/21/2022 12:35 PM EDITOR GREETING CARD Height 160 cm (5' 2.99 ) 04/21/2022 12:35 PM EDITOR GREETING CARD Body Mass Index 33.68 04/21/2022 12:35 PM EDITOR GREETING CARD Plan of Treatment Not on file Medical Devices Implanted Type Area Delimer Device Identifier Shelf Expiration Date Model / Serial / Lot [employer] Percutaneous Transcatheter Amplatzer Amulet 22mm [id number] - [id number] Implanted:Qty: 1 on 03/09/2022 by Debi Garcia MD at [facility] [employer] 10/27/2026 9 [id number] / [id number] Procedures Procedure Name Priority Date/Time Associated Diagnosis Comments HEPATITIS C ANTIBODY Routine 08/13/2018 3:12 PM CDT Encounter for hepatitis C screening test for low risk patient COLONOSCOPY IMAGES 10/15/2013 from Last 3 Months or Most Recently Relevant to Health Maintenance Results * Hepatitis C antibody (08/13/2018 3:12 PM CDT) Hep C Ab Negative Negative [facility] ([facility]) Comment:Testing performed by : [facility], [address] [place] [address], [id number] Blood specimen (specimen) 08/13/2018 3:12 PM CDT 08/14/2018 9:36 AM CDT Waleska Alvarez DO LAB MICROBIOLOGY - GENERAL ORDERABLES Final Result [facility] ([facility]) [address] [facility] Department [place] [address] * COLONOSCOPY IMAGES (10/15/2013) Anatomical Region Laterality Modality Other Narrative 10/15/2013 Ordered by an unspecified provider. Historical Provider GI PROCEDURE ORDERABLES F inal Result from Last 3 Months or Most Recently Relevant to Health Maintenance Additional Health Concerns Infection Onset Date Last Indicated MDR gram neg/ESBL Comment:ESBL E.coli urine 12/21/16 12/24/2016 12/24/2016 Insurance [facility] MEDICARE T MEDICARE T MEDICARE Care Teams Expediter Clerk Relationship Specialty Start Date End Date Vangie Tillman, PT Physical Therapist Physical Therapy 02/16/17 Noelle Noe MD [address] [place] [address] Consulting Physician Cardiology 11/09/20 Erma Schultz DNP [address] [place] [address] Nurse Practitioner Neurology 11/10/21 uJd Carmona MA [address] [place] [address] [place] [address] ACO Care Automotive Worker Foreman 03/11/22
--- OUTSIDE RECORDS SUMMARY | 2024-06-01 20:20 | XMS_ITS | Encounter Summary ---
Author Organization [facility] Address [address] [place] [address] Phone Care Team Providers Care Information Security Architect Name Role Phone Jer Daniels MD Primary Care Provider +1- [phone] Encounter Details Date Type Department Care Team (Late st Contact Info) Description 09/12/2023 Patient Related Communication [address] [address] Nanette Barr, PT Social History [...] Sometimes 06/27/2023 [facility] Utilities Answer Date Recorded In the past [...] place to sleep or slept in a mcc (including now)? No 04/11/2023 Housing Stability Vital [...] documented as of this encounter Care Teams Information Security Architect Relationship Specialty Start Date End Date Jer Daniels MD [address] [place] [address] PCP - General Geriatrics 05/30/22 documented as of this encounter
--- OUTSIDE RECORDS SUMMARY | 2024-06-01 20:20 | XMS_ITS | Encounter Summary ---
Author Organization [facility] Address [address] [place] [address] Phone Care Team Providers Care Environmental Services Specialist Name Role Phone Jer Daniels MD Primary Care Provider +1- [phone] Reason for Visit * Reason Onset Date Comments Medication Information 09/28/2023 Post-hosp ital discharge medication reconciliation Encounter Details Date Type Department Care Team ([facility] st Contact Info) Description 09/28/2023 Telephone Non [...] any time in the past 12 m [facility], were you homeless or living in a skilled nursing (including now)? No 09/21/2023 Comments No Sex [...] documented as of this encounter Care Teams Environmental Services Specialist Relationship Specialty Start Date End Date Jer Daniels MD [address] [place] [address] PCP - General Geriatrics 05/30/22 documented as of this encounter
--- OUTSIDE RECORDS SUMMARY | 2024-06-01 20:20 | XMS_ITS | Encounter Summary ---
Author Organization [facility] Address [address] [place] [address] Phone Care Team Providers Care Registered Associate Name Role Phone Jer Daniels MD Primary Care Provider +1- [phone] Encounter Details Date Type Department Care Team (Late st Contact Info) Description 08/30/2023 Patient Related Communication [facility] [place] [address] [place], [place] [id number] Jer Daniels MD [address] [place], [place] [id number] Social History Tobacco Use Types Packs/Day Years [...] from your doctor or pharmacy? Sometimes 06/27/2023 [facility] Utilities Answer Date Recorded [...] place to sleep or slept in a custodial (including now)? No 04/11/2023 Housing Stability Vital [...] as of this encounter Care Teams Registered Associate Relationship Specialty Start Date End Date Jer Daniels MD [address] [facility] [address] [place] [address] PCP - General Geriatrics 05/30/22 documented as of this encounter
--- OUTSIDE RECORDS SUMMARY | 2024-06-01 20:20 | XMS_ITS | Encounter Summary ---
Author Organization [facility] Address [address] [place] [address] Phone Care Team Providers Care Garment Looper Name Role Phone Jer Daniels MD Primary Care Provider +1- [phone] Encounter Details Date Type Department Care Team (Late st Contact Info) Description 09/14/2023 Patient Related Communication [facility] [place] [address] [facility] [address] [place], [place] [id number] Lizbeth Pastor, EMERGENCY MEDICAL TECHNICIAN Social History Tobacco Use Types Packs/Day Years [...] Sometimes 06/27/2023 [facility] Utilities Answer Date Recorded In the past [...] place to sleep or slept in a care home (including now)? No 04/11/2023 Housing Stability [...] documented as of this encounter Care Teams Garment Looper Relationship Specialty Start Date End Date Jer Daniels MD [address] [place] [address] PCP - General Geriatrics 05/30/22 documented as of this encounter
--- OUTSIDE RECORDS SUMMARY | 2024-06-01 20:20 | XMS_ITS | Encounter Summary ---
Author Organization [facility] Address [address] [place] [address] Phone Care Team Providers Care Clinical Laboratory Technologist Name Role Phone Jer Daniels MD Primary Care Provider +1- [phone] Reason for Visit * Reason Onset Date Comments Home Health Communication 09/04/2023 Encounter Details Date Type Department Care Team (Latest Contact Info) Description 09/04/[address] [facility] [place] [address] [place] [address] Jer Daniels MD [address] [place], [place] [id number] Home Health Communication Social History Tobacco Use [...] doctor or pharmacy? Sometimes 06/27/2023 [facility] Utilities Answer Date Recorded In the [...] documented as of this encounter Care Teams Clinical Laboratory Technologist Relationship Specialty Start Date End Date Jer Daniels MD [address] [place] [address] [place] [address] PCP - General Geriatrics 05/30/22 documented as of this encounter
[2024-06-01 20:46] VITALS: BP 123/57; O2SAT 99
--- NOTE | 2024-06-01 20:58 | ED_ITS ---
HPI - Fall General Chief Complaint: Fall Stated Complaint: FALL FROM W/C HEAD INJURY NO THINNERS Time Seen by Provider: 06/01/24 19:54 Source: patient Mode of arrival: ambulatory Limitations: no limitations History of Present Illness HPI Narrative: This is a 79-year-old female with PMH of Parkinson's dementia presents to the ED via EMS from local nursing facility for chief complaint of headache after a fall today. Patient is alert oriented x2 which is her baseline. States that she was in her wheelchair today and fell forward while trying to lean forward. States she fell onto her head and has pain to the top of the head. Denies neck pain or any further injury. Denies LOC. Related Data Home Medications ?Medication ?Instructions ?Recorded ?Confirmed ?Last Taken ?Type acetaminophen 500 mg tablet 500 mg PO Q4H PRN pain 03/29/24 03/29/24 Unknown History albuterol sulfate 90 mcg/actuation 1 puff inhalation Q4H PRN 03/29/24 03/29/24 Unknown History aerosol inhaler (Ventolin HFA) shortness of breath or wheezing bisacodyl 10 mg rectal suppository 10 mg RECTAL DAILY PRN constipation 03/29/24 03/29/24 Unknown History (Dulcolax (bisacodyl)) carbidopa 25 mg-levodopa 100 mg 2 tablet PO TID 03/29/24 03/29/24 Unknown History tablet cyanocobalamin (vitamin B-12) 1,000 mcg PO DAILY 03/29/24 03/29/24 Unknown History 1,000 mcg capsule docusate sodium 100 mg tablet 100 mg PO BID 03/29/24 03/29/24 Unknown History donepezil 10 mg tablet 10 mg PO HS 03/29/24 03/29/24 Unknown History eucerin original healing cream See Rx Instructions topical Q8H 03/29/24 03/29/24 Unknown History PRN dry skin loperamide 2 mg tablet 2 mg PO Q6H PRN loose stool 03/29/24 03/29/24 Unknown History (Anti-Diarrheal (loperamide)) magnesium hydroxide 400 mg/5 mL 30 ml PO DAILY PRN constipation 03/29/24 03/29/24 Unknown History oral suspension metoprolol succinate 25 mg 25 mg PO DAILY 03/29/24 03/29/24 Unknown History tablet,extended release 24 hr polyethylene glycol ea miscellaneous DAILY 03/29/24 Unknown History sertraline 50 mg tablet 50 mg PO Q24H 03/29/24 03/29/24 Unknown History Allergies Allergy/AdvReac Type Severity Reaction Status Date / Time tetracycline Allergy Mild ORAL Verified 06/01/24 18:24 ISABELL demeclocycline Allergy Unknown Unknown Verified 06/01/24 18:24 Penicillins Allergy Unknown Unknown Verified 06/01/24 18:24 Sulfa (Sulfonamide Allergy Unknown Unknown Verified 06/01/24 18:24 Antibiotics) sulfanilamide Allergy Unknown Unknown Verified 06/01/24 18:24 Tetanus Vaccines and Toxoid Allergy Unknown Unknown Verified 06/01/24 18:24 ciprofloxacin (From Cipro) Allergy Unknown Verified 06/01/24 18:24 Review of Systems Review of Systems: All systems as dictated in [facility] Past Medical History Medical History Mild intermittent asthma, uncomplicated Aphasia Repeated falls Hyperlipidemia Parkinsonism, unspecified Major depressive disorder, recurrent, in partial remission Vitamin B12 deficiency 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 Essential (primary) hypertension Anxiety disorder, unspecified Paroxysmal atrial fibrillation Unspecified dementia, unspecified severity, without behavioral disturbance, psychotic disturbance, mood disturbance, and anxiety Family History Family History Father Family history of coronary artery disease Grandparent Family history of coronary artery disease Sibling Family history of coronary artery disease Mother Patient's mother is Social History Social History Social History: Ambulates with walker Code status: DNR per prison documentation Smoking status: Never smoker Second hand tobacco smoke exposure: No Alcohol intake: current Substance use: never Substance use type: does not use Do You Feel Safe in your Home?: Yes Lack of Transportation: No Lack of Food: Never True Current Housing: I Have Housing Concerned About Future Housing: No Difficulty Paying Gas/Electric Bills: No Difficulty Paying for Meds: No Currently Unemployed: No Education: Bachelor's Degree Difficulty w/ Childcare or Family Care: No Additional living arrangements comments: [facility] Spiritual care concerns: No Exam Narrative: GENERAL: Well-appearing, well-nourished, and in no acute distress. HEAD: Normocephalic, atraumatic. No bruising or swelling to the scalp. EYES: PERRLA and EOMI. ENT: Nares clear, no rhinorrhea or epistaxis. Mucous membranes moist. Oropharynx without tonsillar hypertrophy exudate or other lesions. NECK: Supple. No adenopathy or masses. CHEST: No respiratory distress. Clear to auscultation. No wheezes rales or rhonchi HEART: Regular rate and rhythm. No murmur heard. Normal peripheral pulses. ABDOMEN: Soft, nontender, nondistended, normal active bowel sounds. MSK: Normal range of motion. No edema. Moves all 4 extremities spontaneously. No pain with log roll of the bilateral hips. SKIN: Warm, dry, no rash. No laceration or abrasion. NEURO: Alert and oriented x2. No focal deficits. PSYCH: Normal mood and affect. Course Vital Signs Vital signs: Vital Signs Temperature 97.4 F L 06/01/24 18:38 Pulse Rate 81 06/01/24 18:38 Respiratory Rate 14 06/01/24 18:38 Blood Pressure 133/74 06/01/24 18:38 Pulse Oximetry 100 06/01/24 18:38 Oxygen Delivery Room Air 06/01/24 18:38 Temperature 97.4 F L 06/01/24 18:38 Pulse Rate 81 06/01/24 18:38 Respiratory Rate 14 06/01/24 18:38 Blood Pressure 133/74 06/01/24 18:38 Pulse Oximetry 100 06/01/24 18:38 Oxygen Delivery Room Air 06/01/24 18:38 MDM - Fall MDM Narrative Medical decision making narrative: This is a 79-year-old female who presents to the ED for chief complaint of fall out of wheelchair today. Vitals are normal. Exam remarkable for the above. No neurologic deficits. She is at her mental status baseline with Parkinson's dementia. CT Imaging of the cervical spine and brain are negative for acute findings. Presentation consistent with contusion. Patient will be discharged in stable condition. Supportive measures discussed and return precautions given. Patient is understanding and agreeable with plan for discharge with PCP follow-up. Discharge Plan Discharge Clinical Impression: Fall Patient Disposition: NH Snf/Asst Living Condition: Stable Instructions: Antibiotic Form Additional Instructions: Exam and imaging today are reassuring overall. Please continue taking Tylenol 5 00 mg as needed for pain control. If you have any new or worsening symptoms please return to the ER for further evaluation. Patient Language: Cypriot Prescriptions: No Action cefuroxime axetil 500 mg tablet 500 mg PO Q12H Qty: 14 0RF carbidopa-levodopa 25-100 mg tablet 2 tablet PO TID donepezil 10 mg tablet 10 mg PO HS metoprolol succinate 25 mg tablet extended release 24 hr 25 mg PO DAILY sertraline 50 mg tablet 50 mg PO Q24H cyanocobalamin (vitamin B-12) 1,000 mcg capsule 1,000 mcg PO DAILY docusate sodium 100 mg tablet 100 mg PO BID polyethylene glycol Powder miscellaneous DAILY Rx Instructions: 17 gram po acetaminophen 500 mg tablet 500 mg PO Q4H PRN (Reason: pain) albuterol sulfate [Ventolin HFA] 90 mcg/actuation HFA aerosol inhaler 1 puff inhalation Q4H PRN (Reason: shortness of breath or wheezing) bisacodyl [Dulcolax (bisacodyl)] 10 mg suppository 10 mg RECTAL DAILY PRN (Reason: constipation) loperamide [Anti-Diarrheal (loperamide)] 2 mg tablet 2 mg PO Q6H PRN (Reason: loose stool) magnesium hydroxide 400 mg/5 mL suspension 30 ml PO DAILY PRN (Reason: constipation) eucerin original healing cream See Rx Instructions topical Q8H PRN (Reason: dry skin) Rx Instructions: topically every 8 hours PRN; Follow-up/Referrals: UNKNOWN,DOCTOR [Primary Care Provider] - Stand Alone Forms: Skilled Nursing Discharge Time of Disposition: 21:09
[2024-06-01] MEDS: ACETAMINOPHEN 500 MG TABLET 1000 MG PO (21:49)
[2024-06-01 23:26] VITALS: BP 146/59
== END 2024-06-02 02:10 ==
PROVIDERS: Emergency Provider Physician Assistant
DX: G20.A1 Parkinson's disease without dyskinesia, without mention of fluctuations (principal); F02.80 Dementia in other diseases classified elsewhere, unspecified severity, without behavioral disturbance, psychotic disturbance, mood disturbance, and anxiety; I48.0 Paroxysmal atrial fibrillation; I10 Essential (primary) hypertension; J45.20 Mild intermittent asthma, uncomplicated; E78.5 Hyperlipidemia, unspecified; D51.0 Vitamin B12 deficiency 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; F33.41 Major depressive disorder, recurrent, in partial remission; F41.9 Anxiety disorder, unspecified; Z66 Do not resuscitate; Z79.899 Other long term (current) drug therapy; W05.0XXA Fall from non-moving wheelchair, initial encounter
CPT/HCPCS: 70450; 72125; 99284; A9270

== ENCOUNTER 2024-07-19 07:35 | Emergency (ER) | payer MEDICARE, SELFPAY ==
--- NOTE | ~2024-07-19 | CT_ITS ---
CT facial bones wo con Ordering provider: Alvina Delgado III, DO History: . fall . Comparison: None. Technique: Thin slice axial CT of the facial bones was performed without contrast. Coronal and sagit juan a reformatted images were also obtained. . Automated exposure control and iterative reconstruction technique were employed. The dose-length product was 481.41 mGy-cm. FINDINGS: PARANASAL SINUSES: Right ethmoid and left sphenoid sinus disease. Otherwise, Well aerated. BONES: Deformity in the nasal bones which may indicate undisplaced nasal bone fracture which may be a cute or chronic. Otherwise, No facial fracture. ORBITS AND SUPERFICIAL SOFT TISSUES: The optic globes and orbits are normal. Minimal soft tissue swel ling anterior to the right orbit and in the right frontal scalp. Otherwise, The superficial soft tiss ues are normal. VISUALIZED MASTOIDS: Well aerated. LIMITED VISUALIZED BRAIN PARENCHYMA: Normal. IMPRESSION: Deformity in the nasal bones which may indicate acute or chronic fracture. No other Osseous abnormality or bony fractures. Right ethmoid and left sphenoid sinus disease. Reviewed, dictated and finalized at location A.
--- NOTE | ~2024-07-19 | XR_ITS ---
XR shoulder LT min 2V Ordering provider: Alvina Delgado III, DO History: . fall . Comparison: None. FINDINGS: BONES: No acute fracture or dislocation. Elevation of the humeral head is noted. JOINT SPACES: The acromioclavicular joint shows moderate osteoarthritic changes. The glenohumeral tiffany nt is narrowed. SOFT TISSUES: Normal. IMPRESSION: No acute osseous abnormality left shoulder. Elevation of the humeral head which may indicate rotator cuff injury. Clinical correlation and follow -up advised. Reviewed, dictated and finalized at location A. IMPRESSION: No acute osseous abnormality left shoulder. Elevation of the humeral head which may indicate rotator cuff injury. Clinical correlation and follow-up advised.
--- NOTE | ~2024-07-19 | CT_ITS ---
CT brain wo con Ordering provider: Alvina Delgado III DO History: 79 years Female with . fall . Comparison: None. Technique: CT of the head without contrast. Radiation reduction technique utilized. The dose-length p roduct was 681 mGy-cm. FINDINGS: BRAIN PARENCHYMA AND CSF SPACES: Mild leukoaraiosis and diffuse cortical atrophy. Mild atheromatous d isease. No midline shift, mass effect or hemorrhage. The brain parenchyma and CSF spaces are otherwi se normal. Severe Atherosclerotic changes of the vertebral arteries is noted. VISUALIZED PARANASAL SINUSES: Right ethmoid sinus disease. Left sphenoid sinus. Otherwise, Well aerat ed. MASTOIDS: Well aerated. BONES: The bones appear intact. SOFT TISSUES: Visualized nasopharynx is normal. Right frontal scalp hematoma with extension anterior to the right orbit. Superficial soft tissues are normal. IMPRESSION: No acute intracranial findings. Reviewed, dictated and finalized at location A.
[2024-07-19 07:40] VITALS: BP 157/67; PULSE 64; RESP 18; TEMP 36.7; O2SAT 100
--- NOTE | 2024-07-19 09:50 | ED.FALL ---
HPI - Fall General Chief Complaint: Fall Stated Complaint: Fall, Facial Injury Time Seen by Provider: 07/19/24 08:27 History of Present Illness HPI Narrative: Pt was being pushed in wheelchair by and wheel stuck and she fell forward out of chair and landed on face and left shoulder. Pt denies LOC. Pt complains of pain to nose and right cheek and left shoulder. Pt is not on blood thinners and denies neck pain. Related Data Home Medications ?Medication ?Instructions ?Recorded ?Confirmed ?Last Taken ?Type acetaminophen 500 mg tablet 500 mg PO Q4H PRN pain 03/29/24 03/29/24 Unknown History albuterol sulfate 90 mcg/actuation 1 puff inhalation Q4H PRN 03/29/24 03/29/24 Unknown History aerosol inhaler (Ventolin HFA) shortness of breath or wheezing bisacodyl 10 mg rectal suppository 10 mg RECTAL DAILY PRN constipation 03/29/24 03/29/24 Unknown History (Dulcolax (bisacodyl)) carbidopa 25 mg-levodopa 100 mg 2 tablet PO TID 03/29/24 03/29/24 Unknown History tablet cyanocobalamin (vitamin B-12) 1,000 mcg PO DAILY 03/29/24 03/29/24 Unknown History 1,000 mcg capsule docusate sodium 100 mg tablet 100 mg PO BID 03/29/24 03/29/24 Unknown History donepezil 10 mg tablet 10 mg PO HS 03/29/24 03/29/24 Unknown History eucerin original healing cream See Rx Instructions topical Q8H 03/29/24 03/29/24 Unknown History PRN dry skin loperamide 2 mg tablet 2 mg PO Q6H PRN loose stool 03/29/24 03/29/24 Unknown History (Anti-Diarrheal (loperamide)) magnesium hydroxide 400 mg/5 mL 30 ml PO DAILY PRN constipation 03/29/24 03/29/24 Unknown History oral suspension metoprolol succinate 25 mg 25 mg PO DAILY 03/29/24 03/29/24 Unknown History tablet,extended release 24 hr polyethylene glycol ea miscellaneous DAILY 03/29/24 Unknown History sertraline 50 mg tablet 50 mg PO Q24H 03/29/24 03/29/24 Unknown History Allergies Allergy/AdvReac Type Severity Reaction Status Date / Time tetracycline Allergy Mild ORAL Verified 06/01/24 18:24 ISABELL demeclocycline Allergy Unknown Unknown Verified 06/01/24 18:24 Penicillins Allergy Unknown Unknown Verified 06/01/24 18:24 Sulfa (Sulfonamide Allergy Unknown Unknown Verified 06/01/24 18:24 Antibiotics) sulfanilamide Allergy Unknown Unknown Verified 06/01/24 18:24 Tetanus Vaccines and Toxoid Allergy Unknown Unknown Verified 06/01/24 18:24 ciprofloxacin (From Cipro) Allergy Unknown Verified 06/01/24 18:24 Review of Systems Review of Systems: All systems reviewed & are unremarkable except as noted in HPI and below PMFSH Past Medical History Medical History Mild intermittent asthma, uncomplicated Aphasia Repeated falls Hyperlipidemia Parkinsonism, unspecified Major depressive disorder, recurrent, in partial remission Vitamin B12 deficiency 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 Essential (primary) hypertension Anxiety disorder, unspecified Paroxysmal atrial fibrillation Unspecified dementia, unspecified severity, without behavioral disturbance, psychotic disturbance, mood disturbance, and anxiety Family History Family History Father Family history of coronary artery disease Grandparent Family history of coronary artery disease Sibling Family history of coronary artery disease Mother Patient's mother is Social History Social History Social History: Ambulates with walker Code status: DNR per long-term documentation Smoking status: Never smoker Second hand tobacco smoke exposure: No Alcohol intake: current Substance use: never Substance use type: does not use Do You Feel Safe in your Home?: Yes Lack of Transportation: No Lack of Food: Never True Current Housing: I Have Housing Concerned About Future Housing: No Difficulty Paying Gas/Electric Bills: No Difficulty Paying for Meds: No Currently Unemployed: No Education: Bachelor's Degree Difficulty w/ Childcare or Family Care: No Additional living arrangements comments: [facility] care concerns: No Exam Const: General: healthy appearing and no acute distress Nutritional Appearance: well nourished Orientation/consciousness: patient oriented x3 Limitations: no limitations HENMT: Head: normal to inspection Face/Nose/Sinus: Epistaxis present (tender bridge of nose but no gross deformity) on the left Face and sinus: sinus tenderness (abrasion right cheek) Eyes: Pupils: Equal, round and reactive pupils present EOM: EOMs intact bilaterally Neck: Other: no midline tenderness Chest: Chest palpation & inspection: normal inspection of the chest Resp: Effort & Inspection: normal respiratory effort Auscultation: clear to auscultation bilaterally Cardio: Rate: regular rate Rhythm: regular rhythm GI: GI Palp: Yes Soft to palpation and No Tenderness to palpation present (GI) Auscultation: normal bowel sounds Skin: General skin exam: normal color Neuro: General: patient oriented x3, moves all extremities, no meningeal signs and no focal motor deficits Speech: normal speech Extrem: Other: tender left shoulder/prox humerus but no swelling Psych: Mental Status: mental status grossly normal Affect: normal affect Attitude: cooperative Course Vital Signs Vital signs: Vital Signs Temperature 98.1 F 07/19/24 07:40 Pulse Rate 64 07/19/24 07:40 Respiratory Rate 18 07/19/24 07:40 Blood Pressure 157/67 H 07/19/24 07:40 Pulse Oximetry 100 07/19/24 07:40 Oxygen Delivery Room Air 07/19/24 07:40 Temperature 97.8 F 07/19/24 12:00 Pulse Rate 80 07/19/24 12:00 Respiratory Rate 16 07/19/24 12:00 Blood Pressure 128/74 07/19/24 12:00 Pulse Oximetry 97 07/19/24 12:00 Oxygen Delivery Room Air 07/19/24 07:40 MDM - Fall MDM Narrative Medical decision making narrative: Pt fell forware out of wc landing on face and left shoulder. no thinners. will ct head and face and x ray left shoulder. shoulder neg for fx, nasal fx of face ct ct brain neg. Discharge Plan Discharge Clinical Impression: Fracture of nasal bone Patient Disposition: Home Condition: Stable Instructions: Antibiotic Form, Nasal Fracture (ED) Patient Language: Occitan Prescriptions: No Action cefuroxime axetil 500 mg tablet 500 mg PO Q12H Qty: 14 0RF carbidopa-levodopa 25-100 mg tablet 2 tablet PO TID donepezil 10 mg tablet 10 mg PO HS metoprolol succinate 25 mg tablet extended release 24 hr 25 mg PO DAILY sertraline 50 mg tablet 50 mg PO Q24H cyanocobalamin (vitamin B-12) 1,000 mcg capsule 1,000 mcg PO DAILY docusate sodium 100 mg tablet 100 mg PO BID polyethylene glycol Powder miscellaneous DAILY Rx Instructions: 17 gram po acetaminophen 500 mg tablet 500 mg PO Q4H PRN (Reason: pain) albuterol sulfate [Ventolin HFA] 90 mcg/actuation HFA aerosol inhaler 1 puff inhalation Q4H PRN (Reason: shortness of breath or wheezing) bisacodyl [Dulcolax (bisacodyl)] 10 mg suppository 10 mg RECTAL DAILY PRN (Reason: constipation) loperamide [Anti-Diarrheal (loperamide)] 2 mg tablet 2 mg PO Q6H PRN (Reason: loose stool) magnesium hydroxide 400 mg/5 mL suspension 30 ml PO DAILY PRN (Reason: constipation) eucerin original healing cream See Rx Instructions topical Q8H PRN (Reason: dry skin) Rx Instructions: topically every 8 hours PRN; Follow-up/Referrals: UNKNOWN,DOCTOR [Primary Care Provider] -
[2024-07-19 10:00] VITALS: BP 124/78; PULSE 78; RESP 16; TEMP 36.6; O2SAT 97
[2024-07-19 10:54] VITALS: BP 136/66; O2SAT 100
[2024-07-19 10:58] VITALS: BP 120/61; PULSE 78; RESP 15; TEMP 36.7; O2SAT 95
--- OUTSIDE RECORDS SUMMARY | 2024-07-19 11:27 | XMS_ITS | Encounter Summary ---
Author Organization [facility] Address [address] [place] [address] Phone Care Team Providers Care Area Director Name Role Phone Vangie Tillman PT Unavailable Unavailable Donna Ramirez Unavailable Unavailable Daisy Desai MD Primary Care Provider +1- [phone] Waleska Alvarez DO Primary Care Provider +1- [phone] Maury Mckenna MD Unavailable Noelle Noe MD Unavailable Lindsay Parada MA Unavailable Erma Schultz DNP Unavailable [phone] Jud Carmona MA Unavailable [phone] Encounter Details Date Type Department Care Team (Late st Contact Info) Description 05/01/2017 Orders Only [facility] ProviderLuly MD [address] [place] [address] Social History Tobacco Use Types Packs/Day Years Used Date Smoking Tobacco: Never Smokeless Tobacco: Never Alcohol Use Standard Drinks/Week Comments Yes 0 (1 standard drink = 0.6 oz pur e alcohol) Comments Unknown Sex and Gender Information Value Date Recorded Sex Assigned at Not on file Legal Sex Female 3:09 AM CHRONOMETER ADJUSTER Gender Identity Not on file Sexual Orientation Straight 02/06/2020 1: 53 PM CHRONOMETER ADJUSTER documented as of this encounter Plan of Treatment Not on file documented as of this encounter Procedures Procedure Name Priority Date/Time Associated Diagnosis Comments DISCHARGE LABORATORY CUMULATIVE REPORT 05/01/2017 12:00 AM CHRONOMETER ADJUSTER documented in this encounter Results * DISCHARGE LABORATORY CUMULATIVE REPORT (05/01/2017 12:00 AM CHRONOMETER ADJUSTER) Narrative 05/01/2017 12:00 AM CHRONOMETER ADJUSTER Ordered by an unspecified provider. us Historical Provider LAB BLOOD ORDERABLES Alize l Result documented in this encounter Visit Diagnoses Not on filedocumented in this encounter Additional Health Concerns Infection Onset Date Last Indicated Resolved Time MDR gram neg/ESBL Comment:ESBL E.coli urine 12/21/16 12/24/2016 12/24/2016 documented as of this encounter Care Teams Area Director Relationship Specialty Start Date End Date Daisy Desai MD [address] [place] [address] PCP - General 05/01/17 05/04/17 Waleska Alvarez DO [address] [place] [address] PCP - General Family Medicine 05/05/17 12/06/23 Vangie Tillman, BRISA Physical Therapist Physical Therapy 02/16/17 Donna Ramirez Physical Therapist Physical Therapy 03/23/17 11/09/21 Maury Mckenna MD [address] [place] [address] Surgeon Orthopedic Surgery 04/04/19 11/09/21 Noelle Noe MD [address] [place] [address] Consulting Physician Cardiology 11/09/20 Lindsay Parada MA [address] [facility] [facility] [place] [address] O Care Assistant Dean Of Students 08/05/21 08/10/21 Erma Schultz DNP [address] [place] [address] [address] [place] [address] Nurse Practitioner Neurology 11/10/21 Jud Carmona MA [address] [place] [address] O Care Assistant Dean Of Students 03/11/22 documented as of this encounter
--- OUTSIDE RECORDS SUMMARY | 2024-07-19 11:27 | XMS_ITS | Encounter Summary ---
Author Organization [facility] Address [address] [place] [address] Phone Care Team Providers Care Drilling Engineering Manager Name Role Phone Jer Daniels MD Primary Care Provider [phone]- [phone] Reason for Visit * Reason Onset Date Comments Home Health Communication 08/29/2023 Encounter Details Date Type Department Care Team (Latest Contact Info) Description 08/29/2023 Patient Related Communication [facility] [place] [address] [place] [address] Jer Daniels MD [address] [place], [place] [address] Home Health Communication Social History Tobacco Use [...] doctor or pharmacy? Sometimes 06/27/2023 [facility] Utilities Answer Date Recorded In the [...] documented as of this encounter Care Teams Drilling Engineering Manager Relationship Specialty Start Date End Date Jer Daniels MD [address] [facility] [address] [place] [address] PCP - General Geriatrics 05/30/22 documented as of this encounter
--- OUTSIDE RECORDS SUMMARY | 2024-07-19 11:27 | XMS_ITS | Encounter Summary ---
Author Organization [facility] Address [address] [place] [address] Phone Care Team Providers Care Car Loader Name Role Phone Jer Daniels MD Primary Care Provider +1- [phone] Encounter Details Date Type Department Care Team (Late st Contact Info) Description 08/29/2023 Patient Related Communication [address] [address] Nanette Barr, PT Social History [...] from your doctor or pharmacy? Sometimes 06/27/2023 [facility] Utilities Answer Date Recorded In [...] documented as of this encounter Care Teams Car Loader Relationship Specialty Start Date End Date Jer Daniels MD [address] [place] [address] PCP - General Geriatrics 05/30/22 documented as of this encounter
--- OUTSIDE RECORDS SUMMARY | 2024-07-19 11:27 | XMS_ITS | Encounter Summary ---
Author Organization [facility] Address [address] [place] [address] Phone Care Team Providers Care Woodwork Salvage Inspector Name Role Phone Jer Daniels MD Primary Care Provider +1- [phone] Encounter Details Date Type Department Care Team (Late st Contact Info) Description 08/29/2022 [facility] [address] [place] [address] Ronny Travis, PT [place] Social History Tobacco Use Types Packs/Day Years [...] as of this encounter Plan of Treatment Upcoming Encounters Date Type Department Care Team (Late st Contact Info) Description 07/29/2024 11:15 AM CDT [facility] Visit [facility] [address] [place] [address] Norma Hein, STEREOTYPE FINISHER, WOOD MILLING MACHINE OPERATOR [address] [place] [address] documented as of this encounter Visit Diagnoses Not on filedocumented in this encounter Care Teams Woodwork Salvage Inspector Relationship Specialty Start Date End Date Jer Daniels MD PCP - General Family Medicine 08/04/22 documented as of this encounter
--- OUTSIDE RECORDS SUMMARY | 2024-07-19 11:27 | XMS_ITS | Encounter Summary ---
Author Organization [facility] Address [address] [place] [address] Phone Care Team Providers Care Machine Spring Former Name Role Phone Jer Daniels MD Primary Care Provider [phone]- [phone] Reason for Visit * Reason Onset Date Comments Home Care Orders 08/23/2023 Encounter Details Date Type Department Care Team (Latest Contact Info) Description 08/23/2023 Patient Related Communication [facility] [place] [address] [place] [address] Lizbeth Pastor APRN Home Care Orders Social [...] No 08/19/2023 OASIS B1300: Health Literacy Answer Flaok e Recorded Frequency of needing help to read materials from doctor or pharmacy Often 08/19/2023 B1300 Health Literacy Answer Date Recor ded How often do you need to hav e someone help you when you read instructions, pamphlets, or other written material from your doctor or pharmacy? Sometimes 06/27/2023 [facility] Utilities Answer Date Recorded In the [...] place to sleep or slept in a assisted (including now)? No 04/11/2023 Housing Stability Vital [...] documented as of this encounter Care Teams Machine Spring Former Relationship Specialty Start Date End Date Jer Daniels MD [address] [place] [address] PCP - General Geriatrics 05/30/22 documented as of this encounter
--- OUTSIDE RECORDS SUMMARY | 2024-07-19 11:27 | XMS_ITS | Encounter Summary ---
Author Organization [facility] Address [address] [facility] [address] [place] [address] Care Team Providers Care Collar Feller Name Role Phone Daisy Desai MD Primary Care Provider +1- [phone] Daisy Desai MD Primary Care Provider +1- [phone] Daisy Desai MD Primary Care Provider +1- [phone] Vangie Tillman PT Unavailable Unavailable Donna Ramirez Unavailable Unavailable Waleska Alvarez DO Primary Care Provider +1- [phone] Daisy Desai MD Primary Care Provider +1- [phone] Waleska Alvarez DO Primary Care Provider +1- [phone] Maury Mckenna MD Unavailable Noelle Noe MD Unavailable Lindsay Parada MA Unavailable [phone] Erma Schultz DNP Unavailable [phone] Jud Carmona MA Unavailable [phone] Encounter Details Date Type Department Care Team (Late st Contact Info) Description 03/06/2016 Orders Only [facility] Provider, MD Luly [address] [place] [address] Social History Tobacco Use Types Packs/Day Years Used Date Smoking Tobacco: Never Alcohol Use Standard Drinks/Week Comments Yes 0 (1 standard drink = 0.6 oz pur e alcohol) Comments Unknown Sex and Gender Information Value Date Recorded Sex Assigned at Not on file Legal Sex Female 3:09 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 Gender Identity Not on file Sexual Orientation Straight 02/06/2020 1: 53 PM WARM IN WORKER documented as of this encounter Plan [...] documented as of this encounter Care Teams Collar Feller Relationship Specialty Start Date End Date Daisy Desai MD [address] [place] [address] PCP - General 05/27/16 03/28/17 Daisy Desai MD [address] [place] [address] PCP - General 04/21/16 05/26/16 Daisy Desai MD [address] [place] [address] PCP - General 05/22/13 04/20/16 Waleska Alvarez DO PCP - General Family Medicine 03/29/17 04/30/17 Daisy Desai MD [address] [facility] [place] [address] PCP - General 05/01/17 05/04/17 Waleska Alvarez DO PCP - General Family Medicine 05/05/17 12/06/23 Vangie Tillman, PT Physical Therapist Physical Therapy 02/16/17 Donna Ramirez Physical Therapist Physical Therapy 03/23/17 11/09/21 Maury Mckenna MD Surgeon Orthopedic Surgery 04/04/19 11/09/21 Noelle Noe MD [address] [place] [address] Consulting Physician Cardiology 11/09/20 Lindsay Paarda MA [address] [place] [address] [address] [place] [address] ACO Care Exhibit Specialist 08/05/21 08/10/21 Erma Schultz DNP [address] [place] [address] [address] [place] [address] Nurse Practitioner Neurology 11/10/21 Jud Carmona MA [address] [address] [address] [place] [address] ACO Care Exhibit Specialist 03/11/22 documented as of this encounter
--- OUTSIDE RECORDS SUMMARY | 2024-07-19 11:27 | XMS_ITS | Encounter Summary ---
Author Organization [facility] Address [address] [place] [address] Phone Care Team Providers Care Plasterer Journeyman Name Role Phone Jer Daniels MD Primary Care Provider [phone]- [phone] Reason for Visit * Reason Onset Date Comments Refill Request 08/23/2023 carbidopa-levodo pa, metoprolol, sertraline Encounter Details Date Type Department Care Team (Late st Contact Info) Description 08/23/2023 [facility] [place] [address] [facility] [address] [place] [address] Jer Daniels MD [address] [facility] [address] [place] [address] Refill Request (carbidopa-levodopa, metoprolol, sertraline) Social History [...] th e electric, gas, oil, or water [employer] threatened to shut off services in your [...] place to sleep or slept in a long-term (including now)? No 04/11/2023 Housing Stability Vital [...] documented as of this encounter Care Teams Plasterer Journeyman Relationship Specialty Start Date End Date Jer Daniels MD [facility] [place] [address] PCP - General Geriatrics 05/30/22 documented as of this encounter
--- OUTSIDE RECORDS SUMMARY | 2024-07-19 11:27 | XMS_ITS | Encounter Summary ---
Author Organization [facility] Address [address] [place] [address] Phone Care Team Providers Care Geriatric Psychiatrist Name Role Phone Jer Daniels MD Primary Care Provider +1- [phone] Encounter Details Date Type Department Care Team (Late st Contact Info) Description 10/06/2022 Telephone [facility] [address] [place] [address] Diana Pierda PTA [place] Social History Tobacco Use Types [...] 10/06/2022 1:36 PM CDT Created in error MOTIVE HARDWARE ENGINEER documented in this encounter Plan of Treatment Upcoming Encounters Date Type Department Care Team (Late st Contact Info) Description 07/29/2024 11:15 AM CDT Office Visit [facility] - [facility] - [place] [address] [place] [address] Norma Hein, INTERNATIONAL ORGANIZER, COST ESTIMATOR [address] [facility] [place] [address] documented as of this encounter Visit Diagnoses Not on filedocumented in this encounter Care Teams Geriatric Psychiatrist Relationship Specialty Start Date End Date Jer Daniels MD PCP - General Family Medicine 08/04/22 documented as of this encounter
--- OUTSIDE RECORDS SUMMARY | 2024-07-19 11:27 | XMS_ITS | Encounter Summary ---
Author Organization [facility] Address [address] [place] [address] Phone Care Team Providers Care Washing Machine Loader Name Role Phone Jer Daniels MD Primary Care Provider +1- [phone] Encounter Details Date Type Department Care Team (Late Contact Info) Description 09/07/2022 [facility]phone [facility] [address] [place] [address] Ronny Travis, PT [place] Social History Tobacco Use Types Packs/Day Years [...] Encounters Date Type Department Care Team (Late Contact Info) Description 07/29/2024 11:15 AM CDT [facility] Visit [facility] [address] [place] [address] Norma Hein, CUSTOMER SALES REPRESENTATIVE, LOBBY PORTER [address] [place] [address] documented as of this encounter Visit Diagnoses Not on filedocumented in this encounter Care Teams Washing Machine Loader Relationship Specialty Start Date End Date Jer Daniels MD PCP - General Family Medicine 08/04/22 documented as of this encounter
--- OUTSIDE RECORDS SUMMARY | 2024-07-19 11:27 | XMS_ITS | Clinical Summary ---
Author Organization [facility] Address [address] [place] [address] Phone Care Team Providers Care Vendor Representatives Name Role Phone Jer Daniels MD Primary Care Provider +1- [phone] Allergies Active Allergy Reactions Criticality Noted Date [...] as needed for Anxiety or Itching. # [id number] Active Cholecalciferol (Vitamin D3) 2000 UNIT Capsule [...] 08/04/2022 Hyperlipidemia 08/04/2022 Paroxysmal atrial fibrillation 08/04/2022 Encounters Date Type Department Care Team Description 07/15/2024 Telephone [facility] [address] [place] [address] Provider, None New Patient from Last 3 Months Family History Medical History Relation Name Comments [...] Comments Blood Pressure 129/71 01/05/2023 12:10 AM SENIOR BOOKKEEPER Pulse 62 01/05/2023 12:10 AM SENIOR BOOKKEEPER Temperature 36.7 C (98 F) 01/04/2023 5:08 PM SENIOR BOOKKEEPER Respiratory Rate 16 01/05/2023 12:10 AM SENIOR BOOKKEEPER Oxygen Saturation 98% 01/05/2023 12:10 AM SENIOR BOOKKEEPER Inhaled Oxygen Concentration - - Weight 56.7 kg (125 lb) 01/04/2023 5:08 PM SENIOR BOOKKEEPER Height 160 cm (5' 3 ) 01/04/2023 5:08 PM SENIOR BOOKKEEPER Body Mass Index 22.14 01/04/2023 5:08 PM SENIOR BOOKKEEPER Plan of Treatment Upcoming Encounters Date Type Department Care Team (Late st Contact Info) Description 07/29/2024 11:15 AM CDT [facility] Visit [facility] [address] [place] [address] Norma Hein, ACID CUTTER, BLACK LEATHER BUFFER [address] [place] [address] Health Maintenance Due Date Last Done Comments DEXA Bone Density 1945 Hepatitis C Virus (HCV) Screening 1945 TdaP Immunization 1945 Zoster Immunization (2 of 3) 04/24/2015 02/27/2015, 02/21/2014 SARS-COV-2 Immunization ( season) 2024 12/21/2023, 12/20/2022, 02/03/2021, Additional history exists Influenza Immunization (Season Ended) 2024 12/20/2022, 11/10/2021, 11/09/2020, Additional history exists Pneumococcal Immunization (50+ years) Completed 12/21/2023, 08/16/2016, 07/28/2014 Pneumococcal Immunization Combined Discontinued 12/21/2023, 08/16/2016, 07/28/2014 Respiratory Syncytial Virus (RSV) Immunization (Adult) Completed 12/21/2023 Hepatitis B Immunization Aged Out No longer eligible based on patient's age to complete this topic Human Papillomavirus (HPV) Immunization Aged Out No longer eligible based on patient's age to complete this topic Meningococcal Immunization (ACWY) Aged Out No longer eligible based on patient's age to complete this topic Rotavirus Immunization Aged Out No lo nger eligible based on patient's age to complete this topic Medical Devices Implanted Type Area Finish Patcher Device Identifier Shelf Expiration Date Model / Serial / Lot Reveal Linq Implanted:Qty: 1 on 08/02/2016 by Ramo Noe [facility] at [facility] N/A: Chest Wall [employer] 06/10/2017 [id number] / [id number] / NA Insurance MEDICARE C AETNA Advance [...] measures to stabilize the patient. Care Teams Vendor Representatives Relationship Specialty Start Date End Date Jer Daniels MD PCP - General Family Medicine 08/04/22
--- OUTSIDE RECORDS SUMMARY | 2024-07-19 11:27 | XMS_ITS | Encounter Summary ---
Author Organization [facility] Address [address] [place] [address] Phone Care Team Providers Care Convention Manager Name Role Phone Jer Diop MD Primary Care Provider +1- [phone] Reason for Visit * Reason Onset Date Comments Home Care Orders 08/23/2023 Encounter Details Date Type Department Care Team (Late st Contact Info) Description 08/23/2023 Telephone [facility] [place] [address] [facility] [address] [place] [address] Lizbeth Pastor APRN Home Care Orders Social [...] from your doctor or pharmacy? Sometimes 06/27/2023 [facility] Utilities Answer Date Recorded In the [...] - 08/24/2023 4:25 PM CDT Sowmya from [facility] called, states she's aware that dr doip is out for vacation, but she has never heard back about lizbeth and if she will sign off on orders. Please call her [phone] documented in this encounter Plan of Treatment Not on file documented as of this encounter Visit Diagnoses Not on filedocumented in this encounter Additional Health Concerns Assessment Noted Time A fall risk assessment has been complete d for the patient 10/07/2022 12:41 PM CDT documented as of this encounter Care Teams Convention Manager Relationship Specialty Start Date End Date Jer Diop MD [address] [place] [address] PCP - General Geriatrics 05/30/22 documented as of this encounter
--- OUTSIDE RECORDS SUMMARY | 2024-07-19 11:28 | XMS_ITS | Encounter Summary ---
Author Organization [facility] Address [address] [place] [address] Phone Care Team Providers Care Industrial Sales Representative Name Role Phone Jer Daniels MD Primary Care Provider +1- [phone] Reason for Visit * Reason Onset Date Comments Kayleenarle 2023 Encounter Details Date Type Department Care Team (Late st Contact Info) Description 2023 Telephone [facility] Appointment Request [address] [place] [address] Identified, No Provider MyCarle Social History Tobacco [...] place to sleep or slept in a intermediate (including now)? No 04/11/2023 Comments No Sex [...] SUE MAYBERRY , not found in the SueEasy system. Need to confim proxy is not a [facility] patient. If not they will [...] : [id number] Patient's Home Address: [address] City: [facility] [place] [facility] [place] & ZIP: [place] [address] Telephone (Include Area Code) : [phone] Action? : Authorized Access Which age group are you requesting a proxy change for? Adult (18 and older) Proxy Name: SUE MAYBERRY Proxy Date of : Mon10/26/1976 Last 4 digits of Proxy SS#: [id number] Proxy Address: [address] [facility] City of Proxy: [facility] [place] & ZIP of Proxy: [place] [address] Proxy Telephone (Include Area Code): [phone] Authorization: I have read and understand the above information and hereby request removal or authorization to the above-named patient's BackTrack online account. Printed Name of Patient or Parent/Legal Guardian: VANDA MAYBERRY Date of Authorization: Tu04/25/2023 NFORMATICS RESEARCH TECHNICIAN NFORMATICS RESEARCH TECHNICIAN documented in this encounter Plan of Treatment [...] as of this encounter Care Teams Industrial Sales Representative Relationship Specialty Start Date End Date Jer Daniels MD [address] [place] [address] PCP - General Geriatrics 05/30/22 documented as of this encounter
--- OUTSIDE RECORDS SUMMARY | 2024-07-19 11:28 | XMS_ITS | Encounter Summary ---
Author Organization [facility] Address [address] [place] [address] Phone Care Team Providers Care Manufacturing Worker Name Role Phone Jer Daniels MD Primary Care Provider +1- [phone] Encounter Details Date Type Department Care Team (Late st Contact Info) Description 02/14/2023 Scanned Document [facility] Dietetic Assistant Provider, Interface Default Social History Tobacco Use [...] documented as of this encounter Care Teams Manufacturing Worker Relationship Specialty Start Date End Date Jer Daniels MD [address] [place] [address] PCP - General Geriatrics 05/30/22 documented as of this encounter
--- OUTSIDE RECORDS SUMMARY | 2024-07-19 11:28 | XMS_ITS | Encounter Summary ---
Author Organization [facility] Address [address] [place] [address] Phone Care Team Providers Care Environmental Auditor Name Role Phone Jer Daniels MD Primary Care Provider +1- [phone] Encounter Details Date Type Department Care Team (Late st Contact Info) Description 08/30/2023 Patient Related Communication [facility] [place] [address] [place], [place] [id number] Jer Daniels MD [address] [place], [place] [phone] Social History Tobacco Use Types Packs/Day Years [...] from your doctor or pharmacy? Sometimes 06/27/2023 [facility] Utilities Answer Date Recorded In [...] as of this encounter Care Teams Environmental Auditor Relationship Specialty Start Date End Date Jer Daniels MD [address] [facility] [address] [place] [address] PCP - General Geriatrics 05/30/22 documented as of this encounter
--- OUTSIDE RECORDS SUMMARY | 2024-07-19 11:28 | XMS_ITS | Encounter Summary ---
Author Organization [facility] Address [address] [place] [address] Phone Care Team Providers Care Machine Precision Engraver Name Role Phone Jer Daniels MD Primary Care Provider +1- [phone] Reason for Visit * Reason Onset Date Comments Home Health Communication 09/04/2023 Encounter Details Date Type Department Care Team (Latest Contact Info) Description 09/04/2023 Patient Related Communication [facility] [place] [address] [place] [address] Jer Daniels MD [address] [place], [place] [address] Home Health Communication Social History Tobacco Use [...] place to sleep or slept in a longterm (including now)? No 04/11/2023 Housing Stability Vital [...] as of this encounter Care Teams Machine Precision Engraver Relationship Specialty Start Date End Date Jer Daniels MD [address] [facility] [address] [place] [address] PCP - General Geriatrics 05/30/22 documented as of this encounter
--- OUTSIDE RECORDS SUMMARY | 2024-07-19 11:28 | XMS_ITS | Encounter Summary ---
Author Organization [facility] Address [address] [place] [address] Phone Care Team Providers Care Mail Room Name Role Phone Jer Daniels MD Primary Care Provider +1- [phone] Encounter Details Date Type Department Care Team (Late st Contact Info) Description 01/24/2023 Scanned Document Non [facility] Referring Docs Provider, Outside Social History Tobacco [...] documented as of this encounter Care Teams Mail Room Relationship Specialty Start Date End Date Jer Daniels MD [address] [facility] [address] [place] [address] PCP - General Geriatrics 05/30/22 documented as of this encounter
--- OUTSIDE RECORDS SUMMARY | 2024-07-19 11:28 | XMS_ITS | Clinical Summary ---
Author Organization [facility] al Address [address] [place] [address] Care Team Providers Care Medical Billing Service Name Role Phone Vangie Tillman PT Unavailable Unavailable Noelle Noe MD Unavailable Erma Schultz DNP Unavailable [phone] Jud Carmona MA Unavailable [phone] Allergies Active Allergy Reactions Criticality Noted [...] 03/28/2022 Assessment & Plan (03/28/2022 1:39 PM FINANCIAL SPECIALIST): Referred to ENT for f/u. Presence of [...] 11/11/2020 Assessment & Plan (03/28/2022 1:40 PM FINANCIAL SPECIALIST): Ambulates with a standard walker, encouraged safety. [...] 03/30/2020 Assessment & Plan (04/21/2022 1:45 PM FINANCIAL SPECIALIST): Clinically improved, continue current prescription medications, sertraline. Assessment & Plan (11/12/2021 9:16 PM CDT): Stable. Cont. Current prescription medications. Assessment & Plan (06/05/2021 10:24 PM CDT): Stable. Cont. Current prescription medications. Assessment & Plan (11/11/2020 10:39 AM CDT): Stable. Cont. Current meds. Assessment & Plan (03/30/2020 4:14 PM FINANCIAL SPECIALIST): New diagnosis. Trial of sertraline 50 mg 1 p.o. q.d. patient instructed to call 911 or go to nearest emergency room if she feels she is going to be a harm to herself or to others. Mild intermittent asthma without complication Assessment & Plan (04/21/2022 1:45 PM FINANCIAL SPECIALIST): Asx. At baseline, cont current Rx meds, Albuterol. Assessment & Plan (11/12/2021 9:13 PM CDT): Asx. At baseline, continue current Rx meds. Assessment & Plan (06/05/2021 10:23 PM CDT): At baseline, cont current Rx meds. Assessment & Plan (11/11/2020 10:39 AM CDT): At baseline, cont current mgmt. Assessment & Plan (03/30/2020 4:15 PM FINANCIAL SPECIALIST): Stable. Cont. Current meds. Class 1 obesity [...] recommended. Assessment & Plan (02/18/2019 2:28 PM FINANCIAL SPECIALIST): Improving. Encouraged patient to decrease weight, increase daily exercise, and modify diet. Assessment & Plan (08/13/2018 4:38 PM CDT): Obesity is unchanged. Discussed the patient's BMI. The BMI is above average; BMI management plan is completed. General weight loss/lifestyle modification strategies discussed (elicit support from others; identify saboteurs; non-food rewards, etc). Assessment & Plan (03/09/2018 2:41 PM FINANCIAL SPECIALIST): Obesity is unchanged. Discussed the patient's BMI. The BMI is above average; BMI management plan is completed. General weight loss/lifestyle modification strategies discussed (elicit support from others; identify saboteurs; non-food rewards, etc). Assessment & Plan (02/17/2018 4:35 PM FINANCIAL SPECIALIST): Obesity is unchanged. Discussed the patient's BMI. The BMI is above average; BMI management plan is completed. General weight loss/lifestyle modification strategies discussed (elicit support from others; identify saboteurs; non-food rewards, etc). Assessment & Plan (02/13/2018 2:38 PM FINANCIAL SPECIALIST): Obesity is unchanged. Discussed the patient's BMI. [...] greens, fat-free milk, cottage cheese, nuts like [id number], protein bars with 10-15 g of protein [...] Patient is currently stable, recommended f/u with exhibition carver. Referral given. Vitamin D deficiency 03/29/2017 Assessment & Plan (08/13/2018 4:38 PM CDT): Labs ordered, will follow. Assessment & Plan (03/29/2017 12:41 PM FINANCIAL SPECIALIST): Labs ordered, will follow. 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 Assessment & Plan (02/18/2019 2:26 PM FINANCIAL SPECIALIST): Worsening, low cholesterol diet recommended. Assessment & Plan (08/13/2018 4:37 PM CDT): Lipid abnormalities are improving with treatment. Nutritional counseling was provided. and Pharmacotherapy as ordered. Lipids will be reassessed in 6 months. Pravastatin 40 mg qd Assessment & Plan (03/29/2017 12:40 PM FINANCIAL SPECIALIST): Encouraged a low chol. Diet. Will follow. Fibromyalgia 03/29/2017 Overview (03/29/2017): Managed by Pain Mgmt. Assessment & Plan (08/14/2019 11:08 AM CDT): Clinically resolved. D/C'd Cymbalta on her own after losing the medication. Does not want to re-start it. Assessment & Plan (02/18/2019 2:27 PM FINANCIAL SPECIALIST): Stable. Cont. Current meds. Assessment & Plan (08/13/2018 4:39 PM CDT): Clinically improved, continue Cymbalta 30 mg qd. Paroxysmal atrial fibrillation 12/21/2016 Overview (03/29/2017): Managed by cardiology Assessment & Plan (04/21/2022 1:44 PM FINANCIAL SPECIALIST): Rate-controlled, cont Plavix Assessment & Plan (03/21/2022 9:04 AM FINANCIAL SPECIALIST): S/p installation of a left atrial appendage occluder device to help with mitral regurgitation. Discharge summary reviewed. Patient will continue to f/u with cardiology. Assessment & Plan (11/11/2020 10:40 AM CDT): Rate-controlled, managed by cardiology. Cont current meds. Assessment & Plan (08/14/2019 11:06 AM CDT): Asx. Continue current therapy. Managed by cardiology. Assessment & Plan (02/18/2019 2:27 PM FINANCIAL SPECIALIST): Rate-controlled, managed by cardiology. Assessment & Plan (01/27/2017 1:29 PM FINANCIAL SPECIALIST): Regular sinus rhythm in office today with controlled rate. Continue to monitor. Continue on aspirin and metoprolol daily Assessment & Plan (12/21/2016 4:55 PM CDT): Patient had a loop recorder implanted after a syncopal event. She states shortly after recent hip surgery she received a phone call from her exhibition carver reporting she had flipped in out of atrial fibrillation. She will continue to follow with her exhibition carver. He started her on metoprolol. Medication list [...] Cataract Assessment & Plan (01/27/2017 1:36 PM FINANCIAL SPECIALIST): Patient is stable and healthy enough to [...] Anxiety Assessment & Plan (04/21/2022 1:45 PM FINANCIAL SPECIALIST): Clinically improved, continue current prescription medications, sertraline. Assessment & Plan (11/12/2021 9:13 PM CDT): Clinically improved, continue current prescription medications. Assessment & Plan (06/05/2021 10:21 PM CDT): Stable. Cont. Current prescription medications. Assessment & Plan (11/11/2020 10:39 AM CDT): Clinically improved, continue current meds. Assessment & Plan (03/30/2020 4:14 PM FINANCIAL SPECIALIST): Worsening. Trial of sertraline 50 mg 1 [...] it. Assessment & Plan (02/18/2019 2:27 PM FINANCIAL SPECIALIST): Clinically improved, continue current meds. Assessment & [...] follow. Assessment & Plan (03/29/2017 12:41 PM FINANCIAL SPECIALIST): Asx. Cont current mgmt. Psoriasis 04/05/2013 Overview (06/02/2016): Psoriasis Chronic pain syndrome 04/05/2013 Overview (03/29/2017): Managed by Pain Mgmt. Primary hypertension 04/05/2013 Overview (06/03/2016): Hypertension Assessment & Plan (04/21/2022 1:45 PM FINANCIAL SPECIALIST): Blood pressure at goal less than 140/90, [...] meds. Assessment & Plan (02/18/2019 2:24 PM FINANCIAL SPECIALIST): Stable. Cont. Current meds. Assessment & Plan (08/13/2018 4:35 PM CDT): Hypertension is improving with treatment. Continue current treatment regimen. Dietary sodium restriction. Regular aerobic exercise. Continue current medications. Ambulatory blood pressure monitoring. Blood pressure will be reassessed at the next regular appointment. Metoprolol xl 25 mg bid, Olmesartan 20 mg qd Followed by cardiology. Requested office notes from cardiology office. front end assistant called their office during patient's ov, I did not receive them prior to patient leaving. Assessment & Plan (03/29/2017 12:40 PM FINANCIAL SPECIALIST): Hypertension is unchanged. Continue current treatment regimen. Dietary sodium restriction. Weight loss. Regular aerobic exercise. Continue current medications. Blood pressure will be reassessed at the next regular appointment. Assessment & Plan (01/27/2017 1:29 PM FINANCIAL SPECIALIST): Stable. Pt was advised of continuing heart healthy DASH diet, increase exercise as tolerated, and continuing to monitor for any lower leg edema, headaches, changes in vision, or facial flushing. Continue ASA and anti-hypertensives as prescribed. Arthritis 04/05/2013 Overview (06/03/2016): Arthritis Resolved Problems Problem Noted Date Diagnosed Date Resolved Date Facial contusion, sequela 12/14/2021 Assessment & Plan (03/28/2022 1:39 PM FINANCIAL SPECIALIST): Bruising healing. Assessment & Plan (12/14/2021 9:15 [...] 08/13/2018 Assessment & Plan (03/09/2018 2:40 PM FINANCIAL SPECIALIST): Here for follow up on bronchitis and [...] improved Assessment & Plan (02/17/2018 4:44 PM FINANCIAL SPECIALIST): Here for follow up on bronchitis and [...] 03/29/2017 Assessment & Plan (01/27/2017 1:31 PM FINANCIAL SPECIALIST): Pt was advised to continue current therapy [...] glucose Assessment & Plan (03/29/2017 12:41 PM FINANCIAL SPECIALIST): Asx. Labs ordered. Immunizations Immunization Administration Dates [...] a. Hx Other Medical Dr. Sherif howe etl database developer Hx Other Medical Dr. Jazmin leon Primary [...] on file Legal Sex Female 3:09 AM FINANCIAL SPECIALIST Gender Identity Not on file Sexual Orientation Straight 02/06/2020 1: 53 PM FINANCIAL SPECIALIST Occupation Industry Job Start Date Job End Date retired Not on file Not on file Not on file Obstetrics History Last Filed Vital Signs Vital Sign Reading Time Taken Comments Blood Pressure 124/68 04/21/2022 12:35 PM FINANCIAL SPECIALIST Pulse 79 04/21/2022 12:35 PM FINANCIAL SPECIALIST Temperature 36.3 C (97.4 F) 04/21/2022 12:35 PM FINANCIAL SPECIALIST Respiratory Rate 18 04/21/2022 12:35 PM FINANCIAL SPECIALIST Oxygen Saturation 96% 04/21/2022 12:35 PM FINANCIAL SPECIALIST Inhaled Oxygen Concentration - - Weight 86.2 kg (190 lb 1.6 oz) 04/21/2022 12:35 PM FINANCIAL SPECIALIST Height 160 cm (5' 2.99 ) 04/21/2022 12:35 PM FINANCIAL SPECIALIST Body Mass Index 33.68 04/21/2022 12:35 PM FINANCIAL SPECIALIST Plan of Treatment Health Maintenance Due Date [...] season) 2023 02/03/2021, 05/30/2020, 05/02/2020 Influenza Vaccine (Season Ended) 2024 11/10/2021, 11/09/2020, 01/10/2019, Additional history exists Osteoporosis Screening-Bone [...] 08/13/2018, 019 Medical Devices Implanted Type Area Wage And Salary Administrator Device Identifier Shelf Expiration Date Model / Serial / Lot [employer] Percutaneous Transcatheter Amplatzer Amulet 22mm [id number] - [id number] Implanted:Qty: 1 on 03/09/2022 by Debi Garcia MD at [facility] [employer] 10/27/2026 [id number] / / [id number] Procedures Procedure Name Priority Date/Time Associated Diagnosis Comments HEPATITIS C ANTIBODY Routine 08/13/2018 3:12 PM CDT Encounter for hepatitis C screening test for low risk patient COLONOSCOPY IMAGES 10/15/2013 from Last 3 Months or Most Recently Relevant to Health Maintenance Results * Hepatitis C antibody (08/13/2018 3:12 PM CDT) Hep C Ab Negative Negative ZANDER GOMES (DAVID) Comment:Testing performed by : [facility], [address] [place] [address], [place] [address] Blood specimen (specimen) 08/13/2018 3:12 PM CDT 08/14/2018 9:36 AM CDT us Waleska Alvarez DO LAB MICROBIOLOGY - GENERAL ORDERABLES Final Result ZANDER GOMES (DAVID) 1 [facility] [place] [address] 508 * COLONOSCOPY IMAGES (10/15/2013) Anatomical Region Laterality Modality Other Narrative 10/15/2013 Ordered by an unspecified provider. us Historical Provider GI PROCEDURE ORDERABLES F inal Result from Last 3 Months or Most Recently Relevant to Health Maintenance Additional Health Concerns Infection Onset Date Last Indicated MDR gram neg/ESBL Comment:ESBL E.coli urine 12/21/16 12/24/2016 12/24/2016 Insurance AETNA MEDICARE [facility]LY [facility] MEDICARE AETNA MEDICARE Care Teams Medical Billing Service Relationship Specialty Start Date End Date Vangie Tillman, BRISA Physical Therapist Physical Therapy 02/16/17 Noelle Noe MD [address] [place] [address] Consulting Physician Cardiology 11/09/20 Erma Schultz DNP [address] [place] [address] Nurse Practitioner Neurology 11/10/21 Jud Carmona MA [address] [place] [address] [address] [place] [address] ACO Care Sheet Metal Layout Worker 03/11/22
--- OUTSIDE RECORDS SUMMARY | 2024-07-19 11:28 | XMS_ITS | Encounter Summary ---
Author Organization [facility] Address [address] [place] [address] Phone Care Team Providers Care Manager Paid Name Role Phone Jer Daniels MD Primary Care Provider [phone]- [phone] Encounter Details Date Type Department Care Team (Late st Contact Info) Description 09/14/2023 Patient Related Communication [facility] [place] [address] [facility] [address] [place], [place] [phone] Lizbeth Pastor, CARDIOPULMONARY SUPERVISOR Social History Tobacco Use Types Packs/Day Years [...] from your doctor or pharmacy? Sometimes 06/27/2023 [facility] Utilities Answer Date Recorded In the [...] documented as of this encounter Care Teams Manager Paid Relationship Specialty Start Date End Date Jer Daniels MD [address] [place] [address] PCP - General Geriatrics 05/30/22 documented as of this encounter
--- OUTSIDE RECORDS SUMMARY | 2024-07-19 11:28 | XMS_ITS | Encounter Summary ---
Author Organization [facility] Address [address] [place] [address] Phone Care Team Providers Care Spider Assembler Name Role Phone Jer Daniels MD Primary Care Provider +1- [phone] Encounter Details Date Type Department Care Team (Late st Contact Info) Description 08/14/2023 Patient Related Communication [facility] [place] [address] [place], [place] [phone] Jer Daniels MD [address] [place], [place] [id number] Social History Tobacco Use Types Packs/Day Years [...] your doctor or pharmacy? Sometimes 06/27/2023 [facility] Utilities Answer Date Recorded In the past 12 months has th [employer] electric, gas, oil, or water company threatened [...] place to sleep or slept in a fpc (including now)? No 04/11/2023 Housing Stability Vital [...] there isn't another doctor available for a omnq-sy-nsee visit for home health orders documented in this encounter Plan of Treatment Not on file documented as of this encounter Visit Diagnoses Not on filedocumented in this encounter Additional Health Concerns Assessment Noted Time A fall risk assessment has been complete d for the patient 10/07/2022 12:41 PM CDT documented as of this encounter Care Teams Spider Assembler Relationship Specialty Start Date End Date Jer Daniels MD [address] [facility] [address] PCP - General Geriatrics 05/30/22 documented as of this encounter
--- OUTSIDE RECORDS SUMMARY | 2024-07-19 11:28 | XMS_ITS | Encounter Summary ---
Author Organization [facility] Address [address] [place] [address] Phone Care Team Providers Care Crusher And Binder Operator Name Role Phone Jer Daniels MD Primary Care Provider [phone]- [phone] Reason for Visit * Reason Onset Date Comments Home Health Communication 09/01/2023 Encounter Details Date Type Department Care Team (Latest Contact Info) Description 09/01/2023 Patient Related Communication [facility] [place] [address] [facility] [address] [place] [address] Jer Daniels MD [address] [place], [place] [phone] Home Health Communication Social History Tobacco Use [...] from your doctor or pharmacy? Sometimes 06/27/2023 [facility] Utilities Answer Date Recorded [...] documented as of this encounter Care Teams Crusher And Binder Operator Relationship Specialty Start Date End Date Jer Daniels MD [address] [place], [place] [address] [address] PCP - General Geriatrics 05/30/22 documented as of this encounter
--- OUTSIDE RECORDS SUMMARY | 2024-07-19 11:28 | XMS_ITS | Encounter Summary ---
Author Organization [facility] Address [address] [place] [address] Phone Care Team Providers Care Entry Level Paralegal Name Role Phone eJr Daniels MD Primary Care Provider Encounter Details Date Type Department Care Team (Late st Contact Info) Description 06/06/2022 Orders Only [facility] [place] [address] [facility] [address] [place] [address] Jerilyn Patton, [facility] Social History Tobacco Use Types Packs/Day [...] documented as of this encounter Care Teams Entry Level Paralegal Relationship Specialty Start Date End Date Jer Daniels MD [address] [place] [address] PCP - General Geriatrics 05/30/22 documented as of this encounter
--- OUTSIDE RECORDS SUMMARY | 2024-07-19 11:28 | XMS_ITS | Encounter Summary ---
Author Organization [facility] Address [address] [place] [address] Phone Care Team Providers Care Stereotype Caster Name Role Phone Jer Daniels MD Primary Care Provider [phone]- [phone] Encounter Details Date Type Department Care Team (Late st Contact Info) Description 08/17/[address] [facility] [place] [address] [facility] [address] [place], [place] [phone] Lizbeth Pastor, OIL FIELD PIPELINE SUPERVISOR Social History Tobacco Use Types Packs/Day [...] doctor or pharmacy? Sometimes 06/27/2023 [facility] Utilities Answer Date Recorded In the [...] documented as of this encounter Care Teams Stereotype Caster Relationship Specialty Start Date End Date Jer Daniels MD [address] [place] [address] PCP - General Geriatrics 05/30/22 documented as of this encounter
--- OUTSIDE RECORDS SUMMARY | 2024-07-19 11:28 | XMS_ITS | Encounter Summary ---
Author Organization [facility] Address [address] [place] [address] Phone Care Team Providers Care Director Of Sports Medicine Name Role Phone Jer Daniels MD Primary Care Provider +1- [phone] Reason for Visit * Reason Onset Date Comments Medication Information 09/28/2023 Post-hosp ital discharge medication reconciliation Encounter Details Date Type Department Care Team ([facility] st Contact Info) Description 09/28/2023 [...] from your doctor or pharmacy? Sometimes 06/27/2023 [facility] Utilities Answer Date Recorded [...] any time in the past 12 m [facility], were you homeless or living in a custodial (including now)? No 09/21/2023 Comments No Sex [...] documented as of this encounter Care Teams Director Of Sports Medicine Relationship Specialty Start Date End Date Jer Daniels MD [address] [place] [address] PCP - General Geriatrics 05/30/22 documented as of this encounter
--- OUTSIDE RECORDS SUMMARY | 2024-07-19 11:28 | XMS_ITS | Clinical Summary ---
Author Organization [facility] Address [address] [place] [address] Phone Care Team Providers Care Salicylic Acid Blender Name Role Phone Jer Daniels MD Primary Care Provider +1- [phone] Allergies Active Allergy Reactions Criticality Noted Date [...] Traumatic cerebral parenchymal hemorrhage 08/04/2022 09/19/2022 04/22/2023 Immunizations Immunization Administration Dates Next Due INFLUENZA SPLIT VIRUS [...] from your doctor or pharmacy? Sometimes 06/27/2023 C Utilities Answer Date Recorded In the past 12 months has th e electric, gas, oil, or water [employer] threatened to shut off services in your [...] place to sleep or slept in a [facility]p (including now)? No 04/11/2023 Housing Stability Vital Sign Answer Flako e Recorded In the last 12 months, was t here a time when you were not able to pay the mortgage or rent on time? No 11/02/2023 In the past 12 months, how m any times have you moved where you were living? 2 11/02/2023 At any time in the past [address] [facility], were you homeless or living in a mcfp (including now)? No 11/02/2023 Comments No Sex and Gender Information Value Date Recorded Sex Assigned at Not on file Legal Sex Female 10:58 AM CDT Gender Identity Not on file Sexual Orientation Not on file Last Filed Vital Signs Vital Sign Reading Time Taken Comments Blood Pressure 136/50 03/25/2024 2:16 PM HAND FRAME SURGICAL ELASTIC KNITTER Pulse 64 03/25/2024 2:16 PM HAND FRAME SURGICAL ELASTIC KNITTER Temperature 36.3 C (97.3 F) 03/08/2024 8:57 AM HAND FRAME SURGICAL ELASTIC KNITTER Respiratory Rate 18 03/08/2024 8:57 AM HAND FRAME SURGICAL ELASTIC KNITTER Oxygen Saturation 99% 03/25/2024 2:16 PM HAND FRAME SURGICAL ELASTIC KNITTER Inhaled Oxygen Concentration - - Weight 75.8 kg (167 lb) 03/25/2024 2:16 PM HAND FRAME SURGICAL ELASTIC KNITTER Height 160 cm (5' 3 ) 03/25/2024 2:16 PM HAND FRAME SURGICAL ELASTIC KNITTER Body Mass Index 29.58 03/25/2024 2:16 PM HAND FRAME SURGICAL ELASTIC KNITTER Plan of Treatment Health Maintenance Due Date Last Done Comments DTaP/Tdap/Td Vaccines (1 - Tdap) 1964 HCPOA Document on File 1996 RSV Vaccine (60+/) (1 - 1-dose 75+ series) 2021 COVID-19 Vaccine (4 - season) 2023 02/03/2021, 05/30/2020, 05/02/2020 Eligible for Subsequent Annual Medicare Wellness Exam 10/22/2024 10/23/2023, 10/14/2022, 08/13/2018 Fall Screening 10/22/2024 10/23/2023, 09/27, 06/06/2022 Zoster (Shingles) Vaccine (2 of 3) 10/22/2024 02/27/2015, 02/21/2014 Postponed from 04/24/2015 (Patient Refused) Influenza Vaccine (Season Ended) 2024 11/10/2021, 11/10/2021, 11/09/2020, Additional history exists Screening for Diabetes 11/26/2026 , 11/24/2023, 11/13/2023, Additional history exists Pneumococcal Vaccines (50+) Completed 08/16/2016, 07/28/2014 Eligible for Initial Annual [...] patient's age to complete this topic Meningococcal B Vaccine Aged Out No l onger eligible based on patient's age to complete this topic Meningococcal Vaccine (ACWY) Aged Out No longer eligible based on patient's age to complete this topic Rotavirus Vaccines Aged Out No longer eligible based on patient's age to complete this topic Medical Devices Implanted Type Area Helicopter Pilot Instructor Device Identifier Shelf Expiration Date Model / [...] Date/Time Associated Diagnosis Comments COMP METABOLIC PANEL ([facility]) Routine 11/27/2023 6:45 AM CDT 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 Relevant to Health Maintenance Results * COMP METABOLIC PANEL ([facility]) (11/27/2023 6:45 AM CDT) GLUCOSE ([facility]) 88 70 - 99 mg/dL [facility] BUN ([facility]) 17 8 - 20 mg/dL [facility] CREATININE ([facility]) 0.66 0.52 - 1.04 mg/dL [facility] eGFR (2020 CKD-EPI) ([facility]) 90 mL/min/1.7 3m2 [facility] SODIUM ([facility]) 140 136 - 145 mmol/L [facility] POTASSIUM ([facility]) 4.4 3.5 - 5.0 mmol/l [facility] CHLORIDE ([facility]) 103 98 - 107 mmol/L [facility] CARBON DIOXIDE ([facility]) 27 22 - 30 mmol/L [facility] AST [facility] 27 14 - 40 U/L [facility] ALK[facility]INE PHOSPHATASE [facility] 86 38 - 126 U/L [facility] BILIRUBIN TOTAL ([facility]) 0.5 0.2 - 1.3 mg/dL [facility] TOTAL PROTEIN ([facility]) 7.3 6.3 - 8.2 gm/dL [facility] ALBUMIN ([facility]) 4.3 3.5 - 5.0 gm/dL [facility] CALCIUM ([facility]) 9.7 8.4 - 10.2 mg/dL [facility] ALT ([facility]) 14 4 - 34 U/L [facility] 11/27/2023 6:45 AM CDT 11/27/2023 8:12 AM CDT Narrative [facility] - 11/27/2023 9:02 AM CDT Release to patient->Immediate us Jer Daniels MD [facility] - BLOOD Final Result Performing Organization Address City/State/[facility] Co de Phone Number [facility] [address] [place] [address], from Last 3 Months or Most Recently Relevant to Health Maintenance Insurance [employer] MEDICARE ADVANTAGE A[employer] MEDICARE ADVANTAGE Advance Directives For more information, please contact: [phone] * No CPR / Do Not Intubate [...] 6:30 PM 06/27/2023 6:30 PM Care Teams Salicylic Acid Blender Relationship Specialty Start Date End Date Jer Daniels MD [address] [facility] [address] [place] [address] PCP - General Geriatrics 05/30/22
--- OUTSIDE RECORDS SUMMARY | 2024-07-19 11:28 | XMS_ITS | Encounter Summary ---
Author Organization [facility] Address [address] [place] [address] Phone Care Team Providers Care Optometrist Name Role Phone Jer Diop MD Primary Care Provider [phone]- [phone] Reason for Visit * Reason Onset Date Comments Dizziness 09/12/2022 Encounter Details Date Type Department Care Team (Late st Contact Info) Description 09/12/2022 [facility]phone [facility] [place] [address] [place] [address] Jer Diop MD [address] [facility] [address] [place], [place] [id number] Dizziness Social History Tobacco Use Types Packs/Day [...] LM stating she was recently in [facility] for a fall, states she has been [...] documented as of this encounter Care Teams Optometrist Relationship Specialty Start Date End Date Jer Diop MD [address] [address] PCP - General Geriatrics 05/30/22 documented as of this encounter
--- OUTSIDE RECORDS SUMMARY | 2024-07-19 11:28 | XMS_ITS | Referral Summary ---
Author Organization [facility] Address [address] [place] [address] Care Team Providers Care Gas Regulator Repairer Helper Name Role Phone Vangie Tillman PT Unavailable Unavailable Noelle Noe MD Unavailable Erma Schultz DNP Unavailable [phone] Jud Carmona MA Unavailable [phone] Allergies Active Allergy Reactions Criticality Noted [...] 03/28/2022 Assessment & Plan (03/28/2022 1:39 PM TUBE MOUNTER): Referred to ENT for f/u. Presence of [...] 11/11/2020 Assessment & Plan (03/28/2022 1:40 PM TUBE MOUNTER): Ambulates with a standard walker, encouraged safety. [...] 03/30/2020 Assessment & Plan (04/21/2022 1:45 PM TUBE MOUNTER): Clinically improved, continue current prescription medications, sertraline. Assessment & Plan (11/12/2021 9:16 PM CDT): Stable. Cont. Current prescription medications. Assessment & Plan (06/05/2021 10:24 PM CDT): Stable. Cont. Current prescription medications. Assessment & Plan (11/11/2020 10:39 AM CDT): Stable. Cont. Current meds. Assessment & Plan (03/30/2020 4:14 PM TUBE MOUNTER): New diagnosis. Trial of sertraline 50 mg 1 p.o. q.d. patient instructed to call 911 or go to nearest emergency room if she feels she is going to be a harm to herself or to others. Mild intermittent asthma without complication Assessment & Plan (04/21/2022 1:45 PM TUBE MOUNTER): Asx. At baseline, cont current Rx meds, Albuterol. Assessment & Plan (11/12/2021 9:13 PM CDT): Asx. At baseline, continue current Rx meds. Assessment & Plan (06/05/2021 10:23 PM CDT): At baseline, cont current Rx meds. Assessment & Plan (11/11/2020 10:39 AM CDT): At baseline, cont current mgmt. Assessment & Plan (03/30/2020 4:15 PM TUBE MOUNTER): Stable. Cont. Current meds. Class 1 obesity [...] recommended. Assessment & Plan (02/18/2019 2:28 PM TUBE MOUNTER): Improving. Encouraged patient to decrease weight, increase daily exercise, and modify diet. Assessment & Plan (08/13/2018 4:38 PM CDT): Obesity is unchanged. Discussed the patient's BMI. The BMI is above average; BMI management plan is completed. General weight loss/lifestyle modification strategies discussed (elicit support from others; identify saboteurs; non-food rewards, etc). Assessment & Plan (03/09/2018 2:41 PM TUBE MOUNTER): Obesity is unchanged. Discussed the patient's BMI. The BMI is above average; BMI management plan is completed. General weight loss/lifestyle modification strategies discussed (elicit support from others; identify saboteurs; non-food rewards, etc). Assessment & Plan (02/17/2018 4:35 PM TUBE MOUNTER): Obesity is unchanged. Discussed the patient's BMI. The BMI is above average; BMI management plan is completed. General weight loss/lifestyle modification strategies discussed (elicit support from others; identify saboteurs; non-food rewards, etc). Assessment & Plan (02/13/2018 2:38 PM TUBE MOUNTER): Obesity is unchanged. Discussed the patient's BMI. [...] greens, fat-free milk, cottage cheese, nuts like [id number], protein bars with 10-15 g of protein [...] Patient is currently stable, recommended f/u with accounting software specialist. Referral given. Vitamin D deficiency 03/29/2017 Assessment & Plan (08/13/2018 4:38 PM CDT): Labs ordered, will follow. Assessment & Plan (03/29/2017 12:41 PM TUBE MOUNTER): Labs ordered, will follow. 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 Assessment & Plan (02/18/2019 2:26 PM TUBE MOUNTER): Worsening, low cholesterol diet recommended. Assessment & Plan (08/13/2018 4:37 PM CDT): Lipid abnormalities are improving with treatment. Nutritional counseling was provided. and Pharmacotherapy as ordered. Lipids will be reassessed in 6 months. Pravastatin 40 mg qd Assessment & Plan (03/29/2017 12:40 PM TUBE MOUNTER): Encouraged a low chol. Diet. Will follow. Fibromyalgia 03/29/2017 Overview (03/29/2017): Managed by Pain Mgmt. Assessment & Plan (08/14/2019 11:08 AM CDT): Clinically resolved. D/C'd Cymbalta on her own after losing the medication. Does not want to re-start it. Assessment & Plan (02/18/2019 2:27 PM TUBE MOUNTER): Stable. Cont. Current meds. Assessment & Plan (08/13/2018 4:39 PM CDT): Clinically improved, continue Cymbalta 30 mg qd. Paroxysmal atrial fibrillation 12/21/2016 Overview (03/29/2017): Managed by cardiology Assessment & Plan (04/21/2022 1:44 PM TUBE MOUNTER): Rate-controlled, cont Plavix Assessment & Plan (03/21/2022 9:04 AM TUBE MOUNTER): S/p installation of a left atrial appendage occluder device to help with mitral regurgitation. Discharge summary reviewed. Patient will continue to f/u with cardiology. Assessment & Plan (11/11/2020 10:40 AM CDT): Rate-controlled, managed by cardiology. Cont current meds. Assessment & Plan (08/14/2019 11:06 AM CDT): Asx. Continue current therapy. Managed by cardiology. Assessment & Plan (02/18/2019 2:27 PM TUBE MOUNTER): Rate-controlled, managed by cardiology. Assessment & Plan (01/27/2017 1:29 PM TUBE MOUNTER): Regular sinus rhythm in office today with controlled rate. Continue to monitor. Continue on aspirin and metoprolol daily Assessment & Plan (12/21/2016 4:55 PM CDT): Patient had a loop recorder implanted after a syncopal event. She states shortly after recent hip surgery she received a phone call from her accounting software specialist reporting she had flipped in out of atrial fibrillation. She will continue to follow with her accounting software specialist. He started her on metoprolol. Medication list [...] Cataract Assessment & Plan (01/27/2017 1:36 PM TUBE MOUNTER): Patient is stable and healthy enough to [...] Anxiety Assessment & Plan (04/21/2022 1:45 PM TUBE MOUNTER): Clinically improved, continue current prescription medications, sertraline. Assessment & Plan (11/12/2021 9:13 PM CDT): Clinically improved, continue current prescription medications. Assessment & Plan (06/05/2021 10:21 PM CDT): Stable. Cont. Current prescription medications. Assessment & Plan (11/11/2020 10:39 AM CDT): Clinically improved, continue current meds. Assessment & Plan (03/30/2020 4:14 PM TUBE MOUNTER): Worsening. Trial of sertraline 50 mg 1 [...] it. Assessment & Plan (02/18/2019 2:27 PM TUBE MOUNTER): Clinically improved, continue current meds. Assessment & [...] follow. Assessment & Plan (03/29/2017 12:41 PM TUBE MOUNTER): Asx. Cont current mgmt. Psoriasis 04/05/2013 Overview (06/02/2016): Psoriasis Chronic pain syndrome 04/05/2013 Overview (03/29/2017): Managed by Pain Mgmt. Primary hypertension 04/05/2013 Overview (06/03/2016): Hypertension Assessment & Plan (04/21/2022 1:45 PM TUBE MOUNTER): Blood pressure at goal less than 140/90, [...] meds. Assessment & Plan (02/18/2019 2:24 PM TUBE MOUNTER): Stable. Cont. Current meds. Assessment & Plan (08/13/2018 4:35 PM CDT): Hypertension is improving with treatment. Continue current treatment regimen. Dietary sodium restriction. Regular aerobic exercise. Continue current medications. Ambulatory blood pressure monitoring. Blood pressure will be reassessed at the next regular appointment. Metoprolol xl 25 mg bid, Olmesartan 20 mg qd Followed by cardiology. Requested office notes from cardiology office. financial administrative assistant called their office during patient's ov, I did not receive them prior to patient leaving. Assessment & Plan (03/29/2017 12:40 PM TUBE MOUNTER): Hypertension is unchanged. Continue current treatment regimen. Dietary sodium restriction. Weight loss. Regular aerobic exercise. Continue current medications. Blood pressure will be reassessed at the next regular appointment. Assessment & Plan (01/27/2017 1:29 PM TUBE MOUNTER): Stable. Pt was advised of continuing heart healthy DASH diet, increase exercise as tolerated, and continuing to monitor for any lower leg edema, headaches, changes in vision, or facial flushing. Continue ASA and anti-hypertensives as prescribed. Arthritis 04/05/2013 Overview (06/03/2016): Arthritis Resolved Problems Problem Noted Date Diagnosed Date Resolved Date Facial contusion, sequela 12/14/2021 Assessment & Plan (03/28/2022 1:39 PM TUBE MOUNTER): Bruising healing. Assessment & Plan (12/14/2021 9:15 [...] 08/13/2018 Assessment & Plan (03/09/2018 2:40 PM TUBE MOUNTER): Here for follow up on bronchitis and [...] improved Assessment & Plan (02/17/2018 4:44 PM TUBE MOUNTER): Here for follow up on bronchitis and [...] 03/29/2017 Assessment & Plan (01/27/2017 1:31 PM TUBE MOUNTER): Pt was advised to continue current therapy [...] glucose Assessment & Plan (03/29/2017 12:41 PM TUBE MOUNTER): Asx. Labs ordered. Immunizations Immunization Administration Dates [...] on file Legal Sex Female 3:09 AM TUBE MOUNTER Gender Identity Not on file Sexual Orientation Straight 02/06/2020 1: 53 PM TUBE MOUNTER Occupation Industry Job Start Date Job End Date retired Not on file Not on file Not on file Last Filed Vital Signs Vital Sign Reading Time Taken Comments Blood Pressure 124/68 04/21/2022 12:35 PM TUBE MOUNTER Pulse 79 04/21/2022 12:35 PM TUBE MOUNTER Temperature 36.3 C (97.4 F) 04/21/2022 12:35 PM TUBE MOUNTER Respiratory Rate 18 04/21/2022 12:35 PM TUBE MOUNTER Oxygen Saturation 96% 04/21/2022 12:35 PM TUBE MOUNTER Inhaled Oxygen Concentration - - Weight 86.2 kg (190 lb 1.6 oz) 04/21/2022 12:35 PM TUBE MOUNTER Height 160 cm (5' 2.99 ) 04/21/2022 12:35 PM TUBE MOUNTER Body Mass Index 33.68 04/21/2022 12:35 PM TUBE MOUNTER Plan of Treatment Not on file Medical Devices Implanted Type Area Sap Enterprise Portal Consultant Device Identifier Shelf Expiration Date Model / Serial / Lot [employer] Percutaneous Transcatheter Amplatzer Amulet 22mm [id number] - [id number] Implanted:Qty: 1 on 03/09/2022 by Debi Garcia MD at [facility] [employer] 10/27/2026 [id number] / [id number] Procedures Procedure Name Priority Date/Time Associated Diagnosis Comments HEPATITIS C ANTIBODY Routine 08/13/2018 3:12 PM CDT Encounter for hepatitis C screening test for low risk patient COLONOSCOPY IMAGES 10/15/2013 from Last 3 Months or Most Recently Relevant to Health Maintenance Results * Hepatitis C antibody (08/13/2018 3:12 PM CDT) Hep C Ab Negative Negative ZANDER GOMES (DAVID) Comment:Testing performed by : [facility], [address] [place] [address], [id number] Blood specimen (specimen) 08/13/2018 3:12 PM CDT 08/14/2018 9:36 AM CDT Waleska Alvarez DO LAB MICROBIOLOGY - GENERAL ORDERABLES Final Result ZANDER GOMES (DAVID) 1 [facility] [place] [address] * COLONOSCOPY IMAGES (10/15/2013) Anatomical Region Laterality Modality Other Narrative 10/15/2013 Ordered by an unspecified provider. Historical Provider GI PROCEDURE ORDERABLES F inal Result from Last 3 Months or Most Recently Relevant to Health Maintenance Additional Health Concerns Infection Onset Date Last Indicated MDR gram neg/ESBL Comment:ESBL E.coli urine 12/21/16 12/24/2016 12/24/2016 Insurance [facility] MEDICARE T MEDICARE T MEDICARE Care Teams Gas Regulator Repairer Helper Relationship Specialty Start Date End Date Vangie Tillman, PT Physical Therapist Physical Therapy 02/16/17 Noelle Noe MD [address] [place] [address] Consulting Physician Cardiology 11/09/20 Erma Schultz DNP [address] [place] [address] Nurse Practitioner Neurology 11/10/21 Jud Carmona MA [address] [place] [address] [place] [address] ACO Care Broach Setter 03/11/22
--- OUTSIDE RECORDS SUMMARY | 2024-07-19 11:28 | XMS_ITS | Encounter Summary ---
Author Organization [facility] Address [address] [place] [address] Phone Care Team Providers Care Fisher Mussel Name Role Phone Jer Daniels MD Primary Care Provider [phone]- [phone] Encounter Details Date Type Department Care Team (Late st Contact Info) Description 09/12/2023 Patient Related Communication [address] [address] Nanette Barr, PT Social History [...] your doctor or pharmacy? Sometimes 06/27/2023 [facility] Utilities Answer Date Recorded In [...] documented as of this encounter Care Teams Fisher Mussel Relationship Specialty Start Date End Date Jer Daniels MD [address] [place] [address] PCP - General Geriatrics 05/30/22 documented as of this encounter
--- OUTSIDE RECORDS SUMMARY | 2024-07-19 11:28 | XMS_ITS | Encounter Summary ---
Author Organization [facility] Address [address] [place] [address] Phone Care Team Providers Care Banana Grader Name Role Phone Jer Daniels MD Primary Care Provider +1- [phone] Encounter Details Date Type Department Care Team (Late st Contact Info) Description 08/14/2023 Scanned Document [employer] Criminal Justice Teacher Provider, Interface Default Social History Tobacco Use [...] from your doctor or pharmacy? Sometimes 06/27/2023 [facility] Utilities Answer Date Recorded In the [...] documented as of this encounter Care Teams Banana Grader Relationship Specialty Start Date End Date Jer Daniels MD [address] [facility] [address] [place] [address] PCP - General Geriatrics 05/30/22 documented as of this encounter
--- OUTSIDE RECORDS SUMMARY | 2024-07-19 11:28 | XMS_ITS | Encounter Summary ---
Author Organization [facility] Address [address] [place] [address] Phone Care Team Providers Care Contract Designer Name Role Phone Jer Daniels MD Primary Care Provider [phone]- [phone] Encounter Details Date Type Department Care Team (Late st Contact Info) Description 10/25/2022 [facility]phone [facility] [place] [address] [facility] [address] [place], [place] [id number] Jer Daniels MD [address] [facility] [address] [place], [place] [id number] Social History Tobacco Use Types Packs/Day Years [...] Notes * Telephone Encounter - Jerilyn Patton, INFORMATION SECURITY ASSOCIATE - 10/25/2022 11:[address] Daniels is requesting that we call [facility] to clarify what medications patient [...] documented as of this encounter Care Teams Contract Designer Relationship Specialty Start Date End Date Jer Daniels MD [address] [facility] [address] [place] [address] PCP - General Geriatrics 05/30/22 documented as of this encounter
[2024-07-19 12:00] VITALS: BP 128/74; PULSE 80; RESP 16; TEMP 36.6; O2SAT 97
--- NOTE | 2024-07-19 12:11 | PC.NURSE ---
Patient escorted and transferred to a wheelchair. Assisted living derrick worker well service escorted patient and family to facility vehicle for transportation by to facility.
== END 2024-07-19 12:13 | disposition home or self-care (01) ==
PROVIDERS: Emergency Provider Emergency Medicine
DX: S02.2XXA Fracture of nasal bones, initial encounter for closed fracture (principal); W05.0XXA Fall from non-moving wheelchair, initial encounter; E78.5 Hyperlipidemia, unspecified; G20.C Parkinsonism, unspecified; I10 Essential (primary) hypertension; I48.0 Paroxysmal atrial fibrillation; F02.83 Dementia in other diseases classified elsewhere, unspecified severity, with mood disturbance
CPT/HCPCS: 70450; 70486; 73030; 99284

== ENCOUNTER 2024-09-05 17:29 | Emergency (ER) | payer MEDICARE, SELFPAY ==
--- NOTE | ~2024-09-05 | CT_ITS ---
CT brain wo con Ordering provider: Alvina Delgado History: 79 years Female with . injury . Comparison: July 19, 2024 Technique: CT of the head without contrast. Radiation reduction technique utilized. The dose-length p roduct was 681 mGy-cm. FINDINGS: BRAIN PARENCHYMA AND CSF SPACES: Mild leukoaraiosis and diffuse cortical atrophy. Mild atheromatous d isease. 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 No midline sh ift, mass effect or hemorrhage. The brain parenchyma and CSF spaces are otherwise normal. VISUALIZED PARANASAL SINUSES: Left dyspnea sphenoid sinus disease. Right ethmoid sinus disease. Right nasal septal deviation. MASTOIDS: Normal. BONES: Normal. SOFT TISSUES: Visualized nasopharynx is normal. Frontal scalp hematoma. Superficial soft tissues are normal. IMPRESSION: No acute intracranial findings. Reviewed, dictated and finalized at location A.
--- NOTE | ~2024-09-05 | CT_ITS ---
CT facial & cervical spine wo Ordering provider: Alvina Delgado History: . fall, injury . Comparison: None. Technique: Thin slice axial CT of the facial bones was performed without contrast. Coronal and sagit juan a reformatted images were also obtained. . Automated exposure control and iterative reconstruction technique were employed. The dose-length product was 246.89 mGy-cm. FINDINGS: PARANASAL SINUSES: Left sphenoid and right ethmoid sinus disease. Left nasal septal deviation. BONES: fracture of the right and left nasal bones is noted. ORBITS AND SUPERFICIAL SOFT TISSUES: The optic globes and orbits are normal. Scalp hematoma seen in t he frontal area. Otherwise, The superficial soft tissues are normal. VISUALIZED MASTOIDS: Well aerated. LIMITED VISUALIZED BRAIN PARENCHYMA: Normal. IMPRESSION: Fracture both nasal bones with displacement. CT facial & cervical spine wo Ordering provider: Alvina Delgado History: . fall, injury . Comparison: None. Technique: CT of the cervical spine was performed without contrast. Sagittal and coronal reformatted images were also obtained and reviewed. Automated exposure control and iterative reconstruction riley hnique were employed. The dose-length product was 246.89 mGy-cm. FINDINGS: VERTEBRAE: No subluxation or acute fracture. The occipital condyles are intact. Degenerative changes of the spine. DISC SPACES: Narrowing of the disc C5-C6 and C6-C7. Multilevel facet joint disease. Multilevel uncove rtebral joint osteoarthritic changes. Multilevel intervertebral foraminal narrowing. PARASPINOUS SOFT TISSUES: Normal. IMPRESSION: No acute osseous abnormality cervical spine. Multilevel degenerative disc disease. Reviewed, dictated and finalized at location A. IMPRESSION: Fracture both nasal bones with displacement. CT facial & cervical spine wo Ordering provider: Alvina Delgado History: . fall, injury . Comparison: None. Technique: CT of the cervical spine was performed without contrast. Sagittal a nd coronal reformatted images were also obtained and reviewed. Automated expos ure control and iterative reconstruction technique were employed. The dose-zarina th product was 246.89 mGy-cm. FINDINGS: VERTEBRAE: No subluxation or acute fracture. The occipital condyles are intact. Degenerative changes of the spine. DISC SPACES: Narrowing of the disc C5-C6 and C6-C7. Multilevel facet joint dise ase. Multilevel uncovertebral joint osteoarthritic changes. Multilevel interver tebral foraminal narrowing. PARASPINOUS SOFT TISSUES: Normal.
[2024-09-05 17:30] VITALS: BP 164/73; PULSE 64; RESP 16; TEMP 36.6; O2SAT 100
--- OUTSIDE RECORDS SUMMARY | 2024-09-05 17:32 | XMS_ITS | Encounter Summary ---
Author Organization [facility] Address [address] [place] [address] Phone Care Team Providers Care Director Of Special Events Name Role Phone Jer Daniels MD Primary Care Provider +1- [phone] Encounter Details Date Type Department Care Team (Late Contact Info) Description [facility] [address] [place] [address] Ronny Travis, PT [place] Social History Tobacco Use Types Packs/Day Years [...] Care Team (Late st Contact Info) Description 09/13/2024 1:30 PM CDT Office Visit [facility] - [place] [address] [place] [address] Norma Hein APRN, FOREST FIRE SPECIALIST SUPERVISOR [address] [place] [address] documented as of this encounter Visit Diagnoses Not on filedocumented in this encounter Care Teams Director Of Special Events Relationship Specialty Start Date End Date Jer Daniels MD PCP - General Family Medicine 08/04/22 documented as of this encounter
--- OUTSIDE RECORDS SUMMARY | 2024-09-05 17:32 | XMS_ITS | Encounter Summary ---
Author Organization [facility] Address [address] [place] [address] Phone Care Team Providers Care Curator Medical Museum Name Role Phone Jer Daniels MD Primary Care Provider +1- [phone] Encounter Details Date Type Department Care Team (Late st Contact Info) Description 10/06/2022 Telephone [facility] [address] [place] [address] Diana Piedra PTA [place] Social History Tobacco Use Types Packs/Day Years [...] 10/06/2022 1:36 PM CDT Created in error L ERECTING PUSHER documented in this encounter Plan of Treatment Upcoming Encounters Date Type Department Care Team (Late st Contact Info) Description 09/13/2024 1:30 PM CDT Office Visit [facility] - [place] [address] [place] [address] Norma Hein, BUSPERSON, CARTOGRAPHY TECHNICIAN [address] [place] [address] documented as of this encounter Visit Diagnoses Not on filedocumented in this encounter Care Teams Curator Medical Museum Relationship Specialty Start Date End Date Jer Daniels MD PCP - General Family Medicine 08/04/22 documented as of this encounter
--- OUTSIDE RECORDS SUMMARY | 2024-09-05 17:32 | XMS_ITS | Clinical Summary ---
Author Organization [facility] Address [address] [place] [address] Phone Care Team Providers Care Sheet Ironworker Name Role Phone Jer Daniels MD Primary Care Provider +1- [phone] Allergies Active Allergy Reactions Criticality Noted Date [...] as needed for Anxiety or Itching. # [id number] Active Cholecalciferol (Vitamin D3) 2000 UNIT Capsule [...] Encounters Date Type Department Care Team Description 09/05[facility]20[facility] [place] [address] [place] [address] Norma Hein, FOUNDATION ENGINEER, PSYCH SPECIALIST 09/05/2024 [facility] [place] [address] [place] [address] Norma Hein, FOUNDATION ENGINEER, PSYCH SPECIALIST 07/15/2024 [facility] [address] [place] [address] Provider, None New Patient from Last 3 Months Immunizations Immunization Administration Dates Next Due Covid-19, Mrna, Lnp-s, Pf, Pranav-sucrose, 30 Mcg/0.3 Ml (Pfizer) 12/21/2023,12/20/2022 Influenza Vaccine,unspecifie d Formulation 01/10/2019,01/27/2018 Influenza, High-dose, Quadrivalent 12/20/2022,,11/09/2020 Influenza, Seasonal, Injecta ble, Undefined 02/21/2014,12/07/2012,12/22/2011 Influenza, high-dose, trivalent, PF 12/29,11/04/2016,12/24/2014,10/28,11/27/2012 Pneumococcal Vaccine - 13 Valent 07/28/2014 Pneumococcal Vaccine Adult - 23 Valent 7 Pneumococcal conjugate PCV20 , polysaccharide [id number] conjugate, adjuvant, PF 12/21/2023 RSV, Recombinant, Protein Cordova bunit Rsvpref, Adjuvant Recon (Arexvy) 12/21/2023 Zoster Vaccine, live 02/27/2015,02/21/2014 Family History Medical History Relation Name Comments [...] Comments Blood Pressure 129/71 01/05/2023 12:10 AM FISH AND GAME CLUB MANAGER Pulse 62 01/05/2023 12:10 AM FISH AND GAME CLUB MANAGER Temperature 36.7 C (98 F) 01/04/2023 5:08 PM FISH AND GAME CLUB MANAGER Respiratory Rate 16 01/05/2023 12:10 AM FISH AND GAME CLUB MANAGER Oxygen Saturation 98% 01/05/2023 12:10 AM FISH AND GAME CLUB MANAGER Inhaled Oxygen Concentration - - Weight 56.7 kg (125 lb) 01/04/2023 5:08 PM FISH AND GAME CLUB MANAGER Height 160 cm (5' 3) 01/04/2023 5:08 PM FISH AND GAME CLUB MANAGER Body Mass Index 22.14 01/04/2023 5:08 PM FISH AND GAME CLUB MANAGER Plan of Treatment Upcoming Encounters Date Type Department Care Team (Late st Contact Info) Description 09/13/2024 1:30 PM CDT [facility] [address] [place] [address] Norma Hein, FOUNDATION ENGINEER, PSYCH SPECIALIST [address] [place] [address] Health Maintenance Due Date Last Done Comments DEXA Bone Density 1945 Hepatitis C Virus (HCV) Screening 1945 TdaP Immunization 1945 Zoster Immunization (2 of 3) 04/24/2015 02/27/2015, 02/21/2014 SARS-COV-2 Immunization ( season) 2024 12/21/2023, 12/20/2022, 02/03/2021, Additional history exists Influenza Immunization (#1) 10/28/202411/28, 11/10/2021, 11/09/2020, Additional history exists Pneumococcal Immunization [...] this topic Medical Devices Implanted Type Area Associate Professor Of Communication Device Identifier Shelf Expiration Date Model / Serial / Lot Reveal Linq Implanted:Qty: 1 on 08/02/2016 by Ramo Noe MD at [facility] N/A: Chest Wall [employer] 06/10/2017 [id number] / [id number] / NA Insurance MEDICARE C AETNA Advance [...] measures to stabilize the patient. Care Teams Sheet Ironworker Relationship Specialty Start Date End Date Jer Daniels MD PCP - General Family Medicine 08/04/22
--- OUTSIDE RECORDS SUMMARY | 2024-09-05 17:32 | XMS_ITS | Encounter Summary ---
Author Organization [facility] Address [address] [place] [address] Care Team Providers Care Managed Care Director Name Role Phone Daisy Desai MD Primary Care Provider +1- [phone] Daisy Desai MD Primary Care Provider +1- [phone] Daisy Desai MD Primary Care Provider +1- [phone] Vangie Tillman PT Unavailable Unavailable Donna Ramirez Unavailable Unavailable Waleska Alvarez DO Primary Care Provider +1- [phone] Daisy Desai MD Primary Care Provider +1- [phone] Waleska Alvarez DO Primary Care Provider +1- [phone] Maury Mckenna MD Unavailable [phone] Noelle Noe MD Unavailable Lindsay Parada MA Unavailable [phone] Erma Schultz DNP Unavailable [phone] Jud Carmona MA Unavailable [phone] Encounter Details Date Type Department Care Team (Late st Contact Info) Description 03/06/2016 Orders Only [facility] Provider, MD Luly [address] [place] [address] Social History Tobacco Use Types Packs/Day Years Used Date Smoking Tobacco: Never Alcohol Use Standard Drinks/Week Comments Yes 0 (1 standard drink = 0.6 oz pur e alcohol) Comments Unknown Sex and Gender Information Value Date Recorded Sex Assigned at Not on file Legal Sex Female 3:09 AM MANUFACTURING COORDINATOR Gender Identity Not on file Sexual Orientation Straight 02/06/2020 1: 53 PM MANUFACTURING COORDINATOR documented as of this encounter Plan of [...] documented as of this encounter Care Teams Managed Care Director Relationship Specialty Start Date End Date Daisy Desai MD PCP - General 05/27/16 03/28/17 Daisy Desai MD PCP - General 04/21/16 05/26/16 Daisy Desai MD PCP - General 05/22/13 04/20/16 Waleska Alvarez DO PCP - General Family Medicine 03/29/17 04/30/17 Daisy Desai MD PCP - General 05/01/17 05/04/17 Antonio Waleska DO Michel PCP - General Family Medicine 05/05/17 12/06/23 Vangie Tillman, BRISA Physical Therapist Physical Therapy 02/16/17 Donna Ramirez Physical Therapist Physical Therapy 03/23/17 11/09/21 Maury Mckenna MD Surgeon Orthopedic Surgery 04/04/19 11/09/21 Noelle Noe MD [address] [place] [address] Consulting Physician Cardiology 11/09/20 Lindsay Parada MA [address] [place] [address] [address] [place] [address] ACO Care Residential Real Estate Appraiser 08/05/21 08/10/21 Erma Schultz DNP [address] [place] [address] [address] [place] [address] Nurse Practitioner Neurology 11/10/21 Jud Carmona MA [address] [place] [address] [address] [place] [address] ACO Care Residential Real Estate Appraiser 03/11/22 documented as of this encounter
--- OUTSIDE RECORDS SUMMARY | 2024-09-05 17:32 | XMS_ITS | Encounter Summary ---
Author Organization [facility] Address [address] [place] [address] Phone Care Team Providers Care Recreation Technician Name Role Phone Jer Daniels MD Primary Care Provider [phone]- [phone] Encounter Details Date Type Department Care Team (Late st Contact Info) Description 08/29/2023 Patient Related Communication [address] [address] Nanette Barr, PT Social History [...] doctor or pharmacy? Sometimes 06/27/2023 [facility] Utilities Answer Date Recorded In [...] place to sleep or slept in a long term (including now)? No 04/11/2023 Housing Stability Vital [...] documented as of this encounter Care Teams Recreation Technician Relationship Specialty Start Date End Date Jer Daniels MD [address] [place] [address] PCP - General Geriatrics 05/30/22 documented as of this encounter
--- OUTSIDE RECORDS SUMMARY | 2024-09-05 17:32 | XMS_ITS | Encounter Summary ---
Author Organization [facility] Address [address] [place] [address] Phone Care Team Providers Care Marketing Finance Manager Name Role Phone Jer Daniels MD Primary Care Provider [phone]- [phone] Encounter Details Date Type Department Care Team (Late Contact Info) Description [facility]/07[facility] [address] [place] [address] Ronny Travis, PT [place] Social History Tobacco Use Types Packs/Day Years [...] Department Care Team (Late Contact Info) Description 09/13/2024 1:30 PM CDT [facility] [address] [place] [address] Norma Hein, AIR BOX TESTER, HEALTH INFORMATION CODER [address] [place] [address] documented as of this encounter Visit Diagnoses Not on filedocumented in this encounter Care Teams Marketing Finance Manager Relationship Specialty Start Date End Date Jer Daniels MD PCP - General Family Medicine 08/04/22 documented as of this encounter
--- OUTSIDE RECORDS SUMMARY | 2024-09-05 17:32 | XMS_ITS | Encounter Summary ---
Author Organization [facility] Address [address] [place] [address] Phone Care Team Providers Care Director Of Distance Learning Name Role Phone Vangie Tillman PT Unavailable Unavailable Donna Ramirez Unavailable Unavailable Daisy Desai MD Primary Care Provider [phone]- [phone] Waleska Alvarez DO Primary Care Provider [phone]- [phone] Maury Mckenna MD Unavailable [phone] Noelle Noe MD Unavailable Lindsay Parada MA Unavailable Erma Schultz DNP Unavailable [phone] Jud Carmona MA Unavailable [phone] Encounter Details Date Type Department Care Team (Late st Contact Info) Description 05/01/2017 Orders Only [facility] ProviderLuly MD [address] [place] [address] Social History Tobacco Use Types Packs/Day Years Used Date Smoking Tobacco: Never Smokeless Tobacco: Never Alcohol Use Standard Drinks/Week Comments Yes 0 (1 standard drink = 0.6 oz pur e alcohol) Comments Unknown Sex and Gender Information Value Date Recorded Sex Assigned at Not on file Legal Sex Female 3:09 AM ENVIRONMENTAL PROJECTS ADVISOR Gender Identity Not on file Sexual Orientation Straight 02/06/2020 1: 53 PM ENVIRONMENTAL PROJECTS ADVISOR documented as of this encounter Plan of Treatment Not on file documented as of this encounter Procedures Procedure Name Priority Date/Time Associated Diagnosis Comments DISCHARGE LABORATORY CUMULATIVE REPORT 05/01/2017 12:00 AM ENVIRONMENTAL PROJECTS ADVISOR documented in this encounter Results * DISCHARGE LABORATORY CUMULATIVE REPORT (05/01/2017 12:00 AM ENVIRONMENTAL PROJECTS ADVISOR) Narrative 05/01/2017 12:00 AM ENVIRONMENTAL PROJECTS ADVISOR Ordered by an unspecified provider. us Historical Provider LAB BLOOD ORDERABLES Alize l Result documented in this encounter Visit Diagnoses Not on filedocumented in this encounter Additional Health Concerns Infection Onset Date Last Indicated Resolved Time MDR gram neg/ESBL Comment:ESBL E.coli urine 12/21/16 12/24/2016 12/24/2016 documented as of this encounter Care Teams Director Of Distance Learning Relationship Specialty Start Date End Date Daisy Desai MD PCP - General 05/01/17 05/04/17 Waleska Alvarez DO PCP - General Family Medicine 05/05/17 12/06/23 Vangie Tillman, BRISA Physical Therapist Physical Therapy 02/16/17 Donna Ramirez Physical Therapist Physical Therapy 03/23/17 11/09/21 Maury Mckenna MD Surgeon Orthopedic Surgery 04/04/19 11/09/21 Noelle Noe MD [address] [place] [address] Consulting Physician Cardiology 11/09/20 Lindsay Parada MA [address] [place] [address] [address] [place] [address] ACO Care Paper Bundler 08/05/21 08/10/21 Erma Schultz DNP [address] [facility] [address] [place] [address] Nurse Practitioner Neurology 11/10/21 Jud Carmona MA [address] [facility] [address] [place] [address] ACO Care Paper Bundler 03/11/22 documented as of this encounter
--- OUTSIDE RECORDS SUMMARY | 2024-09-05 17:33 | XMS_ITS | Encounter Summary ---
Author Organization [facility] Address [address] [place] [address] Phone Care Team Providers Care Director Of Early Childhood Name Role Phone Jer Daniels MD Primary Care Provider [phone]- [phone] Encounter Details Date Type Department Care Team (Late st Contact Info) Description 08/14/2023 Scanned Document Epicenter Glass Loading Equipment Tender Provider, Interface Default Social History Tobacco Use [...] from your doctor or pharmacy? Sometimes 06/27/2023 [facility] Utilities Answer Date Recorded In [...] of this encounter Care Teams Director Of Early Childhood Relationship Specialty Start Date End Date Jer Daniels MD [address] [facility] [address] [place] [address] PCP - General Geriatrics 05/30/22 documented as of this encounter
--- OUTSIDE RECORDS SUMMARY | 2024-09-05 17:33 | XMS_ITS | Encounter Summary ---
Author Organization [facility] Address [address] [place] [address] Phone Care Team Providers Care Lead Mechanic Name Role Phone Jer Daniels MD Primary Care Provider [phone]- [phone] Reason for Visit * Reason Onset Date Comments Home Health Communication 09/04/2023 Encounter Details Date Type Department Care Team (Latest Contact Info) Description 09/04/2023 Patient Related Communication [facility] [place] [address] [place] [address] Jer Daniels MD [address] [place] [address] Home Health Communication Social History Tobacco Use [...] documented as of this encounter Care Teams Lead Mechanic Relationship Specialty Start Date End Date Jer Daniels MD [address] [facility] [address] [place] [address] PCP - General Geriatrics 05/30/22 documented as of this encounter
--- OUTSIDE RECORDS SUMMARY | 2024-09-05 17:33 | XMS_ITS | Encounter Summary ---
Author Organization [facility] Address [address] [place] [address] Phone Care Team Providers Care Balance Bridge Inspector Name Role Phone Jer Daniels MD Primary Care Provider +1- [phone] Encounter Details Date Type Department Care Team (Late st Contact Info) Description 09/05/2024 Telephone [facility] [address] [place] [address] Norma Hein, LAWN MOWER SHARPENER, ASBESTOS COVERER [address] [place] [address] Social History Tobacco Use Types Packs/Day Years [...] encounter Miscellaneous Notes * Telephone Encounter - Martin López - 09/05/2024 4:51 PM CDT Transfer of care documented in this encounter Plan of Treatment Upcoming Encounters Date Type Department Care Team (Late st Contact Info) Description 09/13/2024 1:30 PM CDT Office Visit [facility] [address] [place] [address] Norma Hein, LAWN MOWER SHARPENER, ASBESTOS COVERER [address] [place] [address] documented as of this encounter Visit Diagnoses Not on filedocumented in this encounter Care Teams Balance Bridge Inspector Relationship Specialty Start Date End Date Jer Daniels MD PCP - General Family Medicine 08/04/22 documented as of this encounter
--- OUTSIDE RECORDS SUMMARY | 2024-09-05 17:33 | XMS_ITS | Encounter Summary ---
Author Organization [facility] Address [address] [place] [address] Phone Care Team Providers Care Plumbing Technician Name Role Phone Jer Daniels MD Primary Care Provider [phone]- [phone] Reason for Visit * Reason Onset Date Comments Kayleenarle 2023 Encounter Details Date Type Department Care Team (Late st Contact Info) Description 2023 Telephone [facility] Appointment Request [address] [place] [address] Identified, No Provider My[employer] Social History Tobacco Use Types Packs/Day Years Used Date Smoking Tobacco: Never Smokeless Tobacco: Never Alcohol Use Standard Drinks/Week Comments Yes 0 (1 standard drink = 0.6 oz pur e alcohol) 1 drink weekly [facility] Utilities Answer Date Recorded [...] in a jail (including now)? No 04/11/2023 Comments No Sex [...] SUE MAYBERRY , not found in the EarlyTracks system. Need to confim proxy is not a [facility] patient. If not they will needto be set up as a non-patient proxy. (Go to proxies and choose to give someone proxy access to patient, click Search patient Portal Accounts and choose create non-patient account and enter proxy's info.) Message Request submitted on 2023 at 8:31:38 AM Form Title: Candi Proxy Form Submitted Data Enter patient's legal name: MAGDALENA MAYBERRY Patient Last 4 digits of patient's SS#: [id number] Patient's Date of : Mon1945 Patient's Home Address: [address] [facility] [address] City: [facility] [facility] & ZIP: [place] [address] Telephone (Include Area Code) : [phone] Action? : Authorized Access Which age group are you requesting a proxy change for? Adult (18 and older) Proxy Name: SUE MAYBERRY Proxy Date of : Mon10/26/1976 Last 4 digits of Proxy SS#: [id number] Proxy Address: [address] [facility] City of Proxy: [facility] & ZIP of Proxy: [place] [address] Proxy Telephone (Include Area Code): [phone] Authorization: I have read and understand the above information and hereby request removal or authorization to the above-named patient's [employer] online account. Printed Name of Patient or Parent/Legal Guardian: MAGDALENA MAYBERRY Date of Authorization: Tu04/25/2023 CENTER ADMINISTRATOR CENTER ADMINISTRATOR documented in this encounter Plan of Treatment [...] documented as of this encounter Care Teams Plumbing Technician Relationship Specialty Start Date End Date Jer Daniels MD [address] [place] [address] PCP - General Geriatrics 05/30/22 documented as of this encounter
--- OUTSIDE RECORDS SUMMARY | 2024-09-05 17:33 | XMS_ITS | Referral Summary ---
Author Organization [facility] al Address [address] [place] [address] Care Team Providers Care Cigarette Inspector Name Role Phone Vangie Tillman PT Unavailable Unavailable Noelle Noe MD Unavailable [phone] Erma Schultz DNP Unavailable [phone] Jud Carmona MA Unavailable [phone] Allergies Active Allergy Reactions Criticality Noted [...] 03/28/2022 Assessment & Plan (03/28/2022 1:39 PM GAS TENDER): Referred to ENT for f/u. Presence [...] 11/11/2020 Assessment & Plan (03/28/2022 1:40 PM GAS TENDER): Ambulates with a standard walker, encouraged [...] 03/30/2020 Assessment & Plan (04/21/2022 1:45 PM GAS TENDER): Clinically improved, continue current prescription medications, sertraline. Assessment & Plan (11/12/2021 9:16 PM CDT): Stable. Cont. Current prescription medications. Assessment & Plan (06/05/2021 10:24 PM CDT): Stable. Cont. Current prescription medications. Assessment & Plan (11/11/2020 10:39 AM CDT): Stable. Cont. Current meds. Assessment & Plan (03/30/2020 4:14 PM GAS TENDER): New diagnosis. Trial of sertraline 50 mg 1 p.o. q.d. patient instructed to call 911 or go to nearest emergency room if she feels she is going to be a harm to herself or to others. Mild intermittent asthma without complication Assessment & Plan (04/21/2022 1:45 PM GAS TENDER): Asx. At baseline, cont current Rx meds, Albuterol. Assessment & Plan (11/12/2021 9:13 PM CDT): Asx. At baseline, continue current Rx meds. Assessment & Plan (06/05/2021 10:23 PM CDT): At baseline, cont current Rx meds. Assessment & Plan (11/11/2020 10:39 AM CDT): At baseline, cont current mgmt. Assessment & Plan (03/30/2020 4:15 PM GAS TENDER): Stable. Cont. Current meds. Class 1 [...] recommended. Assessment & Plan (02/18/2019 2:28 PM GAS TENDER): Improving. Encouraged patient to decrease weight, increase daily exercise, and modify diet. Assessment & Plan (08/13/2018 4:38 PM CDT): Obesity is unchanged. Discussed the patient's BMI. The BMI is above average; BMI management plan is completed. General weight loss/lifestyle modification strategies discussed (elicit support from others; identify saboteurs; non-food rewards, etc). Assessment & Plan (03/09/2018 2:41 PM GAS TENDER): Obesity is unchanged. Discussed the patient's BMI. The BMI is above average; BMI management plan is completed. General weight loss/lifestyle modification strategies discussed (elicit support from others; identify saboteurs; non-food rewards, etc). Assessment & Plan (02/17/2018 4:35 PM GAS TENDER): Obesity is unchanged. Discussed the patient's BMI. The BMI is above average; BMI management plan is completed. General weight loss/lifestyle modification strategies discussed (elicit support from others; identify saboteurs; non-food rewards, etc). Assessment & Plan (02/13/2018 2:38 PM GAS TENDER): Obesity is unchanged. Discussed the patient's [...] greens, fat-free milk, cottage cheese, nuts like [id number], protein bars with 10-15 g of protein [...] Patient is currently stable, recommended f/u with liberal arts dean. Referral given. Vitamin D deficiency 03/29/2017 Assessment & Plan (08/13/2018 4:38 PM CDT): Labs ordered, will follow. Assessment & Plan (03/29/2017 12:41 PM GAS TENDER): Labs ordered, will follow. 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 Assessment & Plan (02/18/2019 2:26 PM GAS TENDER): Worsening, low cholesterol diet recommended. Assessment & Plan (08/13/2018 4:37 PM CDT): Lipid abnormalities are improving with treatment. Nutritional counseling was provided. and Pharmacotherapy as ordered. Lipids will be reassessed in 6 months. Pravastatin 40 mg qd Assessment & Plan (03/29/2017 12:40 PM GAS TENDER): Encouraged a low chol. Diet. Will follow. Fibromyalgia 03/29/2017 Overview (03/29/2017): Managed by Pain Mgmt. Assessment & Plan (08/14/2019 11:08 AM CDT): Clinically resolved. D/C'd Cymbalta on her own after losing the medication. Does not want to re-start it. Assessment & Plan (02/18/2019 2:27 PM GAS TENDER): Stable. Cont. Current meds. Assessment & Plan (08/13/2018 4:39 PM CDT): Clinically improved, continue Cymbalta 30 mg qd. Paroxysmal atrial fibrillation 12/21/2016 Overview (03/29/2017): Managed by cardiology Assessment & Plan (04/21/2022 1:44 PM GAS TENDER): Rate-controlled, cont Plavix Assessment & Plan (03/21/2022 9:04 AM GAS TENDER): S/p installation of a left atrial appendage occluder device to help with mitral regurgitation. Discharge summary reviewed. Patient will continue to f/u with cardiology. Assessment & Plan (11/11/2020 10:40 AM CDT): Rate-controlled, managed by cardiology. Cont current meds. Assessment & Plan (08/14/2019 11:06 AM CDT): Asx. Continue current therapy. Managed by cardiology. Assessment & Plan (02/18/2019 2:27 PM GAS TENDER): Rate-controlled, managed by cardiology. Assessment & Plan (01/27/2017 1:29 PM GAS TENDER): Regular sinus rhythm in office today with controlled rate. Continue to monitor. Continue on aspirin and metoprolol daily Assessment & Plan (12/21/2016 4:55 PM CDT): Patient had a loop recorder implanted after a syncopal event. She states shortly after recent hip surgery she received a phone call from her liberal arts dean reporting she had flipped in out of atrial fibrillation. She will continue to follow with her liberal arts dean. He started her on metoprolol. Medication list [...] Cataract Assessment & Plan (01/27/2017 1:36 PM GAS TENDER): Patient is stable and healthy enough [...] Anxiety Assessment & Plan (04/21/2022 1:45 PM GAS TENDER): Clinically improved, continue current prescription medications, sertraline. Assessment & Plan (11/12/2021 9:13 PM CDT): Clinically improved, continue current prescription medications. Assessment & Plan (06/05/2021 10:21 PM CDT): Stable. Cont. Current prescription medications. Assessment & Plan (11/11/2020 10:39 AM CDT): Clinically improved, continue current meds. Assessment & Plan (03/30/2020 4:14 PM GAS TENDER): Worsening. Trial of sertraline 50 mg [...] it. Assessment & Plan (02/18/2019 2:27 PM GAS TENDER): Clinically improved, continue current meds. Assessment [...] follow. Assessment & Plan (03/29/2017 12:41 PM GAS TENDER): Asx. Cont current mgmt. Psoriasis 04/05/2013 Overview (06/02/2016): Psoriasis Chronic pain syndrome 04/05/2013 Overview (03/29/2017): Managed by Pain Mgmt. Primary hypertension 04/05/2013 Overview (06/03/2016): Hypertension Assessment & Plan (04/21/2022 1:45 PM GAS TENDER): Blood pressure at goal less than [...] meds. Assessment & Plan (02/18/2019 2:24 PM GAS TENDER): Stable. Cont. Current meds. Assessment & Plan (08/13/2018 4:35 PM CDT): Hypertension is improving with treatment. Continue current treatment regimen. Dietary sodium restriction. Regular aerobic exercise. Continue current medications. Ambulatory blood pressure monitoring. Blood pressure will be reassessed at the next regular appointment. Metoprolol xl 25 mg bid, Olmesartan 20 mg qd Followed by cardiology. Requested office notes from cardiology office. information services assistant called their office during patient's ov, I did not receive them prior to patient leaving. Assessment & Plan (03/29/2017 12:40 PM GAS TENDER): Hypertension is unchanged. Continue current treatment regimen. Dietary sodium restriction. Weight loss. Regular aerobic exercise. Continue current medications. Blood pressure will be reassessed at the next regular appointment. Assessment & Plan (01/27/2017 1:29 PM GAS TENDER): Stable. Pt was advised of continuing heart healthy DASH diet, increase exercise as tolerated, and continuing to monitor for any lower leg edema, headaches, changes in vision, or facial flushing. Continue ASA and anti-hypertensives as prescribed. Arthritis 04/05/2013 Overview (06/03/2016): Arthritis Resolved Problems Problem Noted Date Diagnosed Date Resolved Date Facial contusion, sequela 12/14/2021 Assessment & Plan (03/28/2022 1:39 PM GAS TENDER): Bruising healing. Assessment & Plan (12/14/2021 [...] 08/13/2018 Assessment & Plan (03/09/2018 2:40 PM GAS TENDER): Here for follow up on bronchitis [...] improved Assessment & Plan (02/17/2018 4:44 PM GAS TENDER): Here for follow up on bronchitis [...] 03/29/2017 Assessment & Plan (01/27/2017 1:31 PM GAS TENDER): Pt was advised to continue current [...] glucose Assessment & Plan (03/29/2017 12:41 PM GAS TENDER): Asx. Labs ordered. Immunizations Immunization Administration [...] on file Legal Sex Female 3:09 AM GAS TENDER Gender Identity Not on file Sexual Orientation Straight 02/06/2020 1: 53 PM GAS TENDER Occupation Industry Job Start Date Job End Date retired Not on file Not on file Not on file Last Filed Vital Signs Vital Sign Reading Time Taken Comments Blood Pressure 124/68 04/21/2022 12:35 PM GAS TENDER Pulse 79 04/21/2022 12:35 PM GAS TENDER Temperature 36.3 C (97.4 F) 04/21/2022 12:35 PM GAS TENDER Respiratory Rate 18 04/21/2022 12:35 PM GAS TENDER Oxygen Saturation 96% 04/21/2022 12:35 PM GAS TENDER Inhaled Oxygen Concentration - - Weight 86.2 kg (190 lb 1.6 oz) 04/21/2022 12:35 PM GAS TENDER Height 160 cm (5' 2.99) 04/21/2022 12:35 PM GAS TENDER Body Mass Index 33.68 04/21/2022 12:35 PM GAS TENDER Plan of Treatment Not on file Medical Devices Implanted Type Area Bulk Receiver Device Identifier Shelf Expiration Date Model / Serial / Lot [employer] Percutaneous Transcatheter Amplatzer Amulet 22mm [id number] - [id number] Implanted:Qty: 1 on 03/09/2022 by Debi Garcia MD at [facility] [employer] 10/27/2026 [id number] / [id number] Procedures Procedure Name Priority Date/Time Associated Diagnosis Comments HEPATITIS C ANTIBODY Routine 08/13/2018 3:12 PM CDT Encounter for hepatitis C screening test for low risk patient COLONOSCOPY IMAGES 10/15/2013 from Last 3 Months or Most Recently Relevant to Health Maintenance Results * Hepatitis C antibody (08/13/2018 3:12 PM CDT) Hep C Ab Negative Negative ZANDER GOMES (DAVID) Comment:Testing performed by : [facility], [address] [place] [address], [id number] Blood specimen (specimen) 08/13/2018 3:12 PM CDT 08/14/2018 9:36 AM CDT Waleska Alvarez DO LAB MICROBIOLOGY - GENERAL ORDERABLES Final Result ZANDER GOMES (DAVID) 1 [facility] Department [place] [address] * COLONOSCOPY IMAGES (10/15/2013) Anatomical Region Laterality Modality Other Narrative 10/15/2013 Ordered by an unspecified provider. Historical Provider GI PROCEDURE ORDERABLES F inal Result from Last 3 Months or Most Recently Relevant to Health Maintenance Additional Health Concerns Infection Onset Date Last Indicated MDR gram neg/ESBL Comment:ESBL E.coli urine 12/21/16 12/24/2016 12/24/2016 Insurance [facility] MEDICARE T MEDICARE T MEDICARE Care Teams Cigarette Inspector Relationship Specialty Start Date End Date Vangie Tillman, PT Physical Therapist Physical Therapy 02/16/17 Noelle Noe MD [address] [place] [address] Consulting Physician Cardiology 11/09/20 Erma Schultz DNP [address] [place] [address] Nurse Practitioner Neurology 11/10/21 Jud Caromna MA [address] [place] [address] [place] [address] [employer] Care Racetrack Steward 03/11/22
--- OUTSIDE RECORDS SUMMARY | 2024-09-05 17:33 | XMS_ITS | Encounter Summary ---
Author Organization [facility] Address [address] [place] [address] Phone Care Team Providers Care Silver Brazer Name Role Phone Jer Daniels MD Primary Care Provider [phone]- [phone] Encounter Details Date Type Department Care Team (Late st Contact Info) Description 09/12/2023 Patient Related Communication [address] [address] Nanette Barr, PT Social History [...] from your doctor or pharmacy? Sometimes 06/27/2023 [facility] Utilities Answer Date Recorded [...] documented as of this encounter Care Teams Silver Brazer Relationship Specialty Start Date End Date Jer Daniels MD [address] [place] [address] PCP - General Geriatrics 05/30/22 documented as of this encounter
--- OUTSIDE RECORDS SUMMARY | 2024-09-05 17:33 | XMS_ITS | Encounter Summary ---
Author Organization [facility] Address [address] [place] [address] Phone Care Team Providers Care Dining Room Cashier Name Role Phone Jer Daniels MD Primary Care Provider [phone]- [phone] Reason for Visit * Reason Onset Date Comments Home Care Orders 08/23/2023 Encounter Details Date Type Department Care Team (Latest Contact Info) Description 08/23/2023 Patient Related Communication [facility] [place] [address] [facility] [address] [place] [address] Lizbeth Pastor APRN Home Care Orders Social [...] from your doctor or pharmacy? Sometimes 06/27/2023 [facility] Utilities Answer Date Recorded In [...] documented as of this encounter Care Teams Dining Room Cashier Relationship Specialty Start Date End Date Jer Daniels MD [address] [facility] [place] [address] PCP - General Geriatrics 05/30/22 documented as of this encounter
--- OUTSIDE RECORDS SUMMARY | 2024-09-05 17:33 | XMS_ITS ---
Author Organization [facility] Care Team Providers Care Kiln Remover Name Role Phone Jer Daniels Unavailable Unavailable Claudia Fowler Unavailable Unavailable Malik Talley Unavailable Unavailable Allergies and adverse reactions Code CodeSystem Substance Reaction Severity StartDate Concern Status 92152 RXNORM Tetracycline Unknown 07/13/2023 active 8340611 RXNORM Tetanus Immune Globulin Unknown 07/13/[address] Sulfa Antibiotics Unknown 07/13/2023 active 2551 RXNORM Ciprofloxacin Unknown 07/13/2023 active Care Team Name Role Address Phone Organization Dates Malik Talley PCP [address] [place], [address], [facility] (Office[facility] : : [facility] 07/13/2023 - 08/13/[address] [facility], [place], [address], [facility] (Office): : [facility] 07/13/2023 - 08/13/2023 Claudia Fowler [facility] (Office[facility] : [facility] 07/13/2023 - 08/13/2023 Immunizations Immunization Status Vaccine Details Vaccine Code CodeSystem Date Notes TB 1 Step Mantoux (PPD) completed tuberculin skin test; unspecified formulation lotNumber: [id number] expiry: 06/26/2026 Mfg: [employer] PASTEUR Given 0.1 ml Right Forearm intradermally 98 CVX created date: 07/29/2023 consent date: 07/29/2023 administer ed date: 07/29/2023 Prevnar 13 completed pneumococcal conjugate vaccine, 13 valent 133 CVX created date: 07/13/2023 administer ed date: 07/28/2014 per [facility] Pneumococcal polysaccharide vaccine (PPSV23) completed pneumococcal polysaccharide vaccine, 23 valent 33 CVX created date: 07/13/2023 administer ed date: 08/16/2016 per [facility] Mental Status Section Date Assessment Total Score Description 08/13/2023 BIMS 12 moderate cognit stan impairment CAM 0 No delirium ind icated PHQ-9 00 07/17/2023 BIMS 12 moderate cognit stan impairment CAM 0 No delirium ind icated PHQ-9 15 moderately jose re depression Problems Problem # Description Date of onset Resolved Date Code CodeSystem Concern Status 1 FALL ON SAME LEVEL, UNSPECIFIED, SUBSEQUENT ENCOUNTER 08/01/[address] active 2 LACERATION WITHOUT FOREIGN BODY OF UNSPECIFIED PART OF HEAD, SUBSEQUENT ENCOUNTER 08/01/[address] active 3 ACUTE CYSTITIS WITHOUT HEMATURIA 07/13/[address] active 4 ANXIETY DISORDER, UNSPECIFIED 07/13/[address] active 5 APHASIA 07/13/[address] active 6 COVID-19 07/13/[address] active 7 DEPRESSION, UNSPECIFIED 07/13/[address] active 8 DIFFICULTY IN WALKING, NOT ELSEWHERE CLASSIFIED 07/13/[address] active 9 ESSENTIAL (PRIMARY) HYPERTENSION 07/13/[address] active 10 FIBROMYALGIA 07/13/[address] acti ve 11 MAJOR DEPRESSIVE DISORDER, RECURRENT, MILD 07/13/[address] active 12 METABOLIC ENCEPHALOPATHY 07/13/[address] active 13 OTHER ABNORMALITIES OF GAIT AND MOBILITY 07/13/[address] active 14 OTHER ASTHMA 07/13/[address] acti ve 15 PARKINSONISM, UNSPECIFIED 07/13/[address] active 16 PAROXYSMAL ATRIAL FIBRILLATION 07/13/[address] active 17 PERSONAL HISTORY OF OTHER DISEASES OF THE MUSCULOSKELETAL SYSTEM AND CONNECTIVE TISSUE 07/13/[address] active 18 PERSONAL HISTORY OF OTHER DISEASES OF THE RESPIRATORY SYSTEM 07/13/[address] active 19 PERSONAL HISTORY OF TRANSIENT ISCHEMIC ATTACK (TIA), AND CEREBRAL INFARCTION WITHOUT RESIDUAL DEFICITS 07/13/[address] active 20 SEPSIS DUE TO ESCHERICHIA COLI [E. COLI] 07/13/[address] active 21 UNSPECIFIED DEMENTIA, UNSPECIFIED SEVERITY, WITHOUT BEHAVIORAL DISTURBANCE, PSYCHOTIC DISTURBANCE, MOOD DISTURBANCE, AND ANXIETY 07/13/[address] active 22 VERY LOW LEVEL OF PERSONAL HYGIENE 07/13/[address] active 23 WEAKNESS 07/13/[address] active Reason for Referral No Reasons for Referral Entered Social History Social History Observation Description Start Date End Date Code Code System Current Smoking Status Tobacco smoking consumption unknown 844718111 SNOMED CT Sex Assigned At Female 1945 02240-8 [facility] Gender Identity Vital Signs Code Code System Vitals Name Values and Units Timing Information 73752-6 LOINC Pain Level Value=0.0 08/13/2023 8462-4 LOINC Blood Pressure-Diastolic Value=64 Un its=mmHg 08/12/2023 8480-6 LOINC Blood Pressure-Systolic Qtkpw=276 Un its=mmHg 08/12/2023 9279-1 LOINC Respiratory Rate Value=16.0 Units=/m in 08/11/2023 8310-5 LOINC Body Temperature Value=98.2 Units= F 08/11/2023 8867-4 LOINC Heart rate Value=61.0 Units=/min 96318-3 LOINC Weight Sjvdh=414.5 Units=Lbs 86131-2 LOINC O2 % BldC Oximetry Value=95.0 Units= % 08/06/2023 8302-2 LOINC Height Value=62.99 Units=Inches 07/14/2023
--- OUTSIDE RECORDS SUMMARY | 2024-09-05 17:33 | XMS_ITS | Encounter Summary ---
Author Organization [facility] Address [address] [place] [address] Phone Care Team Providers Care Fork Lift Mechanic Name Role Phone Jer Daniels MD Primary Care Provider [phone]- [phone] Encounter Details Date Type Department Care Team (Late st Contact Info) Description 09/14/2023 Patient Related Communication [facility] [place] [address] [facility] [address] [address] [address] [place], [place] [id number] Lizbeth Pastor, CORRECTIONAL CASEWORK SPECIALIST Social History Tobacco Use Types Packs/Day Years [...] documented as of this encounter Care Teams Fork Lift Mechanic Relationship Specialty Start Date End Date Jre Daniels MD [address] [place] [address] PCP - General Geriatrics 05/30/22 documented as of this encounter
--- OUTSIDE RECORDS SUMMARY | 2024-09-05 17:33 | XMS_ITS | Encounter Summary ---
Author Organization [facility] Address [address] [place] [address] Phone Care Team Providers Care Blanket Binder Name Role Phone Jer Daniels MD Primary Care Provider +1- [phone] Encounter Details Date Type Department Care Team (Late st Contact Info) Description 08/17/2023 Patient Related Communication [facility] [place] [address] [facility] [address] [place], [place] [id number] Lizbeth Pastor, FREIGHT RATE ANALYST Social History Tobacco Use Types Packs/Day Years [...] documented as of this encounter Care Teams Blanket Binder Relationship Specialty Start Date End Date Jer Daniels MD [address] [place] [address] PCP - General Geriatrics 05/30/22 documented as of this encounter
--- OUTSIDE RECORDS SUMMARY | 2024-09-05 17:33 | XMS_ITS | Encounter Summary ---
Author Organization [facility] Address [address] [place] [address] Phone Care Team Providers Care Territory Account Representative Name Role Phone Jer Daniels MD Primary Care Provider +1- [phone] Reason for Visit * Reason Onset Date Comments Medication Information 09/28/2023 Post-hosp ital discharge medication reconciliation Encounter Details Date Type Department Care Team ([facility] st Contact Info) Description 09/28/2023 Telephone [...] from your doctor or pharmacy? Sometimes 06/27/2023 [facility] Utilities Answer Date Recorded In [...] place to sleep or slept in a retirement (including now)? No 04/11/2023 Housing Stability Vital Sign Answer Flako e Recorded In the last 12 months, was t here a time when you were not able to pay the mortgage or rent on time? No 09/21/2023 In the past 12 months, how m any times have you moved where you were living? 2 09/21/2023 At any time in the past 12 m [facility], were you homeless or living in a retirement (including now)? No 09/21/2023 Comments No Sex [...] documented as of this encounter Care Teams Territory Account Representative Relationship Specialty Start Date End Date Jer Daniels MD [address] [place] [address] PCP - General Geriatrics 05/30/22 documented as of this encounter
--- OUTSIDE RECORDS SUMMARY | 2024-09-05 17:33 | XMS_ITS | Encounter Summary ---
Author Organization [facility] Address [address] [place] [address] Phone Care Team Providers Care Plunket Nurse Name Role Phone Jer Daniels MD Primary Care Provider +1- [phone] Encounter Details Date Type Department Care Team (Late st Contact Info) Description 01/24/2023 Scanned Document Non [facility] Referring Docs Provider, Outside Social History [...] documented as of this encounter Care Teams Plunket Nurse Relationship Specialty Start Date End Date Jer Daniels MD [address] [facility] [address] [place] [address] PCP - General Geriatrics 05/30/22 documented as of this encounter
--- OUTSIDE RECORDS SUMMARY | 2024-09-05 17:33 | XMS_ITS | Encounter Summary ---
Author Organization [facility] Address [address] [place] [address] Phone Care Team Providers Care Layup Worker Name Role Phone Jer Daniels MD Primary Care Provider +1- [phone] Encounter Details Date Type Department Care Team (Late st Contact Info) Description 10/25/2022 [facility] [place] [address] [place], [place] [id number] Jer Daniels MD [address] [place], [place] [address] Social History Tobacco Use Types Packs/Day Years [...] Notes * Telephone Encounter - Jerilyn Patton, NUTRITION SPECIALIST - 10/25/2022 11:[address] Daniels [facility] what [facility] patient [...] documented as of this encounter Care Teams Layup Worker Relationship Specialty Start Date End Date Jer Daniels MD [address] [facility] [address] [place] [address] PCP - General Geriatrics 05/30/22 documented as of this encounter
--- OUTSIDE RECORDS SUMMARY | 2024-09-05 17:33 | XMS_ITS | Encounter Summary ---
Author Organization [facility] Address [address] [place] [address] Phone Care Team Providers Care Retinal Angiographer Name Role Phone Jer Daniels MD Primary Care Provider +1- [phone] Reason for Visit * Reason Onset Date Comments Refill Request 08/23/2023 carbidopa-levodo pa, metoprolol, sertraline Encounter Details Date Type Department Care Team (Late st Contact Info) Description 08/23/2023 [facility] [place] [address] [facility] [address] [place] [address] Jer Daniels MD [address] [facility] [address] [place] [address] Refill Request (carbidopa-levodopa, metoprolol, sertraline) Social History [...] doctor or pharmacy? Sometimes 06/27/2023 [facility] Utilities Answer Date Recorded In the past 12 months has th e electric, gas, oil, or water [employer] threatened to shut off services in your [...] documented as of this encounter Care Teams Retinal Angiographer Relationship Specialty Start Date End Date Jer Daniels MD [facility] [place] [address] PCP - General Geriatrics 05/30/22 documented as of this encounter
--- OUTSIDE RECORDS SUMMARY | 2024-09-05 17:33 | XMS_ITS | Encounter Summary ---
Author Organization [facility] Address [address] [place] [address] Phone Care Team Providers Care Tipping Machine Operator Automatic Name Role Phone Jer Diop MD Primary Care Provider +1- [phone] Reason for Visit * Reason Onset Date Comments Dizziness 09/12/2022 Encounter Details Date Type Department Care Team (Late st Contact Info) Description 09/12/2022 Telephone [facility] [place] [address] [facility] [address] [place] [address] Jer Diop MD [address] [facility] [address] [place], [place] [id number] Dizziness Social History Tobacco Use Types Packs/Day [...] LM stating she was recently in [facility] for a fall, states she has been [...] documented as of this encounter Care Teams Tipping Machine Operator Automatic Relationship Specialty Start Date End Date Jer Diop MD [address] [facility] [address] [address] PCP - General Geriatrics 05/30/22 documented as of this encounter
--- OUTSIDE RECORDS SUMMARY | 2024-09-05 17:33 | XMS_ITS | Encounter Summary ---
Author Organization [facility] Address [address] [place] [address] Phone Care Team Providers Care Certified Registered Nurse Practitioner Name Role Phone Jer Daniels MD Primary Care Provider Encounter Details Date Type Department Care Team (Late st Contact Info) Description 06/06/2022 Orders Only [facility] [place] [address] [facility] [address] [place] [address] Jerilyn Patton, [facility] Social History Tobacco Use Types Packs/Day Years [...] documented as of this encounter Care Teams Certified Registered Nurse Practitioner Relationship Specialty Start Date End Date Jer Daniels MD [address] [place] [address] PCP - General Geriatrics 05/30/22 documented as of this encounter
--- OUTSIDE RECORDS SUMMARY | 2024-09-05 17:33 | XMS_ITS | Encounter Summary ---
Author Organization [facility] Address [address] [place] [address] Phone Care Team Providers Care Manufacturing Support Engineer Name Role Phone Jer Daniels MD Primary Care Provider +1- [phone] Reason for Visit * Reason Onset Date Comments Home Health Communication 08/29/2023 Encounter Details Date Type Department Care Team (Latest Contact Info) Description 08/29/2023 Patient Related Communication [facility] [place] [address] [place] [address] Jer Daniels MD [address] [place] [address] Home Health Communication Social History Tobacco Use [...] from your doctor or pharmacy? Sometimes 06/27/2023 [facility] Utilities Answer Date Recorded [...] as of this encounter Care Teams Manufacturing Support Engineer Relationship Specialty Start Date End Date Jer Daniels MD [address] [facility] [address] [place] [address] PCP - General Geriatrics 05/30/22 documented as of this encounter
--- OUTSIDE RECORDS SUMMARY | 2024-09-05 17:33 | XMS_ITS | Encounter Summary ---
Author Organization [facility] Address [address] [place] [address] Phone Care Team Providers Care Clinical Documentation Improvement Specialist Name Role Phone Jer Daniels MD Primary Care Provider +1- [phone] Reason for Visit * Reason Onset Date Comments Home Health Communication 09/01/2023 Encounter Details Date Type Department Care Team (Latest Contact Info) Description 09/01/2023 Patient Related Communication [facility] [place] [address] [facility] [address] [place] [address] Jer Daniels MD [address] [place] [address] Home Health Communication Social History Tobacco Use [...] your doctor or pharmacy? Sometimes 06/27/2023 [facility] Utilities Answer Date Recorded In the [...] in a intermediate (including now)? No 04/11/2023 Housing Stability Vital [...] as of this encounter Care Teams Clinical Documentation Improvement Specialist Relationship Specialty Start Date End Date Jer Daniels MD [address] [place], [place] [address] [address] PCP - General Geriatrics 05/30/22 documented as of this encounter
--- OUTSIDE RECORDS SUMMARY | 2024-09-05 17:33 | XMS_ITS | Clinical Summary ---
Author Organization [facility] Address [address] [place] [address] Care Team Providers Care Roof Fitter Name Role Phone Vangie Tillman PT Unavailable Unavailable Noelle Noe MD Unavailable Erma Schultz DNP Unavailable [phone] Jud Carmona MA Unavailable [phone] Allergies Active Allergy Reactions Criticality Noted [...] 03/28/2022 Assessment & Plan (03/28/2022 1:39 PM OCEAN EXPORT ACCOUNT MANAGER): Referred to ENT for f/u. Presence [...] 11/11/2020 Assessment & Plan (03/28/2022 1:40 PM OCEAN EXPORT ACCOUNT MANAGER): Ambulates with a standard walker, encouraged [...] 03/30/2020 Assessment & Plan (04/21/2022 1:45 PM OCEAN EXPORT ACCOUNT MANAGER): Clinically improved, continue current prescription medications, sertraline. Assessment & Plan (11/12/2021 9:16 PM CDT): Stable. Cont. Current prescription medications. Assessment & Plan (06/05/2021 10:24 PM CDT): Stable. Cont. Current prescription medications. Assessment & Plan (11/11/2020 10:39 AM CDT): Stable. Cont. Current meds. Assessment & Plan (03/30/2020 4:14 PM OCEAN EXPORT ACCOUNT MANAGER): New diagnosis. Trial of sertraline 50 mg 1 p.o. q.d. patient instructed to call 911 or go to nearest emergency room if she feels she is going to be a harm to herself or to others. Mild intermittent asthma without complication Assessment & Plan (04/21/2022 1:45 PM OCEAN EXPORT ACCOUNT MANAGER): Asx. At baseline, cont current Rx meds, Albuterol. Assessment & Plan (11/12/2021 9:13 PM CDT): Asx. At baseline, continue current Rx meds. Assessment & Plan (06/05/2021 10:23 PM CDT): At baseline, cont current Rx meds. Assessment & Plan (11/11/2020 10:39 AM CDT): At baseline, cont current mgmt. Assessment & Plan (03/30/2020 4:15 PM OCEAN EXPORT ACCOUNT MANAGER): Stable. Cont. Current meds. Class 1 [...] recommended. Assessment & Plan (02/18/2019 2:28 PM OCEAN EXPORT ACCOUNT MANAGER): Improving. Encouraged patient to decrease weight, increase daily exercise, and modify diet. Assessment & Plan (08/13/2018 4:38 PM CDT): Obesity is unchanged. Discussed the patient's BMI. The BMI is above average; BMI management plan is completed. General weight loss/lifestyle modification strategies discussed (elicit support from others; identify saboteurs; non-food rewards, etc). Assessment & Plan (03/09/2018 2:41 PM OCEAN EXPORT ACCOUNT MANAGER): Obesity is unchanged. Discussed the patient's BMI. The BMI is above average; BMI management plan is completed. General weight loss/lifestyle modification strategies discussed (elicit support from others; identify saboteurs; non-food rewards, etc). Assessment & Plan (02/17/2018 4:35 PM OCEAN EXPORT ACCOUNT MANAGER): Obesity is unchanged. Discussed the patient's BMI. The BMI is above average; BMI management plan is completed. General weight loss/lifestyle modification strategies discussed (elicit support from others; identify saboteurs; non-food rewards, etc). Assessment & Plan (02/13/2018 2:38 PM OCEAN EXPORT ACCOUNT MANAGER): Obesity is unchanged. Discussed the patient's [...] greens, fat-free milk, cottage cheese, nuts like [id number], protein bars with 10-15 g of protein [...] Patient is currently stable, recommended f/u with barkeep. Referral given. Vitamin D deficiency 03/29/2017 Assessment & Plan (08/13/2018 4:38 PM CDT): Labs ordered, will follow. Assessment & Plan (03/29/2017 12:41 PM OCEAN EXPORT ACCOUNT MANAGER): Labs ordered, will follow. 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 Assessment & Plan (02/18/2019 2:26 PM OCEAN EXPORT ACCOUNT MANAGER): Worsening, low cholesterol diet recommended. Assessment & Plan (08/13/2018 4:37 PM CDT): Lipid abnormalities are improving with treatment. Nutritional counseling was provided. and Pharmacotherapy as ordered. Lipids will be reassessed in 6 months. Pravastatin 40 mg qd Assessment & Plan (03/29/2017 12:40 PM OCEAN EXPORT ACCOUNT MANAGER): Encouraged a low chol. Diet. Will follow. Fibromyalgia 03/29/2017 Overview (03/29/2017): Managed by Pain Mgmt. Assessment & Plan (08/14/2019 11:08 AM CDT): Clinically resolved. D/C'd Cymbalta on her own after losing the medication. Does not want to re-start it. Assessment & Plan (02/18/2019 2:27 PM OCEAN EXPORT ACCOUNT MANAGER): Stable. Cont. Current meds. Assessment & Plan (08/13/2018 4:39 PM CDT): Clinically improved, continue Cymbalta 30 mg qd. Paroxysmal atrial fibrillation 12/21/2016 Overview (03/29/2017): Managed by cardiology Assessment & Plan (04/21/2022 1:44 PM OCEAN EXPORT ACCOUNT MANAGER): Rate-controlled, cont Plavix Assessment & Plan (03/21/2022 9:04 AM OCEAN EXPORT ACCOUNT MANAGER): S/p installation of a left atrial appendage occluder device to help with mitral regurgitation. Discharge summary reviewed. Patient will continue to f/u with cardiology. Assessment & Plan (11/11/2020 10:40 AM CDT): Rate-controlled, managed by cardiology. Cont current meds. Assessment & Plan (08/14/2019 11:06 AM CDT): Asx. Continue current therapy. Managed by cardiology. Assessment & Plan (02/18/2019 2:27 PM OCEAN EXPORT ACCOUNT MANAGER): Rate-controlled, managed by cardiology. Assessment & Plan (01/27/2017 1:29 PM OCEAN EXPORT ACCOUNT MANAGER): Regular sinus rhythm in office today with controlled rate. Continue to monitor. Continue on aspirin and metoprolol daily Assessment & Plan (12/21/2016 4:55 PM CDT): Patient had a loop recorder implanted after a syncopal event. She states shortly after recent hip surgery she received a phone call from her barkeep reporting she had flipped in out of atrial fibrillation. She will continue to follow with her barkeep. He started her on metoprolol. Medication list [...] Cataract Assessment & Plan (01/27/2017 1:36 PM OCEAN EXPORT ACCOUNT MANAGER): Patient is stable and healthy enough [...] Anxiety Assessment & Plan (04/21/2022 1:45 PM OCEAN EXPORT ACCOUNT MANAGER): Clinically improved, continue current prescription medications, sertraline. Assessment & Plan (11/12/2021 9:13 PM CDT): Clinically improved, continue current prescription medications. Assessment & Plan (06/05/2021 10:21 PM CDT): Stable. Cont. Current prescription medications. Assessment & Plan (11/11/2020 10:39 AM CDT): Clinically improved, continue current meds. Assessment & Plan (03/30/2020 4:14 PM OCEAN EXPORT ACCOUNT MANAGER): Worsening. Trial of sertraline 50 mg [...] it. Assessment & Plan (02/18/2019 2:27 PM OCEAN EXPORT ACCOUNT MANAGER): Clinically improved, continue current meds. Assessment [...] follow. Assessment & Plan (03/29/2017 12:41 PM OCEAN EXPORT ACCOUNT MANAGER): Asx. Cont current mgmt. Psoriasis 04/05/2013 Overview (06/02/2016): Psoriasis Chronic pain syndrome 04/05/2013 Overview (03/29/2017): Managed by Pain Mgmt. Primary hypertension 04/05/2013 Overview (06/03/2016): Hypertension Assessment & Plan (04/21/2022 1:45 PM OCEAN EXPORT ACCOUNT MANAGER): Blood pressure at goal less than [...] meds. Assessment & Plan (02/18/2019 2:24 PM OCEAN EXPORT ACCOUNT MANAGER): Stable. Cont. Current meds. Assessment & Plan (08/13/2018 4:35 PM CDT): Hypertension is improving with treatment. Continue current treatment regimen. Dietary sodium restriction. Regular aerobic exercise. Continue current medications. Ambulatory blood pressure monitoring. Blood pressure will be reassessed at the next regular appointment. Metoprolol xl 25 mg bid, Olmesartan 20 mg qd Followed by cardiology. Requested office notes from cardiology office. digital sales assistant called their office during patient's ov, I did not receive them prior to patient leaving. Assessment & Plan (03/29/2017 12:40 PM OCEAN EXPORT ACCOUNT MANAGER): Hypertension is unchanged. Continue current treatment regimen. Dietary sodium restriction. Weight loss. Regular aerobic exercise. Continue current medications. Blood pressure will be reassessed at the next regular appointment. Assessment & Plan (01/27/2017 1:29 PM OCEAN EXPORT ACCOUNT MANAGER): Stable. Pt was advised of continuing heart healthy DASH diet, increase exercise as tolerated, and continuing to monitor for any lower leg edema, headaches, changes in vision, or facial flushing. Continue ASA and anti-hypertensives as prescribed. Arthritis 04/05/2013 Overview (06/03/2016): Arthritis Resolved Problems Problem Noted Date Diagnosed Date Resolved Date Facial contusion, sequela 12/14/2021 Assessment & Plan (03/28/2022 1:39 PM OCEAN EXPORT ACCOUNT MANAGER): Bruising healing. Assessment & Plan (12/14/2021 [...] 08/13/2018 Assessment & Plan (03/09/2018 2:40 PM OCEAN EXPORT ACCOUNT MANAGER): Here for follow up on bronchitis [...] improved Assessment & Plan (02/17/2018 4:44 PM OCEAN EXPORT ACCOUNT MANAGER): Here for follow up on bronchitis [...] 03/29/2017 Assessment & Plan (01/27/2017 1:31 PM OCEAN EXPORT ACCOUNT MANAGER): Pt was advised to continue current [...] glucose Assessment & Plan (03/29/2017 12:41 PM OCEAN EXPORT ACCOUNT MANAGER): Asx. Labs ordered. Immunizations Immunization Administration [...] a. Hx Other Medical Dr. 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 Jazmin leon Primary [...] on file Legal Sex Female 3:09 AM OCEAN EXPORT ACCOUNT MANAGER Gender Identity Not on file Sexual Orientation Straight 02/06/2020 1: 53 PM OCEAN EXPORT ACCOUNT MANAGER Occupation Industry Job Start Date Job End Date retired Not on file Not on file Not on file Obstetrics History Last Filed Vital Signs Vital Sign Reading Time Taken Comments Blood Pressure 124/68 04/21/2022 12:35 PM OCEAN EXPORT ACCOUNT MANAGER Pulse 79 04/21/2022 12:35 PM OCEAN EXPORT ACCOUNT MANAGER Temperature 36.3 C (97.4 F) 04/21/2022 12:35 PM OCEAN EXPORT ACCOUNT MANAGER Respiratory Rate 18 04/21/2022 12:35 PM OCEAN EXPORT ACCOUNT MANAGER Oxygen Saturation 96% 04/21/2022 12:35 PM OCEAN EXPORT ACCOUNT MANAGER Inhaled Oxygen Concentration - - Weight 86.2 kg (190 lb 1.6 oz) 04/21/2022 12:35 PM OCEAN EXPORT ACCOUNT MANAGER Height 160 cm (5' 2.99) 04/21/2022 12:35 PM OCEAN EXPORT ACCOUNT MANAGER Body Mass Index 33.68 04/21/2022 12:35 PM OCEAN EXPORT ACCOUNT MANAGER Plan of Treatment Health Maintenance Due [...] 08/13/2018, 019 Medical Devices Implanted Type Area Recreation Teacher Device Identifier Shelf Expiration Date Model / Serial / Lot [employer] Percutaneous Transcatheter Amplatzer Amulet 22mm [id number] - [id number] Implanted:Qty: 1 on 03/09/2022 by Debi Garcia MD at [facility] [employer] 10/27/2026 [id number] / [id number] Procedures Procedure Name Priority Date/Time Associated Diagnosis Comments HEPATITIS C ANTIBODY Routine 08/13/2018 3:12 PM CDT Encounter for hepatitis C screening test for low risk patient COLONOSCOPY IMAGES 10/15/2013 from Last 3 Months or Most Recently Relevant to Health Maintenance Results * Hepatitis C antibody (08/13/2018 3:12 PM CDT) Hep C Ab Negative Negative ZANDER GOMES (DAVID) Comment:Testing performed by : [facility], [address] [place] [address], [place]., [address] Blood specimen (specimen) 08/13/2018 3:12 PM CDT 08/14/2018 9:36 AM CDT us Waleska Alvarez DO LAB MICROBIOLOGY - GENERAL ORDERABLES Final Result ZANDER GOMES (DAVID) 1 [facility] Department [place] [address] * COLONOSCOPY IMAGES (10/15/2013) Anatomical Region Laterality Modality Other Narrative 10/15/2013 Ordered by an unspecified provider. us Historical Provider GI PROCEDURE ORDERABLES F inal Result from Last 3 Months or Most Recently Relevant to Health Maintenance Additional Health Concerns Infection Onset Date Last Indicated MDR gram neg/ESBL Comment:ESBL E.coli urine 12/21/16 12/24/2016 12/24/2016 Insurance AETNA MEDICARE [facility] MEDICARE AETNA MEDICARE Care Teams Roof Fitter Relationship Specialty Start Date End Date Vangie Tillman, BRISA Physical Therapist Physical Therapy 02/16/17 Noelle Noe MD [address] [place] [address] Consulting Physician Cardiology 11/09/20 Erma Schultz DNP [address] [place] [address] Nurse Practitioner Neurology 11/10/21 Jud Carmona MA [address] [place] [address] [address] [place] [address] ACO Care Emr Analyst 03/11/22
--- OUTSIDE RECORDS SUMMARY | 2024-09-05 17:33 | XMS_ITS | Encounter Summary ---
Author Organization [facility] Address [address] [place] [address] Phone Care Team Providers Care Fire Alarm Installer Name Role Phone Jer Diop MD Primary Care Provider +1- [phone] Reason for Visit * Reason Onset Date Comments Home Care Orders 08/23/2023 Encounter Details Date Type Department Care Team (Late st Contact Info) Description 08/23/2023 Telephone [facility] [place] [address] [facility] [address] [place] [address] Lizbeth Pastor APRN Home Care Orders Social [...] from your doctor or pharmacy? Sometimes 06/27/2023 [facility] Utilities Answer Date Recorded In the past [...] - 08/24/2023 4:25 PM CDT Sowmya from [facility] called, states she's aware that dr diop is out for vacation, but she has never heard back about lizbeth and if she will sign off on orders. Please call her [phone] documented in this encounter Plan of Treatment Not on file documented as of this encounter Visit Diagnoses Not on filedocumented in this encounter Additional Health Concerns Assessment Noted Time A fall risk assessment has been complete d for the patient 10/07/2022 12:41 PM CDT documented as of this encounter Care Teams Fire Alarm Installer Relationship Specialty Start Date End Date Jer Diop MD [address] [place] [address] PCP - General Geriatrics 05/30/22 documented as of this encounter
--- OUTSIDE RECORDS SUMMARY | 2024-09-05 17:33 | XMS_ITS | Encounter Summary ---
Author Organization [facility] Address [address] [place] [address] Phone Care Team Providers Care Lining Feller Blindstitch Name Role Phone Jer Daniels MD Primary Care Provider +1- [phone] Encounter Details Date Type Department Care Team (Late st Contact Info) Description 09/05/2024 Telephone [facility] - [facility] [address] [place] [id number] Norma Hein, [employer], FISHING MANAGER [address] [place] [address] Social History Tobacco Use Types Packs/Day Years [...] Telephone Encounter - Martin López - 09/05/2024 4:56 PM CDT Transfer of care documented in this encounter Plan of Treatment Upcoming Encounters Date Type Department Care Team (Late st Contact Info) Description 09/13/2024 1:30 PM CDT Office Visit [facility] - Family [facility] [address] [place] [address] Norma Hein, [employer], FISHING MANAGER [address] [place] [address] documented as of this encounter Visit Diagnoses Not on filedocumented in this encounter Care Teams Lining Feller Blindstitch Relationship Specialty Start Date End Date Jer Daniels MD PCP - General Family Medicine 08/04/22 documented as of this encounter
--- OUTSIDE RECORDS SUMMARY | 2024-09-05 17:33 | XMS_ITS | Encounter Summary ---
Author Organization [facility] Address [address] [place] [address] Phone Care Team Providers Care Manager Concrete Name Role Phone Jer Daniels MD Primary Care Provider +1- [phone] Encounter Details Date Type Department Care Team (Late st Contact Info) Description 08/30/2023 Patient Related Communication [facility] [place] [address] [place], [place] [id number] Jer Daniels MD [address] [place], [place] [id number] Social History Tobacco Use Types Packs/Day Years [...] from your doctor or pharmacy? Sometimes 06/27/2023 [facility] Utilities Answer Date Recorded In the [...] as of this encounter Care Teams Manager Concrete Relationship Specialty Start Date End Date Jer Daniels MD [address] [facility] [address] [place] [address] PCP - General Geriatrics 05/30/22 documented as of this encounter
--- OUTSIDE RECORDS SUMMARY | 2024-09-05 17:33 | XMS_ITS | Encounter Summary ---
Author Organization [facility] Address [address] [place] [address] Phone Care Team Providers Care Licensed Club Manager Name Role Phone Jer Daniels MD Primary Care Provider +1- [phone] Encounter Details Date Type Department Care Team (Late st Contact Info) Description 08/14/2023 [facility] [place] [address] [place], [place] [id number] Jer Daniels MD [address] [place], [place] [id number] Social History Tobacco Use Types Packs/Day Years [...] from your doctor or pharmacy? Sometimes 06/27/2023 [facility] Utilities Answer Date Recorded In the past 12 months has [employer] electric, gas, oil, or water company threatened [...] No 06/27/2023 Housing Stability Vital Sign Answer Flkao e Recorded In the last 12 months, [...] there isn't another doctor available for a [id number] visit for home health orders documented in this encounter Plan of Treatment Not on file documented as of this encounter Visit Diagnoses Not on filedocumented in this encounter Additional Health Concerns Assessment Noted Time A fall risk assessment has been complete d for the patient 10/07/2022 12:41 PM CDT documented as of this encounter Care Teams Licensed Club Manager Relationship Specialty Start Date End Date Jer Daniels MD [address] [facility] [place] [address] PCP - General Geriatrics 05/30/22 documented as of this encounter
--- OUTSIDE RECORDS SUMMARY | 2024-09-05 17:33 | XMS_ITS | Clinical Summary ---
Author Organization [facility] Address [address] [place] [address] Phone Care Team Providers Care E Commerce Director Name Role Phone Jer Daniels MD Primary Care Provider [phone]- [phone] Allergies Active Allergy Reactions Criticality Noted Date [...] th e electric, gas, oil, or water [employer] threatened to shut off services in your [...] were you homeless or living in a prison (including now)? No 11/02/2023 Comments No Sex and Gender Information Value Date Recorded Sex Assigned at Not on file Legal Sex Female 10:58 AM CDT Gender Identity Not on file Sexual Orientation Not on file Last Filed Vital Signs Vital Sign Reading Time Taken Comments Blood Pressure 136/50 03/25/2024 2:16 PM YARD MOTOR OPERATOR Pulse 64 03/25/2024 2:16 PM YARD MOTOR OPERATOR Temperature 36.3 C (97.3 F) 03/08/2024 8:57 AM YARD MOTOR OPERATOR Respiratory Rate 18 03/08/2024 8:57 AM YARD MOTOR OPERATOR Oxygen Saturation 99% 03/25/2024 2:16 PM YARD MOTOR OPERATOR Inhaled Oxygen Concentration - - Weight 75.8 kg (167 lb) 03/25/2024 2:16 PM YARD MOTOR OPERATOR Height 160 cm (5' 3) 03/25/2024 2:16 PM YARD MOTOR OPERATOR Body Mass Index 29.58 03/25/2024 2:16 PM YARD MOTOR OPERATOR Plan of Treatment Health Maintenance Due [...] Postponed from 04/24/2015 (Patient Refused) Influenza Vaccine (#1) 2024 2, 11/10/2021, 11/09/2020, Additional history exists Screening for Diabetes 11/26/2026 4, 11/24/2023, 11/13/2023, Additional history exists Pneumococcal Vaccines [...] this topic Medical Devices Implanted Type Area Movie Shot Camera Operator Device Identifier Shelf Expiration Date Model [...] Date/Time Associated Diagnosis Comments COMP METABOLIC PANEL ([facility]) Routine 11/27/2023 6:45 AM CDT 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 Relevant to Health Maintenance Results * COMP METABOLIC PANEL ([facility]) (11/27/2023 6:45 AM CDT) GLUCOSE ([facility]) 88 70 - 99 mg/dL [facility] BUN ([facility]) 17 8 - 20 mg/dL [facility] CREATININE ([facility]) 0.66 0.52 - 1.04 mg/dL [facility] eGFR (2020 CKD-EPI) ([facility]) 90 mL/min/1.7 3m2 [facility] SODIUM ([facility]) 140 136 - 145 mmol/L [facility] POTASSIUM ([facility]) 4.4 3.5 - 5.0 mmol/l [facility] CHLORIDE ([facility]) 103 98 - 107 mmol/L [facility] CARBON DIOXIDE ([facility]) 27 22 - 30 mmol/L [facility] AST ([facility]) 27 14 - 40 U/L [facility] ALKALINE PHOSPHATASE ([facility]) 86 38 - 126 U/L [facility] BILIRUBIN TOTAL ([facility]) 0.5 0.2 - 1.3 mg/dL [facility] TOTAL PROTEIN ([facility]) 7.3 6.3 - 8.2 gm/dL [facility] ALBUMIN ([facility]) 4.3 3.5 - 5.0 gm/dL [facility] CALCIUM ([facility]) 9.7 8.4 - 10.2 mg/dL [facility] ALT ([facility]) 14 4 - 34 U/L [facility] 11/27/2023 6:45 AM CDT 11/27/2023 8:12 AM CDT Narrative [facility] - 11/27/2023 9:02 AM CDT Release to patient->Immediate us Jer Daniels MD [facility] - BLOOD Final Result Performing Organization Address City/State/[facility] Co de Phone Number [facility] [address] [place] [address], from Last 3 Months or Most Recently Relevant to Health Maintenance Insurance [employer] MED[employer]ARE ADVANTAGE [employer] MED[employer]ARE [employer]VANTAGE Advance Directives For more information, please contact: [phone] * No CPR / Do Not Intubate [...] 6:30 PM 06/27/2023 6:30 PM Care Teams E Commerce Director Relationship Specialty Start Date End Date Jer Daniels MD [address] [facility] [address] [place] [address] PCP - General Geriatrics 05/30/22
--- OUTSIDE RECORDS SUMMARY | 2024-09-05 17:33 | XMS_ITS | Encounter Summary ---
Author Organization [facility] Address [address] [place] [address] Phone Care Team Providers Care Medical Genetics Director Name Role Phone Jer Daniels MD Primary Care Provider [phone]- [phone] Encounter Details Date Type Department Care Team (Late st Contact Info) Description 02/14/2023 Scanned Document Epicenter Sitecore Developer Provider, Interface Default Social History Tobacco [...] documented as of this encounter Care Teams Medical Genetics Director Relationship Specialty Start Date End Date Jer Daniels MD [address] [place] [address] PCP - General Geriatrics 05/30/22 documented as of this encounter
--- NOTE | 2024-09-05 18:29 | ED.FALL ---
HPI - Fall General Chief Complaint: Fall <Angelic Olvera PA-C - Last Filed: 09/06/24 09:18> Stated Complaint: glf, head lac <Angelic Olvera PA-C - Last Filed: 09/06/24 09:18> Time Seen by Provider: 09/05/24 19:43 <Angelic Olvera PA-C - Last Filed: 09/06/24 09:18> Focused HPI: 79-year-old female with a history of Parkinson's presents emergency department with at bedside for a mechanical fall that occurred prior to arrival. Patient has been assist with history. States the patient was not picking up her feet while being rolled in a wheelchair, reportedly his foot got caught underneath the wheelchair and caused her to fall forward out of the wheelchair. She hit her head and obtained a laceration to her forehead. She did not lose consciousness. She is not anticoagulated. She is reporting pain to the right side of her face and forehead. Last Tdap unknown but patient does have tetanus vaccine and toxoid listed in her allergy list. GENERAL: Well-appearing, well-nourished, and in no acute distress. HEAD: Normocephalic. Y shaped laceration to the right forehead with mild active bleeding, bandage in place NECK: C collar in place BACK: No midline thoracolumbar spinous tenderness, crepitus, step-offs or deformities CHEST: Clear to auscultation. ?No respiratory distress. HEART: Regular rate and rhythm.? NEURO: ?Alert and oriented x2, which is reported baseline Patient screened in triage and initial orders placed.? ?Additional care and disposition to be based upon?diagnostic testing and treatment. <Angelic Olvera PA-C - Last Filed: 09/06/24 09:18> Focused HPI: 79-year-old female with a history of Parkinson's presents emergency department with at bedside for a mechanical fall that occurred prior to arrival. States the patient was not picking up her feet while being rolled in a wheelchair, reportedly his foot got caught underneath the wheelchair and caused her to fall forward out of the wheelchair. She hit her head and obtained a laceration to her forehead. She did not lose consciousness. She is not anticoagulated. She is reporting pain to the right side of her face and forehead. Last Tdap unknown but patient does have tetanus vaccine and toxoid listed in her allergy list. GENERAL: Well-appearing, well-nourished, and in no acute distress. HEAD: Normocephalic. Y shaped laceration to the right forehead with mild active bleeding, bandage in place NECK: C collar in place BACK: No midline thoracolumbar spinous tenderness, crepitus, step-offs or deformities CHEST: Clear to auscultation. ?No respiratory distress. HEART: Regular rate and rhythm.? NEURO: ?Alert and oriented x2, which is reported baseline Patient screened in triage and initial orders placed.? ?Additional care and disposition to be based upon?diagnostic testing and treatment. <Jacklyn Hernandez PA-C - Last Filed: 09/05/24 21:14> Related Data Home Medications: Home Medications ?Medication ?Instructions ?Recorded ?Confirmed ?Last Taken ?Type acetaminophen 500 mg tablet 500 mg PO Q4H PRN pain 03/29/24 03/29/24 Unknown History albuterol sulfate 90 mcg/actuation 1 puff inhalation Q4H PRN 03/29/24 03/29/24 Unknown History aerosol inhaler (Ventolin HFA) shortness of breath or wheezing bisacodyl 10 mg rectal suppository 10 mg RECTAL DAILY PRN constipation 03/29/24 03/29/24 Unknown History (Dulcolax (bisacodyl)) carbidopa 25 mg-levodopa 100 mg 2 tablet PO TID 03/29/24 03/29/24 Unknown History tablet cyanocobalamin (vitamin B-12) 1,000 mcg PO DAILY 03/29/24 03/29/24 Unknown History 1,000 mcg capsule docusate sodium 100 mg tablet 100 mg PO BID 03/29/24 03/29/24 Unknown History donepezil 10 mg tablet 10 mg PO HS 03/29/24 03/29/24 Unknown History eucerin original healing cream See Rx Instructions topical Q8H 03/29/24 03/29/24 Unknown History PRN dry skin loperamide 2 mg tablet 2 mg PO Q6H PRN loose stool 03/29/24 03/29/24 Unknown History (Anti-Diarrheal (loperamide)) magnesium hydroxide 400 mg/5 mL 30 ml PO DAILY PRN constipation 03/29/24 03/29/24 Unknown History oral suspension metoprolol succinate 25 mg 25 mg PO DAILY 03/29/24 03/29/24 Unknown History tablet,extended release 24 hr polyethylene glycol ea miscellaneous DAILY 03/29/24 Unknown History sertraline 50 mg tablet 50 mg PO Q24H 03/29/24 03/29/24 Unknown History <Angelic Olvera PA-C - Last Filed: 09/06/24 09:18> Allergies/Adverse Reactions: Allergies Allergy/AdvReac Type Severity Reaction Status Date / Time tetracycline Allergy Mild ORAL Verified 06/01/24 18:24 ISABELL demeclocycline Allergy Unknown Unknown Verified 06/01/24 18:24 Penicillins Allergy Unknown Unknown Verified 06/01/24 18:24 Sulfa (Sulfonamide Allergy Unknown Unknown Verified 06/01/24 18:24 Antibiotics) sulfanilamide Allergy Unknown Unknown Verified 06/01/24 18:24 Tetanus Vaccines and Toxoid Allergy Unknown Unknown Verified 06/01/24 18:24 ciprofloxacin (From Cipro) Allergy Unknown Verified 06/01/24 18:24 <Angelic Olvera PA-C - Last Filed: 09/06/24 09:18> Review of Systems Review of Systems: All systems reviewed & are unremarkable except as noted in HPI and below <Jacklyn Hernandez PA-C - Last Filed: 09/05/24 21:14> [facility] Past Medical History Medical History: Medical History Mild intermittent asthma, uncomplicated Aphasia Repeated falls Hyperlipidemia Parkinsonism, unspecified Major depressive disorder, recurrent, in partial remission Vitamin B12 deficiency 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 Essential (primary) hypertension Anxiety disorder, unspecified Paroxysmal atrial fibrillation Unspecified dementia, unspecified severity, without behavioral disturbance, psychotic disturbance, mood disturbance, and anxiety <Angelic Olvera PA-C - Last Filed: 09/06/24 09:18> Family History Family History: Family History Father Family history of coronary artery disease Grandparent Family history of coronary artery disease Sibling Family history of coronary artery disease Mother Patient's mother is <Angelic Olvera PA-C - Last Filed: 09/06/24 09:18> Social History Social History: Social History Social History: Ambulates with walker Code status: DNR per half-way documentation Smoking status: Never smoker Second hand tobacco smoke exposure: No Alcohol intake: current Substance use: never Substance use type: does not use Do You Feel Safe in your Home?: Yes Lack of Transportation: No Lack of Food: Never True Current Housing: I Have Housing Concerned About Future Housing: No Difficulty Paying Gas/Electric Bills: No Difficulty Paying for Meds: No Currently Unemployed: No Education: Bachelor's Degree Difficulty w/ Childcare or Family Care: No [facility] concerns: No <Angelic Olvera PA-C - Last Filed: 09/06/24 09:18> Exam Narrative: GENERAL: Elderly, well-nourished, and in no acute distress. HEAD: Normocephalic. 7cm irregular laceration into subcutaneous tissue to the forehead EYES: PERRLA and EOMI. ENT: Nares clear, no rhinorrhea or epistaxis. Mucous membranes moist. Oropharynx without tonsillar hypertrophy exudate or other lesions. Bilateral TMs pearly chris non-bulging NECK: Supple. No adenopathy or masses. C collar in place CHEST: Clear to auscultation. No respiratory distress. No wheezes rales or rhonchi HEART: Regular rate and rhythm. No murmur heard. Normal peripheral pulses. EXTREMITIES: Normal range of motion. No edema. SKIN: Warm, dry, no rash. NEURO: No focal deficits. Alert and oriented x2. CN II-XII grossly intact PSYCH: Normal mood and affect <Jacklyn Hernandez PA-C - Last Filed: 09/05/24 21:14> Course Vital Signs Vital signs: Vital Signs Temperature 98 F 09/05/24 17:30 Pulse Rate 64 09/05/24 17:30 Respiratory Rate 16 09/05/24 17:30 Blood Pressure 164/73 H 09/05/24 17:30 Pulse Oximetry 100 09/05/24 17:30 Oxygen Delivery Room Air 09/05/24 17:30 Temperature 98.5 F 09/05/24 20:03 Pulse Rate 60 09/05/24 20:04 Respiratory Rate 16 09/05/24 20:04 Blood Pressure 155/70 H 09/05/24 20:04 Pulse Oximetry 100 09/05/24 20:04 Oxygen Delivery Room Air 09/05/24 20:03 <OJ Preston Last Filed: 09/06/24 09:18> Vital Signs Temperature 98 F 09/05/24 17:30 Pulse Rate 64 09/05/24 17:30 Respiratory Rate 16 09/05/24 17:30 Blood Pressure 164/73 H 09/05/24 17:30 Pulse Oximetry 100 09/05/24 17:30 Oxygen Delivery Room Air 09/05/24 17:30 Temperature 98.5 F 09/05/24 20:03 Pulse Rate 60 09/05/24 20:04 Respiratory Rate 16 09/05/24 20:04 Blood Pressure 155/70 H 09/05/24 20:04 Pulse Oximetry 100 09/05/24 20:04 Oxygen Delivery Room Air 09/05/24 20:03 <OJ Franco Last Filed: 09/05/24 21:14> Procedures Laceration Laceration 1: Date: 09/05/24 <OJ Franco Last Filed: 09/05/24 21:14> Time: 21:10 <OJ Franco Last Filed: 09/05/24 21:14> Site: face <OJ Franco Last Filed: 09/05/24 21:14> Size (cm): 7 <OJ Franco Last Filed: 09/05/24 21:14> Description: irregular <OJ Franco Last Filed: 09/05/24 21:14> Depth: simple, single layer <OJ Franco Last Filed: 09/05/24 21:14> Local Anesthetic: lidocaine 1% <OJ Franco Last Filed: 09/05/24 21:14> Amount of anesthesia used (mL): 3 <OJ Franco Last Filed: 09/05/24 21:14> Pre-repair: wound explored and irrigated <OJ Franco Last Filed: 09/05/24 21:14> ====== Skin Level ======: Skin layer closed with: nylon <OJ Franco Last Filed: 09/05/24 21:14> Size (cm): 5-0 <OJ Franco Last Filed: 09/05/24 21:14> Number of sutures: 10 <OJ Franco Last Filed: 09/05/24 21:14> Technique: simple, interrupted <OJ Franco Last Filed: 09/05/24 21:14> ====== Subcutaneous Layer ======: ====== Muscle Layer ======: ====== Tendon Layer ======: MDM - Fall MDM Narrative Medical decision making narrative: Patient presents the emergency department after a fall out of her wheelchair today with head injury. Denies any other injuries or focal areas of pain. Her vitals are stable. CT brain, cervical spine without acute findings. Facial bones shows fracture of both nasal bones. Patient had a large, irregular laceration on her forehead which was repaired. She has an allergy to tetanus vaccine. Patient and family updated on workup and agree with plan of care. She is to follow up primary provider. She was given warnings to return to the ER <OJ Franco Last Filed: 09/05/24 21:14> Differential Diagnosis Differential diagnosis: Likely concussion without loss of consciousness and other (Subdural hematoma, facial bone fracture, cervical spine fracture) <OJ Franco Last Filed: 09/05/24 21:14> Imaging Data Radiologist's impression: ITS Impressions Head CT 09/05/24 19:18 IMPRESSION: No acute intracranial findings. Head/Cervical Spine/Facial Bones CT 09/05/24 20:36 IMPRESSION: Fracture both nasal bones with displacement. CT facial & cervical spine wo Ordering provider: Alvina Delgado History: . fall, injury . Comparison: None. Technique: CT of the cervical spine was performed without contrast. Sagittal and coronal reformatted images were also obtained and reviewed. Automated exposure control and iterative reconstruction technique were employed. The dose-length product was 246.89 mGy-cm. FINDINGS: VERTEBRAE: No subluxation or acute fracture. The occipital condyles are intact. Degenerative changes of the spine. DISC SPACES: Narrowing of the disc C5-C6 and C6-C7. Multilevel facet joint disease. Multilevel uncovertebral joint osteoarthritic changes. Multilevel intervertebral foraminal narrowing. PARASPINOUS SOFT TISSUES: Normal. IMPRESSION: No acute osseous abnormality cervical spine. Multilevel degenerative disc disease. <OJ Franco Last Filed: 09/05/24 21:14> Critical Care Time Critical Care Time Critical Care Time: No <OJ Franco Last Filed: 09/05/24 21:14> Discharge Plan Discharge Clinical Impression: Laceration Fracture of nasal bone Qualifiers: Encounter type: initial encounter Fracture type: closed Qualified Code(s): S02.2XXA - Fracture of nasal bones, initial encounter for closed fracture Head injury Qualifiers: Encounter type: initial encounter Qualified Code(s): S09.90XA - Unspecified injury of head, initial encounter <OJ Preston Last Filed: 09/06/24 09:18> Patient Disposition: [facility] Senior Care/Asst Living <OJ Preston Last Filed: 09/06/24 09:18> Condition: Stable <OJ Preston Last Filed: 09/06/24 09:18> Instructions: Nasal Fracture (ED), Laceration (ED), Head Injury (ED) <OJ Preston Last Filed: 09/06/24 09:18> Additional Instructions: Return to the emergency department if you experience fever, chest pain, shortness of breath, abdominal pain with nausea and vomiting, weakness, numbness, or any other symptoms that are concerning to you. Rest. Ice to the area. Over the counter pain mediation as needed. You may let the water run over the wound in the shower. Clean lightly with mild soap and water and apply antibiotic ointment daily Follow up with primary care doctor in 3-5 days for suture removal Follow up with ENT (Dr. Bowman) for your broken nose <Angelic Olvera PA-C - Last Filed: 09/06/24 09:18> Patient Language: Irish <Angelic Olvera PA-C - Last Filed: 09/06/24 09:18> Prescriptions: No Action cefuroxime axetil 500 mg tablet 500 mg PO Q12H Qty: 14 0RF carbidopa-levodopa 25-100 mg tablet 2 tablet PO TID donepezil 10 mg tablet 10 mg PO HS metoprolol succinate 25 mg tablet extended release 24 hr 25 mg PO DAILY sertraline 50 mg tablet 50 mg PO Q24H cyanocobalamin (vitamin B-12) 1,000 mcg capsule 1,000 mcg PO DAILY docusate sodium 100 mg tablet 100 mg PO BID polyethylene glycol Powder miscellaneous DAILY Rx Instructions: 17 gram po acetaminophen 500 mg tablet 500 mg PO Q4H PRN (Reason: pain) albuterol sulfate [Ventolin HFA] 90 mcg/actuation HFA aerosol inhaler 1 puff inhalation Q4H PRN (Reason: shortness of breath or wheezing) bisacodyl [Dulcolax (bisacodyl)] 10 mg suppository 10 mg RECTAL DAILY PRN (Reason: constipation) loperamide [Anti-Diarrheal (loperamide)] 2 mg tablet 2 mg PO Q6H PRN (Reason: loose stool) magnesium hydroxide 400 mg/5 mL suspension 30 ml PO DAILY PRN (Reason: constipation) eucerin original healing cream See Rx Instructions topical Q8H PRN (Reason: dry skin) Rx Instructions: topically every 8 hours PRN; <Angelic Olvera PA-C - Last Filed: 09/06/24 09:18> Follow-up/Referrals: Jose Antonio Bowman MD [Physician] - UNKNOWN,DOCTOR [Non-Staff] - <OJ Preston Last Filed: 09/06/24 09:18> Stand Alone Forms: Senior Care Discharge <Angelic Olvera PA-C - Last Filed: 09/06/24 09:18>
--- OUTSIDE RECORDS SUMMARY | 2024-09-05 19:57 | XMS_ITS | Referral Summary ---
Author Organization [facility] al Address [address] [place] [address] Care Team Providers Care Apartment Maintenance Supervisor Name Role Phone Vangie Tillman PT Unavailable Unavailable Noelle Noe MD Unavailable Erma Schultz DNP Unavailable [phone] Jud Carmona MA Unavailable [phone] Allergies Active Allergy Reactions Criticality Noted [...] 03/28/2022 Assessment & Plan (03/28/2022 1:39 PM NEUROPHYSIOLOGIST): Referred to ENT for f/u. Presence of [...] 11/11/2020 Assessment & Plan (03/28/2022 1:40 PM NEUROPHYSIOLOGIST): Ambulates with a standard walker, encouraged safety. [...] 03/30/2020 Assessment & Plan (04/21/2022 1:45 PM NEUROPHYSIOLOGIST): Clinically improved, continue current prescription medications, sertraline. Assessment & Plan (11/12/2021 9:16 PM CDT): Stable. Cont. Current prescription medications. Assessment & Plan (06/05/2021 10:24 PM CDT): Stable. Cont. Current prescription medications. Assessment & Plan (11/11/2020 10:39 AM CDT): Stable. Cont. Current meds. Assessment & Plan (03/30/2020 4:14 PM NEUROPHYSIOLOGIST): New diagnosis. Trial of sertraline 50 mg 1 p.o. q.d. patient instructed to call 911 or go to nearest emergency room if she feels she is going to be a harm to herself or to others. Mild intermittent asthma without complication Assessment & Plan (04/21/2022 1:45 PM NEUROPHYSIOLOGIST): Asx. At baseline, cont current Rx meds, Albuterol. Assessment & Plan (11/12/2021 9:13 PM CDT): Asx. At baseline, continue current Rx meds. Assessment & Plan (06/05/2021 10:23 PM CDT): At baseline, cont current Rx meds. Assessment & Plan (11/11/2020 10:39 AM CDT): At baseline, cont current mgmt. Assessment & Plan (03/30/2020 4:15 PM NEUROPHYSIOLOGIST): Stable. Cont. Current meds. Class 1 obesity [...] recommended. Assessment & Plan (02/18/2019 2:28 PM NEUROPHYSIOLOGIST): Improving. Encouraged patient to decrease weight, increase daily exercise, and modify diet. Assessment & Plan (08/13/2018 4:38 PM CDT): Obesity is unchanged. Discussed the patient's BMI. The BMI is above average; BMI management plan is completed. General weight loss/lifestyle modification strategies discussed (elicit support from others; identify saboteurs; non-food rewards, etc). Assessment & Plan (03/09/2018 2:41 PM NEUROPHYSIOLOGIST): Obesity is unchanged. Discussed the patient's BMI. The BMI is above average; BMI management plan is completed. General weight loss/lifestyle modification strategies discussed (elicit support from others; identify saboteurs; non-food rewards, etc). Assessment & Plan (02/17/2018 4:35 PM NEUROPHYSIOLOGIST): Obesity is unchanged. Discussed the patient's BMI. The BMI is above average; BMI management plan is completed. General weight loss/lifestyle modification strategies discussed (elicit support from others; identify saboteurs; non-food rewards, etc). Assessment & Plan (02/13/2018 2:38 PM NEUROPHYSIOLOGIST): Obesity is unchanged. Discussed the patient's BMI. [...] greens, fat-free milk, cottage cheese, nuts like ovdcomh-[id number]-duluquj, protein bars with 10-15 g of protein [...] Patient is currently stable, recommended f/u with engine maintenance mechanic. Referral given. Vitamin D deficiency 03/29/2017 Assessment & Plan (08/13/2018 4:38 PM CDT): Labs ordered, will follow. Assessment & Plan (03/29/2017 12:41 PM NEUROPHYSIOLOGIST): Labs ordered, will follow. 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 Assessment & Plan (02/18/2019 2:26 PM NEUROPHYSIOLOGIST): Worsening, low cholesterol diet recommended. Assessment & Plan (08/13/2018 4:37 PM CDT): Lipid abnormalities are improving with treatment. Nutritional counseling was provided. and Pharmacotherapy as ordered. Lipids will be reassessed in 6 months. Pravastatin 40 mg qd Assessment & Plan (03/29/2017 12:40 PM NEUROPHYSIOLOGIST): Encouraged a low chol. Diet. Will follow. Fibromyalgia 03/29/2017 Overview (03/29/2017): Managed by Pain Mgmt. Assessment & Plan (08/14/2019 11:08 AM CDT): Clinically resolved. D/C'd Cymbalta on her own after losing the medication. Does not want to re-start it. Assessment & Plan (02/18/2019 2:27 PM NEUROPHYSIOLOGIST): Stable. Cont. Current meds. Assessment & Plan (08/13/2018 4:39 PM CDT): Clinically improved, continue Cymbalta 30 mg qd. Paroxysmal atrial fibrillation 12/21/2016 Overview (03/29/2017): Managed by cardiology Assessment & Plan (04/21/2022 1:44 PM NEUROPHYSIOLOGIST): Rate-controlled, cont Plavix Assessment & Plan (03/21/2022 9:04 AM NEUROPHYSIOLOGIST): S/p installation of a left atrial appendage occluder device to help with mitral regurgitation. Discharge summary reviewed. Patient will continue to f/u with cardiology. Assessment & Plan (11/11/2020 10:40 AM CDT): Rate-controlled, managed by cardiology. Cont current meds. Assessment & Plan (08/14/2019 11:06 AM CDT): Asx. Continue current therapy. Managed by cardiology. Assessment & Plan (02/18/2019 2:27 PM NEUROPHYSIOLOGIST): Rate-controlled, managed by cardiology. Assessment & Plan (01/27/2017 1:29 PM NEUROPHYSIOLOGIST): Regular sinus rhythm in office today with controlled rate. Continue to monitor. Continue on aspirin and metoprolol daily Assessment & Plan (12/21/2016 4:55 PM CDT): Patient had a loop recorder implanted after a syncopal event. She states shortly after recent hip surgery she received a phone call from her engine maintenance mechanic reporting she had flipped in out of atrial fibrillation. She will continue to follow with her engine maintenance mechanic. He started her on metoprolol. Medication [...] Cataract Assessment & Plan (01/27/2017 1:36 PM NEUROPHYSIOLOGIST): Patient is stable and healthy enough to [...] Anxiety Assessment & Plan (04/21/2022 1:45 PM NEUROPHYSIOLOGIST): Clinically improved, continue current prescription medications, sertraline. Assessment & Plan (11/12/2021 9:13 PM CDT): Clinically improved, continue current prescription medications. Assessment & Plan (06/05/2021 10:21 PM CDT): Stable. Cont. Current prescription medications. Assessment & Plan (11/11/2020 10:39 AM CDT): Clinically improved, continue current meds. Assessment & Plan (03/30/2020 4:14 PM NEUROPHYSIOLOGIST): Worsening. Trial of sertraline 50 mg 1 [...] it. Assessment & Plan (02/18/2019 2:27 PM NEUROPHYSIOLOGIST): Clinically improved, continue current meds. Assessment & [...] follow. Assessment & Plan (03/29/2017 12:41 PM NEUROPHYSIOLOGIST): Asx. Cont current mgmt. Psoriasis 04/05/2013 Overview (06/02/2016): Psoriasis Chronic pain syndrome 04/05/2013 Overview (03/29/2017): Managed by Pain Mgmt. Primary hypertension 04/05/2013 Overview (06/03/2016): Hypertension Assessment & Plan (04/21/2022 1:45 PM NEUROPHYSIOLOGIST): Blood pressure at goal less than 140/90, [...] meds. Assessment & Plan (02/18/2019 2:24 PM NEUROPHYSIOLOGIST): Stable. Cont. Current meds. Assessment & Plan (08/13/2018 4:35 PM CDT): Hypertension is improving with treatment. Continue current treatment regimen. Dietary sodium restriction. Regular aerobic exercise. Continue current medications. Ambulatory blood pressure monitoring. Blood pressure will be reassessed at the next regular appointment. Metoprolol xl 25 mg bid, Olmesartan 20 mg qd Followed by cardiology. Requested office notes from cardiology office. case management assistant called their office during patient's ov, I did not receive them prior to patient leaving. Assessment & Plan (03/29/2017 12:40 PM NEUROPHYSIOLOGIST): Hypertension is unchanged. Continue current treatment regimen. Dietary sodium restriction. Weight loss. Regular aerobic exercise. Continue current medications. Blood pressure will be reassessed at the next regular appointment. Assessment & Plan (01/27/2017 1:29 PM NEUROPHYSIOLOGIST): Stable. Pt was advised of continuing heart healthy DASH diet, increase exercise as tolerated, and continuing to monitor for any lower leg edema, headaches, changes in vision, or facial flushing. Continue ASA and anti-hypertensives as prescribed. Arthritis 04/05/2013 Overview (06/03/2016): Arthritis Resolved Problems Problem Noted Date Diagnosed Date Resolved Date Facial contusion, sequela 12/14/2021 Assessment & Plan (03/28/2022 1:39 PM NEUROPHYSIOLOGIST): Bruising healing. Assessment & Plan (12/14/2021 9:15 [...] 08/13/2018 Assessment & Plan (03/09/2018 2:40 PM NEUROPHYSIOLOGIST): Here for follow up on bronchitis and [...] improved Assessment & Plan (02/17/2018 4:44 PM NEUROPHYSIOLOGIST): Here for follow up on bronchitis and [...] 03/29/2017 Assessment & Plan (01/27/2017 1:31 PM NEUROPHYSIOLOGIST): Pt was advised to continue current therapy [...] glucose Assessment & Plan (03/29/2017 12:41 PM NEUROPHYSIOLOGIST): Asx. Labs ordered. Immunizations Immunization Administration Dates [...] on file Legal Sex Female 3:09 AM NEUROPHYSIOLOGIST Gender Identity Not on file Sexual Orientation Straight 02/06/2020 1: 53 PM NEUROPHYSIOLOGIST Occupation Industry Job Start Date Job End Date retired Not on file Not on file Not on file Last Filed Vital Signs Vital Sign Reading Time Taken Comments Blood Pressure 124/68 04/21/2022 12:35 PM NEUROPHYSIOLOGIST Pulse 79 04/21/2022 12:35 PM NEUROPHYSIOLOGIST Temperature 36.3 C (97.4 F) 04/21/2022 12:35 PM NEUROPHYSIOLOGIST Respiratory Rate 18 04/21/2022 12:35 PM NEUROPHYSIOLOGIST Oxygen Saturation 96% 04/21/2022 12:35 PM NEUROPHYSIOLOGIST Inhaled Oxygen Concentration - - Weight 86.2 kg (190 lb 1.6 oz) 04/21/2022 12:35 PM NEUROPHYSIOLOGIST Height 160 cm (5' 2.99) 04/21/2022 12:35 PM NEUROPHYSIOLOGIST Body Mass Index 33.68 04/21/2022 12:35 PM NEUROPHYSIOLOGIST Plan of Treatment Not on file Medical Devices Implanted Type Area Seismograph Supervisor Device Identifier Shelf Expiration Date Model / Serial / Lot [employer] Percutaneous Transcatheter Amplatzer Amulet 22mm [id number] - [id number] Implanted:Qty: 1 on 03/09/2022 by Debi Garcia MD at [facility] [employer] 10/27/2026 [id number] / [id number] Procedures Procedure Name Priority Date/Time Associated Diagnosis Comments HEPATITIS C ANTIBODY Routine 08/13/2018 3:12 PM CDT Encounter for hepatitis C screening test for low risk patient COLONOSCOPY IMAGES 10/15/2013 from Last 3 Months or Most Recently Relevant to Health Maintenance Results * Hepatitis C antibody (08/13/2018 3:12 PM CDT) Hep C Ab Negative Negative ZANDER GOMES (DAVID) Comment:Testing performed by : [facility], [address] [place] [address], [id number] Blood specimen (specimen) 08/13/2018 3:12 PM CDT 08/14/2018 9:36 AM CDT Waleska Alvarez DO LAB MICROBIOLOGY - GENERAL ORDERABLES Final Result ZANDER GOMES (DAVID) [address] [facility] Department [place] [address] * COLONOSCOPY IMAGES (10/15/2013) Anatomical Region Laterality Modality Other Narrative 10/15/2013 Ordered by an unspecified provider. Historical Provider GI PROCEDURE ORDERABLES F inal Result from Last 3 Months or Most Recently Relevant to Health Maintenance Additional Health Concerns Infection Onset Date Last Indicated MDR gram neg/ESBL Comment:ESBL E.coli urine 12/21/16 12/24/2016 12/24/2016 Insurance [facility] MEDICARE T MEDICARE T MEDICARE Care Teams Apartment Maintenance Supervisor Relationship Specialty Start Date End Date Vangie Tillman, PT Physical Therapist Physical Therapy 02/16/17 Noelle Noe MD [address] [place] [address] Consulting Physician Cardiology 11/09/20 Erma Schultz DNP [address] [place] [address] Nurse Practitioner Neurology 11/10/21 Jud Carmona MA [address] [place] [address] [place] [address] [employer] 03/11/22
--- OUTSIDE RECORDS SUMMARY | 2024-09-05 19:57 | XMS_ITS | Encounter Summary ---
Author Organization [facility] Address [address] [place] [address] Phone Care Team Providers Care Parish Worker Name Role Phone Jer Daniels MD Primary Care Provider +1- [phone] Encounter Details Date Type Department Care Team (Late Contact Info) Description 08/29/2022 Telephone [facility] [address] [place] [address] Ronny Travis, PT OR Social [...] [facility] - [facility] - [place] [address] [place] [address] Norma Hein APRN, BREAST SURGEON [address] [place] [address] documented as of this encounter Visit Diagnoses Not on filedocumented in this encounter Care Teams Parish Worker Relationship Specialty Start Date End Date Jer Daniels MD PCP - General Family Medicine 08/04/22 documented as of this encounter
--- OUTSIDE RECORDS SUMMARY | 2024-09-05 19:57 | XMS_ITS | Encounter Summary ---
Author Organization [facility] Address [address] [place] [address] Phone Care Team Providers Care New Car Make Ready Mechanic Name Role Phone Jer Daniels MD Primary Care Provider +1- [phone] Reason for Visit * Reason Onset Date Comments Home Health Communication 09/01/2023 Encounter Details Date Type Department Care Team (Latest Contact Info) Description 09/01/2023 Patient Related Communication [facility] [address] [place] [address] Jer Daniels MD [address] [place] [address] Home Health Communication Social History Tobacco Use [...] doctor or pharmacy? Sometimes 06/27/2023 [facility] Utilities Answer Date Recorded In [...] documented as of this encounter Care Teams New Car Make Ready Mechanic Relationship Specialty Start Date End Date Jer Daniels MD [address] [place], [place] [address] [address] PCP - General Geriatrics 05/30/22 documented as of this encounter
--- OUTSIDE RECORDS SUMMARY | 2024-09-05 19:57 | XMS_ITS | Encounter Summary ---
Author Organization [facility] Address [address] [place] [address] Phone Care Team Providers Care Taker Out Name Role Phone Jer Daniels MD Primary Care Provider +1- [phone] Reason for Visit * Reason Onset Date Comments Medication Information 09/28/2023 Post-hosp ital discharge medication reconciliation Encounter Details Date Type Department Care Team ([facility] st Contact Info) Description 09/28/2023 Telephone Non Yoko Referring Sadaf iDaz, Campos Medication Information (Post-hospital discharge medication reconciliation) [...] any time in the past 12 m [facility], were you homeless or living in a long term (including now)? No 09/21/2023 Comments No Sex [...] documented as of this encounter Care Teams Taker Out Relationship Specialty Start Date End Date Jer Daniels MD [address] [place] [address] PCP - General Geriatrics 05/30/22 documented as of this encounter
--- OUTSIDE RECORDS SUMMARY | 2024-09-05 19:57 | XMS_ITS | Encounter Summary ---
Author Organization [facility] Address [address] [place] [address] Phone Care Team Providers Care Community Health Program Coordinator Name Role Phone Jer Daniels MD Primary Care Provider +1- [phone] Encounter Details Date Type Department Care Team (Late st Contact Info) Description 08/17/2023 Patient Related Communication [facility] [address] [place], [place] [id number] Lizbeth Pastor, FOOD PREPARATION WORKER Social History Tobacco Use Types Packs/Day Years [...] Sometimes 06/27/2023 [facility] Utilities Answer Date Recorded In the past [...] documented as of this encounter Care Teams Community Health Program Coordinator Relationship Specialty Start Date End Date Jer Daniels MD [address] [place] [address] PCP - General Geriatrics 05/30/22 documented as of this encounter
--- OUTSIDE RECORDS SUMMARY | 2024-09-05 19:57 | XMS_ITS | Encounter Summary ---
Author Organization [facility] Address [address] [place] [address] Phone Care Team Providers Care Buffing And Sueding Machine Operator Name Role Phone Jer Daniels MD Primary Care Provider +1- [phone] Encounter Details Date Type Department Care Team (Late st Contact Info) Description 10/06/2022 Telephone [facility] [address] [place] [phone] Diana Piedra PTA [place] Social History Tobacco Use Types Packs/Day [...] 10/06/2022 1:36 PM CDT Created in error [employer] STER[employer]ESSING documented in this encounter Plan of Treatment Upcoming Encounters Date Type Department Care Team (Late st Contact Info) Description 09/13/2024 1:30 PM CDT Office Visit [facility] - [place] [address] [place] [address] Norma Hein, EXTRUSION BENDER, LCAC OPERATOR [address] [place] [address] documented as of this encounter Visit Diagnoses Not on filedocumented in this encounter Care Teams Buffing And Sueding Machine Operator Relationship Specialty Start Date End Date Jer Daniels MD PCP - General Family Medicine 08/04/22 documented as of this encounter
--- OUTSIDE RECORDS SUMMARY | 2024-09-05 19:57 | XMS_ITS | Encounter Summary ---
Author Organization [facility] Address [address] [place] [address] Phone Care Team Providers Care City Tax Auditor Name Role Phone Jer Daniels MD Primary Care Provider +1- [phone] Encounter Details Date Type Department Care Team (Late st Contact Info) Description 08/14/2023 Patient Related [facility] [address] [place], [place] [id number] Jer Daniels MD [address] [place], [place] [id number] Social History Tobacco Use Types Packs/Day Years [...] from your doctor or pharmacy? Sometimes 06/27/2023 [facility] Utilities Answer Date Recorded In the past 12 months has [employer] electric, gas, oil, or water company threatened [...] there isn't another doctor available for a [id number]-[id number] visit for home health orders documented in this encounter Plan of Treatment Not on file documented as of this encounter Visit Diagnoses Not on filedocumented in this encounter Additional Health Concerns Assessment Noted Time A fall risk assessment has been complete d for the patient 10/07/2022 12:41 PM CDT documented as of this encounter Care Teams City Tax Auditor Relationship Specialty Start Date End Date Jer Daniels MD [address] [facility] [place] [address] PCP - General Geriatrics 05/30/22 documented as of this encounter
--- OUTSIDE RECORDS SUMMARY | 2024-09-05 19:57 | XMS_ITS | Clinical Summary ---
Author Organization [facility] Address [address] [place] [address] Care Team Providers Care Weld Technician Name Role Phone Unavailable Primary Care Provider Unavailabl e Social History Tobacco Use Types Packs/Day Years Used Date Smoking Tobacco: Never Assessed Comments Unknown Sex and Gender Information Value Date Recorded Sex Assigned at Not on file Legal Sex Female 10:22 PM SUPERVISOR BAKING Gender Identity Not on file Sexual Orientation Not on file Plan of Treatment Health Maintenance Due Date Last Done Comments Hepatitis C 1963 DTaP, Tdap and Td Vaccines ( 1 - Tdap) 1965 Pneumococcal Vaccine: 50+ Ye ars (1 of 1 - PCV) 1996 Zoster Vaccines (1 of 2) 1996 Dexa Scan (General) 2011 RSV Immunization or 60+ Years (1 [...]
--- OUTSIDE RECORDS SUMMARY | 2024-09-05 19:57 | XMS_ITS | Encounter Summary ---
Author Organization [facility] Address [address] [place] [address] Phone Care Team Providers Care Nutrition Associate Name Role Phone Jer Diop MD Primary Care Provider +1- [phone] Reason for Visit * Reason Onset Date Comments Home Care Orders 08/23/2023 Encounter Details Date Type Department Care Team (Late st Contact Info) Description 08/23/2023 Telephone [facility] [address] [facility] [address] [place] [address] Lizbeth Pastor APRN Home Care Orders Social [...] your doctor or pharmacy? Sometimes 06/27/2023 [facility] Utilities Answer Date Recorded In the [...] - 08/24/2023 4:25 PM CDT Sowmya from [facility] called, states she's aware that dr diop is out for vacation, but she has never heard back about lizbeth and if she will sign off on orders. Please call her [phone] documented in this encounter Plan of Treatment Not on file documented as of this encounter Visit Diagnoses Not on filedocumented in this encounter Additional Health Concerns Assessment Noted Time A fall risk assessment has been complete d for the patient 10/07/2022 12:41 PM CDT documented as of this encounter Care Teams Nutrition Associate Relationship Specialty Start Date End Date Jer Diop MD [address] [place] [address] PCP - General Geriatrics 05/30/22 documented as of this encounter
--- OUTSIDE RECORDS SUMMARY | 2024-09-05 19:57 | XMS_ITS ---
Author Organization [facility] Care Team Providers Care Fermenter Champagne Name Role Phone Jer Daniels Unavailable Unavailable Claudia Fowler Unavailable Unavailable Malik Talley Unavailable Unavailable Allergies and adverse reactions Code CodeSystem Substance Reaction Severity StartDate Concern Status 49695 RXNORM Tetracycline Unknown 07/13/2023 active 7767500 RXNORM Tetanus Immune Globulin Unknown 07/13/[address] Sulfa Antibiotics Unknown 07/13/2023 active 2551 RXNORM Ciprofloxacin Unknown 07/13/2023 active Care Team Name Role Address Phone Organization Dates Malik Talley PCP [address] [place], [address], [facility] (Office): : : [facility] 07/13/2023 - 08/13/2023 Jer Daniels [address] [facility], [place], [address], [facility] (Office): : [facility] 07/13/2023 - 08/13/2023 Claudia Fowler [facility] (Office): : [facility] 07/13/2023 - 08/13/2023 Immunizations Immunization Status Vaccine Details Vaccine Code CodeSystem Date Notes TB 1 Step Mantoux (PPD) completed tuberculin skin test; unspecified formulation lotNumber: [id number] expiry: 06/26/2026 Mfg: SANOFI PASTEUR Given 0.1 ml Right Forearm intradermally 98 CVX created date: 07/29/2023 consent date: 07/29/2023 administer ed date: 07/29/2023 Prevnar 13 completed pneumococcal conjugate vaccine, 13 valent 133 CVX created date: 07/13/2023 administer ed date: 07/28/2014 per [facility] Pneumococcal polysaccharide vaccine (PPSV23) completed pneumococcal polysaccharide vaccine, 23 valent 33 CVX created date: 07/13/2023 administer ed date: 08/16/2016 per [facility] Mental Status Section Date Assessment Total Score Description 08/13/2023 BIMS 12 moderate cognit stan impairment CAM 0 No delirium ind icated PHQ-9 00 07/17/2023 BIMS 12 moderate cognit stan impairment CAM 0 No delirium ind icated PHQ-9 15 moderately joes re depression Problems Problem # Description Date of onset Resolved Date Code CodeSystem Concern Status 1 FALL ON SAME LEVEL, UNSPECIFIED, SUBSEQUENT ENCOUNTER 08/01/[address] active 2 LACERATION WITHOUT FOREIGN BODY OF UNSPECIFIED PART OF HEAD, SUBSEQUENT ENCOUNTER 08/01/[address] active 3 ACUTE CYSTITIS WITHOUT HEMATURIA 07/13/[address] active 4 ANXIETY DISORDER, UNSPECIFIED 07/13/[address] active 5 APHASIA 07/13/[address] active 6 COVID-19 07/13/[address] active 7 DEPRESSION, UNSPECIFIED 07/13/[address] active 8 DIFFICULTY IN WALKING, NOT ELSEWHERE CLASSIFIED 07/13/[address] active 9 ESSENTIAL (PRIMARY) HYPERTENSION 07/13/[address] active 10 FIBROMYALGIA 07/13/[address] acti ve 11 MAJOR DEPRESSIVE DISORDER, RECURRENT, MILD 07/13/[address] active 12 METABOLIC ENCEPHALOPATHY 07/13/[address] active 13 OTHER ABNORMALITIES OF GAIT AND MOBILITY 07/13/[address] active 14 OTHER ASTHMA 07/13/[address] acti ve 15 PARKINSONISM, UNSPECIFIED 07/13/[address] active 16 PAROXYSMAL ATRIAL FIBRILLATION 07/13/[address] active 17 PERSONAL HISTORY OF OTHER DISEASES OF THE MUSCULOSKELETAL SYSTEM AND CONNECTIVE TISSUE 07/13/[address] active 18 PERSONAL HISTORY OF OTHER DISEASES OF THE RESPIRATORY SYSTEM 07/13/[address] active 19 PERSONAL HISTORY OF TRANSIENT ISCHEMIC ATTACK (TIA), AND CEREBRAL INFARCTION WITHOUT RESIDUAL DEFICITS 07/13/[address] active 20 SEPSIS DUE TO ESCHERICHIA COLI [E. COLI] 07/13/[address] active 21 UNSPECIFIED DEMENTIA, UNSPECIFIED SEVERITY, WITHOUT BEHAVIORAL DISTURBANCE, PSYCHOTIC DISTURBANCE, MOOD DISTURBANCE, AND ANXIETY 07/13/[address] active 22 VERY LOW LEVEL OF PERSONAL HYGIENE 07/13/[address] active 23 WEAKNESS 07/13/[address] active Reason for Referral No Reasons for Referral Entered Social History Social History Observation Description Start Date End Date Code Code System Current Smoking Status Tobacco smoking consumption unknown 931951039 SNOMED CT Sex Assigned At Female 1945 [address]151-3 [facility] Gender Identity Vital Signs Code Code System Vitals Name Values and Units Timing Information 88586-4 LOINC Pain Level Value=0.0 08/13/2023 8462-4 LOINC Blood Pressure-Diastolic Value=64 Un its=mmHg 08/12/2023 8480-6 LOINC Blood Pressure-Systolic Lakvk=673 Un its=mmHg 08/12/2023 9279-1 LOINC Respiratory Rate Value=16.0 Units=/m in 08/11/2023 8310-5 LOINC Body Temperature Value=98.2 Units= F 08/11/2023 8867-4 LOINC Heart rate Value=61.0 Units=/min 30280-7 LOINC Weight Ymjbx=558.5 Units=Lbs 17663-5 LOINC O2 % BldC Oximetry Value=95.0 Units= % 08/06/2023 8302-2 LOINC Height Value=62.99 Units=Inches 07/14/2023
--- OUTSIDE RECORDS SUMMARY | 2024-09-05 19:57 | XMS_ITS | Clinical Summary ---
Author Organization [facility] Address [address] [place] [address] Phone Care Team Providers Care Whittling Room Operator Name Role Phone Jer Daniels MD Primary Care Provider [phone]- [phone] Allergies Active Allergy Reactions Criticality Noted Date [...] as needed for Anxiety or Itching. # [id number] Active Cholecalciferol (Vitamin D3) 2000 UNIT Capsule [...] Type Department Care Team Description 09/05[facility] [address] [place] [address] Norma Hein, RECREATION CLERK, CUSTODIAN BLOOD BANK 09/05/2024 [facility] [address] [place] [id number] Norma Hein, RECREATION CLERK, CUSTODIAN BLOOD BANK 07/15/2024 [facility] [address] [place] [id number] Provider, None New Patient from Last 3 Months Immunizations Immunization Administration Dates Next Due Covid-19, Mrna, Lnp-s, Pf, Pranav-sucrose, 30 Mcg/0.3 Ml (Pfizer) 12/21/2023,12/20/2022 Influenza Vaccine,unspecifie d Formulation 01/10/2019,01/27/2018 Influenza, High-dose, Quadrivalent 12/20/2022,,11/09/2020 Influenza, Seasonal, Injecta ble, Undefined 02/21/2014,12/07/2012,12/22/2011 Influenza, high-dose, trivalent, PF 12/29,11/04/2016,12/24/2014,10/28,11/27/2012 Pneumococcal Vaccine - 13 Valent 07/28/2014 Pneumococcal Vaccine Adult - 23 Valent 7 Pneumococcal conjugate PCV20 , polysaccharide [id number] conjugate, adjuvant, PF 12/21/2023 RSV, Recombinant, Protein [...] Comments Blood Pressure 129/71 01/05/2023 12:10 AM [employer] Pulse 62 01/05/2023 12:10 AM [employer] Temperature 36.7 C (98 F) 01/04/2023 5:08 PM [employer] Respiratory Rate 16 01/05/2023 12:10 AM [employer] Oxygen Saturation 98% 01/05/2023 12:10 AM [employer] Inhaled Oxygen Concentration - - Weight 56.7 kg (125 lb) 01/04/2023 5:08 PM [employer] Height 160 cm (5' 3) 01/04/2023 5:08 PM [employer] Body Mass Index 22.14 01/04/2023 5:08 PM [employer] Plan of Treatment Upcoming Encounters Date Type Department Care Team (Late st Contact Info) Description 09/13/2024 1:30 PM CDT Office Visit [facility] [address] [place] [address] Norma Hein, RECREATION CLERK, CUSTODIAN BLOOD BANK [address] [place] [address] Health Maintenance Due Date Last Done Comments [...] this topic Medical Devices Implanted Type Area Forms Analysis Manager Device Identifier Shelf Expiration Date Model / Serial / Lot Reveal Linq Implanted:Qty: 1 on 08/02/2016 by Ramo Noe MD at [facility] N/A: Chest Wall [employer] 06/10/2017 [id number] / [id number] / NA Insurance MEDICARE C AETNA Advance [...] measures to stabilize the patient. Care Teams Whittling Room Operator Relationship Specialty Start Date End Date Jer Daniels MD PCP - General Family Medicine 08/04/22
--- OUTSIDE RECORDS SUMMARY | 2024-09-05 19:57 | XMS_ITS | Encounter Summary ---
Author Organization [facility] Address [address] [place] [address] Phone Care Team Providers Care Mechanical Engineering Technician Name Role Phone Jer Daniels MD Primary Care Provider Encounter Details Date Type Department Care Team (Late st Contact Info) Description 06/06/2022 Orders Only [facility] [place] [address] [place] [address] Jerilyn Patton, [facility] Social History Tobacco Use Types Packs/Day [...] documented as of this encounter Care Teams Mechanical Engineering Technician Relationship Specialty Start Date End Date Jer Daniels MD [address] [place] [address] PCP - General Geriatrics 05/30/22 documented as of this encounter
--- OUTSIDE RECORDS SUMMARY | 2024-09-05 19:57 | XMS_ITS | Encounter Summary ---
Author Organization [facility] Address [address] [place] [address] Phone Care Team Providers Care Chip Bin Conveyor Tender Name Role Phone Jer Daniels MD Primary Care Provider [phone]- [phone] Reason for Visit * Reason Onset Date Comments Home Health Communication 08/29/2023 Encounter Details Date Type Department Care Team (Latest Contact Info) Description 08/29/2023 Patient Related Communication [facility] [place] [address] [place] [address] Jer Daniels MD [address] [place] [address] Home Health Communication Social History Tobacco Use [...] from your doctor or pharmacy? Sometimes 06/27/2023 [facility] Utilities Answer Date Recorded In the [...] documented as of this encounter Care Teams Chip Bin Conveyor Tender Relationship Specialty Start Date End Date Jer Daniels MD [address] [facility] [address] [place] [address] PCP - General Geriatrics 05/30/22 documented as of this encounter
--- OUTSIDE RECORDS SUMMARY | 2024-09-05 19:57 | XMS_ITS | Encounter Summary ---
Author Organization [facility] Address [address] [facility] [address] [place] [address] Care Team Providers Care Console Manager Name Role Phone Daisy Desai MD Primary Care Provider +1- [phone] Daiys Desai MD Primary Care Provider [phone]- [phone] Daisy Desai MD Primary Care Provider [phone]- [phone] Vangie Tillman PT Unavailable Unavailable Donna Ramirez Unavailable Unavailable Waleska Alvarez DO Primary Care Provider +1- [phone] Daisy Desai MD Primary Care Provider [phone]- [phone] Waleska Alvarez DO Primary Care Provider +1- [phone] Maury Mckenna MD Unavailable [phone] Noelle Noe MD Unavailable Lindsay Parada MA Unavailable Erma Schultz DNP Unavailable [phone] Jud Carmona MA Unavailable [phone] Encounter Details Date Type Department Care Team (Late st Contact Info) Description 03/06/2016 Orders Only [facility] Provider, MD Luly [address] [place] [address] Social History Tobacco Use Types Packs/Day Years Used Date Smoking Tobacco: Never Alcohol Use Standard Drinks/Week Comments Yes 0 (1 standard drink = 0.6 oz pur e alcohol) Comments Unknown Sex and Gender Information Value Date Recorded Sex Assigned at Not on file Legal Sex Female 3:09 AM AUTOMOBILE LOCATOR Gender Identity Not on file Sexual Orientation Straight 02/06/2020 1: 53 PM AUTOMOBILE LOCATOR documented as of this encounter Plan of [...] documented as of this encounter Care Teams Console Manager Relationship Specialty Start Date End Date Daisy [...] Surgery 04/04/19 11/09/21 Noelle Noe MD [address] [place] [address] Consulting Physician Cardiology 11/09/20 Lindsay Parada MA [address] [place] [address] [address] [place] [address] [employer] Worker Apprentice 08/05/21 08/10/21 Erma Schultz DNP [address] [place] [address] [address] [place] [address] Nurse Practitioner Neurology 11/10/21 Jud Carmona MA [address] [place] [address] [address] [place] [address] [employer] Care [employer] Worker Apprentice 03/11/22 documented as of this encounter
--- OUTSIDE RECORDS SUMMARY | 2024-09-05 19:57 | XMS_ITS | Encounter Summary ---
Author Organization [facility] Address [address] [place] [address] Phone Care Team Providers Care Study Assistant Name Role Phone Jer Daniels MD Primary Care Provider [phone]- [phone] Reason for Visit * Reason Onset Date Comments Refill Request 08/23/2023 carbidopa-levodo pa, metoprolol, sertraline Encounter Details Date Type Department Care Team (Late st Contact Info) Description 08/23/2023 [facility] [place] [address] [place] [address] Jer Daniels MD [address] [facility] [address] [place] [address] Refill Request (carbidopa-levodopa, metoprolol, sertraline) Social History [...] th e electric, gas, oil, or water [employer] threatened to shut off services in your [...] documented as of this encounter Care Teams Study Assistant Relationship Specialty Start Date End Date Jer Daniels MD [facility] [place] [address] PCP - General Geriatrics 05/30/22 documented as of this encounter
--- OUTSIDE RECORDS SUMMARY | 2024-09-05 19:57 | XMS_ITS | Encounter Summary ---
Author Organization [facility] Address [address] [place] [address] Phone Care Team Providers Care Director Of Catering Name Role Phone Jer Daniels MD Primary Care Provider [phone] Encounter Details Date Type Department Care Team (Late st Contact Info) Description 02/14/2023 Scanned Document [employer] Complaint Adjuster Provider, Interface Default Social History Tobacco Use [...] of this encounter Care Teams Director Of Catering Relationship Specialty Start Date End Date Jer Daniels MD [address] [place] [address] PCP - General Geriatrics 05/30/22 documented as of this encounter
--- OUTSIDE RECORDS SUMMARY | 2024-09-05 19:57 | XMS_ITS | Encounter Summary ---
Author Organization [facility] Address [address] [place] [address] Phone Care Team Providers Care Director Summer Sessions Name Role Phone Jer Daniels MD Primary Care Provider [phone]- [phone] Reason for Visit * Reason Onset Date Comments Kayleenarle 2023 Encounter Details Date Type Department Care Team (Late st Contact Info) Description 2023 Telephone [facility] Access [facility] Appointment Request [address] [place] [address] Identified, No Provider [employer] Social History Tobacco Use Types Packs/Day Years Used Date Smoking Tobacco: Never Smokeless Tobacco: Never Alcohol Use Standard Drinks/Week Comments Yes 0 (1 standard drink = 0.6 oz pur e alcohol) 1 drink weekly [facility] Utilities Answer Date Recorded In the past [...] SUE MAYBERRY , not found in the [employer] system. Need to confim proxy is not a [facility] patient. If not they will needto [...] : Mon1945 Patient's Home Address: [address] City: [facility] [place] & ZIP: [place] [address] Telephone (Include Area Code) : [phone] Action? : Authorized Access Which age group are you requesting a proxy change for? Adult (18 and older) Proxy Name: SUE MAYBERRY Proxy Date of : Mon10/26/1976 Last 4 digits of Proxy SS#: [id number] Proxy Address: [address] City of Proxy: [facility] & ZIP of Proxy: [place] [address] Proxy Telephone (Include Area Code): [phone] Authorization: I have read and understand the above information and hereby request removal or authorization to the above-named patient's [employer] online account. Printed Name of Patient or Parent/Legal Guardian: MAGDALENA MAYBERRY Date of Authorization: Tu04/25/2023 ER DEVELOPMENT FACILITATOR ER DEVELOPMENT FACILITATOR documented in this encounter Plan of Treatment [...] as of this encounter Care Teams Director Summer Sessions Relationship Specialty Start Date End Date Jer Daniels MD [address] [place] [address] PCP - General Geriatrics 05/30/22 documented as of this encounter
--- OUTSIDE RECORDS SUMMARY | 2024-09-05 19:57 | XMS_ITS | Clinical Summary ---
Author Organization [facility] al Address [address] [place] [address] Care Team Providers Care Security Guard Dispatcher Name Role Phone Vangie Tillman PT Unavailable Unavailable Noelle Noe MD Unavailable [phone] Erma Schultz DNP Unavailable [phone] Jud Carmona MA Unavailable [phone] Allergies Active Allergy Reactions Criticality Noted [...] 03/28/2022 Assessment & Plan (03/28/2022 1:39 PM RN ED): Referred to ENT for f/u. Presence of [...] 11/11/2020 Assessment & Plan (03/28/2022 1:40 PM RN ED): Ambulates with a standard walker, encouraged safety. [...] 03/30/2020 Assessment & Plan (04/21/2022 1:45 PM RN ED): Clinically improved, continue current prescription medications, sertraline. Assessment & Plan (11/12/2021 9:16 PM CDT): Stable. Cont. Current prescription medications. Assessment & Plan (06/05/2021 10:24 PM CDT): Stable. Cont. Current prescription medications. Assessment & Plan (11/11/2020 10:39 AM CDT): Stable. Cont. Current meds. Assessment & Plan (03/30/2020 4:14 PM RN ED): New diagnosis. Trial of sertraline 50 mg 1 p.o. q.d. patient instructed to call 911 or go to nearest emergency room if she feels she is going to be a harm to herself or to others. Mild intermittent asthma without complication Assessment & Plan (04/21/2022 1:45 PM RN ED): Asx. At baseline, cont current Rx meds, Albuterol. Assessment & Plan (11/12/2021 9:13 PM CDT): Asx. At baseline, continue current Rx meds. Assessment & Plan (06/05/2021 10:23 PM CDT): At baseline, cont current Rx meds. Assessment & Plan (11/11/2020 10:39 AM CDT): At baseline, cont current mgmt. Assessment & Plan (03/30/2020 4:15 PM RN ED): Stable. Cont. Current meds. Class 1 obesity [...] recommended. Assessment & Plan (02/18/2019 2:28 PM RN ED): Improving. Encouraged patient to decrease weight, increase daily exercise, and modify diet. Assessment & Plan (08/13/2018 4:38 PM CDT): Obesity is unchanged. Discussed the patient's BMI. The BMI is above average; BMI management plan is completed. General weight loss/lifestyle modification strategies discussed (elicit support from others; identify saboteurs; non-food rewards, etc). Assessment & Plan (03/09/2018 2:41 PM RN ED): Obesity is unchanged. Discussed the patient's BMI. The BMI is above average; BMI management plan is completed. General weight loss/lifestyle modification strategies discussed (elicit support from others; identify saboteurs; non-food rewards, etc). Assessment & Plan (02/17/2018 4:35 PM RN ED): Obesity is unchanged. Discussed the patient's BMI. The BMI is above average; BMI management plan is completed. General weight loss/lifestyle modification strategies discussed (elicit support from others; identify saboteurs; non-food rewards, etc). Assessment & Plan (02/13/2018 2:38 PM RN ED): Obesity is unchanged. Discussed the patient's BMI. [...] greens, fat-free milk, cottage cheese, nuts like [id number], protein bars with 10-15 g of protein [...] Patient is currently stable, recommended f/u with turbine subassembler. Referral given. Vitamin D deficiency 03/29/2017 Assessment & Plan (08/13/2018 4:38 PM CDT): Labs ordered, will follow. Assessment & Plan (03/29/2017 12:41 PM RN ED): Labs ordered, will follow. 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 Assessment & Plan (02/18/2019 2:26 PM RN ED): Worsening, low cholesterol diet recommended. Assessment & Plan (08/13/2018 4:37 PM CDT): Lipid abnormalities are improving with treatment. Nutritional counseling was provided. and Pharmacotherapy as ordered. Lipids will be reassessed in 6 months. Pravastatin 40 mg qd Assessment & Plan (03/29/2017 12:40 PM RN ED): Encouraged a low chol. Diet. Will follow. Fibromyalgia 03/29/2017 Overview (03/29/2017): Managed by Pain Mgmt. Assessment & Plan (08/14/2019 11:08 AM CDT): Clinically resolved. D/C'd Cymbalta on her own after losing the medication. Does not want to re-start it. Assessment & Plan (02/18/2019 2:27 PM RN ED): Stable. Cont. Current meds. Assessment & Plan (08/13/2018 4:39 PM CDT): Clinically improved, continue Cymbalta 30 mg qd. Paroxysmal atrial fibrillation 12/21/2016 Overview (03/29/2017): Managed by cardiology Assessment & Plan (04/21/2022 1:44 PM RN ED): Rate-controlled, cont Plavix Assessment & Plan (03/21/2022 9:04 AM RN ED): S/p installation of a left atrial appendage occluder device to help with mitral regurgitation. Discharge summary reviewed. Patient will continue to f/u with cardiology. Assessment & Plan (11/11/2020 10:40 AM CDT): Rate-controlled, managed by cardiology. Cont current meds. Assessment & Plan (08/14/2019 11:06 AM CDT): Asx. Continue current therapy. Managed by cardiology. Assessment & Plan (02/18/2019 2:27 PM RN ED): Rate-controlled, managed by cardiology. Assessment & Plan (01/27/2017 1:29 PM RN ED): Regular sinus rhythm in office today with controlled rate. Continue to monitor. Continue on aspirin and metoprolol daily Assessment & Plan (12/21/2016 4:55 PM CDT): Patient had a loop recorder implanted after a syncopal event. She states shortly after recent hip surgery she received a phone call from her turbine subassembler reporting she had flipped in out of atrial fibrillation. She will continue to follow with her turbine subassembler. He started her on metoprolol. Medication list [...] Cataract Assessment & Plan (01/27/2017 1:36 PM RN ED): Patient is stable and healthy enough to [...] Anxiety Assessment & Plan (04/21/2022 1:45 PM RN ED): Clinically improved, continue current prescription medications, sertraline. Assessment & Plan (11/12/2021 9:13 PM CDT): Clinically improved, continue current prescription medications. Assessment & Plan (06/05/2021 10:21 PM CDT): Stable. Cont. Current prescription medications. Assessment & Plan (11/11/2020 10:39 AM CDT): Clinically improved, continue current meds. Assessment & Plan (03/30/2020 4:14 PM RN ED): Worsening. Trial of sertraline 50 mg 1 [...] it. Assessment & Plan (02/18/2019 2:27 PM RN ED): Clinically improved, continue current meds. Assessment & [...] follow. Assessment & Plan (03/29/2017 12:41 PM RN ED): Asx. Cont current mgmt. Psoriasis 04/05/2013 Overview (06/02/2016): Psoriasis Chronic pain syndrome 04/05/2013 Overview (03/29/2017): Managed by Pain Mgmt. Primary hypertension 04/05/2013 Overview (06/03/2016): Hypertension Assessment & Plan (04/21/2022 1:45 PM RN ED): Blood pressure at goal less than 140/90, [...] meds. Assessment & Plan (02/18/2019 2:24 PM RN ED): Stable. Cont. Current meds. Assessment & Plan (08/13/2018 4:35 PM CDT): Hypertension is improving with treatment. Continue current treatment regimen. Dietary sodium restriction. Regular aerobic exercise. Continue current medications. Ambulatory blood pressure monitoring. Blood pressure will be reassessed at the next regular appointment. Metoprolol xl 25 mg bid, Olmesartan 20 mg qd Followed by cardiology. Requested office notes from cardiology office. quality assistant called their office during patient's ov, I did not receive them prior to patient leaving. Assessment & Plan (03/29/2017 12:40 PM RN ED): Hypertension is unchanged. Continue current treatment regimen. Dietary sodium restriction. Weight loss. Regular aerobic exercise. Continue current medications. Blood pressure will be reassessed at the next regular appointment. Assessment & Plan (01/27/2017 1:29 PM RN ED): Stable. Pt was advised of continuing heart healthy DASH diet, increase exercise as tolerated, and continuing to monitor for any lower leg edema, headaches, changes in vision, or facial flushing. Continue ASA and anti-hypertensives as prescribed. Arthritis 04/05/2013 Overview (06/03/2016): Arthritis Resolved Problems Problem Noted Date Diagnosed Date Resolved Date Facial contusion, sequela 12/14/2021 Assessment & Plan (03/28/2022 1:39 PM RN ED): Bruising healing. Assessment & Plan (12/14/2021 9:15 [...] 08/13/2018 Assessment & Plan (03/09/2018 2:40 PM RN ED): Here for follow up on bronchitis and [...] improved Assessment & Plan (02/17/2018 4:44 PM RN ED): Here for follow up on bronchitis and [...] 03/29/2017 Assessment & Plan (01/27/2017 1:31 PM RN ED): Pt was advised to continue current therapy [...] glucose Assessment & Plan (03/29/2017 12:41 PM RN ED): Asx. Labs ordered. Immunizations Immunization Administration Dates [...] a. Hx Other Medical Dr. Sherif howe hand roller engraver Hx Other Medical Dr. Jazmin leon Primary [...] on file Legal Sex Female 3:09 AM RN ED Gender Identity Not on file Sexual Orientation Straight 02/06/2020 1: 53 PM RN ED Occupation Industry Job Start Date Job End Date retired Not on file Not on file Not on file Obstetrics History Last Filed Vital Signs Vital Sign Reading Time Taken Comments Blood Pressure 124/68 04/21/2022 12:35 PM RN ED Pulse 79 04/21/2022 12:35 PM RN ED Temperature 36.3 C (97.4 F) 04/21/2022 12:35 PM RN ED Respiratory Rate 18 04/21/2022 12:35 PM RN ED Oxygen Saturation 96% 04/21/2022 12:35 PM RN ED Inhaled Oxygen Concentration - - Weight 86.2 kg (190 lb 1.6 oz) 04/21/2022 12:35 PM RN ED Height 160 cm (5' 2.99) 04/21/2022 12:35 PM RN ED Body Mass Index 33.68 04/21/2022 12:35 PM RN ED Plan of Treatment Health Maintenance Due Date [...] 08/13/2018, 019 Medical Devices Implanted Type Area Firearms Sales Associate Device Identifier Shelf Expiration Date Model / Serial / Lot [employer] Percutaneous Transcatheter Amplatzer Amulet 22mm [id number] - [id number] Implanted:Qty: 1 on 03/09/2022 by Debi Garcia MD at [facility] [employer] 10/27/2026 [id number] / [id number] Procedures Procedure Name Priority Date/Time Associated Diagnosis Comments HEPATITIS C ANTIBODY Routine 08/13/2018 3:12 PM CDT Encounter for hepatitis C screening test for low risk patient COLONOSCOPY IMAGES 10/15/2013 from Last 3 Months or Most Recently Relevant to Health Maintenance Results * Hepatitis C antibody (08/13/2018 3:12 PM CDT) Hep C Ab Negative Negative ZANDER GOMES (DAVID) Comment:Testing performed by : [facility], [address] [place] [address], [place]., [address] Blood specimen (specimen) 08/13/2018 3:12 PM CDT 08/14/2018 9:36 AM CDT us Waleska Alvarez DO LAB MICROBIOLOGY - GENERAL ORDERABLES Final Result ZANDER GOMES (DAVID) 1 [facility] Department [place] [address] 394 * COLONOSCOPY IMAGES (10/15/2013) Anatomical Region Laterality Modality Other Narrative 10/15/2013 Ordered by an unspecified provider. us Historical Provider GI PROCEDURE ORDERABLES F inal Result from Last 3 Months or Most Recently Relevant to Health Maintenance Additional Health Concerns Infection Onset Date Last Indicated MDR gram neg/ESBL Comment:ESBL E.coli urine 12/21/16 12/24/2016 12/24/2016 Insurance AETNA MEDICARE [facility] MEDICARE AETNA MEDICARE Care Teams Security Guard Dispatcher Relationship Specialty Start Date End Date Vangie Tillman, BRISA Physical Therapist Physical Therapy 02/16/17 Noelle Noe MD [address] [place] [address] Consulting Physician Cardiology 11/09/20 Erma Schultz DNP [address] [place] [address] Nurse Practitioner Neurology 11/10/21 Jud Carmona MA [address] [place] [address] [address] [place] [address] ACO Care Zipper Ironer 03/11/22
--- OUTSIDE RECORDS SUMMARY | 2024-09-05 19:57 | XMS_ITS | Encounter Summary ---
Author Organization [facility] Address [address] [place] [address] Phone Care Team Providers Care Butter Liquefier Name Role Phone eJr Daniels MD Primary Care Provider [phone] Encounter Details Date Type Department Care Team (Late Contact Info) Description 09/07/2022 [facility]phone [facility] [address] [place] [address] Ronny Travis, PT [place] Social History Tobacco Use Types Packs/Day Years [...] Office Visit [facility] [address] [place] [phone] Norma Hein, MIXING PLANT DUMPER, AIRCRAFT STRUCTURAL DESIGN ENGINEER [address] [place] [address] documented as of this encounter Visit Diagnoses Not on filedocumented in this encounter Care Teams Butter Liquefier Relationship Specialty Start Date End Date Jer Daniels MD PCP - General Family Medicine 08/04/22 documented as of this encounter
--- OUTSIDE RECORDS SUMMARY | 2024-09-05 19:57 | XMS_ITS | Encounter Summary ---
Author Organization [facility] Address [address] [place] [address] Phone Care Team Providers Care Gravity Prospecting Operator Name Role Phone Vangie Tillman PT Unavailable Unavailable Donna Ramirez Unavailable Unavailable Daisy Desai MD Primary Care Provider [phone] Waleska Alvarez DO Primary Care Provider [phone] Maury Mckenna MD Unavailable [phone] Noelle Noe MD Unavailable Lindsay Parada MA Unavailable Erma Schultz DNP Unavailable [phone] Jud Carmona MA Unavailable [phone] Encounter Details Date Type Department Care Team (Late st Contact Info) Description 05/01/2017 Orders Only [facility] ProviderLuly MD [address] [place] [address] Social History Tobacco Use Types Packs/Day Years Used Date Smoking Tobacco: Never Smokeless Tobacco: Never Alcohol Use Standard Drinks/Week Comments Yes 0 (1 standard drink = 0.6 oz pur e alcohol) Comments Unknown Sex and Gender Information Value Date Recorded Sex Assigned at Not on file Legal Sex Female 3:09 AM TEST EQUIPMENT MECHANIC Gender Identity Not on file Sexual Orientation Straight 02/06/2020 1: 53 PM TEST EQUIPMENT MECHANIC documented as of this encounter Plan of Treatment Not on file documented as of this encounter Procedures Procedure Name Priority Date/Time Associated Diagnosis Comments DISCHARGE LABORATORY CUMULATIVE REPORT 05/01/2017 12:00 AM TEST EQUIPMENT MECHANIC documented in this encounter Results * DISCHARGE LABORATORY CUMULATIVE REPORT (05/01/2017 12:00 AM TEST EQUIPMENT MECHANIC) Narrative 05/01/2017 12:00 AM TEST EQUIPMENT MECHANIC Ordered by an unspecified provider. us Historical Provider LAB BLOOD ORDERABLES Alize l Result documented in this encounter Visit Diagnoses Not on filedocumented in this encounter Additional Health Concerns Infection Onset Date Last Indicated Resolved Time MDR gram neg/ESBL Comment:ESBL E.coli urine 12/21/16 12/24/2016 12/24/2016 documented as of this encounter Care Teams Gravity Prospecting Operator Relationship Specialty Start Date End Date Daisy Desai MD PCP - General 05/01/17 05/04/17 Waleska Alvarez DO PCP - General Family Medicine 05/05/17 12/06/23 Vangie Tillman, BRISA Physical Therapist Physical Therapy 02/16/17 Donna Ramirez Physical Therapist Physical Therapy 03/23/17 11/09/21 Maury Mckenna MD Surgeon Orthopedic Surgery 04/04/19 11/09/21 Noelle Noe MD [address] [place] [address] Consulting Physician Cardiology 11/09/20 Lindsay Parada MA [address] [place] [address] [address] [place] [address] ACO Care Academic Hospitalist 08/05/21 08/10/21 Erma Schultz DNP [address] [facility] [address] [place] [address] Nurse Practitioner Neurology 11/10/21 Jud Carmona MA [address] [facility] [address] [place] [address] ACO Care Academic Hospitalist 03/11/22 documented as of this encounter
--- OUTSIDE RECORDS SUMMARY | 2024-09-05 19:57 | XMS_ITS | Encounter Summary ---
Author Organization [facility] Address [address] [place] [address] Phone Care Team Providers Care Air Defense Specialist Name Role Phone Jer Daniels MD Primary Care Provider [phone] Encounter Details Date Type Department Care Team (Late st Contact Info) Description 09/14/2023 Patient Related Communication [facility] [address] [facility] [address] [place], [place] [id number] Lizbeth Pastor, HEAD STOCK TRANSFER CLERK Social History Tobacco Use Types Packs/Day Years [...] documented as of this encounter Care Teams Air Defense Specialist Relationship Specialty Start Date End Date Jer Daniels MD [address] [place] [address] PCP - General Geriatrics 05/30/22 documented as of this encounter
--- OUTSIDE RECORDS SUMMARY | 2024-09-05 19:57 | XMS_ITS | Encounter Summary ---
Author Organization [facility] Address [address] [place] [address] Phone Care Team Providers Care Junior Technical Writer Name Role Phone Jer Daniels MD Primary Care Provider [phone] Encounter Details Date Type Department Care Team (Late st Contact Info) Description 09/05/2024 Telephone [facility] [address] [place] [address] Norma Hein, MONOTYPE SETTER, ELECTROMEDICAL SERVICE ENGINEER [address] [place] [address] Social History Tobacco Use Types Packs/Day Years [...] Office Visit [facility] Family [facility] [address] [place] [address] Norma Hein, MONOTYPE SETTER, ELECTROMEDICAL SERVICE ENGINEER [address] [place] [address] documented as of this encounter Visit Diagnoses Not on filedocumented in this encounter Care Teams Junior Technical Writer Relationship Specialty Start Date End Date Jer Daniels MD PCP - General Family Medicine 08/04/22 documented as of this encounter
--- OUTSIDE RECORDS SUMMARY | 2024-09-05 19:57 | XMS_ITS | Clinical Summary ---
Author Organization [facility] Address [address] [place] [address] Phone Care Team Providers Care Quick Print Operator Name Role Phone Jer Daniels MD Primary Care Provider [phone] Allergies Active Allergy Reactions Criticality Noted Date [...] th e electric, gas, oil, or water [employer] threatened to shut off services in your [...] any time in the past [address] [facility], were you homeless or living in a jail (including now)? No 11/02/2023 Comments No Sex and Gender Information Value Date Recorded Sex Assigned at Not on file Legal Sex Female 10:58 AM CDT Gender Identity Not on file Sexual Orientation Not on file Last Filed Vital Signs Vital Sign Reading Time Taken Comments Blood Pressure 136/50 03/25/2024 2:16 PM MACHINIST GENERAL Pulse 64 03/25/2024 2:16 PM MACHINIST GENERAL Temperature 36.3 C (97.3 F) 03/08/2024 8:57 AM MACHINIST GENERAL Respiratory Rate 18 03/08/2024 8:57 AM MACHINIST GENERAL Oxygen Saturation 99% 03/25/2024 2:16 PM MACHINIST GENERAL Inhaled Oxygen Concentration - - Weight 75.8 kg (167 lb) 03/25/2024 2:16 PM MACHINIST GENERAL Height 160 cm (5' 3) 03/25/2024 2:16 PM MACHINIST GENERAL Body Mass Index 29.58 03/25/2024 2:16 PM MACHINIST GENERAL Plan of Treatment Health Maintenance Due Date [...] this topic Medical Devices Implanted Type Area Fire Adjuster Device Identifier Shelf Expiration Date Model / [...] Date/Time Associated Diagnosis Comments COMP METABOLIC PANEL ([facility]) Routine 11/27/2023 6:45 AM CDT 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 Relevant to Health Maintenance Results * COMP METABOLIC PANEL ([facility]) (11/27/2023 6:45 AM CDT) GLUCOSE ([facility]) 88 70 - 99 mg/dL [facility] BUN ([facility]) 17 8 - 20 mg/dL [facility] CREATININE ([facility]) 0.66 0.52 - 1.04 mg/dL [facility] eGFR (2020 CKD-EPI) ([facility]) 90 mL/min/1.7 3m2 [facility] SODIUM ([facility]) 140 136 - 145 mmol/L [facility] POTASSIUM ([facility]) 4.4 3.5 - 5.0 mmol/l [facility] CHLORIDE ([facility]) 103 98 - 107 mmol/L [facility] CARBON DIOXIDE ([facility]) 27 22 - 30 mmol/L [facility] AST [facility] 27 14 - 40 U/L [facility] ALKALINE PHOSPHATASE [facility]) 86 38 - 126 U/L [facility] BILIRUBIN TOTAL ([facility]) 0.5 0.2 - 1.3 mg/dL [facility] TOTAL PROTEIN ([facility]) 7.3 6.3 - 8.2 gm/dL [facility] ALBUMIN ([facility]) 4.3 3.5 - 5.0 gm/dL [facility] CALCIUM ([facility]) 9.7 8.4 - 10.2 mg/dL [facility] ALT ([facility]) 14 4 - 34 U/L [facility] 11/27/2023 6:45 AM CDT 11/27/2023 8:12 AM CDT Narrative [facility] - 11/27/2023 9:02 AM CDT Release to patient->Immediate us Jer Daniels MD [facility] - BLOOD Final Result Performing Organization Address City/State/[facility] Co de Phone Number [facility] [address] [place] [address], from Last 3 Months or Most Recently Relevant to Health Maintenance Insurance A[employer]NA MEDICARE ADVANTAGE AETNA MEDICARE ADVANTAGE Advance Directives For more information, please contact: [phone] * No CPR / Do Not Intubate [...] 6:30 PM 06/27/2023 6:30 PM Care Teams Quick Print Operator Relationship Specialty Start Date End Date Jer Daniels MD [address] [facility] [address] [place] [address] PCP - General Geriatrics 05/30/22
--- OUTSIDE RECORDS SUMMARY | 2024-09-05 19:57 | XMS_ITS | Encounter Summary ---
Author Organization [facility] Address [address] [place] [address] Phone Care Team Providers Care Senior Financial Accountant Name Role Phone Jer Daniels MD Primary Care Provider [phone]- [phone] Reason for Visit * Reason Onset Date Comments Home Health Communication 09/04/2023 Encounter Details Date Type Department Care Team (Latest Contact Info) Description 09/04/2023 Patient Related Communication [facility] [address] [place] [address] Jer Daniels MD [address] [place] [address] Home Health Communication Social History Tobacco Use [...] from your doctor or pharmacy? Sometimes 06/27/2023 [facility] Utilities Answer Date Recorded In the [...] documented as of this encounter Care Teams Senior Financial Accountant Relationship Specialty Start Date End Date Jer Daniels MD [address] [facility] [address] [place] [address] PCP - General Geriatrics 05/30/22 documented as of this encounter
--- OUTSIDE RECORDS SUMMARY | 2024-09-05 19:57 | XMS_ITS | Encounter Summary ---
Author Organization [facility] Address [address] [place] [address] Phone Care Team Providers Care Hospital Director Name Role Phone Jer Daniels MD Primary Care Provider [phone]- [phone] Encounter Details Date Type Department Care Team (Late st Contact Info) Description 09/05/2024 Telephone [facility] Medicine [facility] [address] [place] [address] Norma Hein, SCRAP SHEAR OPERATOR, MOLD MAKER PLASTIC MOLDS [address] [place] [address] Social History Tobacco Use Types Packs/Day Years [...] - Family [facility] [address] [place] [address] Norma Hein, SCRAP SHEAR OPERATOR, MOLD MAKER PLASTIC MOLDS [address] [place] [address] documented as of this encounter Visit Diagnoses Not on filedocumented in this encounter Care Teams Hospital Director Relationship Specialty Start Date End Date Jer Daniels MD PCP - General Family Medicine 08/04/22 documented as of this encounter
--- OUTSIDE RECORDS SUMMARY | 2024-09-05 19:57 | XMS_ITS | Encounter Summary ---
Author Organization [facility] Address [address] [place] [address] Phone Care Team Providers Care Morgue Keeper Name Role Phone Jer Daniels MD Primary Care Provider +1- [phone] Reason for Visit * Reason Onset Date Comments Home Care Orders 08/23/2023 Encounter Details Date Type Department Care Team (Latest Contact Info) Description 08/23/2023 Patient Related Communication [facility] [place] [address] [place] [address] Lizbeth Pastor APRN Home Care Orders Social [...] doctor or pharmacy? Sometimes 06/27/2023 [facility] Utilities Answer Date Recorded In [...] documented as of this encounter Care Teams Morgue Keeper Relationship Specialty Start Date End Date Jer Daniels MD [address] [place] [place] [address] PCP - General Geriatrics 05/30/22 documented as of this encounter
--- OUTSIDE RECORDS SUMMARY | 2024-09-05 19:57 | XMS_ITS | Encounter Summary ---
Author Organization [facility] Address [address] [place] [address] Phone Care Team Providers Care Registered Safety Engineer Name Role Phone Jer Daniels MD Primary Care Provider +1- [phone] Encounter Details Date Type Department Care Team (Late st Contact Info) Description 09/12/2023 Patient Related Communication [address] [address] Nanette Barr, PT Social History [...] from your doctor or pharmacy? Sometimes 06/27/2023 [facility] Utilities Answer Date Recorded In the past [...] place to sleep or slept in a halfway (including now)? No 04/11/2023 Housing Stability Vital [...] as of this encounter Care Teams Registered Safety Engineer Relationship Specialty Start Date End Date Jer Daniels MD [address] [place] [address] PCP - General Geriatrics 05/30/22 documented as of this encounter
--- OUTSIDE RECORDS SUMMARY | 2024-09-05 19:57 | XMS_ITS | Encounter Summary ---
Author Organization [facility] Address [address] [place] [address] Phone Care Team Providers Care Computer Engineering Professor Name Role Phone Jer Daniels MD Primary Care Provider +1- [phone] Encounter Details Date Type Department Care Team (Late st Contact Info) Description 08/30/2023 Patient Related Communication [facility] [place] [address] [place], [place] [id number] Jer Daniels MD [address] [place], [place] [id number] Social History Tobacco Use Types Packs/Day Years [...] doctor or pharmacy? Sometimes 06/27/2023 [facility] Utilities Answer Date Recorded In [...] documented as of this encounter Care Teams Computer Engineering Professor Relationship Specialty Start Date End Date Jer Daniels MD [address] [facility] [address] [place] [address] PCP - General Geriatrics 05/30/22 documented as of this encounter
--- OUTSIDE RECORDS SUMMARY | 2024-09-05 19:57 | XMS_ITS | Encounter Summary ---
Author Organization [facility] Address [address] [place] [address] Phone Care Team Providers Care Cafeteria Aide Name Role Phone Jer Daniels MD Primary Care Provider +1- [phone] Encounter Details Date Type Department Care Team (Late st Contact Info) Description 01/24/2023 Scanned Document Non [facility] Referring Docs Provider, Outside Social History [...] documented as of this encounter Care Teams Cafeteria Aide Relationship Specialty Start Date End Date Jer Daniels MD [address] [facility] [address] [place] [address] PCP - General Geriatrics 05/30/22 documented as of this encounter
--- OUTSIDE RECORDS SUMMARY | 2024-09-05 19:57 | XMS_ITS | Encounter Summary ---
Author Organization [facility] Address [address] [place] [address] Phone Care Team Providers Care Split And Drum Room Supervisor Name Role Phone Jer Diop MD Primary Care Provider +1- [phone] Reason for Visit * Reason Onset Date Comments Dizziness 09/12/2022 Encounter Details Date Type Department Care Team (Late st Contact Info) Description 09/12/2022 [facility] [place] [address] [place] [address] Jer Diop MD [address] [facility] [address] [place], [place] [id number] Dizziness Social History Tobacco Use Types Packs/Day [...] LM stating she was recently in [facility] for a fall, states she has been [...] documented as of this encounter Care Teams Split And Drum Room Supervisor Relationship Specialty Start Date End Date Jer Diop MD [address] [facility] [address] [address] PCP - General Geriatrics 05/30/22 documented as of this encounter
--- OUTSIDE RECORDS SUMMARY | 2024-09-05 19:57 | XMS_ITS | Encounter Summary ---
Author Organization [facility] Address [address] [place] [address] Phone Care Team Providers Care Database Engineer Name Role Phone Jer Daniels MD Primary Care Provider +1- [phone] Encounter Details Date Type Department Care Team (Late st Contact Info) Description 08/14/2023 Scanned Document [facility] Crystal Slicer Provider, Interface Default Social History Tobacco Use [...] from your doctor or pharmacy? Sometimes 06/27/2023 [facility] Utilities Answer Date Recorded In [...] documented as of this encounter Care Teams Database Engineer Relationship Specialty Start Date End Date Jer Daniels MD [address] [facility] [address] [place] [address] PCP - General Geriatrics 05/30/22 documented as of this encounter
--- OUTSIDE RECORDS SUMMARY | 2024-09-05 19:57 | XMS_ITS | Encounter Summary ---
Author Organization [facility] Address [address] [place] [address] Phone Care Team Providers Care Launderer Hand Name Role Phone Jer Daniels MD Primary Care Provider +1- [phone] Encounter Details Date Type Department Care Team (Late st Contact Info) Description 10/25/2022 [facility]phone [facility] [place] [address] [place], [place] [id number] Jer Daniels MD [address] [facility] [address] [place], [place] [address] Social History Tobacco Use Types Packs/Day Years [...] Notes * Telephone Encounter - Jerilyn Patton, CHIEF PETROLEUM ENGINEER - 10/25/2022 11:[address] Daniels is requesting that we call [facility] to clarify what medications [...] documented as of this encounter Care Teams Launderer Hand Relationship Specialty Start Date End Date Jer Daniels MD [address] [facility] [address] [place] [address] PCP - General Geriatrics 05/30/22 documented as of this encounter
--- OUTSIDE RECORDS SUMMARY | 2024-09-05 19:57 | XMS_ITS | Encounter Summary ---
Author Organization [facility] Address [address] [place] [address] Phone Care Team Providers Care Supply Chain Design Manager Name Role Phone Jer Daniels MD Primary Care Provider +1- [phone] Encounter Details Date Type Department Care Team (Late st Contact Info) Description 08/29/2023 Patient Related Communication [address] [address] Nanette Barr, PT Social History [...] from your doctor or pharmacy? Sometimes 06/27/2023 [facility] Utilities Answer Date Recorded In the [...] documented as of this encounter Care Teams Supply Chain Design Manager Relationship Specialty Start Date End Date Jer Daniels MD [address] [place] [address] PCP - General Geriatrics 05/30/22 documented as of this encounter
[2024-09-05 20:03] VITALS: BP 155/70; PULSE 62; RESP 17; TEMP 36.9; O2SAT 100
[2024-09-05 20:04] VITALS: BP 155/70; PULSE 60; RESP 16; O2SAT 100
[2024-09-05] MEDS: ACETAMINOPHEN 325 MG TABLET 650 MG PO (21:33)
--- NOTE | 2024-09-05 21:59 | PC.NURSE ---
This RN called Jordy at [employer] to give report ([phone]). This RN did not receive an answer. Will continue to call.
--- NOTE | 2024-09-05 22:00 | PC.NURSE ---
This RN called to give update on pt. Pt informed this RN that he has no way to transport pt back to [place]. This RN will attempt to get pt ambulance ride.
--- NOTE | 2024-09-05 22:03 | PC.NURSE ---
This RN attempted to call [place] at a different number x2 with no answer. ([phone])
--- NOTE | 2024-09-05 22:24 | PC.NURSE ---
This RN called and spoke to Amelia BAEZ and gave report on pt. Will call back w an ETA once ambulance arrives.
--- NOTE | 2024-09-06 00:36 | PC.NURSE ---
This RN attempted to call [facility] to give ETA with no response.
--- NOTE | 2024-09-06 01:13 | PC.NURSE ---
This RN attempted to call [facility] again to give ETA with no response.
--- NOTE | 2024-09-06 01:14 | PC.NURSE ---
This RN attempted to call to notify of pt arrival with no response. [facility] departed from this facility at this time.
== END 2024-09-06 01:17 ==
PROVIDERS: Emergency Provider Physician Assistant
DX: S01.81XA Laceration without foreign body of other part of head, initial encounter (principal); S02.2XXA Fracture of nasal bones, initial encounter for closed fracture; G20.A1 Parkinson's disease without dyskinesia, without mention of fluctuations; F03.90 Unspecified dementia, unspecified severity, without behavioral disturbance, psychotic disturbance, mood disturbance, and anxiety; I10 Essential (primary) hypertension; I48.0 Paroxysmal atrial fibrillation; J45.20 Mild intermittent asthma, uncomplicated; E78.5 Hyperlipidemia, unspecified; D51.0 Vitamin B12 deficiency 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; F41.9 Anxiety disorder, unspecified; Z66 Do not resuscitate; Z79.899 Other long term (current) drug therapy; M50.322 Other cervical disc degeneration at C5-C6 level; M48.02 Spinal stenosis, cervical region; V00.811A Fall from moving wheelchair (powered), initial encounter
CPT/HCPCS: 12014; 70450; 70486; 72125; 99284; A9270